=== PATIENT | male | born 1945 | race Caucasian/White ===

== ENCOUNTER → 2020-05-02 12:50 | Outpatient (CLI) | payer MEDICARE, SELFPAY ==
--- NOTE | 2020-05-02 | IMM_PTH ---
PATIENT: HEIDY MARS LOC: [facility] U#:[id number] AGE/SX: 79/M ROOM: RE05/02/[address]: Dr. Andrew Vergara MD : 1945 BED: DIS: SPEC #: [id number] RECD: 05/04/20 12:26 STATUS: SHADE REQ #: [id number] ADRIANO: 05/02/20 00:[address]: Andrew Vergara DEPT: IMMUNOHISTOCHEMISTRY RECD BY: Hermila Mcclendon ENTERED: 05/04/20 12:27 SP TYPE: IMMUNO OTHR DR: Dr. Asad Bueno DO Tissues: B - PROSTATE RIGHT C - PROSTATE RIGHT F - PROSTATE LEFT Procedures: 34BE12 (add) P40 (add) 34BE12 (initial) PHYSICIAN & INSTITUTION [place] [id number] SPECIMEN INFORMATION: Tissue Source: B - Right prostate, mid, C - Right prostate, base, F - Left prostate, base Clinical Info: Elevated PSA Specimen Number: [id number] B, C & F CPT code: 69499, 90824 x5 METHODOLOGY: Deparaffinized sections of prefer/formalin-fixed tissue or PAP/DQ stained slides are incubated with monoclonal/polyclonal antibodies/oligonucleotide probes. Localization is made via biotin free immunoperoxidase method. Appropriate controls are performed and reacted as expected. Results on target cell population are indicated in the following table: RESULTS: ANTIBODY / CLONE RESULT Block B 34BE12 (34BE12) positive P40 (BC28) positive Block C 34BE12 (34BE12) positive P40 (BC28) positive Block F 34BE12 (34BE12) negative P40 (BC28) negative These tests were developed and their performance characteristics determined by [facility]. They may not have been cleared or approved by the U.S. Food and Drug Administration. The FDA has determined that such clearance or approval is not necessary. The above immunohistochemical/dualISH markers are ordered and reviewed by the Pathologist. INTERPRETATION: B. Right prostate, mid, core biopsy: Benign prostatic tissue. C. Right prostate, base, core biopsy: Benign prostatic tissue. F. Left prostate, base, core biopsy: Adenocarcinoma. AM:logan 05/05/2020
--- NOTE | 2020-05-02 08:00 | PROSBIL_PTH ---
PATIENT: HEIDY MARS LOC: [facility] U#:[id number] AGE/SX: 79/M ROOM: RE05/02/[address]: Dr. Andrew Vergara MD : 1945 BED: DIS: SPEC #: [id number] RECD: 05/02/20 13:24 STATUS: SHADE JEVON #: [id number] ADRIANO: 05/02/20 08:[address]: Andrew Vergara DEPT: SURGICAL PATHOLOGY RECD BY: Ani Vaughn ENTERED: 05/03/20 07:43 SP TYPE: PROST BX SANTIAGO DR: Dr. Asad Bueno DO Tissues: A - PROSTATE RIGHT B - PROSTATE RIGHT C - PROSTATE RIGHT D - PROSTATE LEFT E - PROSTATE LEFT F - PROSTATE LEFT Procedures: PROSTATE BX HEADER OPERATION: Prostate biopsy PRE-OP DIAGNOSIS: Elevated PSA TISSUE SUBMITTED: A - Right apex, B - Right mid, C - Right base, D - Left apex, E - Left mid, F - Left base MICROSCOPIC DIAGNOSIS A. Right prostate, apex, core biopsy: Focal glandular atrophy. Mild chronic inflammation. B. Right prostate, mid, core biopsy: Glandular atrophy and chronic inflammation. See comment. C. Right prostate, base, core biopsy: Glandular atrophy and mild chronic inflammation. See comment. D. Left prostate, apex, core biopsy: Focal glandular atrophy. Mild chronic inflammation. E. Left prostate, mid, core biopsy: Chronic inflammation and focal glandular atrophy. F. Left prostate, base, core biopsy: Adenocarcinoma. [place] grade: 6 (3+3) Cores involved: 2 out of 2 cores Tissue involved: 35% Greatest tumor length: 3.5 mm See comment. AM:logan 05/04/2020 COMMENT B, C & F - Immunohistochemistry ([id number]) supports the above diagnosis. MICROSCOPIC DESCRIPTION Slides are reviewed. GROSS DESCRIPTION A - Received is one container designated prostate, right apex. The specimen consists of one elongated fragment of light whitney-white soft tissue measuring 1 cm in length and 0.1 cm in diameter. The specimen is totally submitted in one cassette. B - Received is one container designated prostate, right mid. The specimen consists of two elongated fragments of light whitney-white soft tissue each measuring 1 cm in length and 0.1 cm in diameter. The specimen is totally submitted in one cassette. C - Received is one container designated prostate, right base. The specimen consists of two elongated fragments of light whitney-white soft tissue each measuring 1 cm in length and 0.1 cm in diameter. The specimen is totally submitted in one cassette. D - Received is one container designated prostate, left apex. The specimen consists of one elongated fragment of light whitney-white soft tissue measuring 1 cm in length and 0.1 cm in diameter. The specimen is totally submitted in one cassette. E - Received is one container designated prostate, left mid. The specimen consists of two elongated fragments of light whitney-white soft tissue each measuring 1 cm in length and 0.1 cm in diameter. The specimen is totally submitted in one cassette. F - Received is one container designated prostate, left base. The specimen consists of two elongated fragments of light whitney-white soft tissue each measuring 1.5 cm in length and 0.1 cm in diameter. The specimen is totally submitted in one cassette. / AM:logan 05/03/20 TC:0 CPT: G0146
== END ==
PROVIDERS: PCP Family Medicine; Visit Provider Urology
DX: R97.20 Elevated prostate specific antigen [PSA] (principal)
CPT/HCPCS: 88305; 88341; 88342; G0416

== ENCOUNTER → 2020-11-02 14:34 | Outpatient (CLI) | payer MEDICARE, SELFPAY | LOC: LABSPEC 14:36 → LAB 11-04 11:02 | PROVIDERS: PCP Family Medicine; Visit Provider Urology | DX: R97.20 Elevated prostate specific antigen [PSA] (principal) | CPT/HCPCS: 36415; 84153 ==

== ENCOUNTER 2021-03-15 11:24 | Outpatient (CLI) | payer MEDICARE, SELFPAY | END 2021-03-15 23:59 | disposition short-term general hospital (02) | LOC: LAB 11:26 | PROVIDERS: PCP Family Medicine; Referring Provider Urology; Visit Provider Urology | DX: R97.20 Elevated prostate specific antigen [PSA] (principal) | CPT/HCPCS: 36415; 84153 ==

== ENCOUNTER → 2021-10-03 | Outpatient (CLI) | payer MEDICARE, SELFPAY ==
[2021-10-03 10:15] LABS: PSA,Total- Diagnostic 8.85 ng/mL (0.0-4.0)
== END | disposition home or self-care (01) ==
PROVIDERS: PCP Family Medicine; Referring Provider Family Medicine; Visit Provider Family Medicine
DX: R53.83 Other fatigue (principal); C61 Malignant neoplasm of prostate
CPT/HCPCS: 36415; 84153; 84403

== ENCOUNTER → 2022-04-10 | Outpatient (CLI) | payer MEDICARE, SELFPAY ==
[2022-04-10 15:33] LABS: PSA,Total- Diagnostic 6.88 ng/mL (0.0-4.0)
== END | disposition home or self-care (01) ==
PROVIDERS: PCP Family Medicine; Referring Provider Urology; Visit Provider Urology
DX: R97.20 Elevated prostate specific antigen [PSA] (principal)
CPT/HCPCS: 36415; 84153

== ENCOUNTER → 2022-10-08 | Outpatient (CLI) | payer MEDICARE, SELFPAY ==
[2022-10-08 09:56] LABS: PSA,Total - Annual Screen 6.16 ng/mL (0.00-4.00)
== END | disposition home or self-care (01) ==
LOC: LAB 08:51
PROVIDERS: PCP Family Medicine; Referring Provider Urology; Visit Provider Urology
DX: Z12.5 Encounter for screening for malignant neoplasm of prostate (principal)
CPT/HCPCS: 36415; 84153; G0103

== ENCOUNTER → 2023-04-10 | Outpatient (CLI) | payer MEDICARE, SELFPAY ==
[2023-04-10 15:02] LABS: PSA,Total- Diagnostic 4.71 ng/mL (0.0-4.0)
== END | disposition home or self-care (01) ==
LOC: LAB 13:10
PROVIDERS: PCP Family Medicine; Referring Provider Urology; Visit Provider Urology
DX: C61 Malignant neoplasm of prostate (principal)
CPT/HCPCS: 36415; 84153

== ENCOUNTER → 2023-10-15 | Outpatient (CLI) | payer MEDICARE, SELFPAY | END | disposition home or self-care (01) | LOC: LAB 12:54 | PROVIDERS: PCP Family Medicine; Referring Provider Nurse Practitioner; Visit Provider Nurse Practitioner | DX: C61 Malignant neoplasm of prostate (principal) | CPT/HCPCS: 36415; 84153 ==

== ENCOUNTER → 2024-04-20 | Outpatient (CLI) | payer MEDICARE, SELFPAY ==
[2024-04-20 09:37] LABS: PSA,Total- Diagnostic 6.55 ng/mL (0.00-4.00)
== END | disposition home or self-care (01) ==
PROVIDERS: PCP Family Medicine; Referring Provider Urology; Visit Provider Urology
DX: C61 Malignant neoplasm of prostate (principal)
CPT/HCPCS: 36415; 84153

== ENCOUNTER → 2024-10-05 | Outpatient (CLI) | payer MEDICARE, SELFPAY ==
[2024-10-05 12:06] LABS: PSA,Total- Diagnostic 3.93 ng/mL (0.00-4.00)
== END | disposition home or self-care (01) ==
LOC: LAB 10:33
PROVIDERS: PCP Family Medicine; Referring Provider Nurse Practitioner; Visit Provider Nurse Practitioner
DX: C61 Malignant neoplasm of prostate (principal)
CPT/HCPCS: 36415; 84153

== ENCOUNTER 2024-10-21 15:00 | Inpatient (IN) | payer MEDICARE, SELFPAY ==
--- NOTE | 2024-10-15 16:56 | PAT.ANE_ITS ---
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 When Was Last Pacemaker Check QUESTION #4 FULL TEXT: You/Your Family Experience fever (hyperthermia) with Anesthesia Last Oral Intake Last Oral intake: Last Oral Intake NPO since Meds taken in AM with sips of water? Meds patient instructed to take am of surgery PONV PONV - compliance auditor: PONV - compliance auditor Female No 10/14/24 11:35 HX of Motion Sickness No 10/14/24 11:35 HX of N/V After Surgery No 10/14/24 11:35 Non-Smoker Yes 10/14/24 11:35 Duration of Surgery greater Yes 10/14/24 11:35 than 60 minutes Number of Risk Factors 2 10/14/24 11:35 PONV Score Moderate Risk 10/14/24 11:35 Respiratory Assessment Respiratory Assessment - compliance auditor: Respiratory Tract Infection Hx - compliance auditor Hx Respiratory Tract Infection No 10/14/24 11:35 STOP Sleep Apnea STOP Sleep Apnea - compliance auditor: STOP Sleep Apnea - compliance auditor Hx Hypertension Yes: CONTROLLED WITH MED 10/14/24 11:35 Hx Sleep Apnea No 10/14/24 11:35 CPAP BIPAP Do you snore loudly (louder No 10/14/24 11:35 than talking or can be heard Do you often feel tired/ Yes 10/14/24 11:35 fatigued/ sleepy during daytime? Has anyone observed you stop No 10/14/24 11:35 breathing during sleep? STOP Results Positive 10/14/24 11:35 QUESTION #5 FULL TEXT : Do you snore loudly (louder than talking or can be heard through closed doors)? 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 confused, unrespo /Reproduction History /Reproductive History - compliance auditor: /Reproductive Hx- compliance auditor Hx Now No 10/14/24 11:35 Gestational Age (in weeks): EDC: Hx Hx Para Hx Section SAB No 10/14/24 11:35 PFSH Medical History (Updated 10/14/24 @ 11:47 by Mini Johnson) Wears glasses Wears dentures Alzheimer dementia Anxiety Arthritis Prostate disease Former smoker Sleep apnea Leg cramps History of stress test Cardiology follow-up encounter Frequent falls BPH (benign prostatic hyperplasia) Atherosclerosis of coronary artery of [place] heart without angina pectoris B12 deficiency Depression Hyperlipidemia Essential hypertension Rheumatoid arthritis Home Medications ?Medication ?Instructions ?Recorded ?Last Taken ?Type amlodipine 2.5 mg tablet 2.5 mg PO QDAY BP 10/29/23 U nknown History cholecalciferol (vitamin D3) 50 50 mcg PO QDAY SUPPLEM ENT 10/29/23 Unknown History mcg (2,000 unit) tablet cyanocobalamin (vitamin B-12) 1,000 mcg PO QHS SUPPLEM ENT 10/29/23 Unknown History 1,000 mcg tablet ezetimibe 10 mg tablet (Zetia) 10 mg PO QDAY CHOLESTER OL 10/29/23 Unknown History finasteride 5 mg tablet 5 mg PO QDAY PROSTATE Unknown History losartan 50 mg tablet 50 mg PO QDAY BP 10/29/23 Un known History vitamins A,C,P-flpq-vwcuwg 4,296 1 cap PO BID EYE FOZIA MIN 10/29/23 Unknown History mcg-226 mg-90 mg capsule (PreserVision AREDS) RELIEF FACTOR 1 tab PO BID ARTHRITIS 10/14 Unknown History coenzyme Q10 100 mg capsule (Co 200 mg PO DAILY SUPPLE MENT 10/14/24 Unknown History Q-10) diphenhydramine 25 1 tab PO QHS PRN sleep 10/14 Unknown History mg-acetaminophen 500 mg tablet memantine 10 mg tablet (Namenda) 10 mg PO BID ALZEHEIM ERS 10/14/24 Unknown History tamsulosin 0.4 mg capsule 0.4 mg PO QHS PROSTATE 10/14 Unknown History venlafaxine 150 mg 150 mg PO DAILY DEPRESSION 0 10/14/24 Unknown History capsule,extended release 24 hr Allergy/AdvReac Type Severity Reaction Status Date / Time isosorbide Allergy Unknown unknown Verified 10/14/24 11:26 Sulfa (Sulfonamide Allergy Unknown unknown Verified 10/14/24 11:26 Antibiotics) sulfacetamide Allergy Unknown unknown Verified 10/14/24 11:26 Family History (Updated 11/01/23 @ 14:29 by Adelaide Patel) Father Cancer Brother Suicide Surgical History (Updated 10/14/24 @ 11:47 by Mini Johnson) History of coronary artery stent placement History of colonoscopy History of left heart catheterization (09/12/20) Social History (Updated 11/01/23 @ 14:38 by Adelaide Patel) Smoking Status: Former smoker how long ago did patient quit smoking: stopped at age 54 alcohol intake: former year quit: 39y substance use type: does not use caffeine: Yes Type: carbonated beverages Number of servings: 2 Audit: Pertinent Findings Pertinent Findings EKG Perinent findings: 10/05/2024. Sinus rhythm. Multiple PVCs. Abnormal R wave progression. Borderline repolarization abnormality. Prolonged QT interval. Stress test pertinent findings: September 19, 2022. Negative for ischemia per EKG criteria. EF 51%. No ischemia. No infarct. Echo (EF%) pertinent findings: September 19, 2022.. EF 55 to 60%. No aortic stenosis noted. Heart catheterization pertinent findings: 09/13/2019. Widely patent stent in the LAD. A jailed D2 with stable ostial disease that is not significant. Consult pertinent findings: 09/07/2024. KEILY SUE. 1. CAD in [place] arteries?stable. No anginal symptoms. Patient is intolerant to statins. Continue aspirin, Zetia. Consider Repatha. Recent heart cath (09/13/2019) showed stable CAD. Widely patent stent in the LAD. A jailed D2 with stable ostial disease that is not significant. Patient is exercising regularly. Continue ezetimbe. 2. Hypertension?controlled continue losartan and amlodipine. Recommendation Anesthesia Recommendation Anesthesia recommendation: OPTIMIZED for anesthesia
[2024-10-21] VITALS (14 sets, daily range): BP systolic 117–172; BP diastolic 68–103; PULSE 65–78; RESP 16–17; TEMP 36.3–37; O2SAT 88–100; BMI 24.1
[2024-10-21] MEDS: Lactated Ringers 1,000 ML 15 ML IV (12:07)
--- NOTE | 2024-10-21 12:29 | PCM.PRE.AN2 ---
ASA Classification* ASA Classification ASA Classification: 3 (Prolonged QTc - NO ZOFRAN. Recommend doing TIVA to avoid PONV and due to alzheimers (reduce postop confusion). Patient also has HTN, CAD x stent, FIDEL. ) Assessment & Plan Anesthesia* Anesthesia Assessment Anesthesia Assessment: Discussed sedation and/or anesthesia options, risks, benefits, and alternatives with patient/parents/legal guardian/POA. Questions invited. The patient/parents/legal guardian/POA seems to understand and agrees to proceed with anesthesia plan. Reviewed the physical assessment, medical history, allergy history and patient home medications list prior to surgery/procedure/anesthetic and documented any changes. Performed airway and anesthesia risk assessments. Anesthesia Type Anesthesia Type: General History Source History Obtained from:: Patient and Chart Anesthesia Focused Assessment* Temperature: 98.6 F Pulse Rate: 78 Blood Pressure: 161/86 Respiratory Rate: 16 Pulse Ox: 98 Oxygen Delivery Method: Room Air Airway Assessment Mouth opens: >3 cm Mallampati Score: II Neck Range of motion (ROM): Full ROM Labs Anesthesia Preop lab: CBC WBC 5.4 K/mm3 (4.4-11.0) 03/23/14 12:15 03/23/14 RBC 5.10 M/mm3 (4.6-6.2) 03/23/14 12:15 03/23/14 Hgb 15.6 g/dl (13.0-16.5) 03/23/14 12:15 03/23/14 Hct 47.6 % (40-54) 03/23/14 12:15 03/23/14 Plt Count 190 K/mm3 (150-450) 03/23/14 12:15 03/23/14 CHEMISTRY Potassium 4.1 mmol/L (3.5-5.1) 03/23/14 12:15 03/23/14 Sodium 138 mmol/L (136-145) 03/23/14 12:15 03/23/14 BUN 10 mg/dL (7-18) 03/23/14 12:15 03/23/14 Creatinine 1.0 mg/dL (0.8-1.3) 03/23/14 12:15 03/23/14 Glucose 101 mg/dL (70-110) 03/23/14 12:15 02/03/15 TSH 1.92 uIU/mL (0.358-3.74) 03/23/14 12:15 03/23/14 COAG Pre-Assessment Diagnosis/Proposed Procedure Planned Operative Procedure(s): CYSTO,TURP Anesthesia History 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 When Was Last Pacemaker Check QUESTION #4 FULL TEXT: You/Your Family Experience fever (hyperthermia) with Anesthesia Last Oral Intake Last Oral intake: Last Oral Intake NPO since 10:00 10/21/24 12:02 Meds taken in AM with sips of Yes 10/21/24 12:02 water? 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 - bull wheel worker Female No 10/14/24 11:35 HX of Motion Sickness No 10/14/24 11:35 HX of N/V After Surgery No 10/14/24 11:35 Non-Smoker Yes 10/14/24 11:35 Duration of Surgery greater Yes 10/14/24 11:35 than 60 minutes Number of Risk Factors 2 10/14/24 11:35 PONV Score Moderate Risk 10/14/24 11:35 Height & Weight Height & Weight: Anesthesia: Height & Weight Height 5 ft 7 in 10/21/24 12:02 Weight: 70 kg 10/21/24 12:02 Body Mass Index (BMI) 24.1 10/21/24 12:02 Respiratory Assessment Respiratory Assessment - bull wheel worker: Respiratory Tract Infection Hx - bull wheel worker Hx Respiratory Tract Infection No 10/14/24 11:35 STOP Sleep Apnea STOP Sleep Apnea - bull wheel worker: STOP Sleep Apnea - bull wheel worker Hx Hypertension Yes: CONTROLLED WITH MED 10/14/24 11:35 Hx Sleep Apnea No 10/14/24 11:35 CPAP BIPAP Do you snore loudly (louder No 10/14/24 11:35 than talking or can be heard Do you often feel tired/ Yes 10/14/24 11:35 fatigued/ sleepy during daytime? Has anyone observed you stop No 10/14/24 11:35 breathing during sleep? STOP Results Positive 10/14/24 11:35 QUESTION #5 FULL TEXT : Do you snore loudly (louder than talking or can be heard through closed doors)? 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 confused, unrespo /Reproduction History /Reproductive History - bull wheel worker: /Reproductive Hx- bull wheel worker Hx Now No 10/14/24 11:35 Gestational Age (in weeks): EDC: Hx Hx Para Hx Section SAB No 10/14/24 11:35 Active Medications Active Medications: Current Medications Generic Name Dose Route Start Last Admin Trade Name Freq PRN Reason Stop Dose Admin Cefazolin Sodium 2 gm/ Sodium 110 mls @ 200 mls/hr 10/21/24 13:15 Chloride IV 10/21/24 13:47 INTRAOP ONE Lactated Ringer's 1,000 mls @ 15 mls/hr 10/21/24 11:30 10/21/24 12:07 IV 15 mls/hr .Q48H LEIGH ANN Administration [facility] Medical History (Updated 10/14/24 @ 11:47 by Mini Johnson) Wears glasses Wears dentures Alzheimer dementia Anxiety Arthritis Prostate disease Former smoker Sleep apnea Leg cramps History of stress test Cardiology follow-up encounter Frequent falls BPH (benign prostatic hyperplasia) Atherosclerosis of coronary artery of [place] heart without angina pectoris B12 deficiency Depression Hyperlipidemia Essential hypertension Rheumatoid arthritis Home Medications ?Medication ?Instructions ?Recorded ?Last Taken ?Type amlodipine 2.5 mg tablet 2.5 mg PO QDAY BP 10/29/23 10/21/24 History cholecalciferol (vitamin D3) 50 50 mcg PO QDAY SUPPLEMENT 10/29/23 10/20/24 History mcg (2,000 unit) tablet cyanocobalamin (vitamin B-12) 1,000 mcg PO QHS SUPPLEMENT 10/29/23 10/20/24 History 1,000 mcg tablet ezetimibe 10 mg tablet (Zetia) 10 mg PO QDAY CHOLESTEROL 10/29/23 10/21/24 History finasteride 5 mg tablet 5 mg PO QDAY PROSTATE 10/29/23 10/21/24 History losartan 50 mg tablet 50 mg PO QDAY BP 10/29/23 10/21/24 History vitamins A,C,N-ujzi-ugjqmx 4,296 1 cap PO BID EYE VITAMIN 10/29/23 10/20/24 History mcg-226 mg-90 mg capsule (PreserVision AREDS) RELIEF FACTOR 1 tab PO BID ARTHRITIS 10/14/24 10/20/24 History coenzyme Q10 100 mg capsule (Co 200 mg PO DAILY SUPPLEMENT 10/14/24 10/20/24 History Q-10) diphenhydramine 25 1 tab PO QHS PRN sleep 10/14/24 10/14/24 History mg-acetaminophen 500 mg tablet memantine 10 mg tablet (Namenda) 10 mg PO BID ALZEHEIMERS 10/14/24 10/21/24 History tamsulosin 0.4 mg capsule 0.4 mg PO QHS PROSTATE 10/14/24 10/20/24 History venlafaxine 150 mg 150 mg PO DAILY DEPRESSION 10/14/24 10/21/24 History capsule,extended release 24 hr Allergy/AdvReac Type Severity Reaction Status Date / Time isosorbide Allergy Unknown unknown Verified 10/21/24 11:57 Sulfa (Sulfonamide Allergy Unknown unknown Verified 10/21/24 11:57 Antibiotics) sulfacetamide Allergy Unknown unknown Verified 10/21/24 11:57 Family History (Updated 11/01/23 @ 14:29 by Adelaide Patel) Father Cancer Brother Suicide Surgical History (Updated 10/14/24 @ 11:47 by Mini Johnson) History of coronary artery stent placement History of colonoscopy History of left heart catheterization (09/12/20) Social History (Updated 11/01/23 @ 14:38 by Adelaide Patel) Smoking Status: Former smoker how long ago did patient quit smoking: stopped at age 54 alcohol intake: former year quit: 39y substance use type: does not use caffeine: Yes Type: carbonated beverages Number of servings: 2 Review of Systems (Anesthesia) ROS Narrative System reviewed and no additional complaints, except as documented. Physical Exam Const alert, oriented x3 and average body habitus Resp normal respiratory effort, normal air movement and clear to auscultation bilaterally Cardio regular rate, regular rhythm and no murmurs
--- NOTE | 2024-10-21 13:15 | PROS_PTH ---
PATIENT: HEIDY MARS LOC: [facility] U#:[id number] AGE/SX: 79/M ROOM: [facility] RE10/26/[address]: Dr. Andrew Vergara MD : 1945 BED: 1 DIS: 10/28/2024 SPEC #: [id number] RECD: 10/21/24 16:07 STATUS: SHADE ESCOTO #: [id number] ADRIANO: 10/21/24 13:[address]: Andrew Vergara DEPT: SURGICAL PATHOLOGY RECD BY: Curt Pfeiffer ENTERED: 10/22/24 11:19 SP TYPE: TURP OTHR DR: Dr. Asad Bueno, DO Tissues: A - Prostate, NOS Procedures: Surgery Specimen Level IV HEADER OPERATION: Cystoscopy, transurethral resection, prostate PRE-OP DIAGNOSIS: Benign prostatic hyperplasia with lower urinary tract symptoms, elevated prostatic specific antigen, malignant neoplasm of prostate TISSUE SUBMITTED: A- Prostate tissue MICROSCOPIC DIAGNOSIS A. Prostate, transurethral resection: - Benign prostate tissue. MICROSCOPIC DESCRIPTION Slides are reviewed. GROSS DESCRIPTION A. Received in formalin labeled with the patient's name and date of . Designated as prostate tissue is an 8.1 g, 5.9 x 4.8 x 1.3 cm aggregate of irregular, whit[place], rubbery and cauterized tissue fragments. Entirely submitted in 7 cassettes. [place] 10/22/2024 CPT:16414
[2024-10-21] MEDS: Cefazolin 1 GM/5 ML Vial 2 GM IV (13:58)
[2024-10-21] MEDS: PROPOFOL 47.93 MG IV (14:03)
[2024-10-21] MEDS: Lidocaine 1% (5 ml sdv) 5 ML Vial 8 ML IV (14:03)
[2024-10-21] MEDS: fentaNYL 100 MCG/2 ML Ampul IV (14:24)
--- NOTE | 2024-10-21 15:06 | DCINST_ITS ---
Discharge Instructions DC O2, CPAP, BIPAP needs Home O2 Discharge instructions: No Dressing / Incision Discharge Activity: May Not Drive May shower in (days): 1 Dressing / Incision Call your doctor if your incision/area has: Sudden Increased Bleeding Call your doctor if you observe: Fever of 101 or Higher Catheter: Bagley to leg bag and Bagley to large bag Drain: [place] Follow Up Care Please Follow Up With: Andrew Vergara MD When: Call [phone] for an appointment Test Results: Test results from this visit will be discussed in further detail at your follow- up appointment, if applicable. Discharge Plan Admission Primary Reason for Your Visit: turp Attending Provider: Andrew Vergara Primary Care Provider: Asad Bueno Instructions Print Language: [place] Discharge Orders/Prescriptions Prescriptions: New ciprofloxacin HCl [Cipro] 500 mg tablet 500 mg PO BID Qty: 10 0RF Continued cyanocobalamin (vitamin B-12) 1,000 mcg tablet 1,000 mcg PO QHS amlodipine 2.5 mg tablet 2.5 mg PO QDAY losartan 50 mg tablet 50 mg PO QDAY finasteride 5 mg tablet 5 mg PO QDAY ezetimibe [Zetia] 10 mg tablet 10 mg PO QDAY PreserVision AREDS 4,296 mcg-226 mg-90 mg capsule 1 cap PO BID cholecalciferol (vitamin D3) 50 mcg (2,000 unit) tablet 50 mcg PO QDAY venlafaxine 150 mg capsule,extended release 24hr 150 mg PO DAILY memantine [Namenda] 10 mg tablet 10 mg PO BID coenzyme Q10 [Co Q-10] 100 mg capsule 200 mg PO DAILY RELIEF FACTOR 1 tab PO BID diphenhydramine-acetaminophen 25-500 mg tablet 1 tab PO QHS PRN (Reason: sleep) tamsulosin 0.4 mg capsule 0.4 mg PO QHS Referrals / Follow Up: Asad Bueno DO [Primary Care Provider] - Andrew Vergara MD [Med Staff - Active Staff] - Disposition Disposition (needs filled in before D/C Order can be placed): Home, Self Care
--- NOTE | 2024-10-21 15:07 | OP.PCM_ITS ---
Operative Report (Standard) Operative Information Date of Procedure: 10/21/24 Pre-Operative Diagnosis: BPH with obstruction Post-Operative Diagnosis: The same Surgery/Procedure Performed: Transurethral section of the prostate and cystoscopy and right stent placement ditching machine operating engineer: No Type of Anesthesia: General RN Documented Start/Stop Times: Operation Date: 10/21/24 13:15 Case Time Into Pre-Op 10/21/24 11:20 Out of Pre-Op 10/21/24 13:55 Anesthesia Start 10/21/24 13:58 Into Room 10/21/24 13:58 Procedure Start 10/21/24 14:13 Procedure End 10/21/24 14:56 Anesthesia End 10/21/24 15:05 Out of Room 10/21/24 15:05 Procedure Start Time: 14:13 Procedure Stop Time: 14:56 Select all DRAINS/GRAFTS/IMPLANTS that apply: Drains Drain details: Stent placement of the right side, Bagley placement continuous bladder irrigation Estimated Blood Loss: 25 cc Specimen collected: Yes Description of specimen(s) removed: Prostate tissue Description of surgery: 79-year-old male with BPH and obstruction very large prostate he has a significant obstruction with the prostate he has been on maximal medical therapy with Flomax and Proscar still having difficulties emptying his bladder going to the bathroom frequently and up and in his bladder completely so organ to offered him a transurethral resection of prostate hoping open of the prostate will alleviate his symptoms course is no guarantees that this will happen. Today organ to take him back for TURP. Patient underwent general anesthetic he was placed in dorsolithotomy position th e penis and testicles were prepped and draped in usual fashion I first dilated the meatus starting from 16 [place] up to 32 [place] to allow for a 26 [place] continuous-flow Olympus bipolar resectoscope I went into the bladder he had a small median lobe identified the right and left ureteral orifice I then started resecting the median lobe and resecting back to the verumontanum I resected the entire right lobe of the prostate completely, I resected the entire left lobe the prostate completely had a nice wide open channel very carefully resected the apical tissue but still left enough tissue in the apex for the sphincter and then went back in the bladder as I was resecting I then noticed that the bladder neck was undermined I went up and inspected I was able to find the left ureteral orifice but the right UO orifice was not able to identify it took a long time to identify and finally identified to the right ureter was had been resected during the TURP during the undermining of the bladder neck so decided place a stent to make sure that the stent the ureter on the right side will heal properly went back in with the cystoscope took some time to find it but I was able to find the right ureteral orifice within the bladder neck that was undermined and put a wire up on that side and then put a stent on that side this will out of the ureter healed up and that that side I then cauterize the prostate got all the bleeding stopped we will put a catheter for continuous irrigation he will spend the night in the hospital with irrigation he ought to go home with a catheter since the bladder neck was undermined and what the remove the stent in about a month from now told the family the findings of surgery otherwise had a nice resection of the prostate and once it all heals up hopefully he will be able to urinate better Surgical Findings: Prostate resected completely bladder neck undermined and ureteral injury of the right side during resection so stent placed on the right side and Bagley placed Complications Complications: Yes Complication Details: Ureteral injury on the right side stent placed on the right side Admit VTE Documentation VTE Present on Admission: No VTE Mechan Device Prophylaxis: SCD's VTE Pharm Prophylaxis ordered?: No
--- NOTE | 2024-10-21 15:12 | PCM.POST.ANE ---
Anesthesia: Postop Eval I Current Vital Signs Temperature: 97.8 F Pulse Rate: 65 Blood Pressure: 117/68 Respiratory Rate: 16 Pulse Ox: 95 Assessment Airway patent: Yes Spontaneous unlabored respirations: Yes nausea: No Vomiting: No Anesthesia Complication: No Fluid Hydration Crystalloid volume administer (ml): 800 Total IV fluid infused: 800 Progress Note Anesthesia document: Postop Eval 1 completed: Yes
--- NOTE | 2024-10-21 15:55 | POSTOPAN2_ITS ---
Anesthesia Postop Eval I Sum Postop Eval Completion status Anesthesia document: Postop Eval 1 completed: Yes Anesthesia Postop Eval I Summary Anesthesia Postop Eval I Summary: Anesthesia Postop Eval I: Assessment Summary Airway patent Yes 10/21/24 15:12 REVIEW [email or web address] Spontaneous unlabored Yes 10/21/24 15:12 REVIEW [email or web address] respirations Mental status nausea No 10/21/24 15:12 REVIEW [email or web address] Vomiting No 10/21/24 15:12 REVIEW [email or web address] Anesthesia Postop Eval I: Fluid Summary Crystalloid volume administer 800 10/21/24 15:12 REVIEW [email or web address] (ml) Colloids volume administered ( ml) Blood Product volume administered (ml) Total IV fluid infused 800 10/21/24 15:12 REVIEW [email or web address] Anesthesia Postop Eval I: Summary Notes Anesthesia Complication No 10/21/24 15:12 REVIEW [email or web address] Anesthesia Complication Comment: Post-operative progress note Anesthesia: Postop Eval II Evaluation Mental status: Awake Pain Level: 0 nausea: No Vomiting: No Complications Anesthesia Complication: No
--- NOTE | 2024-10-21 15:55 | PCM.POSTANE2 ---
Anesthesia Postop Eval I Sum Postop Eval Completion status Anesthesia document: Postop Eval 1 completed: Yes Anesthesia Postop Eval I Summary Anesthesia Postop Eval I Summary: Anesthesia Postop Eval I: Assessment Summary Airway patent Yes 10/21/24 15:12 [email or web address] Spontaneous unlabored Yes 10/21/24 15:12 [email or web address] [email or web address] respirations Mental status nausea No 10/21/24 15:12 [email or web address] [email or web address] Vomiting No 10/21/24 15:12 [email or web address] Anesthesia Postop Eval I: Fluid Summary Crystalloid volume administer 800 10/21/24 15:12 [email or web address] (ml) Colloids volume administered ( ml) Blood Product volume administered (ml) Total IV fluid infused 800 10/21/24 15:12 [email or web address] Anesthesia Postop Eval I: Summary Notes Anesthesia Complication No 10/21/24 15:12 [email or web address] Anesthesia Complication Comment: Post-operative progress note Anesthesia: Postop Eval II Evaluation Mental status: Awake Pain Level: 0 nausea: No Vomiting: No Complications Anesthesia Complication: No
[2024-10-21] MEDS: 0.9% Normal Saline (1000mL) 1,000 ML 75 ML IV (16:12)
[2024-10-21] MEDS: Memantine Hydrochloride 10 MG Tablet PO (21:29)
[2024-10-22] VITALS (10 sets, daily range): BP systolic 93–148; BP diastolic 45–81; PULSE 68–87; RESP 16–20; TEMP 36.5–36.9; O2SAT 89–98
--- NOTE | 2024-10-22 03:14 | PCM.PN.GU ---
Subjective Subjective s/p turp confused and pulled out his chang tonight nurse put in a 20 fr but too bloody so came in and used a catheter guide and placed a 22fr [address] way able to irrigate continue CBI do no stop in am, urine v bloody. Objective Data Objective Data Vital Signs: Vital Signs Temp Pulse Resp BP Pulse Ox O2 Del Method O2 Flow Rate 97.8 F 68 18 148/75 H 98 Nasal Cannula 2 10/22/24 00:42 10/22/24 00:42 10/22/24 00:42 10/22/24 00:42 10/22/24 00:42 10/22/24 00:42 10/22/24 00:42 Oxygen Flow Rate (L/min) 2 Oxygen Delivery Method Nasal Cannula Weight: 70 kg Body Mass Index (BMI) 24.1 Intake & Output: Intake and Output for Last 24 Hours 10/20/24 10/21/24 10/22/24 23:59 23:59 23:59 Intake Total 1000 / 1000 Output Total Balance 990 / 990
[2024-10-22] MEDS: 0.9% Normal Saline (1000mL) 1,000 ML 75 ML IV ×2 (05:48→17:20)
[2024-10-22] MEDS: 0.9% Saline Lock 10 ML Syringe IV (05:49)
[2024-10-22 05:57] LABS: Hematocrit 37.0 % (40-54); Hemoglobin 12.3 g/dL (13.0-16.5); Immature Granulocytes Count 0.070 X10^3/uL (0.0-0.0); Mean Corp Hgb Conc 33.2 g/dL (32-36); Mean Corpuscular Volume 97.6 fL (80-94); Mean Platelet Vol. 10.0 fl (6.2-12.0); NRBC Flagged by Analyzer 0 % (0-5); Platelet Count 201 K/mm3 (150-450); RBC Distribution Width CV 12.8 % (11.6-14.6); RBC Distribution Width SD 45.9 fl (35.1-43.9); Red Blood Count 3.79 M/mm3 (4.6-6.2); White Blood Count 21.8 K/mm3 (4.4-11.0)
[2024-10-22 06:19] LABS: Anion Gap 13 (5-15); BUN 10 mg/dL (4-19); BUN/Creat Ratio 12.7 RATIO (10-20); Calcium,Total 8.3 mg/dL (7.6-11.0); Carbon Dioxide 22.3 mmol/L (21.0-32.0); Chloride 100 mmol/L (98-108); Estimated Creatinine Clearance 67.71 ml/min (50-250); Glucose 190 mg/dL (70-99); Potassium 3.9 mmol/L (3.3-5.1)
--- NOTE | 2024-10-22 07:27 | PN.URO_ITS ---
Subjective Subjective Status post TURP yesterday he unfortunately traumatically removed his catheter last night he was confused he is better this morning but urine still fairly bloody recommend continue CBI will not remove the Bagley catheter today hopefully by tomorrow we can send him home with a catheter we will see how it goes for now discontinue bladder irrigation do not stop Objective Data Objective Data Vital Signs: Vital Signs Temp Pulse Resp BP Pulse Ox O2 Del Method O2 Flow Rate 97.8 F 83 18 120/81 H 96 Nasal Cannula 2 10/22/24 06:31 10/22/24 06:31 10/22/24 06:31 10/22/24 06:31 10/22/24 06:31 10/22/24 06:31 10/22/24 06:31 Oxygen Flow Rate (L/min) 2 Oxygen Delivery Method Nasal Cannula Weight: 70 kg Body Mass Index (BMI) 24.1 Intake & Output: Intake and Output for Last 24 Hours 10/20/24 10/21/24 10/22/24 23:59 23:59 23:59 Intake Total 1000 / 1000 1000 / 1000 Output Total 560 / 560 1000 / 1000 Balance 440 / 440 0 / 0 Lab / Micro Data 10/22/24 05:40 10/22/24 05:40 Labs: Laboratory Results - last 24 hr 10/22/24 05:40: WBC 21.8 H, RBC 3.79 L, Hgb 12.3 L, Hct 37.0 L, MCV 97.6 H, MCH 32.5 H, MCHC 33.2, RDW Std Deviation 45.9 H, RDW Coeff of Damari 12.8, Plt Count 201, MPV 10.0, Immature Gran % (Auto) 0.300, Neut % (Auto) 87.2 H, Lymph % (Auto) 5.4 L, Whitley % (Auto) 6.8, Eos % (Auto) 0.0, Baso % (Auto) 0.3, Absolute Neuts (auto) 19.0 H, Absolute Lymphs (auto) 1.18, Nucleated RBC % 0, Sodium 135, Potassium 3.9, Chloride 100, Carbon Dioxide 22.3, Anion Gap 13, BUN 10, Creatinine 0.76, Estim Creat Clear Calc 67.71, Est GFR (MDRD) Non-Af 90, BUN/Creatinine Ratio 12.7, Glucose 190 H, Calcium 8.3, Blood Type A POSITIVE, Antibody Screen NEGATIVE
[2024-10-22] MEDS: Multivitamin (Healthy Eyes) Capsule 1 CAP PO ×2 (10:05→15:56)
[2024-10-22] MEDS: Memantine Hydrochloride 10 MG Tablet PO ×2 (10:05→21:07)
--- NOTE | 2024-10-22 11:40 | CASEMGMT ---
BLANK Met with patient to complete BLANK form. BLANK form and its content were verbally explained and patient's questions were answered to the best of my ability.? Patient voiced understanding and signed BLANK form.? Patient provided a copy of signed BLANK form and original placed in patient's chart.? Patient had no further questions. Olya Brooks, Discharge Planning Asst
[2024-10-23 02:29] VITALS: BP 137/76; PULSE 89; RESP 16; TEMP 36.6; O2SAT 97
[2024-10-23 09:47] VITALS: BP 139/68; PULSE 73; RESP 18; TEMP 37.1; O2SAT 93
[2024-10-23] MEDS: Multivitamin (Healthy Eyes) Capsule 1 CAP PO ×2 (09:53→16:37)
[2024-10-23] MEDS: Memantine Hydrochloride 10 MG Tablet PO ×2 (09:54→21:46)
--- NOTE | 2024-10-23 12:15 | CASEMGMT ---
Addendum entered by Sarah Guajardo 10/23/24 16:24: [facility] declined pt and [facility] cannot start until Saturday. TC to pt sig other. She is aware of SUPERCHARGE REPAIR SUPERVISOR and would like to wait for [facility]. She is aware that a walker can be taken from stock from [facility] at time of dc as there is not another provider who will deliver on the weekend. Green sheet on chart for HH and walker. Pt sig other denies further needs. Addendum entered by Sarah Guajardo 10/23/24 14:55: [facility] accepted pt but cannot see pt until Saturday possibly Saturday. RN paged Dr. Vergara to determine dc date. Requested dc housing assistant to send to other preferences to see if pt is accepted and if he could be seen sooner. Addendum entered by Sarah Guajardo 10/23/24 14:43: Received 3 choices from sig other 1. [facility] 2. [facility] 3. [facility]. TC to sig other. She still seems hesitant for pt to return home. She states she doesn't know what she would do if pt pulls catheter out. She is aware that [facility] nurse would insert this as this would not be required of her. She seems to want confirmation that pt will clear once home and she is aware this RN CM can not obviously guarantee what will happen once pt is home. She is aware that sometimes pt with Alzheimers can worsen after receiving anesthesia and when they are in the hospital because this is not a place they are used to. She agrees to take pt home with [facility]. TC to [facility], spoke with Mei referral made at this time. Original Note: Noted no POA for healthcare in chart. TC to pt dtr Fela. She states pt has a sig other that he has lived with for years. States it is just the two of them in the home. She states pt lives in a single story home with 3 steps to enter through the garage with a rail. She states pt has confusion at baseline. Pt does not drive. Dtr was not aware of the day to day activities and asked RN KEN to call sig pb Schuster. TC to Mariely. She states she is the DPOA for pt and she brought these documents in prior to surgery. She states pt is mostly indep at home but is becoming less and less. Pt showers on own and she assists with LB dressing, meals and groceries. She transports pt to medical appts. Pt does the laundry on own. Mariely states pt is indep and does not use AD. Discussed dc planning as far as pt returning home. She states that she would like the pt to return home but she has never cared for a catheter before and she wouldn't know what to do if he pulled it out. Discussed HHC with Mariely, having SN, PT and RECEIVING TANK OPERATOR. RECEIVING TANK OPERATOR for questions regarding a detention plan for pt when needed. She is aware that has not yet seen pt but the plan as of yesterday was to dc home today with a catheter. She is agreeable to a HH list being sent to her via text. Requested dc airport planner send this. She asks if SNF is covered for pt d/t Alzheimers. Spoke with ASHA then discussed options with her. RN KEN to follow.
--- NOTE | 2024-10-23 12:51 | CASEMGMT ---
Discharge Planning A list of HH providers including quality and resource use data and consistent with the patient's preferred geographic region, medical needs, and insurance network were provided to pts SO (Mariely) via text message from the [employer] Guide link. Olya Brooks, Discharge Planning Asst.
[2024-10-23 13:56] VITALS: BP 134/69; PULSE 81; RESP 18; TEMP 36.8; O2SAT 95
--- NOTE | 2024-10-23 15:14 | CASEMGMT ---
Addendum entered by Olya Brooks 10/23/24 16:22: [facility] has accepted but pt family has chosen [facility]. [facility] referral cancelled. Olya Brooks DC Planning Asst. Addendum entered by Olya Brooks 10/23/24 15:37: [facility] declined d/t no available staffing. Olya Brooks DC Planning Asst. Original Note: Discharge Planning HH referral sent to [facility] and [facility]. Olya Brooks DC Planning Asst.
--- NOTE | 2024-10-23 17:07 | PCM.PN.GU ---
Subjective Subjective s/p turp traumatic chang removal urine now finaly clear i will send him home tomorrow w chang Objective Data Objective Data Vital Signs: Vital Signs Temp Pulse Resp BP Pulse Ox O2 Del Method O2 Flow Rate 98.3 F 81 18 134/69 H 95 Nasal Cannula 2 10/23/24 13:56 10/23/24 13:56 10/23/24 13:56 10/23/24 13:56 10/23/24 13:56 10/23/24 13:56 10/23/24 13:56 Oxygen Flow Rate (L/min) 2 Oxygen Delivery Method Nasal Cannula Weight: 70 kg Body Mass Index (BMI) 24.1 Intake & Output: Intake and Output for Last 24 Hours 10/21/24 10/22/24 10/23/24 23:59 23:59 23:59 Intake Total 1000 / 1000 1865 / 1865 1120 / 1120 Output Total 560 / 560 1800 / 1800 Balance 440 / 440 65 / 65 1120 / 1120 Lab / Micro Data 10/22/24 05:40 10/22/24 05:40
[2024-10-23 20:14] VITALS: BP 135/67; PULSE 82; RESP 18; TEMP 36.9; O2SAT 93
[2024-10-24 03:10] VITALS: BP 144/78; PULSE 85; RESP 18; TEMP 36.8; O2SAT 97
--- NOTE | 2024-10-24 07:32 | DS.PCM_ITS ---
Providers Date of Admission: 10/21/24 Date of Discharge: 10/24/24 Primary Care Physician: Dr. Asad Bueno DO Reason For Visit: TURP Medications at Discharge Home Medications amlodipine 2.5 mg tablet 2.5 mg PO QDAY BP 10/29/23 cholecalciferol (vitamin D3) 50 mcg (2,000 unit) tablet 50 mcg PO QDAY SUPPLEMENT 10/29/23 cyanocobalamin (vitamin B-12) 1,000 mcg tablet 1,000 mcg PO QHS SUPPLEMENT 10/29/23 ezetimibe 10 mg tablet (Zetia) 10 mg PO QDAY CHOLESTEROL 10/29/23 finasteride 5 mg tablet 5 mg PO QDAY PROSTATE 10/29/23 losartan 50 mg tablet 50 mg PO QDAY BP 10/29/23 vitamins A,C,[id number]-[id number] 4,296 mcg-226 mg-90 mg capsule (PreserVision AREDS) 1 cap PO BID EYE VITAMIN 10/29/23 RELIEF FACTOR 1 tab PO BID ARTHRITIS 10/14/24 coenzyme Q10 100 mg capsule (Co Q-10) 200 mg PO DAILY SUPPLEMENT 10/14/24 diphenhydramine 25 mg-acetaminophen 500 mg tablet 1 tab PO QHS PRN sleep 10/14/24 memantine 10 mg tablet (Namenda) 10 mg PO BID ALZEHEIMERS 10/14/24 tamsulosin 0.4 mg capsule 0.4 mg PO QHS PROSTATE 10/14/24 venlafaxine 150 mg capsule,extended release 24 hr 150 mg PO DAILY DEPRESSION 10/14/24 ciprofloxacin HCl 500 mg tablet (Cipro) 500 mg PO BID #10 tabs 10/21/24 Hospital Course Operations TURP Summary of Care Provided Hospital Course: 79-year-old male who had a very large obstructive prostate underwent a transurethral resection of the prostate complicated by injury to the right ureteral orifice a stent was placed on the right side at the time of the surgery also his bladder neck was undermined so I believe the catheter and the plan was to send him home with a catheter the urine was crystal-clear overnight in the middle the night he became confused and ripped out his catheter completely so a new catheter was put in the urine was fairly bloody so at the continue with irrigation now finally off irrigation the urine is clear he can go home with a catheter to let the bladder and the prostate heal off and the trauma I will see him next week in the office to remove the catheter. Weight / BMI Weight Weight: 70 kg Body Mass Index (BMI) 24.1 ABG / Lab / Microbiology Data 10/22/24 05:40 10/22/24 05:40 D/C Instructions May shower in (days): 1 Call your doctor if your incision/area has: Sudden Increased Bleeding Call your doctor if you observe: Fever of 101 or Higher Catheter: Bagley to leg bag and Bagley to large bag Drain: Petroleum DC O2, CPAP, BIPAP Needs Home O2 Discharge instructions: No Please Follow Up With: Andrew Vergara MD When: Call [phone] for an appointment Meaningful Use Info Meaningful Use Meaningful Use Diagnoses (Choose all that apply): None applicable Discharge Plan Admission Admit Date/Time: 10/21/24 15:00 Primary Reason for Your Visit: taye Attending Provider: Andrew Vergara Primary Care Provider: Asad Bueno Discharge Orders/Prescriptions Prescriptions: New ciprofloxacin HCl [Cipro] 500 mg tablet 500 mg PO BID Qty: 10 0RF Continued cyanocobalamin (vitamin B-12) 1,000 mcg tablet 1,000 mcg PO QHS amlodipine 2.5 mg tablet 2.5 mg PO QDAY losartan 50 mg tablet 50 mg PO QDAY finasteride 5 mg tablet 5 mg PO QDAY ezetimibe [Zetia] 10 mg tablet 10 mg PO QDAY PreserVision AREDS 4,296 mcg-226 mg-90 mg capsule 1 cap PO BID cholecalciferol (vitamin D3) 50 mcg (2,000 unit) tablet 50 mcg PO QDAY venlafaxine 150 mg capsule,extended release 24hr 150 mg PO DAILY memantine [Namenda] 10 mg tablet 10 mg PO BID coenzyme Q10 [Co Q-10] 100 mg capsule 200 mg PO DAILY RELIEF FACTOR 1 tab PO BID diphenhydramine-acetaminophen 25-500 mg tablet 1 tab PO QHS PRN (Reason: sleep) tamsulosin 0.4 mg capsule 0.4 mg PO QHS Referrals / Follow Up: Asad Bueno DO [Primary Care Provider] - Andrew Vergara MD [Med Staff - Active Staff] - Disposition Discharge Orders: Discharge Patient (Routine); Ordered 10/24/24 Ordered By: Dr. Andrew Vergara
--- NOTE | 2024-10-24 07:38 | PCM.DC ---
Discharge Instructions DC O2, CPAP, BIPAP needs Home O2 Discharge instructions: No Dressing / Incision Discharge Activity: Return to Normal Activity and May Not Drive (while taking narcotic pain medications.) May shower in (days): 1 Dressing / Incision Call your doctor if your incision/area has: Sudden Increased Bleeding Call your doctor if you observe: Fever of 101 or Higher Catheter: Bagley to leg bag and Bagley to large bag Drain: [place] Follow Up Care Please Follow Up With: Andrew Vergara MD When: Call [phone] for an appointment Test Results: Test results from this visit will be discussed in further detail at your follow-up appointment, if applicable. Discharge Plan Admission Admit Date/Time: 10/21/24 15:00 Primary Reason for Your Visit: turp Attending Provider: Andrew Vergara Primary Care Provider: Asad Bueno Discharge Orders/Prescriptions Prescriptions: New ciprofloxacin HCl [Cipro] 500 mg tablet 500 mg PO BID Qty: 10 0RF Continued cyanocobalamin (vitamin B-12) 1,000 mcg tablet 1,000 mcg PO QHS amlodipine 2.5 mg tablet 2.5 mg PO QDAY losartan 50 mg tablet 50 mg PO QDAY finasteride 5 mg tablet 5 mg PO QDAY ezetimibe [Zetia] 10 mg tablet 10 mg PO QDAY PreserVision AREDS 4,296 mcg-226 mg-90 mg capsule 1 cap PO BID cholecalciferol (vitamin D3) 50 mcg (2,000 unit) tablet 50 mcg PO QDAY venlafaxine 150 mg capsule,extended release 24hr 150 mg PO DAILY memantine [Namenda] 10 mg tablet 10 mg PO BID coenzyme Q10 [Co Q-10] 100 mg capsule 200 mg PO DAILY RELIEF FACTOR 1 tab PO BID diphenhydramine-acetaminophen 25-500 mg tablet 1 tab PO QHS PRN (Reason: sleep) tamsulosin 0.4 mg capsule 0.4 mg PO QHS Referrals / Follow Up: Asad Bueno DO [Primary Care Provider] - Andrew Vergara MD [Med Staff - Active Staff] - Disposition Discharge Orders: Discharge Patient (Routine); Ordered 10/24/24 Ordered By: Dr. Andrew Vergara
[2024-10-24 07:41] VITALS: BP 145/81; PULSE 74; RESP 16; TEMP 36.8; O2SAT 93
[2024-10-24] MEDS: Multivitamin (Healthy Eyes) Capsule 1 CAP PO ×2 (07:49→17:07)
[2024-10-24] MEDS: Memantine Hydrochloride 10 MG Tablet PO ×2 (10:38→22:41)
--- NOTE | 2024-10-24 11:23 | CASEMGMT ---
Social Work SW created in [facility] a list of [facility] facilities in network w/insurance network, in pt's preferred geographic area and complete w/quality and resource use data. IRENE Jacob
--- NOTE | 2024-10-24 12:20 | CASEMGMT ---
Patient has an order for discharge placed by the Urologist. Per rounds, the patient has a history of Alzheimer?s and has removed his Bagley catheter during his stay here. Since, the patient has required a 24/7 sitter. See previous RN CM notes. The original discharge plan was for the patient to return home with the significant other's assistance with home healthcare starting on Saturday and a FWW. However, the patient?s significant other is now stating that she does not feel safe caring for the patient at home in his current condition. RN CM to the patient room at this time. Patient?s significant other and sitter at bedside. Patient?s significant other states that she works and that she will not be able to provide 24/7 care for the patient. Patient's significant other is requesting the patient to go to a prison facility for short-term care until the Bagley can be removed. This sign writer hand educated the patient's significant other that referrals cannot be sent until the patient has been without a sitter for 24 hours. This RN CM also educated the patient's significant other that the patient did well with physical therapy and that the insurance may decline. The patient's significant other states understanding and still wants to pursue the prison facility route regarding disposition. This sign writer hand provided the patient's significant other with the list of prison facilities that are local and in-network with the pt's insurance. At this time, the patient?s SO states that [facility] is the first facility of choice and that [facility] is the second facility of choice. This sign writer hand collaborated with the charge nurse, who states that they will plan to remove the sitter tomorrow morning so referrals can be initiated early Saturday morning. The patient's significant other is aware of this plan and states that she is agreeable. This sign writer hand also provided the patient's significant other with a list of private duty aid to help provide more support for the patient at home. The patient's significant other again states that she does not feel safe caring for the patient at home, even with the assistance of a civil engineer's aide and skilled home healthcare starting on Saturday. 1240: MS[employer] gas pump attendant paged Dr Vergara who states that he plans to keep the pt until Saturday and will consider taking the Bagley out then. CM to the pt's room at this time. Pt's SO informed of the new plan and states appreciation. Pt's SO states that if the Bagley is able to be removed and the pt progresses well in the hospital that she will feel safe with the pt coming home then. Pt's SO denies further questions or concerns. Pt's RN updated. DC Plan: TBD - Follow Urology's input Saturday. SNF vs Home with HHC and FWW.
[2024-10-24 14:31] VITALS: BP 132/56; PULSE 73; RESP 16; TEMP 37.2; O2SAT 92
[2024-10-24 20:21] VITALS: BP 144/75; PULSE 83; RESP 16; TEMP 37.1; O2SAT 96
[2024-10-24 22:40] VITALS: BP 148/83; PULSE 80; RESP 20; TEMP 36.9; O2SAT 93
[2024-10-25 02:45] VITALS: BP 140/67; PULSE 78; RESP 20; TEMP 36.6; O2SAT 94
--- NOTE | 2024-10-25 08:52 | PCM.PN.GU ---
Subjective Subjective Patient's family would not take the patient home yesterday with a catheter, the family refused to take him home so this morning I took the catheter out for voiding trial if the patient is able to urinate then he can go home with family without a catheter. Objective Data Objective Data Vital Signs: Vital Signs Temp Pulse Resp BP Pulse Ox O2 Del Method O2 Flow Rate 97.9 F 78 20 H 140/67 H 94 Room Air 2 10/25/24 02:45 10/25/24 02:45 10/25/24 02:45 10/25/24 02:45 10/25/24 02:45 10/25/24 02:45 10/23/24 13:56 Oxygen Flow Rate (L/min) 2 Oxygen Delivery Method Room Air Weight: 70 kg Body Mass Index (BMI) 24.1 Intake & Output: Intake and Output for Last 24 Hours 10/23/24 10/24/24 10/25/24 23:59 23:59 23:59 Intake Total 1120 / 1120 200 / 200 Output Total 1250 / 1750 800 / 800 Balance 1120 / 320 -1050 / -1550 -800 / -800 Lab / Micro Data 10/22/24 05:40 10/22/24 05:40
[2024-10-25] MEDS: Multivitamin (Healthy Eyes) Capsule 1 CAP PO ×2 (11:05→17:28)
[2024-10-25] MEDS: Memantine Hydrochloride 10 MG Tablet PO ×2 (11:05→21:53)
[2024-10-25 16:12] VITALS: BP 160/81; PULSE 79; RESP 16; TEMP 36.9; O2SAT 95
--- NOTE | 2024-10-25 17:25 | NURSING ---
18Fr Chang reinsert per doctor order with 10cc normal saline inserted patient did c/o pain once chang was in patient stated he felt better. No clots noted urine hematuria tea color 500 ml output
[2024-10-25 21:51] VITALS: BP 141/87; PULSE 96; RESP 16; TEMP 37.1; O2SAT 95
--- NOTE | 2024-10-25 22:13 | NURSING ---
Dr. Vergara notified that patient pulled his chang catheter out. Ordered chang to be put back in until he sees patient in am. Dr. Vergara wants patient to have a sitter aide pulled to sit with patient.
[2024-10-26] VITALS (16 sets, daily range): BP systolic 104–161; BP diastolic 60–86; PULSE 73–88; RESP 16–18; TEMP 36.1–36.9; O2SAT 90–99
[2024-10-26 08:21] LABS: Hematocrit 31.1 % (40-54); Hemoglobin 10.6 g/dL (13.0-16.5); Immature Granulocytes Count 0.050 X10^3/uL (0.0-0.0); Mean Corp Hgb Conc 34.1 g/dL (32-36); Mean Corpuscular Volume 94.5 fL (80-94); Mean Platelet Vol. 10.1 fl (6.2-12.0); NRBC Flagged by Analyzer 0 % (0-5); Platelet Count 232 K/mm3 (150-450); RBC Distribution Width CV 12.5 % (11.6-14.6); RBC Distribution Width SD 43.4 fl (35.1-43.9); Red Blood Count 3.29 M/mm3 (4.6-6.2); White Blood Count 11.7 K/mm3 (4.4-11.0)
[2024-10-26] MEDS: Memantine Hydrochloride 10 MG Tablet PO ×2 (08:42→22:14)
[2024-10-26] MEDS: Multivitamin (Healthy Eyes) Capsule 1 CAP PO (08:43)
[2024-10-26 09:16] LABS: Anion Gap 11 (5-15); BUN 11 mg/dL (4-19); BUN/Creat Ratio 17.8 RATIO (10-20); Calcium,Total 8.8 mg/dL (7.6-11.0); Carbon Dioxide 25.9 mmol/L (21.0-32.0); Chloride 98 mmol/L (98-108); Estimated Creatinine Clearance 67.71 ml/min (50-250); Glucose 135 mg/dL (70-99); Potassium 3.6 mmol/L (3.3-5.1)
--- NOTE | 2024-10-26 09:21 | CASEMGMT ---
Addendum entered by Sarah Guajardo 10/26/24 15:48: Rreceived tc from Vy at [facility], pt authorized from 10/26/24-10/28/24 for 100 skilled days. Ref #[id number]. RN CM into pt room, made pt and sig other aware. Sig other is aware that pt needs to be sitter free for 24 hours. Updated charge nurse. Paged Dr. Vergara, he is aware pt has been accepted and needs to be sitter free for 24 hours. Orders received for sitter to be dc'd and plan to dc tomorrow. Message sent to Pablo Delaney with precert info and intent to dc tomorrow. Addendum entered by Sarah Guajardo 10/26/24 14:31: Received confirmation from Pablo Delaney that pt will need to be sitter free for 24 hours prior to admission to facility. Addendum entered by Sarah Guajardo 10/26/24 14:29: Reviewed OR note, discussed pt situation with SW. Faxed [facility] clinical information and requested precert. Fax to [phone]. Addendum entered by Sarah Guajardo 10/26/24 10:14: TC to pt friend Mariely, she states she cannot be with pt 24 hours per day. She is aware that there needs to be a backup plan in case pt is denied as pt ambulated 220 feet today with no AD and CGA. Received message from Pablo Delaney asking if pt will be needing any chemo or radiation appts, Mariely states there will not be. Original Note: Pt with chang still placed. Referral sent to Pablo Delaney at this time via [facility].
--- NOTE | 2024-10-26 11:09 | PRE.ANES_ITS ---
ASA Classification* ASA Classification ASA Classification: 3 ((Prolong QTc - NO ZOFRAN. Recommend doing TIVA to avoid PONV and due to alzheimers (reduce postop confusion). Patient also has HTN, CAD x stent, FIDEL. )) Assessment & Plan Anesthesia* Anesthesia Assessment Anesthesia Assessment: Discussed sedation and/or anesthesia options, risks, benefits, and alternatives with patient/parents/legal guardian/POA. Questions invited. The patient/parents/legal guardian/POA seems to understand and agrees to proceed with anesthesia plan. Reviewed the physical assessment, medical history, allergy history and patient home medications list prior to surgery/procedure/anesthetic and documented any changes. Performed airway and anesthesia risk assessments. Anesthesia Type Anesthesia Type: General History Source History Obtained from:: Patient, Chart, Parent/ Guardian (Significant other present. Son has power of real estate attorney and signed consent for surgery.) and Significant Other Anesthesia Focused Assessment* Temperature: 98.2 F Pulse Rate: 87 Blood Pressure: 125/75 Respiratory Rate: 18 Pulse Ox: 95 Oxygen Delivery Method: Room Air Oxygen Flow Rate (L/min): 2 Airway Assessment Mouth opens: >3 cm Mallampati Score: II Teeth Condition: Dentures Neck Range of motion (ROM): Limited ROM Labs Anesthesia Preop lab: CBC WBC 11.7 K/mm3 (4.4-11.0) H 10/26/24 07:35 5 RBC 3.29 M/mm3 (4.6-6.2) L 10/26/24 07:35 10/26/24 Hgb 10.6 g/dL (13.0-16.5) L 10/26/24 07:35 5 Hct 31.1 % (40-54) L 10/26/24 07:35 10/26/24 Plt Count 232 K/mm3 (150-450) 10/26/24 07:35 10/26/24 CHEMISTRY Potassium 3.6 mmol/L (3.3-5.1) 10/26/24 07:35 10/26/24 Sodium 135 mmol/L (133-145) 10/26/24 07:35 10/26/24 BUN 11 mg/dL (4-19) 10/26/24 07:35 10/26/24 Creatinine 0.60 mg/dL (0.70-1.20) L 10/26/24 07:35 Glucose 135 mg/dL (70-99) H 10/26/24 07:35 10/26/24 TSH 1.92 uIU/mL (0.358-3.74) 03/23/14 12:15 COAG Pre-Assessment Diagnosis/Proposed Procedure Planned Operative Procedure(s): CYSTO,TURP Anesthesia History 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 When Was Last Pacemaker Check QUESTION #4 FULL TEXT: You/Your Family Experience fever (hyperthermia) with Anesthesia Last Oral Intake Last Oral intake: Last Oral Intake NPO since 10:00 10/21/24 12:02 Meds taken in AM with sips of Yes 10/21/24 12:02 water? Meds patient instructed to see chart 10/21/24 12:02 take am of surgery PONV PONV - integrated pest management technician: PONV - integrated pest management technician Female No 10/14/24 11:35 HX of Motion Sickness No 10/14/24 11:35 HX of N/V After Surgery No 10/14/24 11:35 Non-Smoker Yes 10/14/24 11:35 Duration of Surgery greater Yes 10/14/24 11:35 than 60 minutes Number of Risk Factors 2 10/14/24 11:35 PONV Score Moderate Risk 10/14/24 11:35 Height & Weight Height & Weight: Anesthesia: Height & Weight Height 5 ft 7 in 10/21/24 16:42 Weight: 70 kg 10/21/24 16:42 Body Mass Index (BMI) 24.1 10/21/24 16:42 Respiratory Assessment Respiratory Assessment - integrated pest management technician: Respiratory Tract Infection Hx - integrated pest management technician Hx Respiratory Tract Infection No 10/14/24 11:35 STOP Sleep Apnea STOP Sleep Apnea - integrated pest management technician: STOP Sleep Apnea - integrated pest management technician Hx Hypertension Yes: CONTROLLED WITH MED 10/14/24 11:35 Hx Sleep Apnea No 10/14/24 11:35 CPAP BIPAP Do you snore loudly (louder No 10/14/24 11:35 than talking or can be heard Do you often feel tired/ Yes 10/14/24 11:35 fatigued/ sleepy during daytime? Has anyone observed you stop No 10/14/24 11:35 breathing during sleep? STOP Results Positive 10/21/24 15:10 QUESTION #5 FULL TEXT : Do you snore loudly (louder than talking or can be heard through closed doors)? Tobacco Use History Tobacco Use History - integrated pest management technician: Tobacco Use History - integrated pest management technician Tobacco Use Smoking Status Former smoker 10/14/24 11:35 Hx Tobacco Use No 10/21/24 16:42 Years Smoking Packs Smoked per Day Smoking Cessation Date was No - quit smoking greater 10/14/24 11:35 within the last 15 years than 15 years ago Hx Smoking Cessation Date Hx Smoking Cessation Counseling Hematologic Medial History Hematologic Hx - integrated pest management technician: Hematologic Medical Hx - documentation clerk Hx of Blood Transfusion No 10/14/24 11:35 Hx of Transfusion in last 3 No 10/14/24 11:35 Months Date of Last Transfusion (if within last 3 months) Ever experience any problems No 10/14/24 11:35 with transfusion(s)? 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 confused, unrespo /Reproduction History /Reproductive History - integrated pest management technician: /Reproductive Hx- integrated pest management technician Hx Now No 10/14/24 11:35 Gestational Age (in weeks): EDC: Hx Hx Para Hx Section SAB No 10/14/24 11:35 Active Medications Active Medications: Current Medications Generic Name Dose Route Start Last Admin Trade Name Freq PRN Reason Stop Dose Admin Acetaminophen 650 mg 10/21/24 15:02 10/22/24 13:14 Acetaminophen 325 Mg Tablet PO 650 mg Q6H PRN PRN Administration Pain Score 1-10 Al Hydroxide/Mg Hydroxide 30 ml 10/21/24 15:02 Mag Hydrox/Al Hydrox/Simeth 30 Ml Udc PO Q4H PRN PRN HEARTBURN Amlodipine Besylate 2.5 mg 10/22/24 10:00 10/26/24 08:44 Amlodipine 2.5 Mg Tablet PO 2.5 mg DAILY LEIGH ANN Administration Protocol Ciprofloxacin HCl 500 mg 10/21/24 22:00 10/26/24 08:42 Ciprofloxacin 500 Mg Tablet PO 500 mg BID LEIGH ANN Administration Diphenhydramine HCl 25 mg 10/21/24 15:10 10/22/24 21:07 Diphenhydramine 25 Mg Capsule PO 25 mg QHS PRN Administration sleep Docusate Sodium 200 mg 10/21/24 22:00 10/26/24 08:44 Docusate Sodium 100 Mg Capsule PO 200 mg BID LEIGH ANN Administration Ezetimibe 10 mg 10/22/24 10:00 10/26/24 08:43 Ezetimibe 10 Mg Tablet PO 10 mg DAILY LEIGH ANN Administration Finasteride 5 mg 10/22/24 10:00 10/26/24 08:41 Finasteride 5 Mg Tablet PO 5 mg DAILY LEIGH ANN Administration Sodium Chloride 250 mls @ 15 mls/hr 10/21/24 16:45 IV .[id number] PRN Saline Flush Sodium Chloride 250 mls @ 15 mls/hr 10/21/24 16:45 IV .[id number] PRN Additional IVPB Infusion Losartan Potassium 50 mg 10/22/24 10:00 10/26/24 08:43 Losartan Potassium 50 Mg Tablet PO 50 mg DAILY LEIGH ANN Administration Protocol Memantine 10 mg 10/21/24 22:00 10/26/24 08:42 Memantine Hydrochloride 10 Mg Tablet PO 10 mg BID LEIGH ANN Administration Metoclopramide HCl 10 mg 10/21/24 15:02 Metoclopramide 10 Mg/2 Ml Vial IV Q8H PRN PRN Nausea/vomiting Multivitamins/Minerals 1 cap 10/21/24 17:00 10/26/24 08:43 Multivitamin (Healthy Eyes) Capsule PO 1 cap BIDCM LEIGH ANN Administration Ondansetron HCl 4 mg 10/21/24 15:02 Ondansetron 4 Mg/2 Ml Vial IV Q8H PRN NAUSEA/VOMITING Oxycodone HCl 5 - 10 mg 10/21/24 15:02 Oxycodone 5 Mg Tablet PO Q6H PRN PRN Pain Score 4-10 Sodium Chloride 10 - 40 ml 10/21/24 16:45 10/22/24 05:49 0.9% Saline Lock 10 Ml Syringe IV 40 ml UD PRN Administration SALINE FLUSH Tamsulosin HCl 0.4 mg 10/21/24 22:00 10/25/24 21:53 Tamsulosin Hcl 0.4 Mg Capsule PO 0.4 mg QHS LEIGH ANN Administration Venlafaxine HCl 150 mg 10/22/24 10:00 10/26/24 08:44 Venlafaxine Xr 150 Mg Capsule PO 150 mg DAILY LEIGH ANN Administration PFSH Medical History Wears glasses Wears dentures Alzheimer dementia Anxiety Arthritis Prostate disease Former smoker Sleep apnea Leg cramps History of stress test Cardiology follow-up encounter Frequent falls BPH (benign prostatic hyperplasia) Atherosclerosis of coronary artery of [place] heart without angina pectoris B12 deficiency Depression Hyperlipidemia Essential hypertension Rheumatoid arthritis Home Medications ?Medication ?Instructions ?Recorded ?Last Taken ?Type amlodipine 2.5 mg tablet 2.5 mg PO QDAY BP 10/29/23 0 10/21/24 History cholecalciferol (vitamin D3) 50 50 mcg PO QDAY SUPPLEM ENT 10/29/23 10/20/24 History mcg (2,000 unit) tablet cyanocobalamin (vitamin B-12) 1,000 mcg PO QHS SUPPLEM ENT 10/29/23 10/20/24 History 1,000 mcg tablet ezetimibe 10 mg tablet (Zetia) 10 mg PO QDAY CHOLESTER OL 10/29/23 10/21/24 History finasteride 5 mg tablet 5 mg PO QDAY PROSTATE 10/21/24 History losartan 50 mg tablet 50 mg PO QDAY BP 10/29/23 History vitamins A,C,V-ylee-kxotis 4,296 1 cap PO BID EYE FOZIA MIN 10/29/23 10/20/24 History mcg-226 mg-90 mg capsule (PreserVision AREDS) RELIEF FACTOR 1 tab PO BID ARTHRITIS 10/1410/20/24 History coenzyme Q10 100 mg capsule (Co 200 mg PO DAILY SUPPLE MENT 10/14/24 10/20/24 History Q-10) diphenhydramine 25 1 tab PO QHS PRN sleep 10/1410/14/24 History mg-acetaminophen 500 mg tablet memantine 10 mg tablet (Namenda) 10 mg PO BID ALZEHEIM ERS 10/14/24 10/21/24 History tamsulosin 0.4 mg capsule 0.4 mg PO QHS PROSTATE 10/1410/20/24 History venlafaxine 150 mg 150 mg PO DAILY DEPRESSION 0 10/14/24 10/21/24 History capsule,extended release 24 hr ciprofloxacin HCl 500 mg tablet 500 mg PO BID #10 tabs 10/21/24 Unknown Rx (Cipro) Allergy/AdvReac Type Severity Reaction Status Date / Time isosorbide Allergy Unknown unknown Verified 10/21/24 11:57 Sulfa (Sulfonamide Allergy Unknown unknown Verified 10/21/24 11:57 Antibiotics) sulfacetamide Allergy Unknown unknown Verified 10/21/24 11:57 Family History Father Cancer Brother Suicide Surgical History History of coronary artery stent placement History of colonoscopy History of left heart catheterization (09/12/20) Social History Smoking Status: Former smoker how long ago did patient quit smoking: stopped at age 54 alcohol intake: former year quit: 39y substance use type: does not use caffeine: Yes Type: carbonated beverages Number of servings: 2 Review of Systems (Anesthesia) ROS Narrative System reviewed and no additional complaints, except as documented.
[2024-10-26] MEDS: Lactated Ringers 1,000 ML 15 ML IV (11:17)
--- NOTE | 2024-10-26 12:00 | PROSB_PTH ---
PATIENT: HEIDY MARS LOC: [facility] U#:[id number] AGE/SX: 79/M ROOM: [facility] RE10/26/[address]: Dr. Andrew Vergara MD : 1945 BED: 1 DIS: 10/28/2024 SPEC #: [id number] RECD: 10/26/24 13:34 STATUS: SHADE NEALElizabeth #: [id number] ADRIANO: 10/26/24 12:[address]: Andrew Vergara DEPT: SURGICAL PATHOLOGY RECD BY: Curt Pfeiffer ENTERED: 10/26/24 15:42 SP TYPE: PROST BX OTHR DR: Dr. Asad Bueno, DO Tissues: A - Prostate, NOS Procedures: Surgery Specimen Level IV HEADER OPERATION: Cysto, evacuation, hematoma PRE-OP DIAGNOSIS: Traumatic chang injury, hematoma TISSUE SUBMITTED: A- Prostate tissue and blood clots MICROSCOPIC DIAGNOSIS A. Prostate, evacuation hematoma, transurethral resection: Prostate tissue with necrosis, hemorrhage and acute inflammation. MICROSCOPIC DESCRIPTION Slides are reviewed. GROSS DESCRIPTION A. Received in formalin labeled with the patient's name and date of . Designated as prostate tissue and blood clot is a 4 g, 5.1 x 4.3 x 0.9 cm aggregate of irregular, whitney, rubbery. cauterized tissue fragments admixed with 4.6 g of clotted blood. The tissue fragments are entirely submitted, devoid of blood clot, in 3 cassettes. OR 10/26/2024 CPT:29741
--- NOTE | 2024-10-26 12:05 | PCM.PN.GU ---
Subjective Subjective pulled out his chang again last night, short staff no sitter is want the charge nurse told me. will take him to [facility] today to remove clots may have to resect more prostate tissue? Objective Data Objective Data Vital Signs: Vital Signs Temp Pulse Resp BP Pulse Ox O2 Del Method O2 Flow Rate 98.2 F 87 18 125/75 H 95 Room Air 2 10/26/24 11:11 10/26/24 11:11 10/26/24 11:11 10/26/24 11:11 10/26/24 11:11 10/26/24 11:14 10/26/24 11:11 Oxygen Flow Rate (L/min) 2 Oxygen Delivery Method Room Air Weight: 70 kg Body Mass Index (BMI) 24.1 Intake & Output: Intake and Output for Last 24 Hours 10/24/24 10/25/24 10/26/24 23:59 23:59 23:59 Intake Total 200 / 200 120 / 120 Output Total 1250 / 1750 1300 / 1300 500 / 500 Balance -1050 / -1550 -1180 / -1180 -500 / -500 Lab / Micro Data 10/26/24 07:35 10/26/24 07:35 Labs: Laboratory Results - last 24 hr 10/26/24 07:35: WBC 11.7 H, RBC 3.29 L, Hgb 10.6 L, Hct 31.1 L, MCV 94.5 H, MCH 32.2 H, MCHC 34.1, RDW Std Deviation 43.4, RDW Coeff of Damari 12.5, Plt Count 232, MPV 10.1, Immature Gran % (Auto) 0.400, Neut % (Auto) 79.1 H, Lymph % (Auto) 9.2 L, [place] % (Auto) 10.0, Eos % (Auto) 1.0, Baso % (Auto) 0.3, Absolute Neuts (auto) 9.2 H, Absolute Lymphs (auto) 1.07, Nucleated RBC % 0, Sodium 135, Potassium 3.6, Chloride 98, Carbon Dioxide 25.9, Anion Gap 11, BUN 11, Creatinine 0.60 L, Estim Creat Clear Calc 67.71, Est GFR (MDRD) Non-Af 97, BUN/Creatinine Ratio 17.8, Glucose 135 H, Calcium 8.8
[2024-10-26] MEDS: Lactated Ringers 1,000 ML 1000 ML IV (12:11)
[2024-10-26] MEDS: PROPOFOL 16.86 MG IV (12:19)
[2024-10-26] MEDS: Lidocaine 1% (5 ml sdv) 5 ML Vial IV (12:24)
[2024-10-26] MEDS: fentaNYL 100 MCG/2 ML Ampul IV (12:37)
--- NOTE | 2024-10-26 12:47 | PCM.OPRPT ---
Operative Report (Standard) Operative Information Date of Procedure: 10/26/24 Pre-Operative Diagnosis: Bagley trauma and gross hematuria Post-Operative Diagnosis: The same Surgery/Procedure Performed: Cystoscopy evacuation of blood clots resection of some obstructive tissue at the apex of the prostate home paraprofessional: No Type of Anesthesia: General RN Documented Start/Stop Times: Operation Date: 10/26/24 12:00 Case Time Into Pre-Op 10/26/24 10:48 Anesthesia Start 10/26/24 12:11 Into Room 10/26/24 12:11 Procedure Start 10/26/24 12:24 Procedure Start Time: 12:24 Procedure Stop Time: 12:48 Select all DRAINS/GRAFTS/IMPLANTS that apply: Drains Drain details: 22 [place]uneian three-way Bagley Estimated Blood Loss: 20 cc Specimen collected: Yes Description of specimen(s) removed: Prostate tissue and blood clots Description of surgery: This is an 79-year-old male who had some sundowning got confused and then removed his catheter traumatically out first day after surgery try to manage this with a catheter he was doing okay there was concerned about him going home with a catheter so we took out the catheter for voiding trial but he failed the voiding trial catheter was replaced and the last night he ripped out the catheter again and so taken back to surgery to evaluate the situation and get rid of any blood clots make sure he has an open channel. Taken back to the operating room underwent general anesthetic is placed in dorsolithotomy position penis and testicle prepped and draped in usual fashion went along the urethra with a 24 Brune[place] none continuous-flow Olympus bipolar resectoscope he had a significant tear within the urethra this needs to heal up sphincter was intact he does have a obstructive apical tissue and inside the bladder with significant mount of clots evacuated all the clots of the bladder the bladder neck actually healed up from prior resections of this that healed up completely and he had still stent on the right side then looking at the verumontanum he had a significant mount of apical tissue and so I resected the apical tissue did a flow test had a wide open flow and at this point we will put a 22 Bruneian catheter back in the bladder I put a significant bout of urine in the balloon so hopefully avoid another traumatic removal put over 70 cc in the balloon and he will need to have the catheter for at least 2 weeks to let the Bagley and the bladder heal up if you take out the catheter soon from that you will not be able to urinate he will need the catheter for several weeks to let everything heal. I will going explain the situation of the family if I end up he will need to go to a correction Surgical Findings: Had significant tearing along the urethra from traumatic catheter removals and lots of blood clots in the bladder that were removed I resected resected some obstructive apical tissue Complications Complications: No
--- NOTE | 2024-10-26 14:39 | PCM.POST.ANE ---
Anesthesia: Postop Eval I Current Vital Signs Temperature: 97 F Pulse Rate: 73 Blood Pressure: 104/61 Respiratory Rate: 16 Pulse Ox: 94 Oxygen Delivery Method: Room Air Assessment Airway patent: Yes Spontaneous unlabored respirations: Yes Mental status: Awake and Calm nausea: No Vomiting: No Anesthesia Complication: No Fluid Hydration Crystalloid volume administer (ml): 400 Total IV fluid infused: 400 Progress Note Anesthesia document: Postop Eval 1 completed: Yes
--- NOTE | 2024-10-26 14:50 | POSTOPAN2_ITS ---
Anesthesia Postop Eval I Sum Postop Eval Completion status Anesthesia document: Postop Eval 1 completed: Yes Anesthesia Postop Eval I Summary Anesthesia Postop Eval I Summary: Anesthesia Postop Eval I: Assessment Summary Airway patent Yes 10/26/24 14:40 POWDERED SUGAR [email or web address] Spontaneous unlabored Yes 10/26/24 14:40 POWDERED SUGAR [email or web address] respirations Mental status Awake,Calm 10/26/24 14:40 POWDERED SUGAR [email or web address] nausea No 10/26/24 14:40 POWDERED SUGAR [email or web address] Vomiting No 10/26/24 14:40 POWDERED SUGAR [email or web address] Anesthesia Postop Eval I: Fluid Summary Crystalloid volume administer 400 10/26/24 14:40 POWDERED SUGAR [email or web address] (ml) Colloids volume administered ( ml) Blood Product volume administered (ml) Total IV fluid infused 400 10/26/24 14:40 POWDERED SUGAR [email or web address] Anesthesia Postop Eval I: Summary Notes Anesthesia Complication No 10/26/24 14:40 POWDERED SUGAR [email or web address] Anesthesia Complication Comment: Post-operative progress note Anesthesia: Postop Eval II Evaluation Mental status: Awake and Calm Pain Level: 1 nausea: No Vomiting: No Complications Anesthesia Complication: No
--- NOTE | 2024-10-26 14:50 | PCM.POSTANE2 ---
Anesthesia Postop Eval I Sum Postop Eval Completion status Anesthesia document: Postop Eval 1 completed: Yes Anesthesia Postop Eval I Summary Anesthesia Postop Eval I Summary: Anesthesia Postop Eval I: Assessment Summary Airway patent Yes 10/26/24 14:40 SANITATION [email or web address] Spontaneous unlabored Yes 10/26/24 14:40 SANITATION [email or web address] respirations Mental status Awake,Calm 10/26/24 14:40 SANITATION [email or web address] nausea No 10/26/24 14:40 SANITATION [email or web address] Vomiting No 10/26/24 14:40 SANITATION [email or web address] Anesthesia Postop Eval I: Fluid Summary Crystalloid volume administer 400 10/26/24 14:40 SANITATION [email or web address] (ml) Colloids volume administered ( ml) Blood Product volume administered (ml) Total IV fluid infused 400 10/26/24 14:40 SANITATION [email or web address] Anesthesia Postop Eval I: Summary Notes Anesthesia Complication No 10/26/24 14:40 SANITATION [email or web address] Anesthesia Complication Comment: Post-operative progress note Anesthesia: Postop Eval II Evaluation Mental status: Awake and Calm Pain Level: 1 nausea: No Vomiting: No Complications Anesthesia Complication: No
--- NOTE | 2024-10-26 14:58 | SUR.PHASEI ---
134 oral airway removed
[2024-10-27] VITALS (8 sets, daily range): BP systolic 98–129; BP diastolic 56–76; PULSE 72–90; RESP 14–18; TEMP 36.3–37.1; O2SAT 92–97
--- NOTE | 2024-10-27 07:16 | PCM.TXEXTCAR ---
Diet Diet Order/Speech Therapy: INPATIENT Hospital Diet / Speech Therapy Order(s) 10/26/24 12:51 Diet: Regular - General DC O2, CPAP, BIPAP needs Home O2 Discharge instructions: No Wound(s) penis: Dressing Change: Bagley do not remove, okay to flush if needed, do not manipulate Therapies Weight Bearing: Full weight bearing Occupational Therapy: Eval and Treat Speech Therapy: Eval and Treat Allergies/Procedures Done in Hospital Allergies isosorbide Allergy (Unknown, Verified 10/21/24 11:57) unknown Sulfa (Sulfonamide Antibiotics) Allergy (Unknown, Verified 10/21/24 11:57) unknown sulfacetamide Allergy (Unknown, Verified 10/21/24 11:57) unknown Type of Care/Length of Stay Estimated LOS: Convalescent Care Less Than 30 days Type of Care Needed: Skilled Rehab Potential: Good Prognosis: Good Additional Orders/Day of Discharge Day of Discharge: 10/27/24 Follow Up Care Please Follow Up With: Andrew Vergara MD When: 2 weeks Discharge Plan Admission Admit Date/Time: 10/26/24 11:57 Primary Reason for Your Visit: linap Attending Provider: Andrew Vergara Primary Care Provider: Asad Bueno Discharge Orders/Prescriptions Prescriptions: New ciprofloxacin HCl [Cipro] 500 mg tablet 500 mg PO BID Qty: 10 0RF Continued cyanocobalamin (vitamin B-12) 1,000 mcg tablet 1,000 mcg PO QHS amlodipine 2.5 mg tablet 2.5 mg PO QDAY losartan 50 mg tablet 50 mg PO QDAY finasteride 5 mg tablet 5 mg PO QDAY ezetimibe [Zetia] 10 mg tablet 10 mg PO QDAY PreserVision AREDS 4,296 mcg-226 mg-90 mg capsule 1 cap PO BID cholecalciferol (vitamin D3) 50 mcg (2,000 unit) tablet 50 mcg PO QDAY venlafaxine 150 mg capsule,extended release 24hr 150 mg PO DAILY memantine [Namenda] 10 mg tablet 10 mg PO BID coenzyme Q10 [Co Q-10] 100 mg capsule 200 mg PO DAILY RELIEF FACTOR 1 tab PO BID diphenhydramine-acetaminophen 25-500 mg tablet 1 tab PO QHS PRN (Reason: sleep) tamsulosin 0.4 mg capsule 0.4 mg PO QHS Referrals / Follow Up: Asad Bueno DO [Primary Care Provider] - Andrew Vergara MD [Med Staff - Active Staff] - Disposition Discharge Orders: Discharge Patient (Routine); Ordered 10/25/24 Ordered By: Dr. Andrew Vergara
--- NOTE | 2024-10-27 07:17 | PCM.DC.SUM ---
Providers Date of Admission: 10/26/24 Date of Discharge: 10/27/24 Primary Care Physician: Dr. Asad Bueno DO Reason For Visit: TURP Medications at Discharge Home Medications amlodipine 2.5 mg tablet 2.5 mg PO QDAY BP 10/29/23 cholecalciferol (vitamin D3) 50 mcg (2,000 unit) tablet 50 mcg PO QDAY SUPPLEMENT 10/29/23 cyanocobalamin (vitamin B-12) 1,000 mcg tablet 1,000 mcg PO QHS SUPPLEMENT 10/29/23 ezetimibe 10 mg tablet (Zetia) 10 mg PO QDAY CHOLESTEROL 10/29/23 finasteride 5 mg tablet 5 mg PO QDAY PROSTATE 10/29/23 losartan 50 mg tablet 50 mg PO QDAY BP 10/29/23 vitamins A,C,O-wusp-ttlmke 4,296 mcg-226 mg-90 mg capsule (PreserVision AREDS) 1 cap PO BID EYE VITAMIN 10/29/23 RELIEF FACTOR 1 tab PO BID ARTHRITIS 10/14/24 coenzyme Q10 100 mg capsule (Co Q-10) 200 mg PO DAILY SUPPLEMENT 10/14/24 diphenhydramine 25 mg-acetaminophen 500 mg tablet 1 tab PO QHS PRN sleep 10/14/24 memantine 10 mg tablet (Namenda) 10 mg PO BID ALZEHEIMERS 10/14/24 tamsulosin 0.4 mg capsule 0.4 mg PO QHS PROSTATE 10/14/24 venlafaxine 150 mg capsule,extended release 24 hr 150 mg PO DAILY DEPRESSION 10/14/24 ciprofloxacin HCl 500 mg tablet (Cipro) 500 mg PO BID #10 tabs 10/21/24 Hospital Course Summary of Care Provided Hospital Course: 5 79-year-old male status post TURP the first night after surgery pulled out his catheter and tore his urethra causing significant bleeding that the catheter was put in voiding trial was done after this he failed a voiding trial and he pulled out a second catheter to take him back to surgery got all the clots out resected a little more the prostate and the apex to ensure voiding inspected the urethra which had a large tear in the prostate with the tear from the catheter being ripped out the should heal up with a catheter but he did not need a catheter but he will go home to short-term SNF today with a Bagley catheter draining urine is fairly clear today. Into follow-up in my office 2 weeks after catheter removal. Weight / BMI Weight Weight: 70 kg Body Mass Index (BMI) 24.1 ABG / Lab / Microbiology Data 10/26/24 07:35 10/26/24 07:35 Laboratory: Laboratory Results - last 24 hr 10/26/24 07:35: WBC 11.7 H, RBC 3.29 L, Hgb 10.6 L, Hct 31.1 L, MCV 94.5 H, MCH 32.2 H, MCHC 34.1, RDW Std Deviation 43.4, RDW Coeff of Admari 12.5, Plt Count 232, MPV 10.1, Immature Gran % (Auto) 0.400, Neut % (Auto) 79.1 H, Lymph % (Auto) 9.2 L, [place] % (Auto) 10.0, Eos % (Auto) 1.0, Baso % (Auto) 0.3, Absolute Neuts (auto) 9.2 H, Absolute Lymphs (auto) 1.07, Nucleated RBC % 0, Sodium 135, Potassium 3.6, Chloride 98, Carbon Dioxide 25.9, Anion Gap 11, BUN 11, Creatinine 0.60 L, Estim Creat Clear Calc 67.71, Est GFR (MDRD) Non-Af 97, BUN/Creatinine Ratio 17.8, Glucose 135 H, Calcium 8.8 D/C Instructions May shower in (days): 1 Call your doctor if your incision/area has: Sudden Increased Bleeding Call your doctor if you observe: Fever of 101 or Higher Catheter: Bagley to leg bag and Bagley to large bag Drain: Lane DC O2, CPAP, BIPAP Needs Home O2 Discharge instructions: No Please Follow Up With: Andrew Vergara MD When: Call [phone] for an appointment Meaningful Use Info Meaningful Use Meaningful Use Diagnoses (Choose all that apply): None applicable Discharge Plan Admission Admit Date/Time: 10/26/24 11:57 Primary Reason for Your Visit: taye Attending Provider: Andrew Vergara Primary Care Provider: Asad Bueno Discharge Orders/Prescriptions Prescriptions: New ciprofloxacin HCl [Cipro] 500 mg tablet 500 mg PO BID Qty: 10 0RF Continued cyanocobalamin (vitamin B-12) 1,000 mcg tablet 1,000 mcg PO QHS amlodipine 2.5 mg tablet 2.5 mg PO QDAY losartan 50 mg tablet 50 mg PO QDAY finasteride 5 mg tablet 5 mg PO QDAY ezetimibe [Zetia] 10 mg tablet 10 mg PO QDAY PreserVision AREDS 4,296 mcg-226 mg-90 mg capsule 1 cap PO BID cholecalciferol (vitamin D3) 50 mcg (2,000 unit) tablet 50 mcg PO QDAY venlafaxine 150 mg capsule,extended release 24hr 150 mg PO DAILY memantine [Namenda] 10 mg tablet 10 mg PO BID coenzyme Q10 [Co Q-10] 100 mg capsule 200 mg PO DAILY RELIEF FACTOR 1 tab PO BID diphenhydramine-acetaminophen 25-500 mg tablet 1 tab PO QHS PRN (Reason: sleep) tamsulosin 0.4 mg capsule 0.4 mg PO QHS Referrals / Follow Up: Asad Bueno DO [Primary Care Provider] - Andrew Vergara MD [Med Staff - Active Staff] - Disposition Discharge Orders: Discharge Patient (Routine); Ordered 10/25/24 Ordered By: Dr. Andrew Vergara
[2024-10-27] MEDS: Memantine Hydrochloride 10 MG Tablet PO ×2 (08:33→22:24)
[2024-10-27] MEDS: Multivitamin (Healthy Eyes) Capsule 1 CAP PO ×2 (08:33→17:16)
--- NOTE | 2024-10-27 08:40 | ANES.CONFIRM ---
Anesthesia: Confirm Documents Multiple Procedures on Account (2) Confirmed Documents: Yes
--- NOTE | 2024-10-27 08:52 | NURSING ---
in to see patient with primary RN Lorraine and RN Flower at bedside. Primary RN verbalized noted abnormal neuro exam. pt noted to have vision changes. Dr. Vergara paged. Noted during neuro exam pt with fix gaze, responsive and following commands but nystagmus. Primary RN noted weakness on one side as well. stroke alert called [id number]. Dr. Grimm hospitalist to bedside. aware Dr. Vergara called back updated and stated to let hospitalist handle it and call him with an update.
--- NOTE | 2024-10-27 09:01 | CT_ITS ---
PROCEDURE: STROKE BRAIN/HEAD WITHOUT CONT 10/27/2024 REASON FOR EXAM: STROKE ALERT TECHNIQUE: Procedure Code: CTBR.ST Modality: CT Procedure: STROKE BRAIN/HEAD WITHOUT CONT Coronal and Sagittal reconstruction series were provided. One or more dose reduction techniques were used (e.g., Automated exposure control, adjustment of the mA and/or kV according to patient size, use of iterative reconstruction technique. RADIATION DOSE SUMMARY: CTDlvol: 45 mGy DLP: <1000 mGycm COMPARISON: None FINDINGS: The patient is slightly malpositioned in the CT gantry on the department of mathematics chair image. Brain: There is no evidence of hemorrhage, acute ischemia or mass. No extra- axial fluid collection, midline shift or mass effect. Low-density is seen in the periventricular white matter and deep white matter of the frontal and parietal lobes. Benign mineralization is seen in the basal ganglia. CSF Spaces: Moderate generalized cerebral atrophy Sinuses/Mastoids: Clear. Bones: Intact. Bilateral lens implants are present. Cavernous and supraclinoid internal carotid artery atherosclerotic plaque is present. CT/STROKE Brain/Head without Cont IMPRESSION: 1. No evidence of intracranial hemorrhage or acute ischemia. 2. Changes of chronic microvascular ischemia and volume loss. Findings and impression of this report were called directly to the charge nurse , Lorraine, at 0922 hours Eastern standard time. She relay the information to the covering physician at the time of the phone call. Reading Location: [id number]
--- NOTE | 2024-10-27 09:08 | NURSING ---
attempted to reach pt's significant other Mariely and son Matt. unable to reach. Did reach patient's daughter list- update given, she stated she will reach out to the other and someone would be on their way to the hospital
--- NOTE | 2024-10-27 09:10 | CT_ITS ---
PROCEDURE: STROKE CTA HEAD AND NECK W/CON 10/27/2024 REASON FOR EXAM: CVA TECHNIQUE: Procedure Code: CTCTA.ST.HN Modality: CT Procedure: STROKE CTA HEAD AND NECK W/CON Multiplanar Sagittal and Coronal images were obtained. 3D post processing was performed CONTRAST: Isovue 370 VOLUME: 98 mL One or more dose reduction techniques were used (e.g., Automated exposure control, adjustment of the mA and/or kV according to patient size, use of iterative reconstruction technique). RADIATION DOSE SUMMARY: CTDlvol: 35 mGy DLP: 756 mGycm COMPARISON: Head CT of the same day FINDINGS: Aortic Arch: Normal size and branching pattern. No significant atherosclerotic plaque. Brachiocephalic and Subclavians: Unremarkable RIGHT Carotid: Right CCA: Eccentric calcified and noncalcified plaque at the carotid bulb. Right ICA: Continuation of the aforementioned eccentric calcified and noncalcified plaque into the proximal internal carotid artery. Maximum stenosis (NASCET): Less than 25 % Right ECA: Unremarkable. LEFT Carotid: Left CCA: The distal common carotid takes a medial course anterior to the longus coli muscle. Minimal amount of calcified plaque but a mukkrpfj-is-ibwxh amount of soft plaque surrounding the carotid bulb and proximal internal carotid and external carotid artery. Left ICA: Soft plaque circumferentially of the proximal portion. Maximum stenosis (NASCET): Less than 50 % Left ECA: 50-69% stenosis near the origin related to soft plaque. Vertebrals: Codominant. Arise from the subclavians. Both vertebrals form the basilar. RIGHT Vertebral: Minimal plaque at the origin. Tortuous. Otherwise patent. LEFT Vertebral: Tortuous. Otherwise patent. Anatomy: [place] anatomy is normal. Aneurysm or avm: No intracranial aneurysms or large vascular malformations are identified. Anterior cerebral arteries: Unremarkable. Middle cerebral arteries: No large vessel occlusion. Otherwise unremarkable. Basilar artery: Unremarkable. Posterior cerebral arteries: Unremarkable. Other major branches of the posterior circulation: Unremarkable. Major venous structures: Unremarkable. Other findings: Neck: No lymphadenopathy. Right mid to upper pole thyroid nodule posteriorly is 16 x 8 x 13 mm. Lungs: Lung apices are clear. Bones: Bones are unremarkable. CT/STROKE CTA Head AND Neck W/Con IMPRESSION: 1. No large vessel occlusion. 2. No aneurysm or flow-limiting stenosis. 3. Significant amount of soft plaque at the carotid bulb, proximal internal ca rotid artery and external carotid artery on the left. Medial course of the distal common carotid; it is located anterior to th e longus colli muscle. Consider nonemergent vascular surgical consultation and possible carotid ultrasound to assess plaque .. Reading Location: [id number]
--- NOTE | 2024-10-27 09:31 | PHA.DC.MR.R ---
Pharmacy [place] Med Reconciliation Pharmacy Service has performed discharge medication reconciliation for this patient. The patient's discharge medication list was reviewed for discrepancies and discrepancies were resolved. Medications at Discharge Home Medications amlodipine 2.5 mg tablet 2.5 mg PO QDAY BP 10/29/23 cholecalciferol (vitamin D3) 50 mcg (2,000 unit) tablet 50 mcg PO QDAY SUPPLEMENT 10/29/23 cyanocobalamin (vitamin B-12) 1,000 mcg tablet 1,000 mcg PO QHS SUPPLEMENT 10/29/23 ezetimibe 10 mg tablet (Zetia) 10 mg PO QDAY CHOLESTEROL 10/29/23 finasteride 5 mg tablet 5 mg PO QDAY PROSTATE 10/29/23 losartan 50 mg tablet 50 mg PO QDAY BP 10/29/23 vitamins A,C,H-msyv-dbncsq 4,296 mcg-226 mg-90 mg capsule (PreserVision AREDS) 1 cap PO BID EYE VITAMIN 10/29/23 RELIEF FACTOR 1 tab PO BID ARTHRITIS 10/14/24 coenzyme Q10 100 mg capsule (Co Q-10) 200 mg PO DAILY SUPPLEMENT 10/14/24 diphenhydramine 25 mg-acetaminophen 500 mg tablet 1 tab PO QHS PRN sleep 10/14/24 memantine 10 mg tablet (Namenda) 10 mg PO BID ALZEHEIMERS 10/14/24 tamsulosin 0.4 mg capsule 0.4 mg PO QHS PROSTATE 10/14/24 venlafaxine 150 mg capsule,extended release 24 hr 150 mg PO DAILY DEPRESSION 10/14/24 ciprofloxacin HCl 500 mg tablet (Cipro) 500 mg PO BID #10 tabs 10/21/24
--- NOTE | 2024-10-27 09:36 | NURSING ---
NIH ON STROKE ALERT WAS COMPLETED BY DR SCHWARTZ
--- NOTE | 2024-10-27 09:59 | CASEMGMT ---
Handoff given to HEALTH EDUCATION COORDINATOR CM. Updated Pablo Lawn via careport of pt status and trf to PCU.
--- NOTE | 2024-10-27 11:05 | NURSING ---
message left with Dr. Vergara's office nurse as haven't returned paged that patient was moved to PCU [address] Grimm as hospitalist and CT of brain, neck resulted in computer.
--- NOTE | 2024-10-27 15:24 | CDU_ITS ---
Reason For Study Reason For Study: TIA / Abnormal Test Rt. Velocities/BP Lt. Velocities/BP Prox CCA 125.3/23.0 cm/sec. Prox CCA 119.8/26.7 cm/sec. Mid CCA 118.0/13.9 cm/sec. Mid CCA 125.3/23.0 cm/sec. Dist CCA 108.9/19.4 cm/sec. Dist CCA 94.2/15.7 cm/sec. Prox ICA 93.5/32.0 cm/sec. Prox ICA 229.9/69.3 cm/sec. Mid ICA 95.4/21.4 cm/sec. Mid ICA 206.3/43.0 cm/sec. Dist ICA 132.6/44.9 cm/sec. Dist ICA 134.4/34.0 cm/sec. Rt. ICA/CCA = 1.1. Lt. ICA/CCA = 1.8. Prox ECA 119.9/12.5 cm/sec. Prox ECA 123.5/13.9 cm/sec. Rt. Vert. 37.4/14.7 cm/sec. Lt. Vert. 107.0/32.1 cm/sec. Right Extracranial There is homogeneous, smooth atherosclerotic plaque noted in the right common carotid artery. There is heterogeneous, irregular atherosclerotic plaque noted in the right internal carotid artery. The right internal carotid artery is very tortuous. There is heterogeneous, smooth atherosclerotic plaque noted in the right external carotid artery. Antegrade flow is noted in the right vertebral artery. Left Extracranial There is homogeneous, smooth atherosclerotic plaque noted in the left common carotid artery. There is heterogeneous, irregular atherosclerotic plaque noted in the left internal carotid artery. There is heterogeneous, irregular atherosclerotic plaque noted in the left external carotid artery. Antegrade flow is noted in the left vertebral artery. Procedure Carotid Duplex 49625. This is a Carotid Duplex examination using B-mode, color flow and specral Doppler. The exam was diagnostic. Exam performed portable in patient room. Preliminary delivered to PCU air bag stripper. VL/Carotid Duplex Ultrasound Interpretation Summary Moderate (50-69%) stenosis right extracranial internal carotid. Moderate (50-69%) stenosis left extracranial internal carotid. Patent and antegrade vertebrals bilaterally. Ordering Physician: Oscar Grimm Referring Physician: Andrew Vergara Performed By: Moreno Clark RVT
--- NOTE | 2024-10-27 17:03 | PN.HOSP_ITS ---
Subjective Subjective Called a stroke alert today because his eyes remained fixed forward. However he was interactive and moves all extremities, and he did not have a gaze deviation Objective Data Objective Data Vital Signs: Vital Signs Temp Pulse Resp BP Pulse Ox O2 Del Method O2 Flow Rate 97.4 F L 85 16 101/57 L 93 Room Air 2 10/27/24 14:06 10/27/24 14:06 10/27/24 14:06 10/27/24 14:06 10/27/24 15:34 10/27/24 14:06 10/26/24 15:05 Oxygen Flow Rate (L/min) 2 Oxygen Delivery Method Room Air Weight: 154 lb 5.177 oz Body Mass Index (BMI) 24.1 Intake & Output: Intake and Output for Last 24 Hours 10/26/24 10/27/24 10/28/24 03:59 03:59 03:59 Intake Total 120 / 120 550.25 / 550.25 Output Total 800 / 800 6950 / 6950 1300 / 1300 Balance -680 / -680 -6950 / -6950 -749.75 / -749.75 Lab / Micro Data 10/26/24 07:35 10/26/24 07:35 Labs: Laboratory Results - last 24 hr 10/27/24 08:57: POC Glucose 115 H Radiography Diagnostic Testing: Radiology Impression Brain CT 10/27/24 09:01 IMPRESSION: 1. No evidence of intracranial hemorrhage or acute ischemia. 2. Changes of chronic microvascular ischemia and volume loss. Findings and impression of this report were called directly to the charge nurse, Lorraine, at 0922 hours Eastern standard time. She relay the information to the covering physician at the time of the phone call. Reading Location: [id number] Head/Neck CTA 10/27/24 09:10 IMPRESSION: 1. No large vessel occlusion. 2. No aneurysm or flow-limiting stenosis. 3. Significant amount of soft plaque at the carotid bulb, proximal internal carotid artery and external carotid artery on the left. Medial course of the distal common carotid; it is located anterior to the longus colli muscle. Consider nonemergent vascular surgical consultation and possible carotid ultrasound to assess plaque.. Reading Location: [facility] Physical Exam Narrative General: Alert, Oriented x1-2, Cooperative, No apparent distress HEENT: Atraumatic, PERRLA, EOMI, Normocephalic Oral: Moist Mucosa Neck: Supple, No JVD Lungs: Diminished, Normal air movement, No rhonchi, No wheeze, No rales Cardiovascular: Regular rate, Regular Rhythm, Normal S1, Normal S2, No murmurs Abdomen: Soft, Non Tender, Non-Distended, No Hepato-splenomegaly Extremities: No edema, Capillary Refill Less than 3 Seconds Skin: No rashes, No breakdown Musculoskeletal: No Tenderness to Palpation of Joints or Extremities Neurological: To follow commands but would not move his eyes or follow my finger, gaze remained fixed straightforward but visual acuity was intact, Motor Exam 5/5 strength throughout, Sensory exam intact to light touch and pain Psych/Mental Status: Normal Affect, Appropriate Assessment & Plan Assessment/Plan (1) Essential hypertension: PLAN: Plan 1. TIA versus anesthesia side effect ? Responded to a stroke alert because of the gaze palsy though he was keenly interactive and moves all of his extremities and was able to follow commands ? Concern for possible delirium versus side effect from anesthesia as he has had a TURP on 10/21/2024 and then a cystoscopy on 10/26/2024 because of Bagley trauma and gross hematuria ? CT of the head and neck does show some large vessel stenosis in his carotids, will obtain carotid ultrasound ? He does have a history of Alzheimer's which is exacerbating his current presentation. ? 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 Management per primary ? Continue with Flomax and finasteride 3. Essential HTN/HLD ? Continue with his home blood pressure medications ? Will monitor make adjustments as necessary ? Continue Zetia 4. Anxiety/depression/Alzheimer's dementia ? Recent diagnosis of his dementia in the last month and a half ? Continue with his home Effexor as well as memantine ? Will monitor make adjustments as necessary DVT: SCDs Charges/Coding Visit Charges Inpatient E&M: 13191 Subs Hosp L3 NIHSS NIHSS Nursing Documentation NIHSS Nursing Documentation: NIHSS: Ischemic Stroke/TIA Start: 10/27/24 10:08 Freq: [id number] Status: Active Protocol: Activity Type Activity Date Activity User E-sign Co-sign Detail Recorded Client Recorded Date Recorded By Document 10/27/24 14:06 HOMAR [id number] 10/27/24 14:09 HOMAR 10/27/24 14:06 NIH Stroke Scale [NIHSS] A score of 0 is normal or asymptomatic . Total possible score is 42. Inpatient: RN or Physician to activate a stroke alert for onset of new stroke symptoms or with NIHSS increase >/= 3 points. Following change in neurological status, NIHSS will be performed per physician order or more frequently PRN. -1a. Level of Consciousness 0 - Alert; keenly responsive -1b. LOC Questions 0 - Answers BOTH questions correctly -1c. LOC Commands 0 - Performs BOTH tasks correctly -2. Best Gaze 1 - Partial gaze palsy; -3. Visual 0 - No visual loss -4. Facial Palsy 0 - Normal symmetrical movements -5a. Left Arm 0 - No drift; arm holds 90 ( or 45) degrees for full 10 seconds -5b. Right Arm 0 - No drift; arm holds 90 ( or 45) degrees for full 10 seconds -6a. Left Leg 0 - No drift; leg holds 30- degree position for full 5 seconds -6b. Right Leg 0 - No drift; leg holds 30- degree position for full 5 seconds -7. Limb Ataxia 0 - Absent -8. Sensory 0 - Normal; no sensory loss -9. Best Language 1 - Mild-to- moderate aphasia; -10. Dysarthria 0 - Normal -11. Extinction and Inattention 0 - No abnormality -Total 2 Query Text:A score of 0 is normal or asymptomatic. Total possible score is 42 . ED: Notify Physician for NIHSS increase by > / = 3 points. Inpatient: RN or Physician to activate a stroke alert for NIHSS increase of > / = 3 points. Coma Scale [Assess] -Eye Opening Spontaneous -Motor Obeys Commands -Verbal Confused [Total] -Coma Scale Total 14
--- NOTE | 2024-10-28 01:32 | EKG12_ITS ---
Test Reason : RAPID BURST HR Blood Pressure : */* mmHG Vent. Rate : 88 BPM Atrial Rate : 88 BPM P-R Int : 132 ms QRS Dur : 94 ms QT Int : 318 ms P-R-T Axes : 23 20 164 degrees QTcB Int : 384 ms Sinus rhythm with frequent Premature ventricular complexes and Premature atrial complexes ST & T wave abnormality, consider anterior ischemia Abnormal ECG When compared with ECG of 20-Apr-2008 08:46, MANUAL COMPARISON REQUIRED DATA IS UNCONFIRMED Confirmed by Fransico Sanchez ([id number]), supervising editor news reel [email or web address] TAPIA ([id number]) on 10/28/2024 8:16:32 AM Referred By: Andrew Vergara Confirmed By: Fransico Sanchez
[2024-10-28 02:00] VITALS: BP 133/65; PULSE 88; RESP 18; TEMP 36.8; O2SAT 94
[2024-10-28 05:41] LABS: Hematocrit 27.8 % (40-54); Hemoglobin 9.3 g/dL (13.0-16.5); Immature Granulocytes Count 0.050 X10^3/uL (0.0-0.0); Mean Corp Hgb Conc 33.5 g/dL (32-36); Mean Corpuscular Volume 96.2 fL (80-94); Mean Platelet Vol. 9.3 fl (6.2-12.0); NRBC Flagged by Analyzer 0 % (0-5); Platelet Count 266 K/mm3 (150-450); RBC Distribution Width CV 12.8 % (11.6-14.6); RBC Distribution Width SD 45.7 fl (35.1-43.9); Red Blood Count 2.89 M/mm3 (4.6-6.2); White Blood Count 12.0 K/mm3 (4.4-11.0)
[2024-10-28 06:00] VITALS: BP 137/75; PULSE 84; RESP 18; TEMP 36.6; O2SAT 94
[2024-10-28 06:07] LABS: Anion Gap 9 (5-15); BUN 16 mg/dL (4-19); BUN/Creat Ratio 24.0 RATIO (10-20); Calcium,Total 8.7 mg/dL (7.6-11.0); Carbon Dioxide 26.5 mmol/L (21.0-32.0); Chloride 102 mmol/L (98-108); Estimated Creatinine Clearance 67.71 ml/min (50-250); Glucose 114 mg/dL (70-99); Potassium 3.9 mmol/L (3.3-5.1)
[2024-10-28 07:52] LABS: Magnesium 2.0 mg/dL (1.5-2.2)
[2024-10-28 07:55] VITALS: BP 130/74; PULSE 79; RESP 16; TEMP 36.9; O2SAT 90
--- NOTE | 2024-10-28 08:28 | PN.URO_ITS ---
Subjective Subjective Patient was supposed to go to the snf yesterday for rehab but in the morning there was a concern about a possible stroke so discharge was held and he underwent an evaluation and is currently still going underneath a stroke evaluation by the medical service. This morning I spoke to the patient he knows he is in [place] equal bilateral strength smile is symmetrical I do not see any physical signs of a stroke he is acting normal. I will leave it up to the medical team to decide whether he really had a stroke or not. At this point the main risk is that he says a catheter in place he could always pull the catheter out again and would be a major setback so organ to take out the catheter today and see if he can urinate if he is able to urinate then we will leave him without a catheter so I remove the catheter this morning for another voiding trial hopefully is able to urinate I was hoping to leave the catheter in longer but the risk is that he could pull the catheter out again so organ to take the catheter out and see if he can go. Objective Data Objective Data Vital Signs: Vital Signs Temp Pulse Resp BP Pulse Ox O2 Del Method O2 Flow Rate 98.5 F 79 16 130/74 H 90 Room Air 2 10/28/24 07:55 10/28/24 07:55 10/28/24 07:55 10/28/24 07:55 10/28/24 07:55 10/28/24 07:55 10/26/24 15:05 Oxygen Flow Rate (L/min) 2 Oxygen Delivery Method Room Air Weight: 70 kg Body Mass Index (BMI) 24.1 Intake & Output: Intake and Output for Last 24 Hours 10/26/24 10/27/24 10/28/24 23:59 23:59 23:59 Intake Total 800.25 / 800.25 Output Total 6950 / 6950 1900 / 1900 200 / 200 Balance -6950 / -6950 -1099.75 / -1099.75 -200 / -200 Lab / Micro Data 10/28/24 05:03 10/28/24 05:03 Labs: Laboratory Results - last 24 hr 10/27/24 08:57: POC Glucose 115 H 10/28/24 05:03: WBC 12.0 H, RBC 2.89 L, Hgb 9.3 L, Hct 27.8 L, MCV 96.2 H, MCH 32.2 H, MCHC 33.5, RDW Std Deviation 45.7 H, RDW Coeff of [place]ari 12.8, Plt Count 266, MPV 9.3, Immature Gran % (Auto) 0.400, Neut % (Auto) 73.1 H, Lymph % (Auto) 13.9 L, [place] % (Auto) 9.6, Eos % (Auto) 2.5, Baso % (Auto) 0.5, Absolute Neuts (auto) 8.8 H, Absolute Lymphs (auto) 1.67, Nucleated RBC % 0, Sodium 137, Potassium 3.9, Chloride 102, Carbon Dioxide 26.5, Anion Gap 9, BUN 16, C reatinine 0.66 L, Estim Creat Clear Calc 67.71, Est GFR (MDRD) Non-Af 94, B UN/Creatinine Ratio 24.0 H, Glucose 114 H, Calcium 8.7, Magnesium 2.0 Radiography Diagnostic Testing: Radiology Impression Brain CT 10/27/24 09:01 IMPRESSION: 1. No evidence of intracranial hemorrhage or acute ischemia. 2. Changes of chronic microvascular ischemia and volume loss. Findings and impression of this report were called directly to the charge nurse, Lorraine, at 0922 hours Eastern standard time. She relay the information to the covering physician at the time of the phone call. Reading Location: [facility] Head/Neck CTA 10/27/24 09:10 IMPRESSION: 1. No large vessel occlusion. 2. No aneurysm or flow-limiting stenosis. 3. Significant amount of soft plaque at the carotid bulb, proximal internal carotid artery and external carotid artery on the left. Medial course of the distal common carotid; it is located anterior to the longus colli muscle. Consider nonemergent vascular surgical consultation and possible carotid ultrasound to assess plaque.. Reading Location: [id number]
--- NOTE | 2024-10-28 09:25 | PN.HOSP_ITS ---
Subjective Subjective No significant change from yesterday. Small discussion with his significant other this gaze palsy that he has not necessitated a stroke alert has been going on since before his admission and otherwise he is at his baseline Objective Data Objective Data Vital Signs: Vital Signs Temp Pulse Resp BP Pulse Ox O2 Del Method O2 Flow Rate 98.5 F 79 16 130/74 H 90 Room Air 2 10/28/24 07:55 10/28/24 07:55 10/28/24 07:55 10/28/24 07:55 10/28/24 07:55 10/28/24 07:55 10/26/24 15:05 Oxygen Flow Rate (L/min) 2 Oxygen Delivery Method Room Air Weight: 154 lb 5.177 oz Body Mass Index (BMI) 24.1 Intake & Output: Intake and Output for Last 24 Hours 10/27/24 10/28/24 10/29/24 03:59 03:59 03:59 Intake Total 800.25 / 800.25 Output Total 6950 / 6950 1900 / 1900 200 / 200 Balance -6950 / -6950 -1099.75 / -1099.75 -200 / -200 Lab / Micro Data 10/28/24 05:03 10/28/24 05:03 Labs: Laboratory Results - last 24 hr 10/28/24 05:03: WBC 12.0 H, RBC 2.89 L, Hgb 9.3 L, Hct 27.8 L, MCV 96.2 H, MCH 32.2 H, MCHC 33.5, RDW Std Deviation 45.7 H, RDW Coeff of Damari 12.8, Plt Count 266, MPV 9.3, Immature Gran % (Auto) 0.400, Neut % (Auto) 73.1 H, Lymph % (Auto) 13.9 L, [place] % (Auto) 9.6, Eos % (Auto) 2.5, Baso % (Auto) 0.5, Absolute Neuts (auto) 8.8 H, Absolute Lymphs (auto) 1.67, Nucleated RBC % 0, Sodium 137, Potassium 3.9, Chloride 102, Carbon Dioxide 26.5, Anion Gap 9, BUN 16, C reatinine 0.66 L, Estim Creat Clear Calc 67.71, Est GFR (MDRD) Non-Af 94, B UN/Creatinine Ratio 24.0 H, Glucose 114 H, Calcium 8.7, Magnesium 2.0 Radiography Diagnostic Testing: Radiology Impression Brain CT 10/27/24 09:01 IMPRESSION: 1. No evidence of intracranial hemorrhage or acute ischemia. 2. Changes of chronic microvascular ischemia and volume loss. Findings and impression of this report were called directly to the charge nurse, Lorraine, at 0922 hours Eastern standard time. She relay the information to the covering physician at the time of the phone call. Reading Location: [id number] Head/Neck CTA 10/27/24 09:10 IMPRESSION: 1. No large vessel occlusion. 2. No aneurysm or flow-limiting stenosis. 3. Significant amount of soft plaque at the carotid bulb, proximal internal carotid artery and external carotid artery on the left. Medial course of the distal common carotid; it is located anterior to the longus colli muscle. Consider nonemergent vascular surgical consultation and possible carotid ultrasound to assess plaque.. Reading Location: [id number] Physical Exam Narrative General: Alert, Oriented x1-2, Cooperative, No apparent distress HEENT: Atraumatic, PERRLA, EOMI, Normocephalic Oral: Moist Mucosa Neck: Supple, No JVD Lungs: Diminished, Normal air movement, No rhonchi, No wheeze, No rales Cardiovascular: Regular rate, Regular Rhythm, Normal S1, Normal S2, No murmurs Abdomen: Soft, Non Tender, Non-Distended, No Hepato-splenomegaly Extremities: No edema, Capillary Refill Less than 3 Seconds Skin: No rashes, No breakdown Musculoskeletal: No Tenderness to Palpation of Joints or Extremities Neurological: To follow commands but would not move his eyes or follow my finger, gaze remained fixed straightforward but visual acuity was intact, Motor Exam 5/5 strength throughout, Sensory exam intact to light touch and pain Psych/Mental Status: Normal Affect, Appropriate Assessment & Plan Assessment/Plan (1) Essential hypertension: PLAN: Plan 1. Anesthesia side effect ? Responded to a stroke alert because of the gaze palsy though he was keenly interactive and moves all of his extremities and was able to follow commands ? Concern for possible delirium versus side effect from anesthesia as he has had a TURP on 10/21/2024 and then a cystoscopy on 10/26/2024 because of Bagley trauma and gross hematuria ? CT of the head and neck does show some large vessel stenosis in his carotids, carotid ultrasound demonstrates a greater than 70% stenosis of the left ICA, will obtain an MRI but he can likely follow-up with vascular as an outpatient ? Continue with Lipitor ? I do think that he should be stable for discharge later today ? He does have a history of Alzheimer's which is exacerbating his current presentation. 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 Management per primary ? Continue with Flomax and finasteride 3. Essential HTN/HLD ? Continue with his home blood pressure medications ? Will monitor make adjustments as necessary ? Continue Zetia 4. Anxiety/depression/Alzheimer's dementia ? Recent diagnosis of his dementia in the last month and a half ? Continue with his home Effexor as well as memantine ? Will monitor make adjustments as necessary DVT: SCDs Charges/Coding Visit Charges Inpatient E&M: 89708 Subs Hosp L2 NIHSS NIHSS Nursing Documentation NIHSS Nursing Documentation: NIHSS: Ischemic Stroke/TIA Start: 10/27/24 10:08 Freq: [id number] Status: Active Protocol: Activity Type Activity Date Activity User E-sign Co-sign Detail Recorded Client Recorded Date Recorded By Document 10/28/24 07:55 KG [id number] 10/28/24 08:30 KG 10/28/24 07:55 NIH Stroke Scale [NIHSS] A score of 0 is normal or asymptomatic . Total possible score is 42. Inpatient: RN or Physician to activate a stroke alert for onset of new stroke symptoms or with NIHSS increase >/= 3 points. Following change in neurological status, NIHSS will be performed per physician order or more frequently PRN. -1a. Level of Consciousness 0 - Alert; keenly responsive -1b. LOC Questions 0 - Answers BOTH questions correctly -1c. LOC Commands 0 - Performs BOTH tasks correctly -2. Best Gaze 1 - Partial gaze palsy; -3. Visual 2 - Complete hemianopia -4. Facial Palsy 0 - Normal symmetrical movements -5a. Left Arm 0 - No drift; arm holds 90 ( or 45) degrees for full 10 seconds -5b. Right Arm 0 - No drift; arm holds 90 ( or 45) degrees for full 10 seconds -6a. Left Leg 0 - No drift; leg holds 30- degree position for full 5 seconds -6b. Right Leg 0 - No drift; leg holds 30- degree position for full 5 seconds -7. Limb Ataxia 0 - Absent -8. Sensory 0 - Normal; no sensory loss -9. Best Language 1 - Mild-to- moderate aphasia; -10. Dysarthria 0 - Normal -11. Extinction and Inattention 0 - No abnormality -Total 4 Query Text:A score of 0 is normal or asymptomatic. Total possible score is 42 . ED: Notify Physician for NIHSS increase by > / = 3 points. Inpatient: RN or Physician to activate a stroke alert for NIHSS increase of > / = 3 points. Coma Scale [Assess] -Eye Opening Spontaneous -Motor Obeys Commands -Verbal Oriented [Total] -Coma Scale Total 15
[2024-10-28] MEDS: Multivitamin (Healthy Eyes) Capsule 1 CAP PO ×2 (09:28→17:14)
[2024-10-28] MEDS: Memantine Hydrochloride 10 MG Tablet PO (09:29)
--- NOTE | 2024-10-28 10:04 | CON.PCM.NE_ITS ---
Assessment and Plan: Neuro Assessment/Plan HEIDY MARS is a 79 M being evaluated by Teleneurology for fixed midline gaze. He is still struggling to move eyes in the horizontal plane to command. Intermittently will move laterally when looking at a noise but unable to do so to command. Exam otherwise normal. CTH/CTA without significant findings. Unclear etiology, will need to rule out stroke in the horizontal gaze centers(midbrain/evert). Diagnosis: horizontal gaze palsy Plan: - MRI Brain without I personally attended this patient and spent a total time of 35 minutes evaluating this patient including clinical assessment, review of chart, medical history imaging, and determining appropriate treatment and workup. HPI Consult Data Date of Consult: 10/28/24 HPI Narrative HPI Narrative: HEIDY MARS, is a 79 M who was admitted post-TURP. He under went cystoscopy yesterday for Bagley trauma/gross hematuria. After procedure a stroke alert was called due to fixed midline gaze. He was alert and responsive, moving all extremities but had difficulty moving eyes to either direction. CTH showed atrophy but no acute findings. CTA did not show LVO or flow limiting stenosis. Today he still has difficult moving eyes horizontally voluntarily/to command. Occasional lateral movement automatically to look a noise. He denies any other symptoms. [facility] Medical History Wears glasses Wears dentures Alzheimer dementia Anxiety Arthritis Prostate disease Former smoker Sleep apnea Leg cramps History of stress test Cardiology follow-up encounter Frequent falls BPH (benign prostatic hyperplasia) Atherosclerosis of coronary artery of [place] heart without angina pectoris B12 deficiency Depression Hyperlipidemia Essential hypertension Rheumatoid arthritis Home Medications ?Medication ?Instructions ?Recorded ?Last Taken ?Type amlodipine 2.5 mg tablet 2.5 mg PO QDAY BP 10/29/23 0 10/21/24 History cholecalciferol (vitamin D3) 50 50 mcg PO QDAY SUPPLEM ENT 10/29/23 10/20/24 History mcg (2,000 unit) tablet cyanocobalamin (vitamin B-12) 1,000 mcg PO QHS SUPPLEM ENT 10/29/23 10/20/24 History 1,000 mcg tablet ezetimibe 10 mg tablet (Zetia) 10 mg PO QDAY CHOLESTER OL 10/29/23 10/21/24 History finasteride 5 mg tablet 5 mg PO QDAY PROSTATE 10/21/24 History losartan 50 mg tablet 50 mg PO QDAY BP 10/29/23 History vitamins A,C,I-ivqy-eqjemp 4,296 1 cap PO BID EYE FOZIA MIN 10/29/23 10/20/24 History mcg-226 mg-90 mg capsule (PreserVision AREDS) RELIEF FACTOR 1 tab PO BID ARTHRITIS 10/1410/20/24 History coenzyme Q10 100 mg capsule (Co 200 mg PO DAILY SUPPLE MENT 10/14/24 10/20/24 History Q-10) diphenhydramine 25 1 tab PO QHS PRN sleep 10/1410/14/24 History mg-acetaminophen 500 mg tablet memantine 10 mg tablet (Namenda) 10 mg PO BID ALZEHEIM ERS 10/14/24 10/21/24 History tamsulosin 0.4 mg capsule 0.4 mg PO QHS PROSTATE 10/1410/20/24 History venlafaxine 150 mg 150 mg PO DAILY DEPRESSION 0 10/14/24 10/21/24 History capsule,extended release 24 hr ciprofloxacin HCl 500 mg tablet 500 mg PO BID #10 tabs 10/21/24 Unknown Rx (Cipro) Allergy/AdvReac Type Severity Reaction Status Date / Time isosorbide Allergy Unknown unknown Verified 10/21/24 11:57 Sulfa (Sulfonamide Allergy Unknown unknown Verified 10/21/24 11:57 Antibiotics) sulfacetamide Allergy Unknown unknown Verified 10/21/24 11:57 Family History Father Cancer Brother Suicide Surgical History History of coronary artery stent placement History of colonoscopy History of left heart catheterization (09/12/20) Social History Smoking Status: Former smoker how long ago did patient quit smoking: stopped at age 54 alcohol intake: former year quit: 39y substance use type: does not use caffeine: Yes Type: carbonated beverages Number of servings: 2 Vital Signs Vital Signs Vital Signs: 10/27/24 14:06 10/27/24 15:34 09/09/25 18:00 Temperature 97.4 F L 97.9 F Temperature Source Oral Oral Pulse Rate 85 90 Respiratory Rate 16 14 Respiratory Effort Respiratory Depth Respiratory Pattern Blood Pressure 101/57 L 98/68 Blood Pressure Mean 71 78 Blood Pressure Source Monitor Monitor Blood Pressure Position Sitting Sitting Blood Pressure Location Right Arm Right Arm Pulse Ox 93 93 94 Oxygen Delivery Method Room Air Room Air 10/27/24 22:00 10/27/24 23:00 10/28/24 02:00 Temperature 97.4 F L 98.2 F Temperature Source Temporal Temporal Pulse Rate 88 88 Respiratory Rate 18 18 Respiratory Effort Normal Respiratory Depth Normal Respiratory Pattern Normal Blood Pressure 129/68 H 133/65 H Blood Pressure Mean 88 87 Blood Pressure Source Monitor Monitor Blood Pressure Position Semi-Fowlers Semi-Fowlers Blood Pressure Location Left Arm Left Arm Pulse Ox 94 94 Oxygen Delivery Method Room Air Room Air Room Air 10/28/24 06:00 10/28/24 07:55 10/28/24 09:21 Temperature 97.9 F 98.5 F Temperature Source Temporal Oral Pulse Rate 84 79 Respiratory Rate 18 16 Respiratory Effort Normal Respiratory Depth Normal Respiratory Pattern Normal Blood Pressure 137/75 H 130/74 H Blood Pressure Mean 95 92 Blood Pressure Source Monitor Monitor Blood Pressure Position Semi-Fowlers Supine Blood Pressure Location Left Arm Pulse Ox 94 90 Oxygen Delivery Method Room Air Room Air Weight Weight: 70 kg Body Mass Index (BMI) 24.1 EEG Results Procedure Details EEG Procedure Details: HEIDY MARS is a 79 year old M with a past medical history of , who presents for evaluation of Electroencephalogram on DATE at TIME Physical Exam Eyes Pupil: PERRL Neuro Neuro Narrative: AOx3, CN intact except difficulty with horizontal gaze bilaterally, unable to move eyes from midline to command. Coordination / Balance: [id number] test normal and cleg-[id number] test normal Speech: speech normal Sensory Exam: double simultaneous stimulation for sensation normal Motor Exam: strength 5/5 throughout, muscle tone normal throughout, no pronator drift, no tremor and no asterixis Pupil Exam: Normal Pupillary Reactivity/Response: bilateral Lab / Micro Data 10/28/24 05:03 10/28/24 05:03 Labs: Laboratory Results - last 24 hr 10/28/24 05:03: WBC 12.0 H, RBC 2.89 L, Hgb 9.3 L, Hct 27.8 L, MCV 96.2 H, MCH 32.2 H, MCHC 33.5, RDW Std Deviation 45.7 H, RDW Coeff of Damari 12.8, Plt Count 266, MPV 9.3, Immature Gran % (Auto) 0.400, Neut % (Auto) 73.1 H, Lymph % (Auto) 13.9 L, [place] % (Auto) 9.6, Eos % (Auto) 2.5, Baso % (Auto) 0.5, Absolute Neuts (auto) 8.8 H, Absolute Lymphs (auto) 1.67, Nucleated RBC % 0, Sodium 137, Potassium 3.9, Chloride 102, Carbon Dioxide 26.5, Anion Gap 9, BUN 16, C reatinine 0.66 L, Estim Creat Clear Calc 67.71, Est GFR (MDRD) Non-Af 94, B UN/Creatinine Ratio 24.0 H, Glucose 114 H, Calcium 8.7, Magnesium 2.0 Active Medications Active Medications Active Medications: Current Medications Generic Name Dose Route Start Last Admin Trade Name Watsonq PRN Reason Stop Dose Admin Acetaminophen 650 mg 10/21/24 15:02 10/27/24 08:36 Acetaminophen 325 Mg Tablet PO 650 mg Q6H PRN PRN Administration Pain Score 1-10 Al Hydroxide/Mg Hydroxide 30 ml 10/21/24 15:02 Mag Hydrox/Al Hydrox/Simeth 30 Ml Udc PO Q4H PRN PRN HEARTBURN Amlodipine Besylate 2.5 mg 10/22/24 10:00 10/28/24 09:29 Amlodipine 2.5 Mg Tablet PO 2.5 mg DAILY LEIGH ANN Administration Protocol Ciprofloxacin HCl 500 mg 10/21/24 22:00 10/28/24 09:29 Ciprofloxacin 500 Mg Tablet PO 500 mg BID LEIGH ANN Administration Diphenhydramine HCl 25 mg 10/21/24 15:10 10/22/24 21:07 Diphenhydramine 25 Mg Capsule PO 25 mg QHS PRN Administration sleep Docusate Sodium 200 mg 10/21/24 22:00 10/28/24 09:28 Docusate Sodium 100 Mg Capsule PO 200 mg BID LEIGH ANN Administration Ezetimibe 10 mg 10/22/24 10:00 10/28/24 09:30 Ezetimibe 10 Mg Tablet PO 10 mg DAILY LEIGH ANN Administration Finasteride 5 mg 10/22/24 10:00 10/28/24 09:30 Finasteride 5 Mg Tablet PO 5 mg DAILY LEIGH ANN Administration Sodium Chloride 250 mls @ 15 mls/hr 10/21/24 16:45 IV .[id number] PRN Saline Flush Sodium Chloride 250 mls @ 15 mls/hr 10/21/24 16:45 IV .[id number] PRN Additional IVPB Infusion Lactated Ringer's 1,000 mls @ 15 mls/hr 10/26/24 11:15 10/27/24 07:18 IV Infused .Q48H LEIGH ANN Infusion Losartan Potassium 50 mg 10/22/24 10:00 10/28/24 09:29 Losartan Potassium 50 Mg Tablet PO 50 mg DAILY LEIGH ANN Administration Protocol Memantine 10 mg 10/21/24 22:00 10/28/24 09:29 Memantine Hydrochloride 10 Mg Tablet PO 10 mg BID LEIGH ANN Administration Metoclopramide HCl 10 mg 10/21/24 15:02 Metoclopramide 10 Mg/2 Ml Vial IV Q8H PRN PRN Nausea/vomiting Multivitamins/Minerals 1 cap 10/21/24 17:00 10/28/24 09:28 Multivitamin (Healthy Eyes) Capsule PO 1 cap BIDCM LEIGH ANN Administration Ondansetron HCl 4 mg 10/21/24 15:02 Ondansetron 4 Mg/2 Ml Vial IV Q8H PRN NAUSEA/VOMITING Oxycodone HCl 5 - 10 mg 10/21/24 15:02 10/27/24 00:29 Oxycodone 5 Mg Tablet PO 5 mg Q6H PRN PRN Administration Pain Score 4-10 Sodium Chloride 10 - 40 ml 10/21/24 16:45 10/22/24 05:49 0.9% Saline Lock 10 Ml Syringe IV 40 ml UD PRN Administration SALINE FLUSH Tamsulosin HCl 0.4 mg 10/21/24 22:00 10/27/24 22:23 Tamsulosin Hcl 0.4 Mg Capsule PO 0.4 mg QHS LEIGH ANN Administration Venlafaxine HCl 150 mg 10/22/24 10:00 10/28/24 09:29 Venlafaxine Xr 150 Mg Capsule PO 150 mg DAILY LEIGH ANN Administration NIHSS NIHSS Nursing Documentation NIHSS Nursing Documentation: NIHSS: Ischemic Stroke/TIA Start: 10/27/24 10:08 Freq: [id number] Status: Active Protocol: Activity Type Activity Date Activity User E-sign Co-sign Detail Recorded Client Recorded Date Recorded By Document 10/28/24 07:55 KG [id number] 10/28/24 08:30 KG 10/28/24 07:55 NIH Stroke Scale [NIHSS] A score of 0 is normal or asymptomatic . Total possible score is 42. Inpatient: RN or Physician to activate a stroke alert for onset of new stroke symptoms or with NIHSS increase >/= 3 points. Following change in neurological status, NIHSS will be performed per physician order or more frequently PRN. -1a. Level of Consciousness 0 - Alert; keenly responsive -1b. LOC Questions 0 - Answers BOTH questions correctly -1c. LOC Commands 0 - Performs BOTH tasks correctly -2. Best Gaze 1 - Partial gaze palsy; -3. Visual 2 - Complete hemianopia -4. Facial Palsy 0 - Normal symmetrical movements -5a. Left Arm 0 - No drift; arm holds 90 ( or 45) degrees for full 10 seconds -5b. Right Arm 0 - No drift; arm holds 90 ( or 45) degrees for full 10 seconds -6a. Left Leg 0 - No drift; leg holds 30- degree position for full 5 seconds -6b. Right Leg 0 - No drift; leg holds 30- degree position for full 5 seconds -7. Limb Ataxia 0 - Absent -8. Sensory 0 - Normal; no sensory loss -9. Best Language 1 - Mild-to- moderate aphasia; -10. Dysarthria 0 - Normal -11. Extinction and Inattention 0 - No abnormality -Total 4 Query Text:A score of 0 is normal or asymptomatic. Total possible score is 42 . ED: Notify Physician for NIHSS increase by > / = 3 points. Inpatient: RN or Physician to activate a stroke alert for NIHSS increase of > / = 3 points. Coma Scale [Assess] -Eye Opening Spontaneous -Motor Obeys Commands -Verbal Oriented [Total] -Coma Scale Total 15
--- NOTE | 2024-10-28 10:45 | MRI_ITS ---
PROCEDURE: BRAIN WITHOUT CONTRAST 10/28/2024 REASON FOR EXAM: CVA R/O TECHNIQUE: Procedure Code: MRIBR Modality: MR Procedure: BRAIN WITHOUT CONTRAST Multiplanar and multisequence images were obtained. COMPARISON: 10/27/2024 CT. FINDINGS: Moderate global parenchymal atrophy. No evidence of acute hemorrhage or infarction. No extra-axial blood or fluid collections. The paranasal sinuses and mastoid air cells are clear. The calvarial vault and skull base are intact. MRI/Brain without Contrast IMPRESSION: No acute intracranial abnormality. Reading Location: [id number]
[2024-10-28 11:55] VITALS: BP 123/74; PULSE 87; RESP 18; TEMP 37.7; O2SAT 94
--- NOTE | 2024-10-28 12:12 | CASEMGMT ---
Discharge Planning Updates sent to Pablo Del[facility]. Olya Brooks DC Planning Asst.
--- NOTE | 2024-10-28 15:39 | CASEMGMT ---
Patient to discharge to [facility] for skilled level of care. 7000 completed, copy in chart. Green sheet on chart with transport form if patient discharges today.
--- NOTE | 2024-10-28 16:35 | CASEMGMT ---
Social Work Per physician pt negative for stroke, therefore PHQ9 not completed. Farooq Harp, TECHNICAL SUPPORT ASSOCIATE
[2024-10-28 17:11] VITALS: BP 136/67; PULSE 74; RESP 18; TEMP 36.9; O2SAT 96
[2024-10-28 18:59] VITALS: BP 130/66; PULSE 89; RESP 16; O2SAT 93
--- NOTE | 2024-10-28 19:00 | NURSING ---
Tried to call report to Pablo Delaney two times with no answer. The first time at 1818 and the second time at 1900.
== END 2024-10-28 20:30 | disposition skilled nursing facility (03) | DRG 660 ==
LOC: SDC 15:11 → MS3 15:11 → PCU 10-27 10:18
PROVIDERS: Family Medicine; Internal Medicine; Admitting Provider Urology; PCP Family Medicine; Referring Provider Urology; Visit Provider Urology
PROC: 0VT08ZZ Resection of Prostate, Via Natural or Artificial Opening Endoscopic (ICD-10-PCS; CPT 52601; principal; 2024-10-21 13:05)
PROC: 0TCC8ZZ Extirpation of Matter from Bladder Neck, Via Natural or Artificial Opening Endoscopic (ICD-10-PCS; CPT 52214; principal; 2024-10-26 11:50)
PROC: 0TCC8ZZ Extirpation of Matter from Bladder Neck, Via Natural or Artificial Opening Endoscopic (ICD-10-PCS; 2024-10-26 11:50)
DX: T83.83XA Hemorrhage due to genitourinary prosthetic devices, implants and grafts, initial encounter (principal); F05 Delirium due to known physiological condition; N99.71 Accidental puncture and laceration of a genitourinary system organ or structure during a genitourinary system procedure; S37.33XA Laceration of urethra, initial encounter; N13.8 Other obstructive and reflux uropathy; G30.9 Alzheimer's disease, unspecified; I10 Essential (primary) hypertension; I65.22 Occlusion and stenosis of left carotid artery; M48.02 Spinal stenosis, cervical region; F02.80 Dementia in other diseases classified elsewhere, unspecified severity, without behavioral disturbance, psychotic disturbance, mood disturbance, and anxiety; E78.5 Hyperlipidemia, unspecified; I25.10 Atherosclerotic heart disease of native coronary artery without angina pectoris; N40.1 Benign prostatic hyperplasia with lower urinary tract symptoms; Z95.5 Presence of coronary angioplasty implant and graft; Z87.891 Personal history of nicotine dependence; R31.0 Gross hematuria; Y92.234 Operating room of hospital as the place of occurrence of the external cause; Y82.8 Other medical devices associated with adverse incidents
CPT/HCPCS: 36415; 51702; 70450; 70496; 70498; 70551; 80048; 82962; 83735; 85025; 86850; 86900; 86901; 88305; 93005; 93880; 94668; 97162; 97164; 97166; 97168; 97530; 97535; Q9967; A4216; C1769; C2617

== ENCOUNTER 2024-10-31 23:30 | Emergency (ER) | payer MEDICARE, SELFPAY ==
[2024-10-31 23:31] VITALS: BP 124/65; PULSE 87; RESP 16; TEMP 37.5; O2SAT 95; BMI 25.9
--- NOTE | 2024-10-31 23:50 | CT_ITS ---
PROCEDURE: BRAIN/HEAD WITHOUT CONTRAST; SPINE CERVICAL WITHOUT CONTRAS 10/31/2024 REASON FOR EXAM: FALL TECHNIQUE: Procedure Code: CTBR; CTSPC Modality: CT Procedure: BRAIN/HEAD WITHOUT CONTRAST; SPINE CERVICAL WITHOUT CONTRAS Coronal and Sagittal reconstruction series were provided. One or more dose reduction techniques were used (e.g., Automated exposure control, adjustment of the mA and/or kV according to patient size, use of iterative reconstruction technique. COMPARISON: CT head 10/28/2024 FINDINGS: There is no extra-axial or intra-axial intracranial hemorrhage. No mass effect or midline shift is seen. Generalized intracranial volume loss and findings compatible with chronic microvascular white matter ischemia. There is normal alves-white matter differentiation. The posterior fossa is grossly unremarkable. The skull is unremarkable. Visualized paranasal sinuses are clear. The mastoid air cells show normal translucency. Mild reversal of the cervical lordosis suggestive of paraspinal muscle stiffness or spasm. Grade 1 retrolisthesis of C3 on C2 by 2.3 mm and of C4 on C3 by 2.8 mm. No traumatic subluxation. No acute cervical spine fracture is identified. The vertebral body heights are intact. No suspicious osseous lesions are identified. The craniocervical junction appears intact. There is no prevertebral soft tissue swelling. Moderate degenerate changes throughout the cervical spine. No severe neural foraminal or spinal canal stenosis. The visualized lung apices are unremarkable. CT/Spine Cervical without Contras IMPRESSION: 1. No intracranial hemorrhage. No mass effect or midline shift. 2. Chronic involutional and ischemic gliotic white matter changes. 3. No evidence of acute cervical spine fracture or traumatic subluxation. 4. Mild reversal of the cervical spine suggestive of paraspinal muscle stiffnes s or spasm. 5. Grade 1 retrolisthesis of C3 on C2 and C4 on C3. 6. Moderate degenerative changes throughout the cervical spine. Reading Location: [facility]
--- NOTE | 2024-10-31 23:52 | CT_ITS ---
PROCEDURE: ABDOMEN/PELVIS W IV CONT ONLY 11/01/2024 REASON FOR EXAM: EDMONDS TRAUMA, BRUISING TO LOWER ABD TECHNIQUE: Procedure Code: [id number] Modality: CT Procedure: ABDOMEN/PELVIS W IV CONT ONLY Coronal and Sagittal reconstruction series were provided. CONTRAST: OMNIPAQUE 350 VOLUME: 100 mL One or more dose reduction techniques were used (e.g., Automated exposure control, adjustment of the mA and/or kV according to patient size, use of iterative reconstruction technique. RADIATION DOSE SUMMARY: CTDlvol: 10.81 mGy DLP: 1015 mGycm COMPARISON: None. FINDINGS: Abnormal position of the Edmonds catheter with its tip within the left lateral aspect of the penis. It needs to be adjusted/evaluated to assess for extraluminal position. Hyperdense material is noted in the right lateral aspect of the penile shaft which is possibly secondary to the presence of acute hemorrhagic products, vigorous enhancement and/or active bleeding. No precontrast images are provided to better evaluate this abnormality. Edmonds catheter balloon is minimally inflated in the penile urethra. Mild left pleural effusion. Passive atelectatic airspace disease of the left lower lobe. Small sliding hiatal hernia. Mild cardiomegaly. Right double-J nephroureteral stent is in good position. Scattered right renal simple cysts are noted with the largest measuring 1.5 cm. Mild calcified atheromatous plaques of the aorta and iliac arteries. Diffuse thickening of the bladder. Chronic bladder outlet obstruction versus cystitis. Gas densities in the lumen of the bladder, probably recent instrumentation. Moderate prostatomegaly. Gas densities in the prostate which is possibly secondary to recent instrumentation. Moderate amount of fecal residue in the large bowels. Fat containing left inguinal hernia without incarceration. Scattered left renal simple cysts are noted with the largest measuring 1.5 cm. Grade 1 anterolisthesis of L3 on L4. Mild diffuse spondylosis. Normal liver. Normal gallbladder and extrahepatic biliary system. Normal spleen. Normal pancreas. Normal bilateral adrenal glands. Normal size of the right kidney. There is no right renal mass. There are no right renal calculi. There is no right hydronephrosis. Normal visualized right ureter. Normal size of the left kidney. There is no left renal mass. There are no left renal calculi. There is no left hydronephrosis. Normal visualized left ureter. Normal small intestine. The appendix is visualized and appears normal. There is no demonstrated peritoneal fluid. Normal inferior vena cava. Normal retroperitoneum. There is no pelvic mass lesion or lymphadenopathy. There is no pelvic fluid. CT/Abdomen/Pelvis W IV Cont ONLY IMPRESSION: Abnormal position of the Edmonds catheter with its tip within the left lateral as pect of the penis. It needs to be adjusted/evaluated to assess for extraluminal position. Hyperdense material is noted in the right lateral aspect of the penile shaft wh ich is possibly secondary to the presence of acute hemorrhagic products, vigorous enhancement and/or active bleeding. No precontr ast images are provided to better evaluate this abnormality. Edmonds catheter balloon is minimally inflated in the penile urethra. Mild left pleural effusion. Passive atelectatic airspace disease of the left lower lobe. Small sliding hiatal hernia. Mild cardiomegaly. Right double-J nephroureteral stent is in good position. Scattered right renal simple cysts are noted with the largest measuring 1.5 cm. Mild calcified atheromatous plaques of the aorta and iliac arteries. Diffuse thickening of the bladder. Chronic bladder outlet obstruction versus cy stitis. Gas densities in the lumen of the bladder, probably recent instrumentation. Moderate prostatomegaly. Gas densities in the prostate which is possibly secondary to recent instrumenta tion. Moderate amount of fecal residue in the large bowels. Fat containing left inguinal hernia without incarceration. Scattered left renal simple cysts are noted with the largest measuring 1.5 cm. Grade 1 anterolisthesis of L3 on L4. Mild diffuse spondylosis. Reading [facility]
--- NOTE | 2024-10-31 23:53 | EDS_ITS ---
HPI History of Present Illness Chief Complaint: Chang C/O Narrative Narrative: Patient is an 79-year-old male presenting to the emergency department for Chang trauma. Patient had a TURP with Dr. Harden on 10/21 for BPH with urinary retention and then was discharged back to his memory care facility and ripped out his chang catheter. He then was taken back to the OR on 10/26 for urethral trauma after his Chang was pulled out at that time. He was discharged from the hospital on 10/28 back to his memory care facility. He is not on any oral anticoagulation. Does have a past medical history of dementia, baseline alert and oriented to self. Patient has no complaints on my evaluation today. Facility states that he fell today and pulled out his urinary catheter and is now having gross hematuria. Patient has no complaints at time of evaluation. [facility] Medical History Wears glasses Wears dentures Alzheimer dementia Anxiety Arthritis Prostate disease Former smoker Sleep apnea Leg cramps History of stress test Cardiology follow-up encounter Frequent falls BPH (benign prostatic hyperplasia) Atherosclerosis of coronary artery of [place] heart without angina pectoris B12 deficiency Depression Hyperlipidemia Essential hypertension Rheumatoid arthritis Home Medications ?Medication ?Instructions ?Recorded ?Last Taken ?Type amlodipine 2.5 mg tablet 2.5 mg PO QDAY BP 10/29/23 0 10/21/24 History cholecalciferol (vitamin D3) 50 50 mcg PO QDAY SUPPLEM ENT 10/29/23 10/20/24 History mcg (2,000 unit) tablet cyanocobalamin (vitamin B-12) 1,000 mcg PO QHS SUPPLEM ENT 10/29/23 10/20/24 History 1,000 mcg tablet ezetimibe 10 mg tablet (Zetia) 10 mg PO QDAY CHOLESTER OL 10/29/23 10/21/24 History finasteride 5 mg tablet 5 mg PO QDAY PROSTATE 10/21/24 History losartan 50 mg tablet 50 mg PO QDAY BP 10/29/23 History vitamins A,C,T-cbgo-fxiuxm 4,296 1 cap PO BID EYE FOZIA MIN 10/29/23 10/20/24 History mcg-226 mg-90 mg capsule (PreserVision AREDS) RELIEF FACTOR 1 tab PO BID ARTHRITIS 10/1410/20/24 History coenzyme Q10 100 mg capsule (Co 200 mg PO DAILY SUPPLE MENT 10/14/24 10/20/24 History Q-10) diphenhydramine 25 1 tab PO QHS PRN sleep 10/1410/14/24 History mg-acetaminophen 500 mg tablet memantine 10 mg tablet (Namenda) 10 mg PO BID ALZEHEIM ERS 10/14/24 10/21/24 History tamsulosin 0.4 mg capsule 0.4 mg PO QHS PROSTATE 10/1410/20/24 History venlafaxine 150 mg 150 mg PO DAILY DEPRESSION 0 10/14/24 10/21/24 History capsule,extended release 24 hr ciprofloxacin HCl 500 mg tablet 500 mg PO BID #10 tabs 10/21/24 Unknown Rx (Cipro) atorvastatin 40 mg tablet (Lipitor) 40 mg PO QHS #30 t abs 10/28/24 Unknown Rx cephalexin 500 mg capsule 500 mg PO Q6 7 days #28 CAPS ULES 11/01/24 Unknown Rx Allergy/AdvReac Type Severity Reaction Status Date / Time isosorbide Allergy Unknown unknown Verified 10/31/24 23:31 Sulfa (Sulfonamide Allergy Unknown unknown Verified 10/31/24 23:31 Antibiotics) sulfacetamide Allergy Unknown unknown Verified 10/31/24 23:31 Family History Father Cancer Brother Suicide Surgical History History of coronary artery stent placement History of colonoscopy History of left heart catheterization (09/12/20) Social History Smoking Status: Former smoker how long ago did patient quit smoking: stopped at age 54 alcohol intake: former year quit: 39y substance use type: does not use caffeine: Yes Type: carbonated beverages Number of servings: 2 ROS ROS ED Review of Systems ROS Unobtainable: due to mental condition and other Details: dementia EXAM Physical Exam Narrative Exam Narrative: Vital signs: Reviewed General: Alert and oriented to self. No acute distress HEENT: Head is normocephalic and atraumatic. No signs of trauma to the head. There is no lacerations, abrasions, cephalhematoma. Sinuses nontender, pupils equal round and reactive. Nares are patent. Oropharynx and throat exams normal. Neck: Supple without lymphadenopathy nontender. No midline cervical spinal tenderness palpation. No step-offs or deformities. Cardiovascular: Regular rate and rhythm, no murmurs. No rubs or gallops. Normal S1 and S2 Respiratory: Clear to auscultation bilaterally. No wheezes, rales, rhonchi Abdominal: Soft and nontender. Ecchymosis across the suprapubic region. Normal bowel sounds. No guarding or rebound. : Chang catheter in place. No bleeding around the urethra. Chang draining dark hematuria. Extremities: Hips are stable and nontender to palpation. No midline thoracic or lumbar spinal tenderness to palpation. No step-offs or deformities. Extremities are atraumatic and nontender to palpation with normal active range of motion. No tenderness. Normal range of motion. Normal sensation. Skin: No rash or redness. The rest of the physical exam is unremarkable Const Vital Signs: 10/31/24 23:31 11/01/24 00:36 11/01/24 01:30 Temperature 99.5 F H 98.7 F Temperature Source Oral Oral Pulse Rate 87 83 84 Respiratory Rate 16 16 16 Blood Pressure 124/65 H 128/78 H 121/69 H Blood Pressure Mean 84 94 86 Pulse Ox 95 96 96 Oxygen Delivery Method Room Air Room Air 11/01/24 02:00 11/01/24 02:42 Temperature 98.1 F 16 F L Temperature Source Oral Pulse Rate 88 85 Respiratory Rate 16 22 H Blood Pressure 131/68 H 122/96 H Blood Pressure Mean 89 104 Pulse Ox 96 97 Oxygen Delivery Method Room Air MDM MDM MDM Narrative Medical decision making narrative: Patient is a 79-year-old male presenting to emergency department for fall and Chang trauma. Patient was seen and examined. Vitals are stable. Patient resting bed comfortably no acute distress. Given the patient's history of dementia and his fall I did obtain CT imaging of his brain, cervical spine and chest x-ray. He is not able to tell me about his fall. States that he is in no pain however he is not a good historian. CT abd/pelvis ordered given the bruising on the lower abdomen and chang trauma with gross hematuria. CBC with very mild leukocytosis of 11.4 and hemoglobin of 9.0. Does appear to have chronic anemia, was just 9.3 on 10/28. CMP with no significant abnormalities. Urinalysis with 1+ bacteria, small amount of white blood cells and leukocyte esterase. Nitrite negative. I do not see any recent urine cultures that were obtained. I will send this 1 for a urine culture. Given he has multiple urologic procedures I will start UTI treatment on this until culture comes back. CT of the brain with no acute intracranial abnormality. CT cervical spine with no acute cervical spine fracture or traumatic subluxation. There are some chronic changes that can be seen in the radiology reports. Chest x-ray reviewed by myself. No pneumothorax, no opacities or rib fractures noted. Radiology read with no acute findings. CT abdomen pelvis with abnormal position of the Chang catheter with its tip within the left lateral aspect of the penis. Hyperdense material is noted in the right lateral aspect of the penile shaft which is possibly secondary to presence of acute hemorrhagic products, vigorous enhancement and/or active bleeding. Chang catheter balloon is minimally elevated in the penile urethra. There is diffuse thickening of the bladder. Multiple chronic findings which can be seen in the radiology report. Given these findings and the patient's recent urologic procedures, I did call the patient's urologist, Dr. Vergara for recommendations. Given the patient's history of urethral trauma and likely difficult catheter placemement, he did come in to replace the current catheter with a 3 way catheter. He reported it was draining normal urine after replacement. He recommended keeping the Chang in for 2 weeks and he will follow-up with the patient. He states that the bleeding is all from Chang catheter trauma and is isolated to the penis and he states that the patient to be discharged back to his facility safely and he will follow-up with the patient. Patient's blood pressure is stable and his hemoglobin is right around his baseline. No indication for PRBC. Patient discharged back to his facility with prescription for Keflex for his UTI. Stable for outpatient management. Instructed to follow- up with his urologist as soon as possible and return to the ED with any new or worsening symptoms. Clinical impression Fall UTI Gross hematuria History & Record Review Discussion w/independent historian: Patient Lab Data Attestation: I reviewed the patient's lab results. Labs: Laboratory Results - last 24 hr 10/31/24 11/01/24 11/01/24 23:56 01:20 01:55 WBC 11.4 H RBC 2.84 L Hgb 9.0 L Hct 27.3 L MCV 96.1 H MCH 31.7 MCHC 33.0 RDW Std Deviation 43.8 RDW Coeff of Damari 12.6 Plt Count 400 MPV 8.6 Immature Gran % (Auto) 0.700 Neut % (Auto) 76.3 H Lymph % (Auto) 11.9 L [place] % (Auto) 9.2 Eos % (Auto) 1.5 Baso % (Auto) 0.4 Absolute Neuts (auto) 8.7 H Absolute Lymphs (auto) 1.36 Nucleated RBC % 0 PT 14.4 INR 1.1 APTT 32.6 Sodium 136 Potassium 4.3 Chloride 101 Carbon Dioxide 26.1 Anion Gap 9 BUN 14 Creatinine 0.69 L Estim Creat Clear Calc 67.71 Est GFR (MDRD) Non-Af 93 BUN/Creatinine Ratio 20.1 H Glucose 121 H Calcium 8.9 Total Bilirubin 0.19 AST 18 ALT 12 Alkaline Phosphatase 67 Total Protein 5.6 L Albumin 3.2 L Globulin 2.4 Albumin/Globulin Ratio 1.4 Urine Color Red Urine Clarity Cloudy Urine pH 7.0 Ur Specific [place] 1.010 Urine Protein 100 H Urine Glucose (UA) Normal Urine Ketones Negative Urine Occult Blood 250 H Urine Nitrite Negative Urine Bilirubin Negative Urine Urobilinogen Normal Ur Leukocyte Esterase 500 H Urine RBC 25-50 SEEN Urine WBC 10-25 SEEN Ur Squamous Epith Cells 0 SEEN Urine Bacteria 1+ Urine Mucus 0 SEEN Blood Type A POSITIVE Antibody Screen NEGATIVE Radiography Diagnostic Testing: Clinical Impression(s) from Imaging Studies Brain CT 10/31/24 23:50 IMPRESSION: 1. No intracranial hemorrhage. No mass effect or midline shift. 2. Chronic involutional and ischemic gliotic white matter changes. 3. No evidence of acute cervical spine fracture or traumatic subluxation. 4. Mild reversal of the cervical spine suggestive of paraspinal muscle stiffness or spasm. 5. Grade 1 retrolisthesis of C3 on C2 and C4 on C3. 6. Moderate degenerative changes throughout the cervical spine. Reading Location: [facility] Cervical Spine CT 10/31/24 23:50 IMPRESSION: 1. No intracranial hemorrhage. No mass effect or midline shift. 2. Chronic involutional and ischemic gliotic white matter changes. 3. No evidence of acute cervical spine fracture or traumatic subluxation. 4. Mild reversal of the cervical spine suggestive of paraspinal muscle stiffness or spasm. 5. Grade 1 retrolisthesis of C3 on C2 and C4 on C3. 6. Moderate degenerative changes throughout the cervical spine. Reading Location: [facility] Abdomen/Pelvis CT 10/31/24 23:52 IMPRESSION: Abnormal position of the Chang catheter with its tip within the left lateral aspect of the penis. It needs to be adjusted/evaluated to assess for extraluminal position. Hyperdense material is noted in the right lateral aspect of the penile shaft which is possibly secondary to the presence of acute hemorrhagic products, vigorous enhancement and/or active bleeding. No precontrast images are provided to better evaluate this abnormality. Chang catheter balloon is minimally inflated in the penile urethra. Mild left pleural effusion. Passive atelectatic airspace disease of the left lower lobe. Small sliding hiatal hernia. Mild cardiomegaly. Right double-J nephroureteral stent is in good position. Scattered right renal simple cysts are noted with the largest measuring 1.5 cm. Mild calcified atheromatous plaques of the aorta and iliac arteries. Diffuse thickening of the bladder. Chronic bladder outlet obstruction versus cystitis. Gas densities in the lumen of the bladder, probably recent instrumentation. Moderate prostatomegaly. Gas densities in the prostate which is possibly secondary to recent instrumentation. Moderate amount of fecal residue in the large bowels. Fat containing left inguinal hernia without incarceration. Scattered left renal simple cysts are noted with the largest measuring 1.5 cm. Grade 1 anterolisthesis of L3 on L4. Mild diffuse spondylosis. Reading Location: [place] [id number] Chest X-Ray 10/31/24 23:59 IMPRESSION: NO ACUTE FINDINGS. Reading Location: [facility] Discharge Plan Triage Chief Complaint: Chang C/O ED Provider: Марина Jose Dx/Rx/DC Orders Clinical Impression: Hematuria, Fall, Acute UTI Instructions: Hematuria: Possible Causes, UTIs, ED Fall with Uncertain Cause Prescriptions: New cephalexin 500 mg capsule 500 mg PO Q6 7 Days Qty: 28 0RF No Action cyanocobalamin (vitamin B-12) 1,000 mcg tablet 1,000 mcg PO QHS amlodipine 2.5 mg tablet 2.5 mg PO QDAY losartan 50 mg tablet 50 mg PO QDAY finasteride 5 mg tablet 5 mg PO QDAY ezetimibe [Zetia] 10 mg tablet 10 mg PO QDAY PreserVision AREDS 4,296 mcg-226 mg-90 mg capsule 1 cap PO BID cholecalciferol (vitamin D3) 50 mcg (2,000 unit) tablet 50 mcg PO QDAY venlafaxine 150 mg capsule,extended release 24hr 150 mg PO DAILY memantine [Namenda] 10 mg tablet 10 mg PO BID coenzyme Q10 [Co Q-10] 100 mg capsule 200 mg PO DAILY RELIEF FACTOR 1 tab PO BID diphenhydramine-acetaminophen 25-500 mg tablet 1 tab PO QHS PRN (Reason: sleep) tamsulosin 0.4 mg capsule 0.4 mg PO QHS ciprofloxacin HCl [Cipro] 500 mg tablet 500 mg PO BID Qty: 10 0RF atorvastatin [Lipitor] 40 mg tablet 40 mg PO QHS Qty: 30 0RF Primary Care Provider: Mary Breaux Referrals: Asad Bueno DO [Non-Staff] - Andrew Vergara MD [Med Staff - Active Staff] - 2 Days Activity Restrictions/Additional Instructions: Follow-up with your urologist as soon as possible. Leave the catheter in until following up. Take the antibiotic as prescribed. Your evaluation in the Emergency Department did not reveal any acute reason for admission. However, I want to emphasize that you may be early in the course of a disease process or illness even if it is not present. For this reason you should follow-up within 24 hours for reevaluation with either your primary care physician or if necessary back here in the Emergency Department. You should return to the Emergency Department immediately if your symptoms worsen or new symptoms develop. Print Language: [place] Disposition Disposition: Home, Self Care Discharge Date/Time: 11/01/24 03:13
--- NOTE | 2024-10-31 23:59 | RAD_ITS ---
PROCEDURE: CHEST PA AND LATERAL 10/31/2024 REASON FOR EXAM: FALL TECHNIQUE: Procedure Code: RADCXR Modality: DX Procedure: CHEST PA AND LATERAL COMPARISON: CT abdomen and pelvis 11/01/2024 FINDINGS: Hardware: None. Heart: The heart size is normal. Mediastinum: The mediastinal contour is unremarkable. Lungs: The lungs are clear. No pneumothorax or pleural effusion. Bones: Degenerative changes are identified within the thoracic spine. Other: Marked elevation of the left hemidiaphragm. RAD/Chest PA and Lateral IMPRESSION: NO ACUTE FINDINGS. Reading Location[facility]
[2024-11-01 00:12] LABS: Hematocrit 27.3 % (40-54); Hemoglobin 9.0 g/dL (13.0-16.5); Immature Granulocytes Count 0.080 X10^3/uL (0.0-0.0); Mean Corp Hgb Conc 33.0 g/dL (32-36); Mean Corpuscular Volume 96.1 fL (80-94); Mean Platelet Vol. 8.6 fl (6.2-12.0); NRBC Flagged by Analyzer 0 % (0-5); Platelet Count 400 K/mm3 (150-450); RBC Distribution Width CV 12.6 % (11.6-14.6); RBC Distribution Width SD 43.8 fl (35.1-43.9); Red Blood Count 2.84 M/mm3 (4.6-6.2); White Blood Count 11.4 K/mm3 (4.4-11.0)
[2024-11-01 00:28] LABS: AST(SGOT) 18 U/L (<=37); Alanine Aminotransfer ALT/SGPT 12 U/L (<=46); Albumin, Serum 3.2 g/dL (3.4-4.8); Alkaline Phosphatase 67 U/L (40-129); Anion Gap 9 (5-15); BUN 14 mg/dL (4-19); BUN/Creat Ratio 20.1 RATIO (10-20); Calcium,Total 8.9 mg/dL (7.6-11.0); Carbon Dioxide 26.1 mmol/L (21.0-32.0); Chloride 101 mmol/L (98-108); Estimated Creatinine Clearance 67.71 ml/min (50-250); Globulin 2.4 g/dL (2.2-4.2); Glucose 121 mg/dL (70-99); Potassium 4.3 mmol/L (3.3-5.1)
[2024-11-01 00:36] VITALS: BP 128/78; PULSE 83; RESP 16; TEMP 37.1; O2SAT 96
--- OUTSIDE RECORDS SUMMARY | 2024-11-01 00:52 | XMS RPT_ITS | CCD ---
Author Organization [facility] Care Team Providers Care Alternative Medicine Practitioner Name Role Phone MYLES DO, DR ARMIDA Ortega Primary Care Physician Tanvir Huynh Primary Care Provider Unavailabl e MYLES DO, DR ARMIDA Ortega Primary Care Physician [phone] MYLES DO, DR ARMIDA Ortega Primary Care Unavailabl e JU CAMILO, May Admitting Unavail able ANNIKA VAZQUEZ MD Consulting Unavailable JU CAMILO, May Referring Unavail able ANNIKA VAZQUEZ MD Attending Unavailable MYLES DO, DR ARMIDA Ortega Primary Care Unavailabl e ANDREEA POWERS MD Attending Unavail able KEILY CAMILO, PAULINA Attending Unavailab le MYLES DO, DR ARMIDA Ortega Primary Care Unavailabl e MYLES DO, DR ARMIDA Ortega Attending Unavailabl e MYLES DO, DR ARMIDA Ortega Primary Care Unavailabl e PAULINA MCGOVERN Attending Unavailab le MYLES DO, DR ARMIDA Ortega Primary Care Unavailabl e MYLES DO, DR ARMIDA Ortega Attending Unavailabl e MYLES DO, DR ARMIDA Ortega Primary Care Unavailabl e MYLES DO, DR ARMIDA Ortega Attending Unavailabl e MYLES DO, DR ARMIDA Ortega Primary Care Unavailabl e Tanvir Huynh Primary Care Provider Unavailabl Brittni Lizama MD Primary Care Provider BRITTNI LUU Attending Unavailab BRITTNI Hobbs Primary Care Unavailab BRITTNI Hobbs Referring Unavailab BRITTNI Hobbs Primary Care Unavailab BRITTNI Hobbs Primary Care Unavailab BRITTNI Hobbs Attending Unavailab le Myles , Dr. Kamara Primary Care Provider Jai VALLES, Dr. Andrew Ivan Attending Provider [phone] Jai VALLES, Dr. Andrew Ivan Referring Provider [phone] Myles WARD, Dr. Kamara Primary Care Provider [place], Cheri Attending Provider [place], Cheri Referring Provider [phone] MYLES DO, DR ARMIDA Ortega Primary Care Unavailabl e MYLES DO, DR ARMIDA Ortega Attending Unavailabl e GIO VALLES, ANDREEA Goldberg Attending Unavail able MYLES DO, DR ARMIDA Ortega Primary Care Unavailabl e MYLES DO, DR ARMIDA Ortega Primary Care Unavailabl e FROMMELT DO, ALF Attending Unavailable MYLES DO, DR ARMIDA Ortega Primary Care Unavailabl e KAMINI VALLES, CHINMAY Attending Unavailable Jai VALLES, Dr. Andrew Ivan Admit Provider [phone] Jai VALLES, Dr. Andrew Ivan Attending Provider [phone] Jai VALLES, Dr. Andrew Ivan Referring Provider Alfa VALLES, Dr. Oscar Dumont Other Provider Milena VALLES, Jp Other Provider Unavailable Milla VALLES, Dr. Fagan Other Provider [phone] Lyndsey Mares MD Other Provider Unavailable Jonathan WARD, Dr. Celis Other Provider Yan VALLES, Dr. Gastelum Other Provider Tony VALLES, Dr. Mccoy Other Provider [phone] Humza VALLES, Dr. Jiménez Other Provider Julieta VALLES, Dr. Joseph Other Provider Supa VALLES, Dr. Ramey Other Provider Siddhartha VALLES, Dr. Gore Other Provider Gus WARD, Dr. Sumner Other Provider Birgit Hernandes MD Other Provider Maxi VALLES, Dr. Gonzales Other Provider [phone] Lan VALLES, Dr. Paz Other Provider [phone] Gennaro VALLES, Dr. Alejandra Other Provider Dr. Rj Campos MD Other Provider Rc VALLES, Dr. Cabezas Other Provider Alicia VALLES, Dr. Simmons Other Provider [phone] David VALLES, Dr. Schmitt Other Provider [phone] Carlos VALLES, Dr. Campos Other Provider Unavailable Billy VALLES, Leticia Other Provider Unavailable Jai VALLES, Dr. Andrew Ivan Other Provider [phone] Alfa VALLES, Dr. Oscar Dumont Attending Provider Casey VALLES, Dr. Haas Attending Provider [phone] [place], Cheri Referring Unavailable [place], Cheri Attending Unavailable Myles, Armida Primary Care Unavailable Waldo Peña Attending Unavailable Myles, Armida Primary Care Unavailable Jai, Ishaan Admitting Unavailable Jai, Andrew Ivan Referring Unavailable sOcar Grimm Attending Unavailable Oscar Grimm Consulting Unavailable Myles, Armida Primary Care Unavailable Jp Abbott Consulting Unavailable Adeli, Amir Consulting Unavailable Hinduja, Lyndsey Consulting Unavailable Jonathan, Lalita Consulting Unavailable Zha, Oriana Consulting Unavailable Tony, Darius Consulting Unavailable Humza, Jessy Consulting Unavailable Bittar, Jake Consulting Unavailable Tanvir Cowart Consulting Unavailable Bao Carl Consulting Unavailable Gus, Taisha Consulting Unavailable BeBirgit bunch Consulting Unavailable Christian German Consulting Unavailable Brandi Montenegro Consulting Unavailable Justyn Burdick Consulting Unavailable Rj Campos Consulting UnavailRaulito Romero Consulting Unavailable Iris Vargas Consulting Unavailable Oskar Hernandez Consulting Unavailable Beth Gonzalez Consulting Unavailable Leticia Cervantes Consulting Unavailable JaiAndrew Consulting Unavailable JaiAndrew Admitting Unavailable Jai, Andrew Ivan Referring Unavailable JaiAndrew antony Attending Unavailable Oscar Grimm Consulting Unavailable Myles, Armida Primary Care Unavailable Jp Abbott Consulting Unavailable Adeli, Amir Consulting Unavailable Hinducha Lyndsey Consulting Unavailable Jonathan Lalita Consulting Unavailable Oriana Heredia Consulting Unavailable Darius Jimenez Consulting Unavailable Jessy Ching Consulting Unavailable Jake Rendon Consulting Unavailable Tanvir Cowart Consulting Unavailable Bao Carl Consulting Unavailable Taisha Weber Consulting Unavailable Birgit Hernandes Consulting Unavailable Christian German Consulting Unavailable Brandi Montenegro Consulting Unavailable Justyn Burdick Consulting Unavailable Rj Campos Consulting UnavailRaulito Romero Consulting Unavailable Iris Vargas Consulting Unavailable Oskar Hernandez Consulting Unavailable Beth Gonzalez Consulting Unavailable Leticia Cervantes Consulting Unavailable Andrew Figueroa Referring Unavailable Andrew Figueroa Attending Unavailable Armida Bueno Primary Care Unavailable Allergies Allergy Classification Reported Allergen(s) Allergy Type Date of Onset Reaction(s) Facility (8 sources) Hmg-Coa Reductase Inhibitors (Statins); Translations: [statins] Drug allergy [facility] (17 sources) Isosorbide; Translations: [isosorbide] Drug Allergy 4 [facility] (17 sources) Sulfacetamide; Translations: [sodium sulfacetamide ophthalmic] Drug Allergy 4 unknown [facility] (14 sources) Sulfonamides (Antibiotic); Translations: [sulfa drugs] Drug allergy [facility] (6 sources) Sulfonamides (Antibiotic); Translations: [SULFA (SULFONAMIDE ANTIBIOTICS)] Propensity to adverse reactions 6 Intolerance [facility] Work Phone: (3 sources) Sulfonamides (Antibiotic) Allergy to substance 4 unknown [place] (1 source) Isosorbide Drug Allergy 5 [facility] (1 source) Sulfacetamide Drug Allergy 5 [facility] (1 source) Sulfonamides (Antibiotic) Drug allergy (disorder) [facility] Medications Current Medications Medication Drug Class(es) Dates Sig (Normalized) Sig (Original) acetaminophen 650 mg oral tablet (4 sources) Start: 03-02-2021 Tylenol 8 HR Arthritis Pain 650 mg oral tablet, extended release Dose : 650 mg = 1 tab(s), Oral, q8h, 0 Refill(s) Start Date: 03/02/21 Status: Ordered take 1 tablet by wilder th every eight hours as needed acetaminophen (TYLENOL ARTHRITIS PAIN) 6 50 mg CR tablet Take 650 mg by mouth every 8 hours as needed for pain. 0 Active acetaminophen 194 mg / aspirin 227 mg / caffeine 33 mg oral tablet (9 sources) Platelet Aggregation Inhibitor, Nonsteroidal Anti-inflammatory Drug, Central Nervous System Stimulant, Methylxanthine Start: 06-26-2021 take 1 tablet by mouth every six hours as needed for headache Vanquish Headache Relief 194 mg-227 mg-33 mg oral tablet Dose = 1 tab(s), Oral, q6h, PRN as needed for headache, # 100 tab(s), 0 Refill(s) Start Date: 06/26/21 Status: Ordered Start: 11-08-2005 End: 09-30-2023 VANQUISH 227 MG-194 MG-33 MG TAB as needed 0 11/08/2005 09/30/2023 Discontinued (Course of therapy completed) Comment on above: as needed acetaminophen 500 mg / diphenhydrAMINE hydrochloride 25 mg oral tablet (7 sources) Histamine-1 Receptor Antagonist Start: 10-14-2024 Diphenhydramine-Adalid taminophen 25-500 mg tablet Active 1 {tbl} PO AT BEDTIME as needed for sleep October 14, 2024 12:00am Start: 09-03-2023 take 1 tablet by wilder th once daily at bedtime Tylenol PM Extra Strength oral tablet tab(s), Oral, qHS, 0 Refill(s) Start Date: 09/03/23 Status: Ordered Medication Dispense Status: Completed Total Allowed Fills: 1 Fills Dispensed: 0 Start: 10-01-2022 take 1 tablet by wilder th once daily at bedtime Tylenol PM Extra Strength oral tablet Dose = 1 tab(s), Oral, qHS, 0 Refill(s) Start Date: 8/14/23 Status: Ordered End: 09-30-2023 take 500 mg by mouth once daily at bedtime acetaminophen/diphenhydramine (TYLENOL PM ORAL) Take 500 mg by mouth daily at bedtime. 0 09/30/2023 Discontinued [id number] 200 actuat albuterol 0.09 mg/actuat metered dose inhaler (4 sources) beta2-Adrenergic Agonist Start: 09-18-2023 take 1 puff(s) by inhalation every four hours as needed for wheezing ProAir HFA MDI (90 mcg/inh) inhalation aerosol 1 puff(s), Inhalation, q4h, PRN as needed for wheezing, # 8.5 gram(s), 2 Refill(s), Pharmacy: [facility]/pharmacy #[id number], 170.2, cm, 09/18/23 13:30:00 EDT, Height, kg, 09/18/23 13:30:00 EDT, Dosing Weight Start Date: 09/18/23 Status: Ordered Medication Dispense Status: Completed Quantity: 8.5 Unit: g Total Allowed Fills: 3 Fills Dispensed: 0 amLODIPine 2.5 mg oral tablet (18 sources) Dihydropyridine Calcium Channel Pamella Start: 10-29-2023 take 1 tablet by mouth once daily Amlodipine 2.5 mg tablet Active 2.5 mg PO daily October 29, 2023 12:00am BP Start: 07-12-2020 amLODIPine 2.5 mg oral tablet Dose : 2.5 mg = 1 tab(s), Oral, qDay, # 90 tab(s), 3 Refill(s), Pharmacy: [facility], 169, cm, 10/08/22 12:58:00 EDT, Height, kg, 10/08/22 12:58:00 EDT, Dosing Weight Start Date: 11/27/22 Status: Ordered ascorbic acid 113 mg / beta carotene 7160 mg / cuprous oxide 0.4 mg / dl-alpha tocopheryl acetate 100 unt / zinc oxide 17.4 mg oral tablet (10 sources) Vitamin C Start: 06-26-2021 take 1 tablet by mouth once daily Ocuvite PreserVision oral tablet Dose = 1 tab(s), Oral, Daily, 0 Refill(s) Start Date: 06/26/21 Status: Ordered Medication Dispense Status: Completed Total Allowed Fills: 1 Fills Dispensed: 0 aspirin 81 mg delayed release oral tablet (7 sources) Platelet Aggregation Inhibitor, Nonsteroidal Anti-inflammatory Drug Start: 05-16-2018 Ecotrin Adult Low Strength 81 mg oral delayed release tablet Dose : 81 mg = 1 tab(s), Oral, qDayM, # 30 tab(s), 11 Refill(s), Pharmacy: [facility] Start Date: 05/16/18 Status: Ordered Start: 05-16-2018 Ecotrin Adult Low Strength 81 mg oral delayed release tablet Dose : 81 mg = 1 tab(s), Oral, qDayM, # 30 tab(s), 11 Refill(s), Pharmacy: [facility] Start Date: 05/16/18 Status: Ordered atorvastatin 40 mg oral tablet (6 sources) HMG-CoA Reductase Inhibitor Start: 10-28-2024 take 1 tablet by mouth at bedtime Atorvastatin (Lipitor) 40 mg tablet Active 40 mg PO AT BEDTIME 30 October 28, 2024 12:00am Start: 11-08-2005 End: 09-30-2023 LIPITOR 20 MG TAB Take one(1 ) tablet daily. 0 11/08/2005 09/30/2023 Discontinued (Course of therapy completed) Comment on above: Take one(1) tablet d sadia. cholecalciferol 0.05 mg oral tablet (4 sources) Vitamin D Start: 10-29-19 take 1 tablet by mouth once daily Cholecalciferol (Vitamin D3) 50 mcg (2,000 unit) tablet Active 50 ug PO daily October 29, 2023 12:00am SUPPLEMENT take 1 tablet by mouth once luz maria y cholecalciferol (VITAMIN D-3) 50 mcg (2,000 unit) tablet Take 2,000 Units by mouth once daily. 0 Active ciprofloxacin 500 mg oral tablet (1 source) Quinolone Antimicrobial Start: 10-21-2024 take 1 tablet by mouth twice daily Ciprofloxacin Hcl (Cipro) 500 mg tablet Active 500 mg PO TWICE A DAY 10 October 21, 2024 12:00am diphenhydrAMINE hydrochloride 25 mg oral tablet (8 sources) Histamine-1 Receptor Antagonist Start: 10-01-2022 Unisom 25mg oral tablet Dose : 25 mg = 1 tab(s), Oral, qHS, 0 Refill(s) Start Date: 10/01/22 Status: Ordered Repeat number: 1 Start: 11-23-2020 diphenhydrAMIN E 25 mg oral tablet Dose : 25 mg = 1 tab(s), Oral, qHS, 0 Refill(s) Start Date: 11/23/20 Status: Ordered ezetimibe 10 mg oral tablet (18 sources) Dietary Cholesterol Absorption Inhibitor Start: 10-29-2023 take 1 tablet by mouth once daily Ezetimibe (Zetia) 10 mg tablet Active 10 mg PO daily October 29, 2023 12:00am CHOLESTEROL Start: 07-12-2020 Zetia 10 mg or al tablet Dose : 10 mg = 1 tab(s), Oral, qDay, # 90 tab(s), 3 Refill(s), Pharmacy: [facility], 169, cm, 10/08/22 12:58:00 EDT, Height, kg, 10/08/22 12:58:00 EDT, Dosing Weight Start Date: 02/04/23 Status: Ordered finasteride 5 mg oral tablet (18 sources) 5-alpha Reductase Inhibitor Start: 08-24-2020 take 1 tablet by mouth once daily Finasteride 5 mg tablet Active 5 mg PO daily October 29, 2023 12:00am PROSTATE hydroxychloroquine sulfate 200 mg oral tablet (3 sources) Antimalarial, Antirheumatic Agent Start: 06-26-2021 hydroxychloroquine 200 mg oral tablet Dose : 200 mg = 1 tab(s), Oral, BID, 0 Refill(s) Start Date: 06/26/21 Status: Ordered ICaps AREDS (4 sources) Start: 07-24-2019 ICaps AREDS 1, Oral, qDay, 0 Refill(s) Start Date: 07/24/19 Status: Ordered lisinopril 20 mg oral tablet (9 sources) Angiotensin Converting Enzyme Inhibitor Start: 08-28-2022 lisinopril 20 mg oral tablet Dose : 20 mg = 1 tab(s), Oral, Daily, # 90 tab(s), 3 Refill(s), Pharmacy: [facility], 171, cm, 04/02/22 13:13:00 EST, Height, kg, 04/02/22 13:13:00 EST, Dosing Weight Start Date: 08/28/22 Status: Ordered Start: 11-01-2021 take 1 tablet by wilder th once daily lisinopril 20 mg oral tablet See Instructions, TAKE 1 TABLET EVERY DAY, # 90 tab(s), 3 Refill(s), Pharmacy: [facility] (Now [facility]), 171, cm, 11/01/21 9:51:00 EDT, Height, kg, 11/01/21 9:51:00 EDT, Dosing Weight Start Date: 11/01/21 Status: Ordered Start: 10-14-2020 take 1 tablet by wilder once daily lisinopril 20 mg oral tablet See Instructions, TAKE 1 TABLET EVERY DAY, # 90 tab(s), 3 Refill(s), Pharmacy: [facility], 170.2, cm, 10/04/20 13:46:00 EDT, Height, kg, 10/04/20 13:46:00 EDT, Dosing Weight Start Date: 10/14/20 Status: Ordered losartan potassium 50 mg oral tablet (9 sources) Angiotensin 2 Receptor Pamella Start: 10-29-2023 take 1 tablet by mouth once daily Losartan 50 mg tablet Active 50 mg PO daily October 29, 2023 12:00am BP Start: 08-12-2023 losartan 50 mg oral tablet Dose : 50 mg = 1 tab(s), Oral, qDay, # 90 tab(s), 3 Refill(s), Pharmacy: [facility], 170, cm, 04/08/23 14:43:00 EST, Height, kg, 04/08/23 14:43:00 EST, Dosing Weight Start Date: 08/12/23 Status: Ordered melatonin 10 mg oral capsule (4 sources) Start: 06-26-2021 melatonin 10 m g oral capsule Dose : 10 mg = 1 cap(s), Oral, qHS, PRN for insomnia, # 90 cap(s), 0 Refill(s) Start Date: 06/26/21 Status: Ordered memantine hydrochloride 10 mg oral tablet (3 sources) I-hwtami-W-aspart ate Receptor Antagonist Start: 10-14-2024 take 1 tablet by mouth twice daily Memantine (Namenda) 10 mg tablet Active 10 mg PO TWICE A DAY October 14, 2024 12:00am [facility] Start: 09-07-2024 take 1 tablet by wilder twice daily memantine 5 mg oral tablet TAKE 1 TABLET BY MOUTH TWICE A DAY Start Date: 09/07/24 Status: Ordered Medication Dispense Status: Completed Total Allowed Fills: 1 Fills Dispensed: 0 [facility] Medication (8 sources) Start: 10-02-2021 [facility] See [facility], Relief Factor daily, 0 Refill(s), 75 Start Date: 10/02/21 Status: Ordered Medication Dispense Status: Completed Total Allowed Fills: 1 Fills Dispensed: 0 Start: 10-02-2021 [facility] See Instructions, Relief Factor daily, 0 Refill(s), 75 Start Date: 10/02/21 Status: Ordered Repeat number: 1 Start: 10-02-2021 [facility] Medicatio n See Instructions, Relief Factor daily, 0 Refill(s), 75 Start Date: 10/02/21 Status: Ordered nabumetone 500 mg oral tablet (1 source) Nonsteroidal Anti-inflammatory Drug Start: 12-14-2020 nabumetone 500 mg oral tablet Dose : 500 mg = 1 tab(s), Oral, BID, 0 Refill(s) Start Date: 12/14/20 Status: Ordered nitroglycerin 0.4 mg sublingual tablet (1 source) Nitrate Vasodilator Start: 09-30-2023 nitroglycerin sublingual (NITROSTAT) 0.4 mg SL tablet Indications: Coronary artery disease involving nenana coronary artery of nenana heart without angina pectoris Dissolve 1 tablet under the tongue every 5 minutes as needed for chest pain. 25 tablet 0 09/30/2023 Active predniSONE 10 mg oral tablet (3 sources) Start: 03-02-2021 predniSONE 10 mg oral tablet See Instructions, 4 tabs for 3 days, 3 tabs for 3 days, 2 tabs for 3 days, 1 tab for 3 days. with food, # 30 tab(s), 0 Refill(s), Pharmacy: [facility]/pharmacy #[id number], Swelling of joint of both wrists, 170, cm, 03/02/21 15:52:00 EST, Height, kg, 03/02/21 15:... Start Date: 03/02/21 Status: Ordered Prevagen 50 mcg (2000 intl units) oral capsule (5 sources) Start: 06-26-2021 Prevagen 50 mcg (2000 intl units) oral capsule Dose : 50 mcg = 1 cap(s), Oral, qDay, # 60 cap(s), 0 Refill(s) Start Date: 06/26/21 Status: Ordered RELIEF FACTOR (1 source) Start: 10-14-2024 RELIEF FACTOR Active 1 {tbl} PO TWICE A DAY October 14, 2024 12:00am ARTHRITIS tamsulosin hydrochloride 0.4 mg oral capsule (1 source) alpha-Adrenergic Pamella Start: 10-14-2024 take 1 capsule by mouth at bedtime Tamsulosin 0.4 mg capsule Active 0.4 mg PO AT BEDTIME October 14, 2024 12:00am PROSTATE tiZANidine 4 mg oral tablet (1 source) Central alpha-2 Adrenergic Agonist Start: 12-14-2020 tiZANidine 4 mg oral tablet Dose : 4 mg = 1 tab(s), Oral, BID, PRN as needed, 0 Refill(s) Start Date: 12/14/20 Status: Ordered Tylenol 8 HR Arthritis Pain (4 sources) Start: 09-03-2023 take 1 mg by mouth every eight hours Tylenol 8 HR Arthritis Pain mg =, Oral, q8h, 0 Refill(s) Start Date: 09/03/23 Status: Ordered Medication Dispense Status: Completed Total Allowed Fills: 1 Fills Dispensed: 0 Start: 09-03-2023 take 1 mg by mouth e very eight hours Tylenol 8 HR Arthritis Pain mg =, Oral, q8h, 0 Refill(s) Start Date: 09/03/23 Status: Ordered Repeat number: 1 ubidecarenone 100 mg oral capsule (1 source) Start: 10-14-2024 Coenzyme Q10 (Co Q-10) 100 mg capsule Active 200 mg PO DAILY October 14, 2024 12:00am SUPPLEMENT 24 hr venlafaxine 150 mg extended release oral capsule (20 sources) Serotonin and Norepinephrine Reuptake Inhibitor Start: 10-14-2024 take 1 capsule by mouth once daily Venlafaxine 150 mg capsule,extended release 24hr Active 150 mg PO DAILY October 14, 2024 12:00am DEPRESSION Start: 06-22-2024 venlafaxine 15 0 mg oral capsule, extended release Dose : 150 mg = 1 cap(s), Oral, qDay, Take with food, # 90 cap(s), 3 Refill(s), Pharmacy: [facility], Depression, 170.2, cm, 04/16/24 13:52:00 EST, Height, kg, 04/16/24 13:52:00 EST, Dosing Weight Start Date: 06/22/24 Status: Ordered Medication Dispense Status: Completed Quantity: 90.0 Unit: cap(s) Total Allowed Fills: 4 Fills Dispensed: 0 Indications: Major depressive disorder, recurrent, moderate; Start: 08-16-2023 venlafaxine 15 0 mg oral capsule, extended release Dose : 150 mg = 1 cap(s), Oral, qDay, Take with food, # 90 cap(s), 1 Refill(s), Pharmacy: [facility]/pharmacy #[id number], Depression, 170, cm, 08/16/23 15:09:00 EDT, Height, kg, 08/16/23 15:09:00 EDT, Dosing Weight Start Date: 08/16/23 Status: Ordered Start: 10-12-2022 venlafaxine 75 mg oral capsule, extended release Dose : 75 mg = 1 cap(s), Oral, qDay, # 90 cap(s), 3 Refill(s), Pharmacy: [facility], 169, cm, 10/08/22 12:58:00 EDT, Height, kg, 10/08/22 12:58:00 EDT, Dosing Weight Start Date: 10/12/22 Status: Ordered Start: 07-26-2022 venlafaxine 75 mg oral capsule, extended release Dose : 75 mg = 1 cap(s), Oral, qDay, in lieu of PCP., # 90 cap(s), 0 Refill(s), Pharmacy: [facility], 171, cm, 04/02/22 13:13:00 EST, Height, kg, 04/02/22 13:13:00 EST, Dosing Weight Start Date: 07/26/22 Status: Ordered Start: 07-07-2021 venlafaxine 75 mg oral capsule, extended release Dose : 75 mg = 1 cap(s), Oral, qDay, # 90 cap(s), 3 Refill(s), Pharmacy: [facility], 170.2, cm, 06/26/21 7:37:00 EDT, Height, kg, 06/26/21 7:37:00 EDT, Dosing Weight Start Date: 07/07/21 Status: Ordered Start: 08-17-2020 venlafaxine 75 mg oral capsule, extended release Dose : 75 mg = 1 cap(s), Oral, qDay, Prescription was sent for tablet and it should have been capsule as Pt can't take tablet, # 30 cap(s), 0 Refill(s), Pharmacy: [facility]/pharmacy #[id number], 170.2, cm, 06/21/20 8:45:00 EDT, Height, kg, 06/21/20 8:45:00 EDT, D... Start Date: 08/17/20 Status: Ordered Start: 08-17-2020 venlafaxine 75 mg oral capsule, extended release Dose : 75 mg = 1 cap(s), Oral, qDay, Prescription was sent for tablet and it should have been capsule as Pt can't take tablet, # 30 cap(s), 0 Refill(s), [id number] 170.2, cm, 06/21/20 8:45:00 EDT, Height, kg, 06/21/20 8:45:00 EDT, D... Start Date: 08/17/20 Status: Ordered Start: 11-08-2005 End: 09-30-2023 EFFEXOR XR 37.5 MG 24 HR CAP Take one(1) tablet daily. 0 11/08/2005 09/30/2023 Discontinued (Course of therapy completed) Comment on above: Take one(1) tablet d aily. vit A/vit C/vit E/zinc/copper (PRESERVISION AREDS ORAL) (1 source) take 1 capsule by mouth once daily vit A/vit C/vit E/zinc/copper (PRESERVISION AREDS ORAL) Take 1 capsule by mouth once daily. 0 Active Vitamin B Complex oral capsule (3 sources) Start: 03-01-2022 Vitamin B Complex oral capsule Oral, qDay, 0 Refill(s) Start Date: 03/01/22 Status: Ordered vitamin b12 1 mg oral tablet (9 sources) Vitamin B12 Start: 06-08-2024 cyanocobalamin 1000 mcg oral tablet Dose : 1,000 mcg = 1 tab(s), Oral, Daily, # 90 tab(s), 3 Refill(s), Pharmacy: [facility], B12 deficiency, 170.2, cm, 04/16/24 13:52:00 EST, Height, kg, 04/16/24 13:52:00 EST, Dosing Weight Start Date: 06/08/24 Status: Ordered Medication Dispense Status: Completed Quantity: 90.0 Unit: tab(s) Total Allowed Fills: 4 Fills Dispensed: 0 Indications: Deficiency of other specified B group vitamins; Start: 10-29-2023 take 1 tablet by wilder th at bedtime Cyanocobalamin (Vitamin B-12) 1,000 mcg tablet Active 1000 ug PO AT BEDTIME October 29, 2023 12:00am SUPPLEMENT Start: 04-08-2023 cyanocobalamin 1000 mcg oral tablet Dose : 1,000 mcg = 1 tab(s), Oral, Daily, # 30 tab(s), 11 Refill(s), Pharmacy: [facility]/pharmacy #[id number], B12 deficiency, 170, cm, 04/08/23 14:43:00 EST, Height, kg, 04/08/23 14:43:00 EST, Dosing Weight Start Date: 04/08/23 Status: Ordered take 1 tablet by wilder th once daily cyanocobalamin (VITAMIN B-12) 1,000 mcg tab Take 1,000 mcg by mouth once daily. 0 Active Vitamin D3 1250 mcg (50,000 intl units) oral capsule (10 sources) Start: 06-26-2021 Vitamin D3 125 0 mcg (50,000 intl units) oral capsule Dose : 1,250 mcg = 1 cap(s), Oral, qWeek, # 12 cap(s), 0 Refill(s) Start Date: 06/26/21 Status: Ordered Medication Dispense Status: Completed Quantity: 12.0 Unit: cap(s) Total Allowed Fills: 1 Fills Dispensed: 0 Start: 06-26-2021 Vitamin D3 125 0 mcg (50,000 intl units) oral capsule Dose : 1,250 mcg = 1 cap(s), Oral, qWeek, # 12 cap(s), 0 Refill(s) Start Date: 06/26/21 Status: Ordered Quantity: 12.0 Unit: cap(s) Repeat number: 1 Start: 06-26-2021 Vitamin D3 125 0 mcg (50,000 intl units) oral capsule Dose : 1,250 mcg = 1 cap(s), Oral, qWeek, # 12 cap(s), 0 Refill(s) Start Date: 06/26/21 Status: Ordered Vitamins A,C,Q-Vwgm-Ffykmd (Preservision Areds) 4,296 mcg-226 mg-90 mg capsule (3 sources) Start: 10-29-2023 Vitamins A,C,E -Zinc-Copper (Preservision Areds) 4,296 mcg-226 mg-90 mg capsule Active 1 NMA PO TWICE A DAY October 29, 2023 12:00am EYE VITAMIN Start: 10-29-2023 Vitamins A,C,E -Zinc-Copper (Preservision Areds) 4,296 mcg-226 mg-90 mg capsule Active 1 NMA PO daily October 29, 2023 12:00am Completed/Discontinued Medications Medication Drug Class(es) Dates Sig (Normalized) Sig (Original) atenolol 50 mg oral tablet (5 sources) beta-Adrenergic Pamella Start: 11-08-2005 End: 09-30-2023 ATENOLOL 50 MG TAB Take one(1) tablet daily. 0 11/08/2005 09/30/2023 Discontinued (Course of therapy completed) Comment on above: Take one(1) tablet d aily. rosuvastatin calcium 10 mg oral tablet (6 sources) HMG-CoA Reductase Inhibitor Start: 10-29-2023 End: 10-14-2024 take 1 tablet by mouth every other day Rosuvastatin 10 mg tablet Discontinued 10 mg PO every other day October 29, 2023 12:00am October 14, 2024 11:33am Start: 04-08-2023 take 1 tablet by wilder th every other day rosuvastatin 10 mg oral tablet See Instructions, 1 tab(s) Oral every other Day, # 45 tab(s), 3 Refill(s), Pharmacy: [facility] Mail [facility], Hypercholesteremia, 170, cm, 04/08/23 14:43:00 EST, Height, kg, 04/08/23 14:43:00 EST, Dosing Weight Start Date: 04/08/23 Status: Ordered Start: 10-01-2022 take 1 tablet by wilder th every other day rosuvastatin 10 mg oral tablet See Instructions, 1 tab(s) Oral every other Day, # 45 tab(s), 3 Refill(s), Pharmacy: [facility] Mail Delivery, Hypercholesteremia, 169, cm, 10/01/22 13:22:00 EDT, Height, kg, 10/01/22 13:22:00 EDT, Dosing Weight Start Date: 10/01/22 Status: Ordered rosuvastatin (CR ESTOR) 10 mg tablet Take 10 mg by mouth every 48 hours. 0 Active sildenafil 50 mg oral tablet (5 sources) Phosphodiesterase 5 Inhibitor Start: 11-08-2005 End: 09-30-2023 VIAGRA 50 MG TAB Take one(1) tablet daily.as needed 0 11/08/2005 09/30/2023 Discontinued (Course of therapy completed) Comment on above: Take one(1) tablet d aily.as needed Problems Active Problems Problem Classification Problem Date Documented Da te Episodic/Chronic Adjustment disorders (3 sources) Adjustment disorder with depressed mood; Translations: [Adjustment disorder with depressed mood] Onset: 4 09-30-2023 Chronic Cancer of prostate (7 sources) Malignant tumor of prostate; Translations: [Malignant neoplasm of prostate] Onset: 5 10-01-2022 Chronic Coronary atherosclerosis and other heart disease (20 sources) Coronary arteriosclerosis in [place] artery; Translations: [Coronary atherosclerosis] Onset: 4 10-02-2018 Chronic Comment on above: 05/15/2018 Percutaneo us intervention on the 70% stenosis in the mid LAD. Stent placement 3 mm (D) x 16 mm (L), Synergy MR stent. Balloon angioplasty. Percutaneous intervention on the 70% stenosis at the ostium of the 1st diagonal. Balloon angioplasty. BKD performed. Disorders of lipid metabolism (20 sources) Hypercholesterolemia; Translations: [Pure hypercholesterolemia] Onset: 4 10-18-2014 Chronic Comment on above: ON MED E Codes: Fall (2 sources) Fall; Translations: [Unspecified fall, initial encounter] Onset: 5 Episodic Essential hypertension (20 sources) Hypertensive disorder; Translations: [Essential hypertension] Onset: 3 10-02-2018 Chronic Comment on above: CONTROLLED WITH MED Genitourinary symptoms and ill-defined conditions (2 sources) Difficulty passing urine; Translations: [Other difficulties with micturition] Onset: 5 Episodic Hyperplasia of prostate (7 sources) Benign prostatic hypertrophy with outflow obstruction; Translations: [Benign prostatic hyperplasia with lower urinary tract symptoms] Onset: 8 08-28-2007 Chronic Hypertension with complications and secondary hypertension (3 sources) Benign hypertensive renal disease; Translations: [Hypertensive chronic kidney disease with stage 1 through stage 4 chronic kidney disease, or unspecified chronic kidney disease] Onset: 4 09-30-2023 Chronic Malaise and fatigue (14 sources) Fatigue 08-24-2020 Episodic Mood disorders (14 sources) Recurrent major depressive episodes, moderate 11-19-2018 Chronic Nausea and vomiting (1 source) Nausea; Translations: [Nausea] Onset: 3 Episodic Nonspecific chest pain (8 sources) Chest pain 05-24-2020 Episodic Nutritional deficiencies (5 sources) Cobalamin deficiency 08-16-2023 Episodic Other gastrointestinal disorders (1 source) Diarrhea; Translations: [Diarrhea, unspecified] Onset: 3 Episodic Other injuries and conditions due to external causes (2 sources) History of fall; Translations: [History of falling] Onset: 4 09-30-2023 Episodic Other lower respiratory disease (20 sources) Dyspnea; Translations: [Dyspnea, unspecified] Onset: 4 06-21-2020 Episodic Other male genital disorders (14 sources) Impotence of organic origin 10-02-2018 Chronic Other nervous system disorders (1 source) Chronic pain; Translations: [Other chronic pain] Chronic Other nervous system disorders (1 source) Walking disability; Translations: [Difficulty in walking, not elsewhere classified] Chronic Other nervous system disorders (1 source) Difficulty in walking, not elsewhere classified; Translations: [Difficulty in walking, not elsewhere classified] Onset: 5 Chronic Other nutritional; endocrine; and metabolic disorders (1 source) Hypomagnesemia; Translations: [Hypomagnesemia] Onset: 3 Chronic Other screening for suspected conditions (not mental disorders or infectious disease) (19 sources) Raised prostate specific antigen; Translations: [Elevated prostate specific antigen [PSA]] Onset: 8 04-08-2019 Episodic Peripheral and visceral atherosclerosis (8 sources) Intermittent claudication 10-26-2020 Chronic Residual codes; unclassified (14 sources) Obstructive sleep apnea syndrome 11-23-2020 Chronic Residual codes; unclassified (4 sources) Memory impairment 04-16-2024 Episodic Rheumatoid arthritis and related disease (8 sources) Rheumatoid arthritis 10-02-2021 Chronic Spondylosis; intervertebral disc disorders; other back problems (1 source) Lumbar spondylosis; Translations: [Spondylosis without myelopathy or radiculopathy, lumbar region] Chronic Spondylosis; intervertebral disc disorders; other back problems (15 sources) Spinal stenosis of lumbar region; Translations: [Spinal stenosis, lumbar region without neurogenic claudication] Episodic Past or Other Problems Problem Classification Problem Date Documented Da te Episodic/Chronic Other injuries and conditions due to external causes (1 source) History of falling; Translations: [Personal history of fall] Onset: 09-30-2023 Episodic Other lower respiratory disease (1 source) Shortness of breath; Translations: [SOB (shortness of breath)] Onset: 09-30-2023 Episodic Results Test Name Value Interpretation Reference Range Facility 12 Lead EKGon 10-28-2024 12 Lead EKG [facility] [address] [place] [address] 12 Lead EKG 10/28/24 0137 MR#: [id number] Acct: [id number] Name: RAI MARS Rep #: [id number] : 1945 79 From: Fransico Sanchez MD Attending Dr: Dr. Andrew Figueroa MD Status: ADM IN Ordering Dr: Oscar Grimm MD Date: 10/28/24 Location: [facility] Sex: M C Admitted: 10/26/24 Test Reason : RAPID BURST HR Blood Pressure : */* mmHG Vent. Rate : 88 BPM Atrial Rate : 88 BPM P-R Int : 132 ms QRS Dur : 94 ms QT Int : 318 ms P-R-T Axes : 23 20 164 degrees QTcB Int : 384 ms Sinus rhythm with frequent Premature ventricular complexes and Premature atrial complexes ST T wave abnormality, consider anterior ischemia Abnormal ECG When compared with ECG of 20-Apr-2008 08:46, MANUAL COMPARISON REQUIRED DATA IS UNCONFIRMED Confirmed by Fransico Sanchez ([id number]), editorial director RUBÉN TAPIA ([id number]) on 10/28/2024 8:16:32 AM Referred By: Andrew Figueroa Confirmed By: Fransico Sanchez 10/28/2416 Date Fransico Sanchez MD CC: Dr. Armida Bueno DO; Dr. Andrew Figueroa MD; Dr. Oscar Grimm MD Signed Normal [place] Absolute lymphocyte countOrd ered By: Oscar Grimm on 10-28-2024 Lymphocytes Auto (Unsp spec) [#/Vol] 1.67 10*3/uL 0.83-4.51 [place] Absolute neutrophil countOrd ered By: Oscar Grimm on 10-28-2024 Neutrophils (Bld) [#/Vol] 8.8 10*3/uL High 2.0-7.7 [place] Anion gap in Serum or Plasma Ordered By: Oscar Grimm on 10-28-2024 Anion gap [Moles/Vol] 9 mmol/L 5-15 [facility] Automated lymphocyte count a s percentage of total leukocytesOrdered By: Oscar Grimm on 10-28-2024 Lymphocytes/100 WBC Auto (Unsp spec) 13.9 % Low 19-41 [place] BUN/creatinine ratioOrdered By: Oscar Grimm on 10-28-2024 Urea nitrogen/Creatinine [Mass ratio] 24.0 mg/mg High 10-20 [place] Basic Metabolic Profile (BMP )on 10-28-2024 BUN/CRE 24.0 RATIO High 12-07 [place] Comment on above: Performed By: #### L 100.0100, L500.2500 #### [facility] [address] [place], [address] Calcium [Mass/Vol] 8.7 mg/dL Normal 7.6-11.0 [facility] Comment on above: Performed By: #### L 100.0100, L500.2500 #### [facility] [address] [place], [address] Chloride [Moles/Vol] 102 mmol/L Normal 98-108 [facility] Comment on above: Performed By: #### L 100.0100, L500.2500 #### [facility] [address] [place], [address] CO2 [Moles/Vol] 26.5 mmol/L Normal 21.0-32.0 [place] Comment on above: Performed By: #### L 100.0100, L500.2500 #### [facility] [address] [place], [address] Creatinine [Mass/Vol] 0.66 mg/dL Low 0.70-1.20 [facility] Comment on above: Performed By: #### L 100.0100, L500.2500 #### [facility] [address] [place], [address] ECRCL 67.71 ml/min Normal 50-250 [place] Comment on above: Performed By: #### L 100.0100, L500.2500 #### [facility] [address] [place], [address] GAP 9 Normal 5-15 [place] Comment on above: Performed By: #### L 100.0100, L500.2500 #### [facility] [address] [place], [address] GFR/1.73 sq M.predicted among non-blacks MDRD (S/P/Bld) [Vol rate/Area] 94 mL/min/{1.73_m2} Normal >60 [place] Comment on above: Result Comment: mL/m in/1.73m2 CKD-EPI Creatinine Equation (2020) Performed By: #### L 100.0100, L500.2500 #### [facility] [address] [place], [address] Glucose [Mass/Vol] 114 mg/dL High 70-99 [facility] Comment on above: Performed By: #### L 100.0100, L500.2500 #### [facility] [address] [place], [address] Potassium [Moles/Vol] 3.9 mmol/L Normal 3.3-5.1 [facility] Comment on above: Performed By: #### L 100.0100, L500.2500 #### [facility] [address] [place], [address] Sodium [Moles/Vol] 137 mmol/L Normal 133-145 [facility] Comment on above: Performed By: #### L 100.0100, L500.2500 #### [facility] [address] [place], [address] Urea nitrogen [Mass/Vol] 16 mg/dL Normal 4-19 [place] Comment on above: Performed By: #### L 100.0100, L500.2500 #### [facility] [address] [place], [address] Basophil percentageOrdered B y: Oscar Grimm on 10-28-2024 Basophils/100 WBC (Bld) 0.5 % 0-1 [facility] Brain without Contraston Brain without Contrast [facility] Imaging Services [address] [place] [address] Brain without Contrast MR#: [id number] Acct: [id number] Name: JERAD,PAUL Shannon Rep #: [id number] : 1945 M 79 From: Christian Mora MD PCP: Dr. Armida Bueno DO Status: ADM IN Study: Brain without Contrast Date of Exam: 10/28/24 Exam# [id number] Ordering Dr: Oscar Grimm MD PROCEDURE: BRAIN WITHOUT CONTRAST 10/28/2024 REASON FOR EXAM: CVA R/O TECHNIQUE: Procedure Code: MRIBR Modality: MR Procedure: BRAIN WITHOUT CONTRAST Multiplanar and multisequence images were obtained. COMPARISON: 10/27/2024 CT. FINDINGS: Moderate global parenchymal atrophy. No evidence of acute hemorrhage or infarction. No extra-axial blood or fluid collections. The paranasal sinuses and mastoid air cells are clear. The calvarial vault and skull base are intact. MRI/Brain without Contrast IMPRESSION: No acute intracranial abnormality. Reading Location: [address] CC: Dr. Armida Bueno, DO; Dr. Oscar Grimm MD Bar Waiter/Waitress: Signed Normal [place] CBC W/Diff, Automatedon 10-19 Absolute Lymph 1.67 X10 3/uL Normal 0.83-4.51 [place] Comment on above: Performed By: #### L 100.0100, L500.2500 #### [facility] [address] [place], [address] Absolute Neut 8.8 X10 3/uL High 2.0-7.7 [place] Comment on above: Performed By: #### L 100.0100, L500.2500 #### [facility] [address] [place], [address] Basophils/100 WBC (Bld) 0.5 % Normal 0-1 [facility] Comment on above: Performed By: #### L 100.0100, L500.2500 #### [facility] [address] [place], [address] Eosinophils/100 WBC (Bld) 2.5 % Normal 0-5 [place] Comment on above: Performed By: #### L 100.0100, L500.2500 #### [facility] [address] [place], [address] Erythrocyte distribution width (RBC) [Ratio] 12.8 % Normal 11.6-14.6 [place] Comment on above: Performed By: #### L 100.0100, L500.2500 #### [facility] [address] [place], [address] Hematocrit (Bld) [Volume fraction] 27.8 % Low 40-54 [place] Comment on above: Performed By: #### L 100.0100, L500.2500 #### [facility] [address] [place], [address] Hemoglobin (Bld) [Mass/Vol] 9.3 g/dL Low 13.0-16.5 [place] Comment on above: Performed By: #### L 100.0100, L500.2500 #### [facility] [address] [place], [address] IG% 0.400 Normal 0.0-0.9 [place] Comment on above: Result Comment: IG% - Immature Granulocytes (promyelocytes, myelocytes and metamyelocytes) > 1% indicates that a LEFT SHIFT is Present. Performed By: #### L 100.0100, L500.2500 #### [facility] [address] [facility] [place], [address] Lymphocytes/100 WBC (Bld) 13.9 % Low 19-41 [place] Comment on above: Performed By: #### L 100.0100, L500.2500 #### [facility] [address] [place], [address] MCH (RBC) [Entitic mass] 32.2 pg High 27.0-32.0 [place] Comment on above: Performed By: #### L 100.0100, L500.2500 #### [facility] [address] [place], [address] MCHC (RBC) [Mass/Vol] 33.5 g/dL Normal 32-36 [facility] Comment on above: Performed By: #### L 100.0100, L500.2500 #### [facility] [address] [place], [address] MCV (RBC) [Entitic vol] 96.2 fL High 80-94 [facility] Comment on above: Performed By: #### L 100.0100, L500.2500 #### [facility] [address] [place], [address] Monocytes/100 WBC (Bld) 9.6 % Normal 0-10 [facility] Comment on above: Performed By: #### L 100.0100, L500.2500 #### [facility] [address] [place], [address] Neutrophils/100 WBC (Bld) 73.1 % High 47-70 [place] Comment on above: Performed By: #### L 100.0100, L500.2500 #### [facility] [address] [place], [address] Nucleated RBC (Bld) [#/Vol] 0 10*3/uL Normal 0-5 [place] Comment on above: Performed By: #### L 100.0100, L500.2500 #### [facility] [address] [place], [address] Platelet mean volume (Bld) [Entitic vol] 9.3 fL Normal 6.2-12.0 [place] Comment on above: Performed By: #### L 100.0100, L500.2500 #### [facility] [address] [place], [address] Platelets (Bld) [#/Vol] 266 10*3/uL Normal 150-450 [place] Comment on above: Performed By: #### L 100.0100, L500.2500 #### [facility] [address] [place], [address] RBC (Bld) [#/Vol] 2.89 10*6/uL Low 4.6-6.2 [facility] Comment on above: Performed By: #### L 100.0100, L500.2500 #### [facility] [address] [place], [address] RDW SD 45.7 fl High 35.1-43.9 [place] Comment on above: Performed By: #### L 100.0100, L500.2500 #### [facility] [address] [place], [address] WBC (Bld) [#/Vol] 12.0 10*3/uL High 4.4-11.0 [facility] Comment on above: Performed By: #### L 100.0100, L500.2500 #### [facility] [address] [place], [address] Carbon dioxide, total [Moles /volume] in Central venous bloodOrdered By: Oscar Grimm on 10-28-2024 CO2 [Moles/Vol] 26.5 mmol/L 21.0-32.0 [place] Chloride assayOrdered By: Esther Grimm on 10-28-2024 Chloride [Moles/Vol] 102 mmol/L 98-108 [facility] Duplex ultrasound of carotid artery reportOrdered By: Waldo Peña on 10-28-2024 Study report [facility] [address] [place] [address] Carotid Duplex Ultrasound 10/28/24 0812 MR#: [id number] Acct: [id number] Name: RAI MARS Rep #:[id number] : 1945 79 From: Waldo Mason Attending Dr: Dr. Andrew Figueroa MD Status: ADM IN Ordering Dr: Oscar Grimm MD Da te: 10/27/24 Location: [facility] Sex: M C Admitted: 10/26/24 Reason For Study Reason For Study: TIA / Abnormal Test Rt. Velocities/BP Lt. Velocities/BP Prox CCA 125.3/23.0 cm/sec. Prox CCA 119.8/26.7 cm/sec. Mid CCA 118.0/13.9 cm/sec. Mid CCA 125.3/23.0 cm/sec. Dist CCA 108.9/19.4 cm/sec. Dist CCA 94.2/15.7 cm/sec. Prox ICA 93.5/32.0 cm/sec. Prox ICA 229.9/69.3 cm/sec. Mid ICA 95.4/21.4 cm/sec. Mid ICA 206.3/43.0 cm/sec. Dist ICA 132.6/44.9 cm/sec. Dist ICA 134.4/34.0 cm/sec. Rt. ICA/CCA = 1.1. Lt. ICA/CCA = 1.8. Prox ECA 119.9/12.5 cm/sec. Prox ECA 123.5/13.9 cm/sec. Rt. Vert. 37.4/14.7 cm/sec. Lt. Vert. 107.0/32.1 cm/sec. Right Extracranial There is homogeneous, smooth atherosclerotic plaque noted in the right common carotid artery. There is heterogeneous, irregular atherosclerotic plaque noted in the right internal carotid artery. Theright internal carotid artery is very tortuous. There is heterogeneous, smooth atherosclerotic plaque noted in the right external carotid artery. Antegrade flow is noted in the right vertebral artery. Left Extracranial There is homogeneous, smooth atherosclerotic plaque noted in the left common carotid artery. There is heterogeneous, irregular atherosclerotic plaque noted in the left internal carotid artery. There is heterogeneous, irregular atherosclerotic plaque noted in the left external carotid artery. Antegrade flowis noted in the left vertebral artery. Procedure Carotid Duplex 69062. This is a Carotid Duplex examination using B-mode, color flow and specral Doppler. The exam was diagnostic. Exam performed portable in patient room. Preliminary delivered to U social services assistant. VL/Carotid Duplex Ultrasound Interpretation Summary Moderate (50-69%) stenosis right extracranial internal carotid. Moderate (50-69%) stenosis left extracranial internal carotid. Patent and antegrade vertebrals bilaterally. Ordering Physician: Oscar Grimm Referring Physician: Andrew Figueroa Performed By: Moreno Clark, T 10/28/241708 Date _ Waldo Peña MD CC: Dr. Amrida Bueno DO; Dr. Andrew Figueroa MD; Dr. Oscar Grimm MD ~ Date Dictated: 10/28/24811 Date Transcribed: 10/28/241708 Bar Waiter/Waitress: Signed [place] Work Phone: Electrocardiogram reportOrde red By: Fransico Sanchez on 10-28-2024 EKG study [facility] [address] [place] [address] 12 Lead EKG 10/28/24 0137 MR#: [id number] Acct: [id number] Name: RAI MARS Rep #:[id number] : 1945 79 From: Fransico miranda MD Attending Dr: Dr. Andrew Figueroa MD Status: ADM IN Ordering Dr: Oscar Grimm MD Da te: 10/28/24 Location: [facility] Sex: M C Admitted: 10/26/24 Test Reason : RAPID BURST HR Blood Pressure : */* mmHG Vent. Rate : 88 BPM Atrial Rate : 88 BPM P-R Int : 132 ms QRS Dur : 94 ms QT Int : 318 ms P-R-T Axes : 23 20 164 degrees QTcB Int : 384 ms Sinus rhythm with frequent Premature ventricular complexes and Premature atrial complexes ST & T wave abnormality, consider anterior ischemia Abnormal ECG When compared with ECG of 20-Apr-2008 08:46, MANUAL COMPARISON REQUIRED DATA IS UNCONFIRMED Confirmed by Fransico Sanchez ([id number]), editorial director RUBÉN TAPIA ([id number]) on 58:16:32 AM Referred By: Andrew Figueroa Confirmed By: Fransico Sanchez 10/28/24 0816 Date _ Fransico Sanchez MD CC: Dr. Armida Bueno DO; Dr. Andrew Figueroa MD; Dr. Oscar Grimm MD ~ Signed [place] Other Phone: Eosinophil percentageOrdered By: Oscar Grimm on 10-28-2024 Eosinophils/100 WBC (Bld) 2.5 % 0-5 [place] Erythrocyte distribution wid th ratioOrdered By: Oscar Grimm on 10-28-2024 Erythrocyte distribution width (RBC) [Ratio] 12.8 % 11.6-14.6 [place] Erythrocyte distribution wid th standard deviationOrdered By: Oscar Grimm on 10-28-2024 Erythrocyte distribution width (RBC) [Ratio] 45.7 fl High 35.1-43.9 [place] Glomerular filtration rate ( GFR) estimation/1.73 sq m using serum, plasma, or whole bOrdered By: Oscar Grimm on 10-28-2024 GFR/1.73 sq M.predicted among non-blacks MDRD (S/P/Bld) [Vol rate/Area] 94 mL/min/{1.73_m2} >60 [place] Comment on above: mL/min/1.73m2 CKD-EP I Creatinine Equation (2020) Hematocrit Auto (Bld) [Volum e fraction]Ordered By: Oscar Grimm on 10-28-2024 Hematocrit (Bld) [Volume fraction] 27.8 % Low 40-54 [place] Hemoglobin measurementOrdere d By: Oscar Grimm on 10-28-2024 Hemoglobin (Bld) [Mass/Vol] 9.3 g/dL Low 13.0-16.5 [place] Immature granulocytes/100 WB C Auto (Bld)Ordered By: Oscar Grimm on 10-28-2024 Immature granulocytes/100 WBC (Bld) 0.400 % 0.0-0.9 [place] Comment on above: IG% - Immature Granu locytes (promyelocytes, myelocytes and metamyelocytes) > 1% indicates that a LEFT SHIFT is Present. MCV (mean corpuscular volume ) determinationOrdered By: Oscar Grimm on 10-28-2024 MCV (RBC) [Entitic vol] 96.2 fL High 80-94 [facility] MR/CON.PCM.NEon 10-28-2024 MR/CON.PCM.NE [facility] Medical Records Department [address] [place] [address] Consultation - Neurology 10/28/24 1004 MR#: [id number] Acct: [id number] Name: RAI MRAS Rep #: [id number] : 1945 79 From: Birgit Hernandes MD PCP: Dr. Armida Bueno, DO Status:ADM IN Location: [place] [address] Assessment and Plan: Neuro Assessment/Plan RAI MARS is a 79 M being evaluated by Teleneurology for fixed midline gaze. He is still struggling to move eyes in the horizontal plane to command. Intermittently will move laterally when looking at a noise but unable to do so to command. Exam otherwise normal. CTH/CTA without significant findings. Unclear etiology, will need to rule out stroke in the horizontal gaze centers(midbrain/evert). Diagnosis: horizontal gaze palsy Plan: - MRI Brain without I personally attended this patient and spent a total time of 35 minutes evaluating this patient including clinical assessment, review of chart, medical history imaging, and determining appropriate treatment and workup. HPI Consult Data Date of Consult: 10/28/24 HPI Narrative HPI Narrative: RAI MARS, is a 79 M who was admitted post-TURP. He under went cystoscopy yesterday for Bagley trauma/gross hematuria. After procedure a stroke alert was called due to fixed midline gaze. He was alert and responsive, moving all extremities but had difficulty moving eyes to either direction. CTH showed atrophy but no acute findings. CTA did not show LVO or flow limiting stenosis. Today he still has difficult moving eyes horizontally voluntarily/to command. Occasional lateral movement automatically to look a noise. He denies any other symptoms. [facility] Medical History Wears glasses Wears dentures Alzheimer dementia Anxiety Arthritis Prostate disease Former smoker Sleep apnea Leg cramps History of stress test Cardiology follow-up encounter Frequent falls BPH (benign prostatic hyperplasia) Atherosclerosis of coronary artery of [place] heart without angina pectoris B12 deficiency Depression Hyperlipidemia Essential hypertension Rheumatoid arthritis Home Medications ???Medication ???Instructions ???Recorded ???Last Taken ???Type amlodipine 2.5 mg tablet 2.5 mg PO QDAY BP 10/29/23 5 History cholecalciferol (vitamin D3) 50 50 mcg PO QDAY SUPPLEMENT 10/29/23 10/20/24 History mcg (2,000 unit) tablet cyanocobalamin (vitamin B-12) 1,000 mcg PO QHS SUPPLEMENT 10/20/24 History 1,000 mcg tablet ezetimibe 10 mg tablet (Zetia) 10 mg PO QDAY CHOLESTEROL 10/29/23 10/21/24 History finasteride 5 mg tablet 5 mg PO QDAY PROSTATE 10/29/2305/12 History losartan 50 mg tablet 50 mg PO QDAY BP 10/29/23 10/21/24 History vitamins A,C,Z-ddws-ukmwmb 4,296 1 cap PO BID EYE VITAMIN 10/29/23 10/20/24 History mcg-226 mg-90 mg capsule (PreserVision AREDS) RELIEF FACTOR 1 tab PO BID ARTHRITIS 10/14/24 History coenzyme Q10 100 mg capsule (Co 200 mg PO DAILY SUPPLEMENT 5 10/20/24 History Q-10) diphenhydramine 25 1 tab PO QHS PRN sleep 10/14/24 History mg-acetaminophen 500 mg tablet memantine 10 mg tablet (Namenda) 10 mg PO BID ALZEHEIMERS 10/14/24 10/21/24 History tamsulosin 0.4 mg capsule 0.4 mg PO QHS PROSTATE 10/14/24 History venlafaxine 150 mg 150 mg PO DAILY DEPRESSION 5 10/21/24 History capsule,extended release 24 hr ciprofloxacin HCl 500 mg tablet 500 mg PO BID #10 tabs 10/21/24 Un known Rx (Cipro) Allergy/AdvReac Type Severity Reaction Status Date / Time isosorbide Allergy Unknown unknown Verified 10/21/24 11:57 Sulfa (Sulfonamide Allergy Unknown unknown Verified 10/21/24 11:57 Antibiotics) sulfacetamide Allergy Unknown unknown Verified 10/21/24 11:57 Family History Father Cancer Brother Suicide Surgical History History of coronary artery stent placement History of colonoscopy History of left heart catheterization (09/12/20) Social History Smoking Status: Former smoker how long ago did patient quit smoking: stopped at age 54 alcohol intake: former year quit: 39y substance use type: does not use caffeine: Yes Type: carbonated beverages Number of servings: 2 Vital Signs Vital Signs Vital Signs: 10/27/24 14:06 10/27/24 15:34 10/27/24 18:00 Temperature 97.4 F L 97.9 F Temperature Source Oral Oral Pulse Rate 85 90 Respiratory Rate 16 14 Respiratory Effort Respiratory Depth Respiratory Pattern Blood Pressure 101/57 L 98/68 Blood Pressure Mean 71 78 Blood Pressure Source (more content not included)... Normal [place] Magnesiumon 10-28-2024 Magnesium [Mass/Vol] 2.0 mg/dL Normal 1.5-2.2 [facility] Comment on above: Performed By: #### L 501.5200 #### [facility] [address] [place] [address]. [place], [place], [id number] Magnesium measurement (mass/ volume)Ordered By: Alex Smith on 10-28-2024 Magnesium (Unsp spec) [Mass/Vol] 2.0 mg/dL 1.5-2.2 [facility] Magnetic resonance imaging r eportOrdered By: Christian Mora on 10-28-2024 Study report [facility] Imaging Services [address] [place] [address] Brain without Contrast MR#: [id number] Acct: [id number] Name: RAI MARS Rep #: [id number] : 1945 M 79 From: Ty Mora MD PCP: Dr. Armida Bueno DO Status: ADM I N Study:Brain without Contrast Date of Exam: 10/28/24 Exam# [id number] Ordering Dr: Oscar Grimm MD PROCEDURE: BRAIN WITHOUT CONTRAST 10/28/2024 REASON FOR EXAM: CVA R/O TECHNIQUE: Procedure Code: MRIBR Modality: MR Procedure: BRAIN WITHOUT CONTRAST Multiplanar and multisequence images were obtained. COMPARISON: 10/27/2024 CT. FINDINGS: Moderate global parenchymal atrophy. No evidence of acute hemorrhage or infarction. No extra-axial blood or fluid collections. The paranasal sinuses and mastoid air cells are clear. The calvarial vault and skull base are intact. MRI/Brain without Contrast IMPRESSION: No acute intracranial abnormality. Reading Location: [address] CC: Dr. Armida Bueno DO; Dr. Oscar Grimm MD ~ Bar Waiter/Waitress: Signed [place] Mean corpuscular hemoglobin (MCH) determinationOrdered By: Oscar Grimm on 10-28-2024 MCH (RBC) [Entitic mass] 32.2 pg High 27.0-32.0 [facility] Mean corpuscular hemoglobin concentration (MCHC) determinationOrdered By: Oscar Grimm on 10-28-2024 MCHC (RBC) [Mass/Vol] 33.5 g/dL 32-36 [facility] Mean platelet volume determi nationOrdered By: Oscar Grimm on 10-28-2024 Platelet mean volume (Bld) [Entitic vol] 9.3 fL 6.2-12.0 [facility] Monocyte percentageOrdered B y: Oscar Grimm on 10-28-2024 Monocytes/100 WBC (Bld) 9.6 % 0-10 [facility] Neutrophil percentageOrdered By: Oscar Grimm on 10-28-2024 Neutrophils/100 WBC (Bld) 73.1 % High 47-70 [facility] Nucleated red blood cell per centageOrdered By: Oscar Grimm on 10-28-2024 Nucleated RBC/100 WBC (Bld) [Ratio] 0 % 0-5 [facility] Platelet countOrdered By: Esther Grimm on 10-28-2024 Platelets (Bld) [#/Vol] 266 10*3/uL 150-450 [facility] Potassium measurement (mass/ volume)Ordered By: Oscar Grimm on 10-28-2024 Potassium (Unsp spec) [Mass/Vol] 3.9 mmol/L 3.3-5.1 [place] RBC Auto (Bld) [#/Vol]Ordere d By: Oscar Grimm on 10-28-2024 RBC (Bld) [#/Vol] 2.89 10*6/uL Low 4.6-6.2 [facility] Serum creatinine measurement (mass/volume)Ordered By: Oscar Grimm on 10-28-2024 Creatinine [Mass/Vol] 0.66 mg/dL Low 0.70-1.20 [facility] Serum glucose measurement (m ass/volume)Ordered By: Oscar Grimm on 10-28-2024 Glucose [Mass/Vol] 114 mg/dL High 70-99 [facility] Serum or plasma calcium whitney urement (mass/volume)Ordered By: Oscar Grimm on 10-28-2024 Calcium [Mass/Vol] 8.7 mg/dL 7.6-11.0 [facility] Serum or plasma urea nitroge n measurement (mass/volume)Ordered By: Oscar Grimm on 10-28-2024 Urea nitrogen [Mass/Vol] 16 mg/dL 4-19 [place] Sodium levelOrdered By: Cameron Grimm on 10-28-2024 Sodium [Moles/Vol] 137 mmol/L 133-145 [facility] White blood cell (WBC) count Ordered By: Oscar Grimm on 10-28-2024 WBC (Bld) [#/Vol] 12.0 10*3/uL High 4.4-11.0 [facility] Bedside Glucoseon 10-27-2024 FINGERSTICK GLU 115 mg/dL High 74-106 [facility] Comment on above: Result Comment: [place] OF PATIENT CARE PER NURSING PROTOCOL Performed By: #### L 501.080 #### [facility] [address] [place], [address] Carotid Duplex Ultrasoundon 10-27-2024 Carotid Duplex Ultrasound [facility] [address] [place] [address] Carotid Duplex Ultrasound 10/28/24 0812 MR#: [id number] Acct: [id number] Name: RAI MARS Rep #: [id number] : 1945 79 From: Waldo Peña MD Attending Dr: Dr. Andrew Figueroa MD Status: ADM IN Ordering Dr: Osacr Grimm MD Date: 10/27/24 Location: [facility] Sex: M C Admitted: 10/26/24 Reason For Study Reason For Study: TIA / Abnormal Test Rt. Velocities/BP Lt. Velocities/BP Prox CCA 125.3/23.0 cm/sec. Prox CCA 119.8/26.7 cm/sec. Mid CCA 118.0/13.9 cm/sec. Mid CCA 125.3/23.0 cm/sec. Dist CCA 108.9/19.4 cm/sec. Dist CCA 94.2/15.7 cm/sec. Prox ICA 93.5/32.0 cm/sec. Prox ICA 229.9/69.3 cm/sec. Mid ICA 95.4/21.4 cm/sec. Mid ICA 206.3/43.0 cm/sec. Dist ICA 132.6/44.9 cm/sec. Dist ICA 134.4/34.0 cm/sec. Rt. ICA/CCA = 1.1. Lt. ICA/CCA = 1.8. Prox ECA 119.9/12.5 cm/sec. Prox ECA 123.5/13.9 cm/sec. Rt. Vert. 37.4/14.7 cm/sec. Lt. Vert. 107.0/32.1 cm/sec. Right Extracranial There is homogeneous, smooth atherosclerotic plaque noted in the right common carotid artery. There is heterogeneous, irregular atherosclerotic plaque noted in the right internal carotid artery. The right internal carotid artery is very tortuous. There is heterogeneous, smooth atherosclerotic plaque noted in the right external carotid artery. Antegrade flow is noted in the right vertebral artery. Left Extracranial There is homogeneous, smooth atherosclerotic plaque noted in the left common carotid artery. There is heterogeneous, irregular atherosclerotic plaque noted in the left internal carotid artery. There is heterogeneous, irregular atherosclerotic plaque noted in the left external carotid artery. Antegrade flow is noted in the left vertebral artery. Procedure Carotid Duplex 01508. This is a Carotid Duplex examination using B-mode, color flow and specral Doppler. The exam was diagnostic. Exam performed portable in patient room. Preliminary delivered to PCU social services assistant. VL/Carotid Duplex Ultrasound Interpretation Summary Moderate (50-69%) stenosis right extracranial internal carotid. Moderate (50-69%) stenosis left extracranial internal carotid. Patent and antegrade vertebrals bilaterally. Ordering Physician: Oscar Grimm Referring Physician: Andrew Figueroa Performed By: Moerno Clark, RUST 10/28/241708 Date Waldo Peña MD CC: Dr. Armida Bueno DO; Dr. Andrew Figueroa MD; Dr. Oscar Grimm MD Date Dictated: 10/28/24811 Date Transcribed: 10/28/241708 Bar Waiter/Waitress: Signed Normal [place] [facility] deOrdered By: Andrew Figueroa on 10-27-2024 Glucose [Mass/Vol] 115 mg/dL High 74-106 [facility] Comment on above: MANAGEMENT OF PATIEN T CARE PER NURSING PROTOCOL STROKE Brain/Head without Co nton 10-27-2024 STROKE Brain/Head without Cont [facility] Imaging [facility] [address] [place], [place] [id number] STROKE Brain/Head without Cont MR#: [id number] Acct: [id number] Name: RAI MARS Rep #: [id number] : 1945 M 79 From: Jayme Dardne MD PCP: Dr. Armida Bueno DO Status: ADM IN Study: STROKE Brain/Head without Cont Date of Exam: 0 10/27/24 Exam# [id number] Ordering Dr: Andrew Figueroa MD PROCEDURE: STROKE BRAIN/HEAD WITHOUT CONT 10/27/2024 REASON FOR EXAM: STROKE ALERT TECHNIQUE: Procedure Code: CTBR.ST Modality: CT Procedure: STROKE BRAIN/HEAD WITHOUT CONT Coronal and Sagittal reconstruction series were provided. One or more dose reduction techniques were used (e.g., Automated exposure control, adjustment of the mA and/or kV according to patient size, use of iterative reconstruction technique. RADIATION DOSE SUMMARY: CTDlvol: 45 mGy DLP: <1000 mGycm COMPARISON: None FINDINGS: The patient is slightly malpositioned in the CT gantry on the mold yarn supervisor image. Brain: There is no evidence of hemorrhage, acute ischemia or mass. No extra-axial fluid collection, midline shift or mass effect. Low-density is seen in the periventricular white matter and deep white matter of the frontal and parietal lobes. Benign mineralization is seen in the basal ganglia. CSF Spaces: Moderate generalized cerebral atrophy Sinuses/Mastoids: Clear. Bones: Intact. Bilateral lens implants are present. Cavernous and supraclinoid internal carotid artery atherosclerotic plaque is present. CT/STROKE Brain/Head without Cont IMPRESSION: 1. No evidence of intracranial hemorrhage or acute ischemia. 2. Changes of chronic microvascular ischemia and volume loss. Findings and impression of this report were called directly to the charge nurse, Lorraine, at 0922 hours Eastern standard time. She relay the information to the covering physician at the time of the phone call. Reading Location: [id number] CC: Dr. Armida Bueno DO; Dr. Andrew Figueroa MD Bar Waiter/Waitress: Signed Normal [place] STROKE CTA Head AND Neck W/C onon 10-27-2024 STROKE CTA Head AND Neck W/Con [facility] Imaging Services [address] [place] [address] STROKE CTA Head AND Neck W/Con MR#: [id number] Acct: [id number] Name: RAI MARS Rep #: [id number] : 1945 M 79 From: Jayme Darden MD PCP: Dr. Armida Bueno DO Status: ADM IN Study: STROKE CTA Head AND Neck W/Con Date of Exam: 0 10/27/24 Exam# [id number] Ordering Dr: Oscar Grimm MD PROCEDURE: STROKE CTA HEAD AND NECK W/CON 10/27/2024 REASON FOR EXAM: CVA TECHNIQUE: Procedure Code: CTCTA.ST.HN Modality: CT Procedure: STROKE CTA HEAD AND NECK W/CON Multiplanar Sagittal and Coronal images were obtained. 3D post processing was performed CONTRAST: Isovue 370 VOLUME: 98 mL One or more dose reduction techniques were used (e.g., Automated exposure control, adjustment of the mA and/or kV according to patient size, use of iterative reconstruction technique). RADIATION DOSE SUMMARY: CTDlvol: 35 mGy DLP: 756 mGycm COMPARISON: Head CT of the same day FINDINGS: Aortic Arch: Normal size and branching pattern. No significant atherosclerotic plaque. Brachiocephalic and Subclavians: Unremarkable RIGHT Carotid: Right CCA: Eccentric calcified and noncalcified plaque at the carotid bulb. Right ICA: Continuation of the aforementioned eccentric calcified and noncalcified plaque into the proximal internal carotid artery. Maximum stenosis (NASCET): Less than 25 % Right ECA: Unremarkable. LEFT Carotid: Left CCA: The distal common carotid takes a medial course anterior to the longus coli muscle. Minimal amount of calcified plaque but a soqtrepj-vs-sjsvh amount of soft plaque surrounding the carotid bulb and proximal internal carotid and external carotid artery. Left ICA: Soft plaque circumferentially of the proximal portion. Maximum stenosis (NASCET): Less than 50 % Left ECA: 50-69% stenosis near the origin related to soft plaque. Vertebrals: Codominant. Arise from the subclavians. Both vertebrals form the basilar. RIGHT Vertebral: Minimal plaque at the origin. Tortuous. Otherwise patent. LEFT Vertebral: Tortuous. Otherwise patent. Anatomy: [place] anatomy is normal. Aneurysm or avm: No intracranial aneurysms or large vascular malformations are identified. Anterior cerebral arteries: Unremarkable. Middle cerebral arteries: No large vessel occlusion. Otherwise unremarkable. Basilar artery: Unremarkable. Posterior cerebral arteries: Unremarkable. Other major branches of the posterior circulation: Unremarkable. Major venous structures: Unremarkable. Other findings: Neck: No lymphadenopathy. Right mid to upper pole thyroid nodule posteriorly is 16 x 8 x 13 mm. Lungs: Lung apices are clear. Bones: Bones are unremarkable. CT/STROKE CTA Head AND Neck W/Con IMPRESSION: 1. No large vessel occlusion. 2. No aneurysm or flow-limiting stenosis. 3. Significant amount of soft plaque at the carotid bulb, proximal internal carotid artery and external carotid artery on the left. Medial course of the distal common carotid; it is located anterior to the longus colli muscle. Consider nonemergent vascular surgical consultation and possible carotid ultrasound to assess plaque.. Reading Location: [id number] CC: Dr. Armida Bueno DO; Dr. Oscar Grimm MD Bar Waiter/Waitress: Signed Normal [place] Basic Metabolic Profile (BMP )on 10-26-2024 BUN/CRE 17.8 RATIO Normal 10-20 [facility] Comment on above: Performed By: #### L 500.2500 #### [facility] [address] [place], [address] Calcium [Mass/Vol] 8.8 mg/dL Normal 7.6-11.0 [facility] Comment on above: Performed By: #### L 500.2500 #### [facility] [address] [place], [address] Chloride [Moles/Vol] 98 mmol/L Normal 98-108 [facility] Comment on above: Performed By: #### L 500.2500 #### [facility] [address] [place], [address] CO2 [Moles/Vol] 25.9 mmol/L Normal 21.0-32.0 [facility] Comment on above: Performed By: #### L 500.2500 #### [facility] [address] [place], [address] Creatinine [Mass/Vol] 0.60 mg/dL Low 0.70-1.20 [facility] Comment on above: Performed By: #### L 500.2500 #### [facility] [address] [place], [address] ECRCL 67.71 ml/min Normal 50-250 [facility] Comment on above: Performed By: #### L 500.2500 #### [facility] [address] [place], [address] GAP 11 Normal 5-15 [facility] Comment on above: Performed By: #### L 500.2500 #### [facility] [address] [place], [address] GFR/1.73 sq M.predicted among non-blacks MDRD (S/P/Bld) [Vol rate/Area] 97 mL/min/{1.73_m2} Normal >60 [facility] Comment on above: Result Comment: mL/m in/1.73m2 CKD-EPI Creatinine Equation (2020) Performed By: #### L 500.2500 #### [facility] [address] [place], [address] Glucose [Mass/Vol] 135 mg/dL High 70-99 [facility] Comment on above: Performed By: #### L 500.2500 #### [facility] [address] [place], [address] Potassium [Moles/Vol] 3.6 mmol/L Normal 3.3-5.1 [facility] Comment on above: Performed By: #### L 500.2500 #### [facility] [address] [place], [address] Sodium [Moles/Vol] 135 mmol/L Normal 133-145 [facility] Comment on above: Performed By: #### L 500.2500 #### [facility] [address] [place] [address] Urea nitrogen [Mass/Vol] 11 mg/dL Normal 4-19 [facility] Comment on above: Performed By: #### L 500.2500 #### [facility] [address] [place], [address] CBC W/Diff, Automatedon 09-0 8-2024 Absolute Lymph 1.07 X10 3/uL Normal 0.83-4.51 [facility] Comment on above: Performed By: #### L 100.0100 #### [facility] [address] [place], [address] Absolute Neut 9.2 X10 3/uL High 2.0-7.7 [facility] Comment on above: Performed By: #### L 100.0100 #### [facility] [address] [place], [address] Basophils/100 WBC (Bld) 0.3 % Normal 0-1 [facility] Comment on above: Performed By: #### L 100.0100 #### [facility] [address] [place], [address] Eosinophils/100 WBC (Bld) 1.0 % Normal 0-5 [facility] Comment on above: Performed By: #### L 100.0100 #### [facility] [address] [place], [address] Erythrocyte distribution width (RBC) [Ratio] 12.5 % Normal 11.6-14.6 [facility] Comment on above: Performed By: #### L 100.0100 #### [facility] [address] [place], [address] Hematocrit (Bld) [Volume fraction] 31.1 % Low 40-54 [facility] Comment on above: Performed By: #### L 100.0100 #### [facility] [address] [place], [address] Hemoglobin (Bld) [Mass/Vol] 10.6 g/dL Low 13.0-16.5 [facility] Comment on above: Performed By: #### L 100.0100 #### [facility] [address] [place], [address] IG% 0.400 Normal 0.0-0.9 [facility] Comment on above: Result Comment: IG% - Immature Granulocytes (promyelocytes, myelocytes and metamyelocytes) > 1% indicates that a LEFT SHIFT is Present. Performed By: #### L 100.0100 #### [facility] [address] [facility] [place], [address] Lymphocytes/100 WBC (Bld) 9.2 % Low 19-41 [facility] Comment on above: Performed By: #### L 100.0100 #### [facility] [address] [facility] [place], [address] MCH (RBC) [Entitic mass] 32.2 pg High 27.0-32.0 [facility] Comment on above: Performed By: #### L 100.0100 #### [facility] [address] [facility] [place], [address] MCHC (RBC) [Mass/Vol] 34.1 g/dL Normal 32-36 [facility] Comment on above: Performed By: #### L 100.0100 #### [facility] [address] [place], [address] MCV (RBC) [Entitic vol] 94.5 fL High 80-94 [facility] Comment on above: Performed By: #### L 100.0100 #### [facility] [address] [place], [address] Monocytes/100 WBC (Bld) 10.0 % Normal 0-10 [facility] Comment on above: Performed By: #### L 100.0100 #### [facility] [address] [place], [address] Neutrophils/100 WBC (Bld) 79.1 % High 47-70 [facility] Comment on above: Performed By: #### L 100.0100 #### [facility] [address] [place], [address] Nucleated RBC (Bld) [#/Vol] 0 10*3/uL Normal 0-5 [facility] Comment on above: Performed By: #### L 100.0100 #### [facility] [address] [place], [address] Platelet mean volume (Bld) [Entitic vol] 10.1 fL Normal 6.2-12.0 [facility] Comment on above: Performed By: #### L 100.0100 #### [facility] [address] [place], [address] Platelets (Bld) [#/Vol] 232 10*3/uL Normal 150-450 [facility] Comment on above: Performed By: #### L 100.0100 #### [facility] [address] [place], [address] RBC (Bld) [#/Vol] 3.29 10*6/uL Low 4.6-6.2 [facility] Comment on above: Performed By: #### L 100.0100 #### [facility] [address] [place], [address] RDW SD 43.4 fl Normal 35.1-43.9 [facility] Comment on above: Performed By: #### L 100.0100 #### [facility] [address] [place], [address] WBC (Bld) [#/Vol] 11.7 10*3/uL High 4.4-11.0 [facility] Comment on above: Performed By: #### L 100.0100 #### [facility] [address] [facility] [place], [address] MR/POSTOP.ANEon 10-26-2024 MR/POSTOP.ANE [facility] Medical Records Department [address] [place] [address] Anesthesia Postop Eval I 10/26/24 1439 MR#: [id number] Acct: [id number] Name: JERAD,RAI Shannon Rep #: [id number] : 1945 79 From: David Evangelista CRNA PCP: Dr. Armida Bueno, DO Status:ADM IN Y Race: C Location: [place] [address] Anesthesia: Postop Eval I Current Vital Signs Temperature: 97 F Pulse Rate: 73 Blood Pressure: 104/61 Respiratory Rate: 16 Pulse Ox: 94 Oxygen Delivery Method: Room Air Assessment Airway patent: Yes Spontaneous unlabored respirations: Yes Mental status: Awake and Calm nausea: No Vomiting: No Anesthesia Complication: No Fluid Hydration Crystalloid volume administer (ml): 400 Total IV fluid infused: 400 Progress Note Anesthesia document: Postop Eval 1 completed: Yes 10/26/24 1440 Date David Evangelista CRNA Cosigner Signature: Date CC: Signed Normal [place] MR/[id number] 10-26-2024 MR/POSTOPAN2 [facility] Medical Records Department [address] [place] [address] Anesthesia Postop Eval II 10/26/24 1450 MR#: [id number] Acct: [id number] Name: RAI MARS Rep #: [id number] : 1945 79 From: Randall [facility] MD PCP: Dr. Armida Bueno, DO Status:ADM IN Y Race: C Location: [place]3 FK110-6 Anesthesia Postop Eval I Sum Postop Eval Completion status Anesthesia document: Postop Eval 1 completed: Yes Anesthesia Postop Eval I Summary Anesthesia Postop Eval I Summary: Anesthesia Postop Eval I: Assessment Summary Airway patent Yes 10/26/24 14:40 ASSISTANT BRANCH OPERATIONS MANAGER.[email or web address] Spontaneous unlabored Yes 10/26/24 14:40 ASSISTANT BRANCH OPERATIONS MANAGER.[email or web address] respirations Mental status Awake,Calm 10/26/24 14:40 ASSISTANT BRANCH OPERATIONS MANAGER.[email or web address] nausea No 10/26/24 14:40 ASSISTANT BRANCH OPERATIONS MANAGER.JBLOU Vomiting No 10/26/24 14:40 ASSISTANT BRANCH OPERATIONS MANAGER.JBLOU Anesthesia Postop Eval I: Fluid Summary Crystalloid volume administer 400 10/26/24 14:40 ASSISTANT BRANCH OPERATIONS MANAGER.JBLOU (ml) Colloids volume administered ( ml) Blood Product volume administered (ml) Total IV fluid infused 400 10/26/24 14:40 ASSISTANT BRANCH OPERATIONS MANAGER.JBLOU Anesthesia Postop Eval I: Summary Notes Anesthesia Complication No 10/26/24 14:40 ASSISTANT BRANCH OPERATIONS MANAGER.JBLOU Anesthesia Complication Comment: Post-operative progress note Anesthesia: Postop Eval II Evaluation Mental status: Awake and Calm Pain Level: 1 nausea: No Vomiting: No Complications Anesthesia Complication: No 10/26/24 1450 Date Randall Berger MD Cosigner Signature: Date CC: Signed Normal [place] Operative Reporton 5 Operative Report [facility] Medical Records Department [address] [place], [place] [address] [address] Operative Report 10/26/24 1247 MR#: [id number] Acct: [id number] Name: RAI MARS Rep #: [id number] : 1945 79 From: Andrew Figueroa MD PCP: Dr. Armida Bueno, DO Status:ADM IN Location: [facility] [id number] Operative Report (Standard) Operative Information Date of Procedure: 10/26/24 Pre-Operative Diagnosis: [place] trauma and gross hematuria Post-Operative Diagnosis: The same Surgery/Procedure Performed: Cystoscopy evacuation of blood clots resection of some obstructive tissue at the apex of the prostate library clerk talking books: No Type of Anesthesia: General RN Documented Start/Stop Times: Operation Date: 10/26/24 12:00 Case Time Into Pre-Op 10/26/24 10:48 Anesthesia Start 10/26/24 12:11 Into Room 10/26/24 12:11 Procedure Start 10/26/24 12:24 Procedure Start Time: 12:24 Procedure Stop Time: 12:48 Select all DRAINS/GRAFTS/IMPLANTS that apply: Drains Drain details: 22 [place] three-way [place] Estimated Blood Loss: 20 cc Specimen collected: Yes Description of specimen(s) removed: Prostate tissue and blood clots Description of surgery: This is an 79-year-old male who had some sundowning got confused and then removed his catheter traumatically out first day after surgery try to manage this with a catheter he was doing okay there was concerned about him going home with a catheter so we took out the catheter for voiding trial but he failed the voiding trial catheter was replaced and the last night he ripped out the catheter again and so taken back to surgery to evaluate the situation and get rid of any blood clots make sure he has an open channel. Taken back to the operating room underwent general anesthetic is placed in dorsolithotomy position penis and testicle prepped and draped in usual fashion went along the urethra with a 24 Omani none continuous-flow Olympus bipolar resectoscope he had a significant tear within the urethra this needs to heal up sphincter was intact he does have a obstructive apical tissue and inside the bladder with significant mount of clots evacuated all the clots of the bladder the bladder neck actually healed up from prior resections of this that healed up completely and he had still stent on the right side then looking at the verumontanum he had a significant mount of apical tissue and so I resected the apical tissue did a flow test had a wide open flow and at this point we will put a 22 Omani catheter back in the bladder I put a significant bout of urine in the balloon so hopefully avoid another traumatic removal put over 70 cc in the balloon and he will need to have the catheter for at least 2 weeks to let the Bagley and the bladder heal up if you take out the catheter soon from that you will not be able to urinate he will need the catheter for several weeks to let everything heal. I will going explain the situation of the family if I end up he will need to go to a care home Surgical Findings: Had significant tearing along the urethra from traumatic catheter removals and lots of blood clots in the bladder that were removed I resected resected some obstructive apical tissue Complications Complications: No 10/26/24 1250 Cosigner Signature (if applicable): CC: Dr. Armida Bueno DO; Dr. Andrew Figueroa MD Signed [facility] [place] Discharge Instructionon Discharge Instruction [facility] Medical Records Department [address] [place] [address] Instructions for Home/Discharge Instructions 10/24/24 0738 MR#: [id number] Acct: [id number] Name: RAI MARS Rep #: [id number] : 1945 79 From: Andrew Figueroa MD PCP: Dr. Armida Bueno DO Status:ADM CHAYO Discharge Instructions DC O2, CPAP, BIPAP needs Home O2 Discharge instructions: No Dressing / Incision Discharge Activity: Return to Normal Activity and May Not Drive (while taking narcotic pain medications.) May shower in (days): 1 Dressing / Incision Call your doctor if your incision/area has: Sudden Increased Bleeding Call your doctor if you observe: Fever of 101 or Higher Catheter: Bagley to leg bag and Bagley to large bag Drain: [place] Follow Up Care Please Follow Up With: Andrew Figueroa MD When: Call [phone] for an appointment Test Results: Test results from this visit will be discussed in further detail at your follow-up appointment, if applicable. Discharge Plan Admission Admit Date/Time: 10/21/24 15:00 Primary Reason for Your Visit: turp Attending Provider: Andrew Figueroa Primary Care Provider: Armida Bueno Discharge Orders/Prescriptions Prescriptions: New ciprofloxacin HCl [Cipro] 500 mg tablet 500 mg PO BID Qty: 10 0RF Continued cyanocobalamin (vitamin B-12) 1,000 mcg tablet 1,000 mcg PO QHS amlodipine 2.5 mg tablet 2.5 mg PO QDAY losartan 50 mg tablet 50 mg PO QDAY finasteride 5 mg tablet 5 mg PO QDAY ezetimibe [Zetia] 10 mg tablet 10 mg PO QDAY PreserVision AREDS 4,296 mcg-226 mg-90 mg capsule 1 cap PO BID cholecalciferol (vitamin D3) 50 mcg (2,000 unit) tablet 50 mcg PO QDAY venlafaxine 150 mg capsule,extended release 24hr 150 mg PO DAILY memantine [Namenda] 10 mg tablet 10 mg PO BID coenzyme Q10 [Co Q-10] 100 mg capsule 200 mg PO DAILY RELIEF FACTOR 1 tab PO BID diphenhydramine-acetami nophen 25-500 mg tablet 1 tab PO QHS PRN (Reason: sleep) tamsulosin 0.4 mg capsule 0.4 mg PO QHS Referrals / Follow Up: Armida Bueno DO [Primary Care Provider] - Andrew Figueroa MD [Med Staff - Active Staff] - Disposition Discharge Orders: Discharge Patient (Routine); Ordered 10/24/24 Ordered By: Dr. Adnrew Figueroa 10/24/24 0738 Andrew Figueroa MD CC: Dr. Armida Bueno DO Signed [facility] [place] Basic Metabolic Profile (BMP )on 10-22-2024 BUN/CRE 12.7 RATIO Normal 10-20 [place] Comment on above: Performed By: #### L 100.0100, L500.2500 ####[place] [address] [place], [address] Calcium [Mass/Vol] 8.3 mg/dL Normal 7.6-11.0 [facility] Comment on above: Performed By: #### L 100.0100, L500.2500 ####[place] [address] [place], [address] Chloride [Moles/Vol] 100 mmol/L Normal 98-108 [facility] Comment on above: Performed By: #### L 100.0100, L500.2500 ####[place] [address] [place], [address] CO2 [Moles/Vol] 22.3 mmol/L Normal 21.0-32.0 [facility] Comment on above: Performed By: #### L 100.0100, L500.2500 ####[place] [address] [place], [address] Creatinine [Mass/Vol] 0.76 mg/dL Normal 0.70-1.20 [facility] Comment on above: Performed By: #### L 100.0100, L500.2500 ####[place] [address] [place], [address] ECRCL 67.71 ml/min Normal 50-250 [facility] Comment on above: Performed By: #### L 100.0100, L500.2500 ####[place] [address] [place], [address] GAP 13 Normal 5-15 [facility] Comment on above: Performed By: #### L 100.0100, L500.2500 ####[place] [address] [place], [address] GFR/1.73 sq M.predicted among non-blacks MDRD (S/P/Bld) [Vol rate/Area] 90 mL/min/{1.73_m2} Normal >60 [facility] Comment on above: Result Comment: mL/m in/1.73m2 CKD-EPI Creatinine Equation (2020) Performed By: #### L 100.0100, L500.2500 ####[place] [address] [place], [address] Glucose [Mass/Vol] 190 mg/dL High 70-99 [facility] Comment on above: Performed By: #### L 100.0100, L500.2500 ####[place] [address] [place], [address] Potassium [Moles/Vol] 3.9 mmol/L Normal 3.3-5.1 [facility] Comment on above: Performed By: #### L 100.0100, L500.2500 ####[place] [address] [place], [address] Sodium [Moles/Vol] 135 mmol/L Normal 133-145 [facility] Comment on above: Performed By: #### L 100.0100, L500.2500 ####[place] [address] [place], [address] Urea nitrogen [Mass/Vol] 10 mg/dL Normal 4-19 [facility] Comment on above: Performed By: #### L 100.0100, L500.2500 ####[place] [address] [place], [address] CBC W/Diff, Automatedon 09-0 4-2024 Absolute Lymph 1.18 X10 3/uL Normal 0.83-4.51 [facility] Comment on above: Performed By: #### L 100.0100, L500.2500 #### [facility] [address] [place], [address] Absolute Neut 19.0 X10 3/uL High 2.0-7.7 [facility] Comment on above: Performed By: #### L 100.0100, L500.2500 #### [facility] [address] [place], [address] Basophils/100 WBC (Bld) 0.3 % Normal 0-1 [facility] Comment on above: Performed By: #### L 100.0100, L500.2500 #### [facility] [address] [place], [address] Eosinophils/100 WBC (Bld) 0.0 % Normal 0-5 [facility] Comment on above: Performed By: #### L 100.0100, L500.2500 #### [facility] [address] [place], [address] Erythrocyte distribution width (RBC) [Ratio] 12.8 % Normal 11.6-14.6 [place] Comment on above: Performed By: #### L 100.0100, L500.2500 #### [facility] [address] [place], [address] Hematocrit (Bld) [Volume fraction] 37.0 % Low 40-54 [facility] Comment on above: Performed By: #### L 100.0100, L500.2500 #### [facility] [address] [place], [address] Hemoglobin (Bld) [Mass/Vol] 12.3 g/dL Low 13.0-16.5 [facility] Comment on above: Performed By: #### L 100.0100, L500.2500 #### [facility] [address] [place], [address] IG% 0.300 Normal 0.0-0.9 [facility] Comment on above: Result Comment: IG% - Immature Granulocytes (promyelocytes, myelocytes and metamyelocytes) > 1% indicates that a LEFT SHIFT is Present. Performed By: #### L 100.0100, L500.2500 #### [facility] [address] [place], [address] Lymphocytes/100 WBC (Bld) 5.4 % Low 19-41 [facility] Comment on above: Performed By: #### L 100.0100, L500.2500 #### [facility] [address] [place], [address] MCH (RBC) [Entitic mass] 32.5 pg High 27.0-32.0 [facility] Comment on above: Performed By: #### L 100.0100, L500.2500 #### [facility] [address] [place], [address] MCHC (RBC) [Mass/Vol] 33.2 g/dL Normal 32-36 [facility] Comment on above: Performed By: #### L 100.0100, L500.2500 #### [facility] [address] [place], [address] MCV (RBC) [Entitic vol] 97.6 fL High 80-94 [facility] Comment on above: Performed By: #### L 100.0100, L500.2500 #### [facility] [address] [place], [address] Monocytes/100 WBC (Bld) 6.8 % Normal 0-10 [facility] Comment on above: Performed By: #### L 100.0100, L500.2500 #### [facility] [address] [place], [address] Neutrophils/100 WBC (Bld) 87.2 % High 47-70 [facility] Comment on above: Performed By: #### L 100.0100, L500.2500 #### [facility] [address] [place], [address] Nucleated RBC (Bld) [#/Vol] 0 10*3/uL Normal 0-5 [facility] Comment on above: Performed By: #### L 100.0100, L500.2500 #### [facility] [address] [place], [address] Platelet mean volume (Bld) [Entitic vol] 10.0 fL Normal 6.2-12.0 [facility] Comment on above: Performed By: #### L 100.0100, L500.2500 #### [facility] [address] [place], [address] Platelets (Bld) [#/Vol] 201 10*3/uL Normal 150-450 [facility] Comment on above: Performed By: #### L 100.0100, L500.2500 #### [facility] [address] [place], [address] RBC (Bld) [#/Vol] 3.79 10*6/uL Low 4.6-6.2 [facility] Comment on above: Performed By: #### L 100.0100, L500.2500 #### [facility] [address] [place], [address] RDW SD 45.9 fl High 35.1-43.9 [place] Comment on above: Performed By: #### L 100.0100, L500.2500 #### [facility] [address] [place], [address] WBC (Bld) [#/Vol] 21.8 10*3/uL High 4.4-11.0 [facility] Comment on above: Performed By: #### L 100.0100, L500.2500 #### [facility] [address] [place], [address] Type AND Screenon 10-22-2024 ABO and Rh group Nom (Bld) Blood group A Rh(D) positive [facility] [place] Comment on above: Order Comment: S Performed By: #### B TS ####[place] [address] [place], [address] Discharge Instructionon Discharge Instruction [facility] Medical Records Department [address] [place] [address] Instructions for Home/Discharge Instructions 10/21/24 1506 MR#: [id number] Acct: [id number] Name: RAI MARS Rep #: [id number] : 1945 79 From: Andrew Figueroa MD PCP: Dr. Armida Bueno, DO Status:REG SDC Discharge Instructions DC O2, CPAP, BIPAP needs Home O2 Discharge instructions: No Dressing / Incision Discharge Activity: May Not Drive May shower in (days): 1 Dressing / Incision Call your doctor if your incision/area has: Sudden Increased Bleeding Call your doctor if you observe: Fever of 101 or Higher Catheter: Bagley to leg bag and Bagley to large bag Drain: [place] Follow Up Care Please Follow Up With: Andrew Figueroa MD When: Call [phone] for an appointment Test Results: Test results from this visit will be discussed in further detail at your follow-up appointment, if applicable. Discharge Plan Admission Primary Reason for Your Visit: turaddy Attending Provider: Andrew Figueroa Primary Care Provider: Armida Bueno Instructions Print Language: Guatemalan Discharge Orders/Prescriptions Prescriptions: New ciprofloxacin HCl [Cipro] 500 mg tablet 500 mg PO BID Qty: 10 0RF Continued cyanocobalamin (vitamin B-12) 1,000 mcg tablet 1,000 mcg PO QHS amlodipine 2.5 mg tablet 2.5 mg PO QDAY losartan 50 mg tablet 50 mg PO QDAY finasteride 5 mg tablet 5 mg PO QDAY ezetimibe [Zetia] 10 mg tablet 10 mg PO QDAY PreserVision AREDS 4,296 mcg-226 mg-90 mg capsule 1 cap PO BID cholecalciferol (vitamin D3) 50 mcg (2,000 unit) tablet 50 mcg PO QDAY venlafaxine 150 mg capsule,extended release 24hr 150 mg PO DAILY memantine [Namenda] 10 mg tablet 10 mg PO BID coenzyme Q10 [Co Q-10] 100 mg capsule 200 mg PO DAILY RELIEF FACTOR 1 tab PO BID diphenhydramine-acetami nophen 25-500 mg tablet 1 tab PO QHS PRN (Reason: sleep) tamsulosin 0.4 mg capsule 0.4 mg PO QHS Referrals / Follow Up: Armida Bueno DO [Primary Care Provider] - Andrew Figueroa MD [Med Staff - Active Staff] - Disposition Disposition (needs filled in before D/C Order can be placed): Home, Self Care 10/21/24 8682 Andrew Figueroa MD CC: Dr. Armida Bueno DO Signed [facility] MR/POSTOP.[place] 10-21-2024 MR/POSTOP.[facility] Medical Records Department [address] [place] [address] Anesthesia Postop Eval I 10/21/24 1512 MR#: [id number] Acct: [id number] Name: JERADRAI Shannon Rep #: [id number] : 1945 79 From: Mason Royal CRNA PCP: Dr. Armida Bueno, DO Status:ADM CHAYO Y Race: C Location: [place] [address]1 Anesthesia: Postop Eval I Current Vital Signs Temperature: 97.8 F Pulse Rate: 65 Blood Pressure: 117/68 Respiratory Rate: 16 Pulse Ox: 95 Assessment Airway patent: Yes Spontaneous unlabored respirations: Yes nausea: No Vomiting: No Anesthesia Complication: No Fluid Hydration Crystalloid volume administer (ml): 800 Total IV fluid infused: 800 Progress Note Anesthesia document: Postop Eval 1 completed: Yes 10/21/24 151 Date Mason Royal ASSISTANT BRANCH OPERATIONS MANAGER Cosigner Signature: Date CC: Signed [facility] [place] MR/[id number] 10-21-2024 [facility] Medical Records Department [address] [place] [address] Anesthesia Postop Eval II 10/21/24 1555 MR#: [id number] Acct: [id number] Name: JERADRAI Shannon Rep #: [id number] : 1945 79 From: Soham Huffman MD PCP: Dr. Armida Bueno, DO Status:ADM CHAYO Y Race: C Location: [place] [address]1 Anesthesia Postop Eval I Sum Postop Eval Completion status Anesthesia document: Postop Eval 1 completed: Yes Anesthesia Postop Eval I Summary Anesthesia Postop Eval I Summary: Anesthesia Postop Eval I: Assessment Summary Airway patent Yes 10/21/24 15:12 ASSISTANT BRANCH OPERATIONS MANAGER.TNES Spontaneous unlabored Yes 10/21/24 15:12 ASSISTANT BRANCH OPERATIONS MANAGER.TNES respirations Mental status nausea No 10/21/24 15:12 ASSISTANT BRANCH OPERATIONS MANAGER.TNES Vomiting No 10/21/24 15:12 ASSISTANT BRANCH OPERATIONS MANAGER.TNES Anesthesia Postop Eval I: Fluid Summary Crystalloid volume administer 800 10/21/24 15:12 ASSISTANT BRANCH OPERATIONS MANAGER.TNES (ml) Colloids volume administered ( ml) Blood Product volume administered (ml) Total IV fluid infused 800 10/21/24 15:12 ASSISTANT BRANCH OPERATIONS MANAGER.TNES Anesthesia Postop Eval I: Summary Notes Anesthesia Complication No 10/21/24 15:12 ASSISTANT BRANCH OPERATIONS MANAGER.TNES Anesthesia Complication Comment: Post-operative progress note Anesthesia: Postop Eval II Evaluation Mental status: Awake Pain Level: 0 nausea: No Vomiting: No Complications Anesthesia Complication: No 10/21/24 1556 Date Soham Huffman MD Cosigner Signature: Date CC: Signed [facility] [place] Operative Reporton Operative Report [facility] Medical Records Department [address] [place] [address] Operative Report 10/21/24 1507 MR#: [id number] Acct: [id number] Name: RAI MARS Rep #: [id number] : 1945 79 From: Andrew Figueroa MD PCP: Dr. Armida Bueno, DO Status:ADM CHAYO Location: [place] [address] Operative Report (Standard) Operative Information Date of Procedure: 10/21/24 Pre-Operative Diagnosis: BPH with obstruction Post-Operative Diagnosis: The same Surgery/Procedure Performed: Transurethral section of the prostate and cystoscopy and right stent placement library clerk talking books: No Type of Anesthesia: General RN Documented Start/Stop Times: Operation Date: 10/21/24 13:15 Case Time Into Pre-Op 10/21/24 11:20 Out of Pre-Op 10/21/24 13:55 Anesthesia Start 10/21/24 13:58 Into Room 10/21/24 13:58 Procedure Start 10/21/24 14:13 Procedure End 10/21/24 14:56 Anesthesia End 10/21/24 15:05 Out of Room 10/21/24 15:05 Procedure Start Time: 14:13 Procedure Stop Time: 14:56 Select all DRAINS/GRAFTS/IMPLANTS that apply: Drains Drain details: Stent placement of the right side, Bagley placement continuous bladder irrigation Estimated Blood Loss: 25 cc Specimen collected: Yes Description of specimen(s) removed: Prostate tissue Description of surgery: 79-year-old male with BPH and obstruction very large prostate he has a significant obstruction with the prostate he has been on maximal medical therapy with Flomax and Proscar still having difficulties emptying his bladder going to the bathroom frequently and up and in his bladder completely so organ to offered him a transurethral resection of prostate hoping open of the prostate will alleviate his symptoms course is no guarantees that this will happen. Today organ to take him back for TURP. Patient underwent general anesthetic he was placed in dorsolithotomy position the penis and testicles were prepped and draped in usual fashion I first dilated the meatus starting from 16 Omani up to 32 Omani to allow for a 26 O[place]i continuous-flow Olympus bipolar resectoscope I went into the bladder he had a small median lobe identified the right and left ureteral orifice I then started resecting the median lobe and resecting back to the verumontanum I resected the entire right lobe of the prostate completely, I resected the entire left lobe the prostate completely had a nice wide open channel very carefully resected the apical tissue but still left enough tissue in the apex for the sphincter and then went back in the bladder as I was resecting I then noticed that the bladder neck was undermined I went up and inspected I was able to find the left ureteral orifice but the right UO orifice was not able to identify it took a long time to identify and finally identified to the right ureter was had been resected during the TURP during the undermining of the bladder neck so decided place a stent to make sure that the stent the ureter on the right side will heal properly went back in with the cystoscope took some time to find it but I was able to find the right ureteral orifice within the bladder neck that was undermined and put a wire up on that side and then put a stent on that side this will out of the ureter healed up and that that side I then cauterize the prostate got all the bleeding stopped we will put a catheter for continuous irrigation he will spend the night in the hospital with irrigation he ought to go home with a catheter since the bladder neck was undermined and what the remove the stent in about a month from now told the family the findings of surgery otherwise had a nice resection of the prostate and once it all heals up hopefully he will be able to urinate better Surgical Findings: Prostate resected completely bladder neck undermined and ureteral injury of the right side during resection so stent placed on the right side and Bagley placed Complications Complications: Yes Complication Details: Ureteral injury on the right side stent placed on the right side Admit VTE Documentation VTE Present on Admission: No VTE Mechan Device Prophylaxis: SCD's VTE Pharm Prophylaxis ordered?: No 10/21/24 9681 Cosigner Signature (if applicable): CC: Dr. Armida Bueno DO; Dr. Andrew Figueroa MD Signed [facility] [place] Surgery Specimen Level Michelle 10-21-2024 Surgery Specimen Level IV Patient Age/Sex Location Account Attending Physician RAI MARS 79/M [facility] [id number] Dr. Andrew Figueroa MD Specimen: [id number] Received: 10/21/24 Status: SHADE Anna Num: [id number] Spec Type: TURP Subm Dr: Dr. Andrwe Figueroa MD HEADER OPERATION: Cystoscopy, transurethral resection, prostate PRE-OP DIAGNOSIS: Benign prostatic hyperplasia with lower urinary tract symptoms, elevated prostatic specific antigen, malignant neoplasm of prostate TISSUE SUBMITTED: A- Prostate tissue MICROSCOPIC DIAGNOSIS A. Prostate, transurethral resection: - Benign prostate tissue. MICROSCOPIC DESCRIPTION Slides are reviewed. GROSS DESCRIPTION A. Received in formalin labeled with the patient's name and date of . Designated as prostate tissue is an 8.1 g, 5.9 x 4.8 x 1.3 cm aggregate of irregular, whitney, rubbery and cauterized tissue fragments. Entirely submitted in 7 cassettes. MS 10/22/2024 CPT:24922 Patient Age/Sex Location Account Attending Physician RAI MARS 79/M [facility] [id number] Dr. Andrew Figueroa MD Signed (signature on file) Dr. Lesli Pitts MD 10/29/24905 [facility] [place] Comment on above: Performed By: #### P SUIV ####[place] [address] [place], [address] /PATRemi 10-15-2024 /PAT.[facility] Medical Records Department [address] [place] [address] PAT - Anesthesia 10/15/24 1656 MR#: [id number] Acct: [id number] Name: RAI MARS Rep #: [id number] : 1945 79 From: Case Roe MD PCP: Dr. 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 When Was Last Pacemaker Check QUESTION #4 FULL TEXT: You/Your Family Experience fever (hyperthermia) with Anesthesia Last Oral Intake Last Oral intake: Last Oral Intake NPO since Meds taken in AM with sips of water? Meds patient instructed to take am of surgery PONV PONV - heavy mobile equipment repairer: PONV - heavy mobile equipment repairer Female No 10/14/24 11:35 HX of Motion Sickness No 10/14/24 11:35 HX of N/V After Surgery No 10/14/24 11:35 Non-Smoker Yes 10/14/24 11:35 Duration of Surgery greater Yes 10/14/24 11:35 than 60 minutes Number of Risk Factors 2 10/14/24 11:35 PONV Score Moderate Risk 10/14/24 11:35 Respiratory Assessment Respiratory Assessment - heavy mobile equipment repairer: Respiratory Tract Infection Hx - heavy mobile equipment repairer Hx Respiratory Tract Infection No 10/14/24 11:35 STOP Sleep Apnea STOP Sleep Apnea - heavy mobile equipment repairer: STOP Sleep Apnea - heavy mobile equipment repairer Hx Hypertension Yes: CONTROLLED WITH MED 10/14/24 11:35 Hx Sleep Apnea No 10/14/24 11:35 CPAP BIPAP Do you snore loudly (louder No 10/14/24 11:35 than talking or can be heard Do you often feel tired/ Yes 10/14/24 11:35 fatigued/ sleepy during daytime? Has anyone observed you stop No 10/14/24 11:35 breathing during sleep? STOP Results Positive 10/14/24 11:35 QUESTION #5 FULL TEXT : Do you snore loudly (louder than talking or can be heard through closed doors)? 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 Specify any problems Hx of Preganancy in last 3 N/A 10/14/24 11:35 Months Nurse Filling Out Transfusion DSCHRIBER 10/14/24 11:35 Questions: Date: 10/14/24 10/14/24 11:35 Time: 11:37 10/14/24 11:35 Patient unable to answer at this time (ie. 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 Hx Now No 10/14/24 11:35 Gestational Age (in weeks): EDC: Hx Hx Para Hx Section SAB No 10/14/24 11:35 [facility] Medical History (Updated 10/14/24 @ 11:47 by Mini Johnson) Wears glasses Wears dentures Alzheimer dementia Anxiety Arthritis Prostate disease Former smoker Sleep apnea Leg cramps History of stress test Cardiology follow-up encounter Frequent falls BPH (benign prostatic hyperplasia) Atherosclerosis of coronary artery of [place] heart without angina pectoris B12 deficiency Depression Hyperlipidemia Essential hypertension Rheumatoid arthritis Home Medications ???Medication ???Instructions ???Recorded ???Last Taken ???Type amlodipine 2.5 mg tablet 2.5 mg PO QDAY BP 10/29/23 Unknown History cholecalciferol (vitamin D3) 50 50 mcg PO QDAY SUPPLEMENT 10/29/23 Unknown History mcg (2,000 unit) tablet cyanocobalamin (vitamin B-12) 1,000 mcg PO QHS SUPPLEMENT Unknown History 1,000 mcg tablet ezetimibe 10 mg tablet (Zetia) 10 mg PO QDAY CHOLESTEROL 10/29/23 Unknown History finasteride 5 mg tablet 5 mg PO QDAY PROSTATE 10/29/23 Unk nown History losartan (more content not included)... Normal [place] .Auto Diffon 10-05-2024 Basophil, Absolute 0.0 10 3/mcL Normal 0.0-0.3 [facility] Comment on above: Performed By: #### A SKYE VIVAS MDW, CBC, TROPHS, GFR, BMP #### [address] [address] Basophils/100 WBC (Bld) 0.6 % Normal 0.0-2.5 [facility] Comment on above: Performed By: #### A SKYE VIVAS MDW, CBC, TROPHS, GFR, BMP #### [address] [address] Eosinophil, Absolute 0.1 10 3/mcL Normal 0.0-0.7 [facility] Comment on above: Performed By: #### A SKYE VIVAS MDW, CBC, TROPHS, GFR, BMP #### [address] [address] Eosinophils/100 WBC (Bld) 1.7 % Normal 0.0-6.0 [facility] Comment on above: Performed By: #### A SKYE VIVAS MDW, CBC, TROPHS, GFR, BMP #### [address] [address] Lymphocyte, Absolute 1.3 10 3/mcL Normal 0.9-4.3 [facility] Comment on above: Performed By: #### A SKYE VIVAS MDW, CBC, TROPHS, GFR, BMP #### [address] [address] Lymphocytes/100 WBC (Bld) 20.3 % Normal 20.0-40.0 [facility] Comment on above: Performed By: #### A SKYE VIVAS MDW, CBC, TROPHS, GFR, BMP #### [address] [address] Monocyte, Absolute 0.5 10 3/mcL Normal 0.1-1.4 [facility] Comment on above: Performed By: #### A SKYE VIVAS MDW, CBC, TROPHS, GFR, BMP #### [address] [address] Monocytes/100 WBC (Bld) 8.2 % Normal 2.0-13.0 A [facility] Comment on above: Performed By: #### A SKYE VIVAS MDW, CBC, TROPHS, GFR, BMP #### [address] [address] Neutrophils/100 WBC (Bld) 69.2 % Normal 50.0-75.0 [facility] Comment on above: Performed By: #### A SKYE VIVAS MDW, CBC, TROPHS, GFR, BMP #### [address] [address] .GFRon 10-05-2024 Estimated Glomerular Filtration Rate 91 ml/min/1.73sqm Normal [facility] Comment on above: Result Comment: Stages of Chronic Kidney Disease (CKD) Stage Description eGFR(ml/min/1.73 sq.m.) CKD 1 Normal kidney function or >=90 normal kindney function with possible kidney damage (ex. Proteinuria) CKD 2 Kidney damage with mild loss 60-89 of kidney function CKD 3a Mild to moderate loss of kidney 45-59 function CKD 3b Moderate to severe loss of 30-44 of kindey function CKD 4 Severe loss of kidney function 15-29 CKD 5 Kidney failure <15 Note: (go live 2024) the eGFR calculation was updated to the 2020 CKD-EPI creatinine equation without a race factor to calculate the eGFR results. Performed By: #### A SKYE VIVAS MDW, CBC, TROPHS, GFR, BMP #### [address] [address] .MDWon 10-05-2024 Monocyte Distribution Width 17.14 Normal 0.00-20.00 [facility] Comment on above: Result Comment: For ED adult patients suspected of sepsis, MDW<=20.0 does not rule out sepsis or risk of sepsis Performed By: #### A SKYE VIVAS MDW, CBC, TROPHS, GFR, BMP #### [address] [address] .NEUABSon 10-05-2024 Neutrophil, Absolute 4.5 10 3/mcL Normal 2.3-8.1 [facility] Comment on above: Performed By: #### A SKYE VIVAS MDW, CBC, TROPHS, GFR, BMP #### [address] [address] BMPon 10-05-2024 BUN/Creatinine Ratio 24 ratio Normal 7-27 [facility] Comment on above: Performed By: #### A SKYE VIVAS MDW, CBC, TROPHS, GFR, BMP #### [address] [address] Calcium [Mass/Vol] 9.4 mg/dL Normal 8.4-10.2 [facility] Comment on above: Performed By: #### A SKYE VIVAS MDW, CBC, TROPHS, GFR, BMP #### [address] [address] Chloride [Moles/Vol] 102 mmol/L Normal 98-107 [facility] Comment on above: Performed By: #### A SKYE VIVAS MDW, CBC, TROPHS, GFR, BMP #### [address] [address] CO2 [Moles/Vol] 33 mmol/L High 23-31 [facility] Comment on above: Performed By: #### A SKYE VIVAS MDW, CBC, TROPHS, GFR, BMP #### [address] [address] Creatinine [Mass/Vol] 0.75 mg/dL Normal 0.67-1.17 [facility] Comment on above: Performed By: #### A SKYE VIVAS MDW, CBC, TROPHS, GFR, BMP #### [address] [address] Electrolyte Balance 2.0 mEq/L Low 4.0-15.0 [facility] Comment on above: Performed By: #### A SKYE VIVAS MDW, CBC, TROPHS, GFR, BMP #### [address] [address] Glucose [Mass/Vol] 114 mg/dL High 83-110 [facility] Comment on above: Performed By: #### A SKYE VIVAS MDW, CBC, TROPHS, GFR, BMP #### [place] [id number] Potassium [Moles/Vol] 3.8 mmol/L Normal 3.5-5.1 [facility] Comment on above: Performed By: #### A SKYE VIVAS MDW, CBC, TROPHS, GFR, BMP #### [place] [address] Sodium [Moles/Vol] 137 mmol/L Normal 136-145 [facility] Comment on above: Performed By: #### A SKYE VIVAS MDW, CBC, TROPHS, GFR, BMP #### [place] [address] Urea nitrogen [Mass/Vol] 18 mg/dL Normal 7-18 [facility] Comment on above: Performed By: #### A SKYE VIVAS MDW, CBC, TROPHS, GFR, BMP #### [place] [id number] CBCon 10-05-2024 Erythrocyte distribution width (RBC) [Ratio] 13.2 % Normal 11.5-15.5 [facility] Comment on above: Performed By: #### A SKYE VIVAS MDW, CBC, TROPHS, GFR, BMP #### [place] [id number] Hematocrit (Bld) [Volume fraction] 42.8 % Normal 40.0-52.0 [facility] Comment on above: Performed By: #### A SKYE VIVAS MDW, CBC, TROPHS, GFR, BMP #### [place] [address] Hgb 14.2 G/dL Normal 13.0-17.5 [facility] Comment on above: Performed By: #### A SKYE VIVAS MDW, CBC, TROPHS, GFR, BMP #### [place] [phone] MCH (RBC) [Entitic mass] 31.9 pg Normal 27.0-33.0 [facility] Comment on above: Performed By: #### A SKYE VIVAS MDW, CBC, TROPHS, GFR, BMP #### [address] [address] MCHC 33.3 G/dL Normal 32.0-36.0 [facility] Comment on above: Performed By: #### A SKYE VIVAS MDW, CBC, TROPHS, GFR, BMP #### [place] [phone] MCV (RBC) [Entitic vol] 95.8 fL Normal 81.0-100.0 [facility] Comment on above: Performed By: #### A SKYE VIVAS MDW, CBC, TROPHS, GFR, BMP #### [place] [address] Platelet 190 10 3/mcL Normal 150-450 [facility] Comment on above: Performed By: #### A SKYE VIVAS MDW, CBC, TROPHS, GFR, BMP #### [place] [address] Platelet mean volume (Bld) [Entitic vol] 7.9 fL Normal 6.4-10.5 [facility] Comment on above: Performed By: #### A SKYE VIVAS MDW, CBC, TROPHS, GFR, BMP #### [place] [address] RBC 4.47 10 6/mcL Low 4.50-6.00 [facility] Comment on above: Performed By: #### A SKYE VIVAS MDW, CBC, TROPHS, GFR, BMP #### [place] [phone] WBC 6.6 10 3/mcL Normal 4.5-10.8 [facility] Comment on above: Performed By: #### A SKYE VIVAS MDW, CBC, TROPHS, GFR, BMP #### [address] [place], [place] [address] CT HEAD OR BRAIN W/O CONTRAS Ton 10-05-2024 CT HEAD OR BRAIN W/O CONTRAST ORIGINAL EXAMINATION: CT OF THE HEAD WITHOUT CONTRAST 10/05/2024 10:58 pm TECHNIQUE: CT of the head was performed without the administration of intravenous contrast. Automated exposure control, iterative reconstruction, and/or weight based adjustment of the mA/kV was utilized to reduce the radiation dose to as low as reasonably achievable. COMPARISON: Unenhanced CT scan of the head on 02/07/2023. HISTORY: ORDERING SYSTEM PROVIDED HISTORY: Reason for Exam: Head trauma, moderate-severe FINDINGS: BRAIN/VENTRICLES: There is no acute intracranial hemorrhage, mass effect or midline shift. No abnormal extra-axial fluid collection. The alves-white differentiation is maintained without evidence of an acute infarct. There is no evidence of hydrocephalus. Jrin-kr-pfpojbiu cortical atrophy changes over the convexities of both cerebral hemispheres, redemonstrated. Pre-existing calcifications in bilateral globus pallidus, redemonstrated. Redemonstration of moderate chronic microvascular ischemic/aging changes in the white matter of both cerebral hemispheres. ORBITS: The visualized portion of the orbits demonstrate no acute abnormality. SINUSES: The visualized paranasal sinuses and mastoid air cells demonstrate no acute abnormality. SOFT TISSUES/SKULL: No acute abnormality of the visualized skull or soft tissues. IMPRESSION: 1. No acute intracranial abnormality. No evidence of intracranial hemorrhage. 2. Jnpn-jw-[id number] cortical atrophy changes over the convexities of both cerebral hemispheres, redemonstrated. Interpreted by: Casa Cervantes Preliminary Report By: Casa Cervantes Electronically signed By Casa Cervantes Dictated Date: 10/05/2024 11:04:45 PM Prelim Date: 10/05/2024 11:07:12 PM Sign Date: 10/05/2024 11:07:12 PM Ordering Provider: ALF Rolon [facility] LABORATORYOrdered By: SYSTEM SYSTEM on 10-05-2024 Basophils (Bld) [#/Vol] 0.0 103/mcL Normal 0.0 - 0.3 10^3/mcL AO Workflow SS Basophils/100 WBC (Bld) 0.6 % Normal 0.0 - 2.5 % AO Workflow SS Calcium [Mass/Vol] 9.4 mg/dL Normal 8.4 - 10. 2 mg/dL AO ADM SS Chloride [Moles/Vol] 102 mmol/L Normal 98 - 10 7 mmol/L AO ADM SS CO2 [Moles/Vol] 33 mmol/L High 23 - 31 mmol/L AO ADM SS Creatinine [Mass/Vol] 0.75 mg/dL Normal 0.67 - 1.17 mg/dL AO ADM SS Electrolyte Balance 2.0 mEq/L Low 4.0 - 15 .0 mEq/L AO ADM SS Eosinophil, Absolute 0.1 103/mcL Normal 0.0 - 0 .7 10^3/mcL AO Workflow SS Eosinophils/100 WBC (Bld) 1.7 % Normal 0.0 - 6.0 % AO Workflow SS Erythrocyte distribution width (RBC) [Ratio] 13.2 % Normal 11.5 - 15.5 % AO Workflow SS Estimated Glomerular Filtration Rate 91 ml/min/1.73sqm Invalid Interpretation Code AO Chemistry S Comment on above: Interpretive Data: Stages of Chronic Kidney Disease (CKD) Stage Description eGFR(ml/min/1.73 sq.m.) CKD 1 Normal kidney function or >=90 normal kindney function with possible kidney damage (ex. Proteinuria) CKD 2 Kidney damage with mild loss 60-89 of kidney function CKD 3a Mild to moderate loss of kidney 45-59 function CKD 3b Moderate to severe loss of 30-44 of kindey function CKD 4 Severe loss of kidney function 15-29 CKD 5 Kidney failure <15 Note: (go live 2024) the eGFR calculation was updated to the 2020 CKD-EPI creatinine equation without a race factor to calculate the eGFR results. Glucose [Mass/Vol] 114 mg/dL High 83 - 110 mg/dL AO ADM SS Hematocrit (Bld) [Volume fraction] 42.8 % Normal 40.0 - 52.0 % AO Workflow SS Hemoglobin (Bld) [Mass/Vol] 14.2 G/dL Normal 13.0 - 17.5 G/dL AO Workflow SS Lymphocytes (Bld) [#/Vol] 1.3 103/mcL Normal 0.9 - 4.3 10^3/mcL AO Workflow SS Lymphocytes/100 WBC (Bld) 20.3 % Normal 20.0 - 40.0 % AO Workflow SS MCH (RBC) [Entitic mass] 31.9 pg Normal 27.0 - 33.0 pg AO Workflow SS MCHC 33.3 G/dL Normal 32.0 - 36.0 G/dL AO Workflow SS MCV (RBC) [Entitic vol] 95.8 fL Normal 81.0 - 100.0 fL AO Workflow SS Monocyte distribution width Auto (Bld) [Entitic vol] 17.14 1 Normal 0.00 - 20.00 AO Workflow SS Comment on above: Result Comment: For ED adult patients suspected of sepsis, MDW<=20.0 does not rule out sepsis or risk of sepsis Monocytes (Bld) [#/Vol] 0.5 103/mcL Normal 0.1 - 1.4 10^3/mcL AO Workflow SS Monocytes/100 WBC (Bld) 8.2 % Normal 2.0 - 13.0 % AO Workflow SS Neutrophils (Bld) [#/Vol] 4.5 103/mcL Normal 2.3 - 8.1 10^3/mcL AO Workflow SS Neutrophils/100 WBC (Bld) 69.2 % Normal 50.0 - 75.0 % AO Workflow SS Platelet mean volume (Bld) [Entitic vol] 7.9 fL Normal 6.4 - 10.5 fL AO Workflow SS Platelets (Bld) [#/Vol] 190 103/mcL Normal 150 - 450 10^3/mcL AO Workflow SS Potassium [Moles/Vol] 3.8 mmol/L Normal 3.5 - 5.1 mmol/L AO ADM SS RBC (Bld) [#/Vol] 4.47 106/mcL Low 4.50 - 6.0 0 10^6/mcL AO Workflow SS Sodium [Moles/Vol] 137 mmol/L Normal 136 - 145 mmol/L AO ADM SS Troponin I.cardiac DL <= 0.01 ng/mL [Mass/Vol] 10 ng/L Normal 0 - 76 ng/L AO ADM SS Comment on above: Interpretive Data: H igh Sensitive Troponin I Reference Ranges: Female: 0-51 ng/L Male: 0-76 ng/L Testing performed on [place] using a homogeneous sandwich chemiluminescent immunoassay based on valuescope technology. Urea nitrogen [Mass/Vol] 18 mg/dL Normal 7 - 18 mg/dL AO ADM SS Urea nitrogen/Creatinine [Mass ratio] 24 ratio Normal 7 - 27 ratio AO ADM SS WBC (Bld) [#/Vol] 6.6 103/mcL Normal 4.5 - 10.8 10^3/mcL AO Workflow SS LABORATORYOrdered By: Justin sierra on 10-05-2024 Appearance (U) Clear (10/05/24 4:43 PM) Normal Clear AO Auto Urine SS Bilirubin Ql (U) Negative (10/05/24 4:43 PM) Normal Negative AO Auto Urine SS Color (U) Yellow (10/05/24 4:43 PM) Normal AO Auto Urine SS Glucose Test strip (U) [Mass/Vol] Negative Normal Negative AO Auto Urine SS Hemoglobin Auto test strip (U) [Mass/Vol] Trace (10/05/24 4:43 PM) Normal Negative AO Auto Urine SS Ketones Ql (U) Negative Normal Negative AO Auto Urine SS UA Leuk Est Negative (10/05/24 4:43 PM) Normal Negative AO Auto Urine SS UA Nitrite Negative (10/05/24 4:43 PM) Normal Negative AO Auto Urine SS UA pH 7.0 (10/05/24 4:43 PM) Normal 5.0 - 8.0 AO Auto Urine SS UA Protein Negative Normal Negative AO Auto Urine SS UA Spec Grav 1.015 (10/05/24 4:43 PM) Normal 1.015-1.025 AO Auto Urine SS UA Specimen Type Straight Cath (10/05/24 4:43 PM) Normal AO Auto Urine SS UA Urobilinogen 1.0 E.U./dL Normal 0.2-1.0 AO Auto Urine SS PSA,Total- Diagnosticon 09-18 PSA, DIAGNOSTIC 3.93 ng/mL Normal 0.00-4.00 [place] Comment on above: Result Comment: This test was performed using the [employer] tPSA method. Measured values of a patient??sample can vary depending on the testing procedure used. PSA values determined on patient samples by different testing procedures cannot be used interchangeably. If there is a change in PSA assays while monitoring therapy, sequential testing should be performed to confirm baseline values. Performed By: #### L [phone] ####[place] [id number] [place], [address] [facility] 10-05-2024 High Sensitivity Troponin I 10 ng/L Normal 0-76 [facility] Comment on above: Result Comment: High Sensitive Troponin I Reference Ranges: Female: 0-51 ng/L Male: 0-76 ng/L Testing performed on [place] using a homogeneous sandwich chemiluminescent immunoassay based on valuescope technology. Performed By: #### A SKYE VIVAS MDW, CBC, TROPHS, GFR, BMP #### [address] [address] UAon 10-05-2024 Color (U) Yellow Normal [facility] Comment on above: Performed By: #### U A #### [place] [address] Glucose (U) [Mass/Vol] Negative Normal Negative [facility] Comment on above: Performed By: #### U A #### [place] [address] Ketones Ql (U) Negative Normal Negative [facility] Comment on above: Performed By: #### U A #### [place] [address] UA Appear Clear Normal Clear [facility] Comment on above: Performed By: #### U A #### [address] [address] UA Blood Trace Normal Negative [facility] Comment on above: Performed By: #### U A #### [address] [address] UA Leuk Est Negative Normal Negative [facility] Comment on above: Performed By: #### U A #### [place] [id number] UA Nitrite Negative Normal Negative [facility] Comment on above: Performed By: #### U A #### [place] [address] UA pH 7.0 Normal 5.0 - 8.0 [facility] Comment on above: Performed By: #### U A #### [place] [address] UA Protein Negative Normal Negative [facility] Comment on above: Performed By: #### U A #### [address] [address] UA Spec Grav 1.015 Normal 1.015-1.025 [facility] Comment on above: Performed By: #### U A #### [address] [address] UA Specimen Type Straight Cath Normal [facility] Comment on above: Performed By: #### U A #### [address] [address] UA Urobilinogen 1.0 E.U./dL Normal 0.2-1.0 [facility] Comment on above: Performed By: #### U A #### [place] [id number] Urobilinogen (U) [Mass/Vol] Negative Normal Negative [facility] Comment on above: Performed By: #### U A #### [address] [address] XR CHEST 1 VIEWon 10-05-2024 XR CHEST 1 VIEW ORIGINAL EXAMINATION: ONE XRAY VIEW OF THE CHEST 10/05/2024 11:12 pm COMPARISON: None. HISTORY: ORDERING SYSTEM PROVIDED HISTORY: Reason for Exam: fall FINDINGS: Redemonstration of asymmetric elevation of the left hemidiaphragm. Left basilar atelectasis, otherwise the lungs are without acute focal process. There is no effusion or pneumothorax. The cardiomediastinal silhouette is without acute process. The osseous structures are without acute process. IMPRESSION: No acute process. Interpreted by: Meggan Ricardo Preliminary Report By: Meggan Ricardo Electronically signed By Meggan Ricardo Dictated Date: 10/05/2024 11:29:28 PM Prelim Date: 10/05/2024 11:30:19 PM Sign Date: 10/05/2024 11:30:19 PM Ordering Provider: ALF Rolon [facility] .Auto Diffon 06-30-2024 Basophil, Absolute 0.1 10 3/mcL Normal 0.0-0.3 [facility] Comment on above: Performed By: #### U A #### [address] [address] Basophils/100 WBC (Bld) 1.1 % Normal 0.0-2.5 [facility] Comment on above: Performed By: #### U A #### [address] [address] Eosinophil, Absolute 0.1 10 3/mcL Normal 0.0-0.7 [facility] Comment on above: Performed By: #### U A #### [address] [address] Eosinophils/100 WBC (Bld) 1.6 % Normal 0.0-6.0 [facility] Comment on above: Performed By: #### U A #### [address] [address] Lymphocyte, Absolute 1.6 10 3/mcL Normal 0.9-4.3 [facility] Comment on above: Performed By: #### U A #### [address] [address] Lymphocytes/100 WBC (Bld) 23.2 % Normal 20.0-40.0 [facility] Comment on above: Performed By: #### U A #### [address] [address] Monocyte, Absolute 0.5 10 3/mcL Normal 0.1-1.4 [facility] Comment on above: Performed By: #### U A #### [address] [address] Monocytes/100 WBC (Bld) 7.7 % Normal 2.0-13.0 [facility] Comment on above: Performed By: #### U A #### [address] [address] Neutrophils/100 WBC (Bld) 66.4 % Normal 50.0-75.0 [facility] Comment on above: Performed By: #### U A #### [address] [address] .GFRon 06-30-2024 Estimated Glomerular Filtration Rate 90 ml/min/1.73sqm Normal [facility] Comment on above: Result Comment: Stages of Chronic Kidney Disease (CKD) Stage Description eGFR(ml/min/1.73 sq.m.) CKD 1 Normal kidney function or >=90 normal kindney function with possible kidney damage (ex. Proteinuria) CKD 2 Kidney damage with mild loss 60-89 of kidney function CKD 3a Mild to moderate loss of kidney 45-59 function CKD 3b Moderate to severe loss of 30-44 of kindey function CKD 4 Severe loss of kidney function 15-29 CKD 5 Kidney failure <15 Note: (go live 2024) the eGFR calculation was updated to the 2020 CKD-EPI creatinine equation without a race factor to calculate the eGFR results. Performed By: #### U A #### [address] [address] .NEUABSon 06-30-2024 Neutrophil, Absolute 4.7 10 3/mcL Normal 2.3-8.1 [facility] Comment on above: Performed By: #### U A #### [address] [address] A1Con 06-30-2024 Glucose [Mass/Vol] 128 mg/dL Normal [facility] Comment on above: Result Comment: Kristi mated Average Glucose calculated by equation ((28.7xA1C)-46.7) Estimated average glucose (eAG) is a calculated value from Hemoglobin A1C and is loss prevention representative of the average blood glucose level in the last 2-3 month period. Normal range: less than 114 mg/dL Performed By: #### U A #### [address] [address] HbA1c (Bld) [Mass fraction] 6.1 % Normal 4.3-6.4 [facility] Comment on above: Performed By: #### U A #### [address] [address] B12on 06-30-2024 Cobalamin (Vitamin B12) [Mass/Vol] 1584 pg/mL High 211-911 [facility] Comment on above: Performed By: #### U A #### [address] [address] CBCon 06-30-2024 Erythrocyte distribution width (RBC) [Ratio] 14.5 % Normal 11.5-15.5 [facility] Comment on above: Performed By: #### C BC, GFR, TSH, A1C, CMP, ANEU, LIPID, ADIFF #### [address] [address] #### B12 #### [place] [address] Hematocrit (Bld) [Volume fraction] 45.3 % Normal 40.0-52.0 [facility] Comment on above: Performed By: #### C BC, GFR, TSH, A1C, CMP, ANEU, LIPID, ADIFF #### [place] [address] #### B12 #### [place] [address] Hgb 15.1 G/dL Normal 13.0-17.5 [facility] Comment on above: Performed By: #### C BC, GFR, TSH, A1C, CMP, ANEU, LIPID, ADIFF #### [place] [address] #### B12 #### [place] [address] MCH (RBC) [Entitic mass] 31.6 pg Normal 27.0-33.0 [facility] Comment on above: Performed By: #### C BC, GFR, TSH, A1C, CMP, ANEU, LIPID, ADIFF #### [place] [address] #### B12 #### [place] [address] MCHC 33.3 G/dL Normal 32.0-36.0 [facility] Comment on above: Performed By: #### C BC, GFR, TSH, A1C, CMP, ANEU, LIPID, ADIFF #### [place] [address] #### B12 #### [place] [address] MCV (RBC) [Entitic vol] 94.9 fL Normal 81.0-100.0 A [facility] Comment on above: Performed By: #### C BC, GFR, TSH, A1C, CMP, ANEU, LIPID, ADIFF #### [place] [address] #### B12 #### [place] [address] Platelet 230 10 3/mcL Normal 150-450 [facility] Comment on above: Performed By: #### C BC, GFR, TSH, A1C, CMP, ANEU, LIPID, ADIFF #### [place] [address] #### B12 #### [place] [address] Platelet mean volume (Bld) [Entitic vol] 8.4 fL Normal 6.4-10.5 [facility] Comment on above: Performed By: #### C BC, GFR, TSH, A1C, CMP, ANEU, LIPID, ADIFF #### [place] [address] #### B12 #### [place] [address] RBC 4.77 10 6/mcL Normal 4.50-6.00 [facility] Comment on above: Performed By: #### C BC, GFR, TSH, A1C, CMP, ANEU, LIPID, ADIFF #### [place] [address] #### B12 #### [place] [address] WBC 7.0 10 3/mcL Normal 4.5-10.8 [facility] Comment on above: Performed By: #### C BC, GFR, TSH, A1C, CMP, ANEU, LIPID, ADIFF #### [place] [address] #### B12 #### [place] [address] CMPon 06-30-2024 Albumin Level 4.1 G/dL Normal 3.4-4.8 [facility] Comment on above: Performed By: #### U A #### [address] [address] Albumin/Globulin [Mass ratio] 1.3 {ratio} Normal 1.1-2.5 [facility] Comment on above: Performed By: #### U A #### [address] [address] ALP [Catalytic activity/Vol] 67 U/L Normal 40-135 [facility] Comment on above: Performed By: #### U A #### [address] [address] ALT [Catalytic activity/Vol] 12 U/L Low 16-63 [facility] Comment on above: Performed By: #### U A #### [address] [address] AST [Catalytic activity/Vol] 14 U/L Normal 10-40 [facility] Comment on above: Performed By: #### U A #### [address] [address] Bili Total 0.4 mg/dL Normal 0.2-1.0 [facility] Comment on above: Result Comment: Use of this assay is not recommended for patients undergoing treatment with eltrombopag due to the potential for falsely elevated results. Performed By: #### U A #### [address] [address] BUN/Creatinine Ratio 24 ratio Normal 7-27 [facility] Comment on above: Performed By: #### U A #### [address] [address] Calcium [Mass/Vol] 9.2 mg/dL Normal 8.4-10.2 [facility] Comment on above: Performed By: #### U A #### [address] [address] Chloride [Moles/Vol] 100 mmol/L Normal 98-107 [facility] Comment on above: Performed By: #### U A #### [address] [address] CO2 [Moles/Vol] 32 mmol/L High 23-31 [facility] Comment on above: Performed By: #### U A #### [address] [address] Creatinine [Mass/Vol] 0.76 mg/dL Normal 0.67-1.17 [facility] Comment on above: Performed By: #### U A #### [address] [address] Electrolyte Balance 5.0 mEq/L Normal 4.0-15.0 [facility] Comment on above: Performed By: #### U A #### [address] [address] Globulin 3.2 G/dL Normal 2.7-4.4 [facility] Comment on above: Performed By: #### U A #### [address] [address] Glucose [Mass/Vol] 106 mg/dL Normal 83-110 [facility] Comment on above: Performed By: #### U A #### [address] [address] Potassium [Moles/Vol] 4.5 mmol/L Normal 3.5-5.1 [facility] Comment on above: Performed By: #### U A #### [address] [address] Sodium [Moles/Vol] 137 mmol/L Normal 136-145 [facility] Comment on above: Performed By: #### U A #### [address] [address] Total Protein 7.3 G/dL Normal 6.4-8.2 [facility] Comment on above: Performed By: #### U A #### [address] [address] Urea nitrogen [Mass/Vol] 18 mg/dL Normal 7-18 [facility] Comment on above: Performed By: #### U A #### [facility] [address] [place], [place] [address] LABORATORYOrdered By: SYSTEM SYSTEM on 06-30-2024 Albumin BCP dye [Mass/Vol] 4.1 G/dL Normal 3.4 - 4.8 G/dL AO ADM SS Albumin/Globulin [Mass ratio] 1.3 {ratio} Normal 1.1 - 2.5 ratio AO ADM SS ALP [Catalytic activity/Vol] 67 U/L Normal 40 - 135 U/L AO ADM SS ALT With P-5'-P [Catalytic activity/Vol] 12 U/L Low 16 - 63 U/L AO ADM SS AST With P-5'-P [Catalytic activity/Vol] 14 U/L Normal 10 - 40 U/L AO ADM SS Basophils (Bld) [#/Vol] 0.1 103/mcL Normal 0.0 - 0.3 10^3/mcL AO Workflow SS Basophils/100 WBC (Bld) 1.1 % Normal 0.0 - 2.5 % AO Workflow SS Bilirubin [Mass/Vol] 0.4 mg/dL Normal 0.2 - 1 .0 mg/dL AO ADM SS Comment on above: Interpretive Data: U se of this assay is not recommended for patients undergoing treatment with eltrombopag due to the potential for falsely elevated results. Calcium [Mass/Vol] 9.2 mg/dL Normal 8.4 - 10. 2 mg/dL AO ADM SS Chloride [Moles/Vol] 100 mmol/L Normal 98 - 10 7 mmol/L AO ADM SS CO2 [Moles/Vol] 32 mmol/L High 23 - 31 mmol/L AO ADM SS Cobalamin (Vitamin B12) [Mass/Vol] 1584 pg/mL High 211 - 911 pg/mL AH ADM SS Creatinine [Mass/Vol] 0.76 mg/dL Normal 0.67 - 1.17 mg/dL AO ADM SS Electrolyte Balance 5.0 mEq/L Normal 4.0 - 15 .0 mEq/L AO ADM SS Eosinophil, Absolute 0.1 103/mcL Normal 0.0 - 0 .7 10^3/mcL AO Workflow SS Eosinophils/100 WBC (Bld) 1.6 % Normal 0.0 - 6.0 % AO Workflow SS Erythrocyte distribution width (RBC) [Ratio] 14.5 % Normal 11.5 - 15.5 % AO Workflow SS Estimated Glomerular Filtration Rate 90 ml/min/1.73sqm Invalid Interpretation Code AO Chemistry S Comment on above: Interpretive Data: Stages of Chronic Kidney Disease (CKD) Stage Description eGFR(ml/min/1.73 sq.m.) CKD 1 Normal kidney function or >=90 normal kindney function with possible kidney damage (ex. Proteinuria) CKD 2 Kidney damage with mild loss 60-89 of kidney function CKD 3a Mild to moderate loss of kidney 45-59 function CKD 3b Moderate to severe loss of 30-44 of kindey function CKD 4 Severe loss of kidney function 15-29 CKD 5 Kidney failure <15 Note: (go live 2024) the eGFR calculation was updated to the 2020 CKD-EPI creatinine equation without a race factor to calculate the eGFR results. Globulin 3.2 G/dL Normal 2.7 - 4.4 G/dL AO ADM SS Glucose [Mass/Vol] 128 mg/dL Invalid Interpretation Code AO Chemistry S Comment on above: Interpretive Data: E stimated average glucose (eAG) is a calculated value from Hemoglobin A1C and is loss prevention representative of the average blood glucose level in the last 2-3 month period. Normal range: less than 114 mg/dL Glucose [Mass/Vol] 106 mg/dL Normal 83 - 110 mg/dL AO ADM SS HbA1c (Bld) [Mass fraction] 6.1 % Normal 4.3 - 6.4 % AO ADM SS Hematocrit (Bld) [Volume fraction] 45.3 % Normal 40.0 - 52.0 % AO Workflow SS Hemoglobin (Bld) [Mass/Vol] 15.1 G/dL Normal 13.0 - 17.5 G/dL AO Workflow SS Lymphocytes (Bld) [#/Vol] 1.6 103/mcL Normal 0.9 - 4.3 10^3/mcL AO Workflow SS Lymphocytes/100 WBC (Bld) 23.2 % Normal 20.0 - 40.0 % AO Workflow SS MCH (RBC) [Entitic mass] 31.6 pg Normal 27.0 - 33.0 pg AO Workflow SS MCHC 33.3 G/dL Normal 32.0 - 36.0 G/dL AO Workflow SS MCV (RBC) [Entitic vol] 94.9 fL Normal 81.0 - 100.0 fL AO Workflow SS Monocytes (Bld) [#/Vol] 0.5 103/mcL Normal 0.1 - 1.4 10^3/mcL AO Workflow SS Monocytes/100 WBC (Bld) 7.7 % Normal 2.0 - 13.0 % AO Workflow SS Neutrophils (Bld) [#/Vol] 4.7 103/mcL Normal 2.3 - 8.1 10^3/mcL AO Workflow SS Neutrophils/100 WBC (Bld) 66.4 % Normal 50.0 - 75.0 % AO Workflow SS Platelet mean volume (Bld) [Entitic vol] 8.4 fL Normal 6.4 - 10.5 fL AO Workflow SS Platelets (Bld) [#/Vol] 230 103/mcL Normal 150 - 450 10^3/mcL AO Workflow SS Potassium [Moles/Vol] 4.5 mmol/L Normal 3.5 - 5.1 mmol/L AO ADM SS Protein [Mass/Vol] 7.3 G/dL Normal 6.4 - 8.2 G/dL AO ADM SS RBC (Bld) [#/Vol] 4.77 106/mcL Normal 4.50 - 6.0 0 10^6/mcL AO Workflow SS Sodium [Moles/Vol] 137 mmol/L Normal 136 - 145 mmol/L AO ADM SS TSH Qn 2.17 m[IU]/L Normal 0.36 - 3.74 mcIU/mL AO ADM SS Urea nitrogen [Mass/Vol] 18 mg/dL Normal 7 - 18 mg/dL AO ADM SS Urea nitrogen/Creatinine [Mass ratio] 24 ratio Normal 7 - 27 ratio AO ADM SS WBC (Bld) [#/Vol] 7.0 103/mcL Normal 4.5 - 10.8 10^3/mcL AO Workflow SS LABORATORYOrdered By: Sima Tariq on 06-30-2024 Cholesterol [Mass/Vol] 247 mg/dL High 0 - 2 00 mg/dL AO ADM SS Comment on above: Interpretive Data: C holesterol Reference Interval: Less than 200 Desirable 200-239 Borderline high risk 240 and above High risk Cholesterol in HDL [Mass/Vol] 47 mg/dL Normal 40 - 60 mg/dL AO ADM SS Cholesterol in LDL [Mass/Vol] 170 mg/dL High 0 - 130 mg/dL AO ADM SS Triglyceride [Mass/Vol] 152 mg/dL High 0 - 150 mg/dL AO ADM SS Comment on above: Interpretive Data: T riglyceride Reference Interval: Less than 150 Normal 150-199 Borderline high risk 200-499 High risk 500 or higher Very high risk LIPIDon 06-30-2024 Cholesterol [Mass/Vol] 247 mg/dL High 0-200 [facility] Comment on above: Result Comment: Chol esterol Reference Interval: Less than 200 Desirable 200-239 Borderline high risk 240 and above High risk Performed By: #### U A #### [place] [address] Cholesterol in HDL [Mass/Vol] 47 mg/dL Normal 40-60 [facility] Comment on above: Performed By: #### U A #### [place] [id number] Cholesterol in LDL [Mass/Vol] 170 mg/dL High 0-130 [facility] Comment on above: Performed By: #### U A #### [place] [id number] Triglyceride [Mass/Vol] 152 mg/dL High 0-150 [facility] Comment on above: Result Comment: Trig lyceride Reference Interval: Less than 150 Normal 150-199 Borderline high risk 200-499 High risk 500 or higher Very high risk Performed By: #### U A #### [address] [address] TSHon 06-30-2024 TSH Qn 2.17 m[IU]/L Normal 0.36-3.74 [facility] Comment on above: Performed By: #### U A #### [address] [address] Diagnostic total prostate sp ecific antigen (PSA) measurementOrdered By: Andrew Figueroa on 04-20-2024 Prostate Specific Antigen Total 6.55 ng/mL High 0.00-4.00 [place] Comment on above: This test was perfor med using the [employer] tPSA method. Measured values of a patient sample can vary depending on the testing procedure used. PSA values determined on patient samples by different testing procedures cannot be used interchangeably. If there is a change in PSA assays while monitoring therapy, sequential testing should be performed to confirm baseline values. PSA,Total- Diagnosticon 03-0 PSA, DIAGNOSTIC 6.55 ng/mL High 0.00-4.00 [facility] Comment on above: Result Comment: This test was performed using the [employer] tPSA method. Measured values of a patient??sample can vary depending on the testing procedure used. PSA values determined on patient samples by different testing procedures cannot be used interchangeably. If there is a change in PSA assays while monitoring therapy, sequential testing should be performed to confirm baseline values. Performed By: #### L [phone] #### [facility] [address] [place], [address] CNCOon 01-03-2024 CNCO Letter Text Normal [facility] CNCOon 09-30-2023 CNCO Letter Text Normal [facility] CNOVon 09-30-2023 CNOV Office Visit (FAMPWS ) JERADRAI ([id number]) 1945 M Date Time Provider Department 09/30/23 10:20 AM [facility] During your visit today, we recorded the following information about you: Pulse Respiration Blood pressure Weight 74/minute 16/minute 130/80 75.6 kg Height 1.663 m Brittni Luu MD 09/30/2023 12:46 PM Signed Chief Complaint Patient presents with: Establish Care HPI Rai Jerad is a 78 year old male who presents here today for Above Complaints. Previous PCP: Dr. Bueno in [place] with last OV about 2 months ago. States that he did have blood work drawn at last OV, but he does not know what his results showed. Patient is poor historian. Patient requesting referral to cardiology today for history of CAD s/p stent x1. He has been seeing Ivania Callahan at [facility] with last OV about 2 weeks ago without changes to his regimen. He is not on a beta pamella at this time, but is on ARB and statin. Admits to SOB at rest and orthopnea for the last couple of months without chest pain, palpitations, LE edema. Has had stress testing and echo in the past, but cannot recall when. States that he was told to schedule appointment with [facility] cardiology at his last OV with Ivania Callahan for the SOB. No other testing ordered including labs or EKG. He does not have nitro at home and is not on ASA or Plavix. BP well controlled on current regimen. Does not monitor at home. Patient admits to history of falls with last being 1 week ago. States that he tripped and fell without head injury or LOC. Denies joint pain or swelling today. Not using cane or walker and is not interested in rx today. Thinks he is up to date on vaccinations and cancer screening. Past medical history, appointments, medications, allergies reviewed. Previous Medical History PAST MEDICAL HISTORY No date: Adjustment disorder with depressed mood No date: CAD (coronary artery disease) Comment: [employer]Prachi Valera No date: Diverticulosis of colon (without mention of hemorrhage) No date: Hypertensive kidney disease, benign No date: Internal hemorrhoids without mention of complication No date: Other abnormal blood chemistry No date: Personal history of fall No date: Pure hypercholesterolemia Previous Surgical History PAST SURGICAL HISTORY No date: SIGMOIDOSCOPY FLX DX W/COLLJ SPEC BR/WA IF PFRMD Comment: Sigmoidoscopy Family History No family history on file. Patient Allergies ALLERGIES Allergen Reactions Sulfa (Sulfonamide * Intolerance Current Medications Current Outpatient Medications on File Prior to Visit Medication Sig cyanocobalamin (VITAMIN B-12) 1,000 mcg tab Take 1,000 mcg by mouth once daily. amLODIPine (NORVASC) 2.5 mg tablet Take 2.5 mg by mouth once daily. losartan (COZAAR) 50 mg tablet Take 50 mg by mouth once daily. finasteride (PROSCAR) 5 mg tablet Take 5 mg by mouth once daily. ezetimibe (ZETIA) 10 mg tablet Take 10 mg by mouth once daily. vit A/vit C/vit E/zinc/copper (PRESERVISION AREDS ORAL) Take 1 capsule by mouth once daily. acetaminophen/diphenhyd ramine (TYLENOL PM ORAL) Take 500 mg by mouth daily at bedtime. cholecalciferol (VITAMIN D-3) 50 mcg (2,000 unit) tablet Take 2,000 Units by mouth once daily. acetaminophen (TYLENOL ARTHRITIS PAIN) 650 mg CR tablet Take 650 mg by mouth every 8 hours as needed for pain. rosuvastatin (CRESTOR) 10 mg tablet Take 10 mg by mouth every 48 hours. ATENOLOL 50 MG TAB Take one(1) tablet daily. (Patient not taking: Reported on 09/30/2023) EFFEXOR XR 37.5 MG 24 HR CAP Take one(1) tablet daily. (Patient not taking: Reported on 09/30/2023) LIPITOR 20 MG TAB Take one(1) tablet daily. (Patient not taking: Reported on 09/30/2023) VIAGRA 50 MG TAB Take one(1) tablet daily.as needed (Patient not taking: Reported on 09/30/2023) VANQUISH 227 MG-194 MG-33 MG TAB as needed (Patient not taking: Reported on 09/30/2023) No current facility-administered medications on file prior to visit. Social History Social History Tobacco Use Smoking status: Never Smokeless tobacco: Never Substance Use Topics Alcohol use: No Review of Symptoms REVIEW OF SYSTEMS GENERAL: No weight loss, malaise or fevers RESPIRATORY: Negative for cough, hemoptysis, wheezing, COPD, dyspnea or shortness of breath CARDIOVASCULAR: Negative for chest pain, leg swelling, hypertension, CHF or palpitations GI: No nausea, vomiting, or diarrhea SKIN: Negative for lesions, rash, and itching EXAM: BP 130/80 Pulse 74 Resp 16 Ht 166.3 cm (5' 5.47) Wt 75.6 kg (166 lb 10.7 oz) SpO2 95% BMI 27.34 kg/m? General Appearance: Well appearing, alert, in no acute distress, well-hydrated, well nourished.. Skin: Skin color, texture, turgor normal, no suspicious rashes or lesions. Neck: Supple, no adenopathy; thyroid symmetric, (more content not included)... Normal [facility] ECG COMPLETEon 09-30-2023 Atrial Rate 72 BPM [facility] Calculated R [place] 15 degrees [facility] Calculated T [place] 115 degrees [facility] P-R Interval 102 ms [facility] QRS Duration 88 ms [facility] QT Interval 358 ms [facility] QTC Calculation (Bazett) 392 ms [facility] Ventricular Rate 72 BPM [facility] SINUS RHYTHM WITH SH ORT PA NONSPECIFIC T WAVE ABNORMALITY ABNORMAL ECG Confirmed by NILESH JOLLEY DO ([id number]) on 09/30/2023 6:29:07 PM [facility] NAME : JE MARS PID : [id number] : 1945 Gender : Male Race : ORD : [id number] Procedure Date : Sep 30 2023 11:32:29 Edit Date : Sep 30 2023 18:29:09 Diagnosis: SINUS RHYTHM WITH SHORT PA NONSPECIFIC T WAVE ABNORMALITY ABNORMAL ECG Confirmed by NILESH JOLLEY DO ([id number]) on 09/30/2023 6:29:07 PM Test Reason : R06.02 SOB (shortness of breath) Location : 185 : WO Overread By : NILESH JOLLEY DO Edited By : NILESH JOLLEY DO Referred By : AGUILA LUU Acquired by : Sandra POWELL, [facility] ECG COMPLETE Ventricular Rate : 7 2 BPM Atrial Rate : 72 BPM P-R Interval : 102 ms QRS Duration : 88 ms Q-T Interval : 358 ms QTC Calculation(Bazett) : 392 ms Calculated R [place] : 15 degrees Calculated T [place] : 115 degrees SINUS RHYTHM WITH SHORT PA NONSPECIFIC T WAVE ABNORMALITY ABNORMAL ECG Confirmed by NILESH JOLLEY DO ([id number]) on 09/30/2023 6:29:07 PM NAME : RAI MARS PID : [id number] : 1945 Gender : Male Race : ORD : [id number] Procedure Date : Sep 30 2023 11:32:29 Edit Date : Sep 30 2023 18:29:09 Diagnosis: SINUS RHYTHM WITH SHORT PA NONSPECIFIC T WAVE ABNORMALITY ABNORMAL ECG Confirmed by NILESH JOLLEY DO ([id number]) on 09/30/2023 6:29:07 PM Test Reason : R06.02 SOB (shortness of breath) Location : 185 : [facility] Overread By : NILESH JOLLEY DO Edited By : NILESH JOLLEY DO Referred By : AGUILA LUU Acquired by : Ольга WONG [facility] Philippe 09-18-2023 CNPN Telephone (CARDMN) RAI MARS ([id number]) 1945 M Date Time Provider Department 09/18/23 BARAK VALIENTE ([facility]) CARDMN During your visit today, we recorded the following information about you: Allergies As of Date: 09/18/2023 Noted Allergy Reaction SULFA (SULFONAMIDE ANTIBIOTICS) 11/08/2005 5 - Intolerance Date Reviewed: 08/28/2007 Reviewed by: Jaren Pozo Lpn - Reviewed Reason for Visit: Appointment [186] Cmt: CALLED PT TO SCHEDULE CARDIOLOGY APPT NO ANSWER, LEFT VM Prescriptions as of 09/18/2023 - ATENOLOL 50 MG TAB Take one(1) tablet daily. - EFFEXOR XR 37.5 MG 24 HR CAP Take one(1) tablet daily. - LIPITOR 20 MG TAB Take one(1) tablet daily. - VIAGRA 50 MG TAB Take one(1) tablet daily.as needed - VANQUISH 227 MG-194 MG-33 MG TAB as needed Problem List As Of Date 09/18/2023 Noted Resolved ELEVATED PROSTATE SPECIFIC ANTIGEN [R97.20] 08/28/2007 BPH W URINARY OBS/LUTS [N40.1, N13.8] 08/28/2007 Encounter Status:Closed [facility]REFPHY[facility] RAI MARS ([id number]) 1945 M Date Time Provider Department 09/12/23 NO ONE (HISTORICAL) REFPHY During your visit today, we recorded the following information about you: Haley Jo 09/12/2023 10:47 AM Signed Patient: Rai Mars Date of : 1945 Patient phone number: [phone] Referring Provider for the encounter: Lois Phillips APRN, CNP Requesting Provider: ANY Reason for requesting visit (RFV/signs and symptoms/diagnosis): CAD; atherosclerotic heart disease of [place] coronary artery w/o angina pectoris Person calling: caregiver: Haley Return call to: self Medical Records/Insurance Card scanned into [employer]: No Comments: addl documents stored in external docs--please let me know if you would like me to fax them. Allergies As of Date: 09/12/2023 Noted Allergy Reaction SULFA (SULFONAMIDE ANTIBIOTICS) 11/08/2005 5 - Intolerance Date Reviewed: 08/28/2007 Reviewed by: Jaren Pozo Lpn - Reviewed Reason for Visit: External Referrals/resources [909] Prescriptions as of 09/12/2023 - ATENOLOL 50 MG TAB Take one(1) tablet daily. - EFFEXOR XR 37.5 MG 24 HR CAP Take one(1) tablet daily. - LIPITOR 20 MG TAB Take one(1) tablet daily. - VIAGRA 50 MG TAB Take one(1) tablet daily.as needed - VANQUISH 227 MG-194 MG-33 MG TAB as needed Problem List As Of Date 09/12/2023 Noted Resolved ELEVATED PROSTATE SPECIFIC ANTIGEN [R97.20] 08/28/2007 BPH W URINARY OBS/LUTS [N40.1, N13.8] 08/28/2007 Encounter Status:Closed by HALEY JO on 09/12/23 Normal [facility] .Auto Diffon 08-30-2023 Basophil, Absolute 0.1 10 3/mcL Normal 0.0-0.2 [facility] ([place]) Comment on above: Performed By: #### M DW, ANEU, TROPHS, CBC, GFR, PBNP, BMP, ADIFF #### [address] [place] [id number] [place], [place] [address] Basophils/100 WBC (Bld) 0.8 % Normal 0.0-2.5 A [facility] ([place]) Comment on above: Performed By: #### M DW, ANEU, TROPHS, CBC, GFR, PBNP, BMP, ADIFF #### [address] [address] Eosinophil, Absolute 0.2 10 3/mcL Normal 0.0-0.4 Replaced by [facility] ([place]) Comment on above: Performed By: #### M DW, ANEU, TROPHS, CBC, GFR, PBNP, BMP, ADIFF #### [address] [address] Eosinophils/100 WBC (Bld) 2.8 % Normal 0.0-7.0 [facility] ([place]) Comment on above: Performed By: #### M DW, ANEU, TROPHS, CBC, GFR, PBNP, BMP, ADIFF #### [address] [address] Lymphocyte, Absolute 2.1 10 3/mcL Normal 0.8-3.9 Replaced by [facility] ([place]) Comment on above: Performed By: #### M DW, ANEU, TROPHS, CBC, GFR, PBNP, BMP, ADIFF #### [address] [address] Lymphocytes/100 WBC (Bld) 29.6 % Normal 10.0-50.0 [facility] ([place]) Comment on above: Performed By: #### M DW, ANEU, TROPHS, CBC, GFR, PBNP, BMP, ADIFF #### [address] [address] Monocyte, Absolute 0.6 10 3/mcL Normal 0.2-1.0 [facility] ([place]) Comment on above: Performed By: #### M DW, ANEU, TROPHS, CBC, GFR, PBNP, BMP, ADIFF #### [address] [address] Monocytes/100 WBC (Bld) 8.8 % Normal 1.7-13.0 [facility] ([place]) Comment on above: Performed By: #### M DW, ANEU, TROPHS, CBC, GFR, PBNP, BMP, ADIFF #### [address] [address] Neutrophils/100 WBC (Bld) 58.0 % Normal 37.0-80.0 [facility] ([place]) Comment on above: Performed By: #### M DW, ANEU, TROPHS, CBC, GFR, PBNP, BMP, ADIFF #### Pr[facility] [address] [address] .GFRon 08-30-2023 GFR 96 ml/min/1.73sqm Normal [facility] ([place]) Comment on above: Result Comment: GFR Population mean for , Non- Americans Ages 20-29 = 116 mL/min/1.73 sq.m. Ages 30-39 = 107 mL/min/1.73 sq.m. Ages 40-49 = 99 mL/min/1.73 sq.m. Ages 50-59 = 93 mL/min/1.73 sq.m. Ages 60-69 = 85 mL/min/1.73 sq.m. Ages 70+ = 75 mL/min/1.73 sq.m. Chronic Kidney Disease: Less than 60 mL/min/1.73 square meters End Stage Renal Disease: Less than 15 mL/min/1.73 square meters Performed By: #### M DW, ANEU, TROPHS, CBC, GFR, PBNP, BMP, ADIFF #### [address] [address] GFR Non- 79 ml/min/1.73sqm Normal [facility] ([place]) Comment on above: Result Comment: GFR Population mean for , Non- Americans Ages 20-29 = 116 mL/min/1.73 sq.m. Ages 30-39 = 107 mL/min/1.73 sq.m. Ages 40-49 = 99 mL/min/1.73 sq.m. Ages 50-59 = 93 mL/min/1.73 sq.m. Ages 60-69 = 85 mL/min/1.73 sq.m. Ages 70+ = 75 mL/min/1.73 sq.m. Chronic Kidney Disease: Less than 60 mL/min/1.73 square meters End Stage Renal Disease: Less than 15 mL/min/1.73 square meters Performed By: #### M DW, ANEU, TROPHS, CBC, GFR, PBNP, BMP, ADIFF #### [address] [address] .MDWon 08-30-2023 Monocyte Distribution Width 16.11 Normal 0.00-20.00 [facility] ([place]) Comment on above: Result Comment: For ED adult patients suspected of sepsis, MDW<=20.0 does not rule out sepsis or risk of sepsis Performed By: #### M DW, ANEU, TROPHS, CBC, GFR, PBNP, BMP, ADIFF #### [address] [address] .NEUABSon 08-30-2023 Neutrophil, Absolute 4.1 10 3/mcL Normal 2.9-6.2 Replaced by [facility] ([place]) Comment on above: Performed By: #### M DW, ANEU, TROPHS, CBC, GFR, PBNP, BMP, ADIFF #### [address] [address] BMPon 08-30-2023 BUN/Creatinine Ratio 13 ratio Normal 7-27 [facility] ([place]) Comment on above: Performed By: #### M DW, ANEU, TROPHS, CBC, GFR, PBNP, BMP, ADIFF #### [address] [address] Calcium [Mass/Vol] 9.5 mg/dL Normal 8.4-10.2 [facility] ([place]) Comment on above: Performed By: #### M DW, ANEU, TROPHS, CBC, GFR, PBNP, BMP, ADIFF #### [address] [address] Chloride [Moles/Vol] 99 mmol/L Normal 98-107 [facility] ([place]) Comment on above: Performed By: #### M DW, ANEU, TROPHS, CBC, GFR, PBNP, BMP, ADIFF #### [address] [address] CO2 [Moles/Vol] 35 mmol/L High 23-31 [facility] ([place]) Comment on above: Performed By: #### M DW, ANEU, TROPHS, CBC, GFR, PBNP, BMP, ADIFF #### [address] [address] Creatinine [Mass/Vol] 0.92 mg/dL Normal 0.70-1.30 [facility] [place] ([place]) Comment on above: Performed By: #### M DW, ANEU, TROPHS, CBC, GFR, PBNP, BMP, ADIFF #### [address] [address] Electrolyte Balance 6.0 mEq/L Normal 4.0-15.0 [facility] ([place]) Comment on above: Performed By: #### M DW, ANEU, TROPHS, CBC, GFR, PBNP, BMP, ADIFF #### [address] [address] Glucose [Mass/Vol] 128 mg/dL High 83-110 [facility] ([place]) Comment on above: Performed By: #### M DW, ANEU, TROPHS, CBC, GFR, PBNP, BMP, ADIFF #### [address] [address] Potassium [Moles/Vol] 4.2 mmol/L Normal 3.5-5.1 [facility] ([place]) Comment on above: Performed By: #### M DW, ANEU, TROPHS, CBC, GFR, PBNP, BMP, ADIFF #### [address] [address] Sodium [Moles/Vol] 140 mmol/L Normal 136-145 [facility] ([place]) Comment on above: Performed By: #### M DW, ANEU, TROPHS, CBC, GFR, PBNP, BMP, ADIFF #### [address] [address] Urea nitrogen [Mass/Vol] 12 mg/dL Normal 7-18 [facility] ([place]) Comment on above: Performed By: #### M DW, ANEU, TROPHS, CBC, GFR, PBNP, BMP, ADIFF #### [address] [address] CBCon 08-30-2023 Erythrocyte distribution width (RBC) [Ratio] 13.7 % Normal 11.5-14.5 [facility] ([place]) Comment on above: Performed By: #### M DW, ANEU, TROPHS, CBC, GFR, PBNP, BMP, ADIFF #### [address] [address] Hematocrit (Bld) [Volume fraction] 45.9 % Normal 42.0-52.0 [facility] ([place]) Comment on above: Performed By: #### M DW, ANEU, TROPHS, CBC, GFR, PBNP, BMP, ADIFF #### [address] [address] Hgb 15.3 G/dL Normal 14.0-18.0 [facility] ([place]) Comment on above: Performed By: #### M DW, ANEU, TROPHS, CBC, GFR, PBNP, BMP, ADIFF #### [address] [address] MCH (RBC) [Entitic mass] 31.6 pg High 27.0-31.2 [facility] ([place]) Comment on above: Performed By: #### M DW, ANEU, TROPHS, CBC, GFR, PBNP, BMP, ADIFF #### [address] [address] MCHC 33.5 G/dL Normal 31.8-35.4 [facility] ([place]) Comment on above: Performed By: #### M DW, ANEU, TROPHS, CBC, GFR, PBNP, BMP, ADIFF #### [address] [address] MCV (RBC) [Entitic vol] 94.5 fL High 80.0-94.0 [facility] ([place]) Comment on above: Performed By: #### M DW, ANEU, TROPHS, CBC, GFR, PBNP, BMP, ADIFF #### [address] [address] Platelet 226 10 3/mcL Normal 130-400 [facility] ([place]) Comment on above: Performed By: #### M DW, ANEU, TROPHS, CBC, GFR, PBNP, BMP, ADIFF #### [address] [address] Platelet mean volume (Bld) [Entitic vol] 8.0 fL Normal 7.4-10.4 [facility] ([place]) Comment on above: Performed By: #### M DW, ANEU, TROPHS, CBC, GFR, PBNP, BMP, ADIFF #### [place] [address] RBC 4.85 10 6/mcL Normal 4.04-6.13 [facility] ([place]) Comment on above: Performed By: #### M DW, ANEU, TROPHS, CBC, GFR, PBNP, BMP, ADIFF #### [place] [address] WBC 7.0 10 3/mcL Normal 4.6-10.8 [facility] ([place]) Comment on above: Performed By: #### M DW, ANEU, TROPHS, CBC, GFR, PBNP, BMP, ADIFF #### [place] [address] CVFLURVon 08-30-2023 FLU A PCR Negative Normal Negative [facility] ([place]) Comment on above: Performed By: #### M DW, ANEU, TROPHS, CBC, GFR, PBNP, BMP, ADIFF #### [place] [address] FLU B PCR Negative Normal Negative [facility] ([place]) Comment on above: Performed By: #### M DW, ANEU, TROPHS, CBC, GFR, PBNP, BMP, ADIFF #### [place] [address] RSV PCR Negative Normal Negative [facility] ([place]) Comment on above: Performed By: #### M DW, ANEU, TROPHS, CBC, GFR, PBNP, BMP, ADIFF #### [place] [address] SARS-CoV-2 (COVID-19) RNA KARI+probe Ql (Unsp spec) Negative Normal Negative [facility] ([place]) Comment on above: Result Comment: Resu lts from the Xpert Xpress CoV-2/Flu/RSV plus test should be correlated with the clinical history, epidemiological data, and other data available to the clinical evaluating the patient. Performance of the Xpert Xpress CoV-2/Flu/RSV plus test has only been established in nasopharyngeal swab specimen. Erroneous test results might occur from improper specimen collection, failure to follow the recommended sample collection, handling and storage procedures, technical error, or sample mix-up. False negative results may occur if a virus is present at a level below the analytical limit of detection. Viral nucleic acid may persist in vivo, independent of virus viability. Detection of analyte target(s) does not imply that the corresponding virus(es) are infectious or are the causative agents for clinical symptoms. Recent patient exposure to FluMist or other live attenuated influenza vaccines may cause inaccurate positive results. Performed By: #### M DW, ANEU, TROPHS, CBC, GFR, PBNP, BMP, ADIFF #### [place] [address] LABORATORYOrdered By: SYSTEM SYSTEM on 08-30-2023 Lactate [Moles/Vol] 1.1 mmol/L Normal 0.4 - 2. 0 mmol/L AO ADM SS Basophil, Absolute 0.1 103/mcL Normal 0.0 - 0.2 10^3/mcL AO Workflow SS Basophils/100 WBC (Bld) 0.8 % Normal 0.0 - 2.5 % AO Workflow SS Calcium [Mass/Vol] 9.5 mg/dL Normal 8.4 - 10. 2 mg/dL AO ADM SS Chloride [Moles/Vol] 99 mmol/L Normal 98 - 10 7 mmol/L AO ADM SS CO2 [Moles/Vol] 35 mmol/L High 23 - 31 mmol/L AO ADM SS Creatinine [Mass/Vol] 0.92 mg/dL Normal 0.70 - 1.30 mg/dL AO ADM SS Electrolyte Balance 6.0 mEq/L Normal 4.0 - 15 .0 mEq/L AO ADM SS Eosinophil, Absolute 0.2 103/mcL Normal 0.0 - 0 .4 10^3/mcL AO Workflow SS Eosinophils/100 WBC (Bld) 2.8 % Normal 0.0 - 7.0 % AO Workflow SS Erythrocyte distribution width (RBC) [Ratio] 13.7 % Normal 11.5 - 14.5 % AO Workflow SS GFR/1.73 sq M.predicted among blacks MDRD (S/P/Bld) [Vol rate/Area] 96 ml/min/1.73sqm Invalid Interpretation Code AO Chemistry S Comment on above: Interpretive Data: GFR Population mean for , Non- Americans Ages 20-29 = 116 mL/min/1.73 sq.m. Ages 30-39 = 107 mL/min/1.73 sq.m. Ages 40-49 = 99 mL/min/1.73 sq.m. Ages 50-59 = 93 mL/min/1.73 sq.m. Ages 60-69 = 85 mL/min/1.73 sq.m. Ages 70+ = 75 mL/min/1.73 sq.m. Chronic Kidney Disease: Less than 60 mL/min/1.73 square meters End Stage Renal Disease: Less than 15 mL/min/1.73 square meters GFR/1.73 sq M.predicted among non-blacks MDRD (S/P/Bld) [Vol rate/Area] 79 ml/min/1.73sqm Invalid Interpretation Code AO Chemistry S Comment on above: Interpretive Data: GFR Population mean for , Non- Americans Ages 20-29 = 116 mL/min/1.73 sq.m. Ages 30-39 = 107 mL/min/1.73 sq.m. Ages 40-49 = 99 mL/min/1.73 sq.m. Ages 50-59 = 93 mL/min/1.73 sq.m. Ages 60-69 = 85 mL/min/1.73 sq.m. Ages 70+ = 75 mL/min/1.73 sq.m. Chronic Kidney Disease: Less than 60 mL/min/1.73 square meters End Stage Renal Disease: Less than 15 mL/min/1.73 square meters Glucose [Mass/Vol] 128 mg/dL High 83 - 110 mg/dL AO ADM SS Hematocrit (Bld) [Volume fraction] 45.9 % Normal 42.0 - 52.0 % AO Workflow SS Hemoglobin (Bld) [Mass/Vol] 15.3 G/dL Normal 14.0 - 18.0 G/dL AO Workflow SS Lymphocyte, Absolute 2.1 103/mcL Normal 0.8 - 3 .9 10^3/mcL AO Workflow SS Lymphocytes/100 WBC (Bld) 29.6 % Normal 10.0 - 50.0 % AO Workflow SS MCH (RBC) [Entitic mass] 31.6 pg High 27.0 - 31.2 pg AO Workflow SS MCHC 33.5 G/dL Normal 31.8 - 35.4 G/dL AO Workflow SS MCV (RBC) [Entitic vol] 94.5 fL High 80.0 - 94.0 fL AO Workflow SS Monocyte distribution width Auto (Bld) [Entitic vol] 16.11 1 Normal 0.00 - 20.00 AO Workflow SS Comment on above: Result Comment: For ED adult patients suspected of sepsis, MDW<=20.0 does not rule out sepsis or risk of sepsis Monocyte, Absolute 0.6 103/mcL Normal 0.2 - 1.0 10^3/mcL AO Workflow SS Monocytes/100 WBC (Bld) 8.8 % Normal 1.7 - 13.0 % AO Workflow SS Natriuretic peptide.B prohormone N-Terminal [Mass/Vol] 45 pg/mL Normal 0 - 450 pg/mL AO ADM SS Comment on above: Interpretive Data: N T-proBNP results of less than 300 pg/mL effectively rules out acute congestive heart failure with 99% negative predictive value. Neutrophil, Absolute 4.1 103/mcL Normal 2.9 - 6 .2 10^3/mcL AO Workflow SS Neutrophils/100 WBC (Bld) 58.0 % Normal 37.0 - 80.0 % AO Workflow SS Platelet mean volume (Bld) [Entitic vol] 8.0 fL Normal 7.4 - 10.4 fL AO Workflow SS Platelets (Bld) [#/Vol] 226 103/mcL Normal 130 - 400 10^3/mcL AO Workflow SS Potassium [Moles/Vol] 4.2 mmol/L Normal 3.5 - 5.1 mmol/L AO ADM SS RBC (Bld) [#/Vol] 4.85 106/mcL Normal 4.04 - 6.1 3 10^6/mcL AO Workflow SS Sodium [Moles/Vol] 140 mmol/L Normal 136 - 145 mmol/L AO ADM SS Troponin I.cardiac DL <= 0.01 ng/mL [Mass/Vol] 8 ng/L Normal 0 - 76 ng/L AO ADM SS Comment on above: Interpretive Data: H igh Sensitive Troponin I Reference Ranges: Female: 0-51 ng/L Male: 0-76 ng/L Testing performed on [place] using a homogeneous sandwich chemiluminescent immunoassay based on valuescope technology. Urea nitrogen [Mass/Vol] 12 mg/dL Normal 7 - 18 mg/dL AO ADM SS Urea nitrogen/Creatinine [Mass ratio] 13 ratio Normal 7 - 27 ratio AO ADM SS WBC (Bld) [#/Vol] 7.0 103/mcL Normal 4.6 - 10.8 10^3/mcL AO Workflow SS LABORATORYOrdered By: Jossy Brown on 08-30-2023 FLUAV RNA KARI+probe Ql (Resp) Negative (08/30/23 6:44 AM) Normal Negative AO Auto Urine SS FLUBV RNA KARI+probe Ql (Resp) Negative (08/30/23 6:44 AM) Normal Negative AO Auto Urine SS RSV RNA KARI+probe Ql (Resp) Negative (08/30/23 6:44 AM) Normal Negative AO Auto Urine SS SARS-CoV-2 (COVID-19) RNA KARI+probe Ql (Resp) Negative 4 (08/30/23 6:44 AM) Normal Negative AO Auto Urine SS Comment on above: Interpretive Data: R esults from the Xpert Xpress CoV-2/Flu/RSV plus test should be correlated with the clinical history, epidemiological data, and other data available to the clinical evaluating the patient. Performance of the Xpert Xpress CoV-2/Flu/RSV plus test has only been established in nasopharyngeal swab specimen. Erroneous test results might occur from improper specimen collection, failure to follow the recommended sample collection, handling and storage procedures, technical error, or sample mix-up. False negative results may occur if a virus is present at a level below the analytical limit of detection. Viral nucleic acid may persist in vivo, independent of virus viability. Detection of analyte target(s) does not imply that the corresponding virus(es) are infectious or are the causative agents for clinical symptoms. Recent patient exposure to FluMist or other live attenuated influenza vaccines may cause inaccurate positive results. LACon 08-30-2023 Lactic Acid Lvl 1.1 mmol/L Normal 0.4-2.0 [facility] ([place]) Comment on above: Performed By: #### M DW, ANEU, TROPHS, CBC, GFR, PBNP, BMP, ADIFF #### [place] [id number] [place], [place] [address] No Panel Informationon 08-29 Microscopic examination of blood, culture Culture has been received in lab and is no growth to date. Routine cultures are held for 5 days. [facility] [place] Work Phone: PBNPon 08-30-2023 Natriuretic peptide B (Bld) [Mass/Vol] 45 pg/mL Normal 0-450 [facility] ([place]) Comment on above: Result Comment: NT-p roBNP results of less than 300 pg/mL effectively rules out acute congestive heart failure with 99% negative predictive value. Performed By: #### M DW, ANEU, TROPHS, CBC, GFR, PBNP, BMP, ADIFF #### [id number] [place], [place] [address] TROPHSon 08-30-2023 High Sensitivity Troponin I 8 ng/L Normal 0-76 [facility] ([place]) Comment on above: Result Comment: High Sensitive Troponin I Reference Ranges: Female: 0-51 ng/L Male: 0-76 ng/L Testing performed on [place] using a homogeneous sandwich chemiluminescent immunoassay based on valuescope technology. Performed By: #### M DW, ANEU, TROPHS, CBC, GFR, PBNP, BMP, ADIFF #### [id number] [place], [place] [address] XR CHEST 1 VIEWon 08-30-2023 XR CHEST 1 VIEW ORIGINAL EXAMINATION: ONE XRAY VIEW OF THE CHEST 08/30/2023 7:29 am COMPARISON: Chest x-ray 02/07/2023 HISTORY: ORDERING SYSTEM PROVIDED HISTORY: Reason for Exam: SOB/cough/fever FINDINGS: Cardiomediastinal contours stable. Stable chronic elevation of the left hemidiaphragm. No definite focal consolidation or pulmonary edema. No pneumothorax or large pleural effusion. No acute osseous abnormality. IMPRESSION: Chronic elevation of the left hemidiaphragm limiting evaluation of the left basilar region. No definite acute radiographic abnormality. I have personally reviewed the images of this examination and agree with the resident's findings and interpretation. Interpreted by: Gilmar Trejo MD Preliminary Report By: Tristan Edwards Electronically signed By Gilamr Trejo MD Dictated Date: 08/30/2023 7:41:01 AM Prelim Date: 08/30/2023 7:42:41 AM Sign Date: 08/30/2023 7:54:15 AM Ordering Provider: LINA Rolon [facility] ([place]) A1Con 08-06-2023 HbA1c (Bld) [Mass fraction] 6.2 % Normal 4.3-6.4 [facility]) Comment on above: Performed By: #### M DW, ANEU, TROPHS, CBC, GFR, PBNP, BMP, ADIFF #### [address] [address] B12on 08-06-2023 Cobalamin (Vitamin B12) [Mass/Vol] 713 pg/mL Normal 211-911 [facility]) Comment on above: Performed By: #### M DW, ANEU, TROPHS, CBC, GFR, PBNP, BMP, ADIFF #### [address] [address] .Auto Diffon 03-27-2023 Basophil, Absolute 0.0 10 3/mcL Normal 0.0-0.2 [facility]) Comment on above: Performed By: #### M DW, ANEU, TROPHS, CBC, GFR, PBNP, BMP, ADIFF #### [address] [address] Basophils/100 WBC (Bld) 0.6 % Normal 0.0-2.5 A [facility]) Comment on above: Performed By: #### M DW, ANEU, TROPHS, CBC, GFR, PBNP, BMP, ADIFF #### [address] [address] Eosinophil, Absolute 0.1 10 3/mcL Normal 0.0-0.4 Replaced by [facility] ([place]) Comment on above: Performed By: #### M DW, ANEU, TROPHS, CBC, GFR, PBNP, BMP, ADIFF #### [address] [address] Eosinophils/100 WBC (Bld) 1.3 % Normal 0.0-7.0 [facility] ([place]) Comment on above: Performed By: #### M DW, ANEU, TROPHS, CBC, GFR, PBNP, BMP, ADIFF #### [address] [address] Lymphocyte, Absolute 1.7 10 3/mcL Normal 0.8-3.9 Replaced by [facility] ([place]) Comment on above: Performed By: #### M DW, ANEU, TROPHS, CBC, GFR, PBNP, BMP, ADIFF #### [address] [address] Lymphocytes/100 WBC (Bld) 21.0 % Normal 10.0-50.0 [facility] ([place]) Comment on above: Performed By: #### M DW, ANEU, TROPHS, CBC, GFR, PBNP, BMP, ADIFF #### [address] [address] Monocyte, Absolute 0.9 10 3/mcL Normal 0.2-1.0 [facility] ([place]) Comment on above: Performed By: #### M DW, ANEU, TROPHS, CBC, GFR, PBNP, BMP, ADIFF #### [address] [address] Monocytes/100 WBC (Bld) 11.1 % Normal 1.7-13.0 [facility] ([place]) Comment on above: Performed By: #### M DW, ANEU, TROPHS, CBC, GFR, PBNP, BMP, ADIFF #### [address] [address] Neutrophils/100 WBC (Bld) 66.0 % Normal 37.0-80.0 [facility] ([place]) Comment on above: Performed By: #### M DW, ANEU, TROPHS, CBC, GFR, PBNP, BMP, ADIFF #### [address] [address] .GFRon 03-27-2023 GFR 93 ml/min/1.73sqm Normal [facility] ([place]) Comment on above: Result Comment: GFR Population mean for , Non- Americans Ages 20-29 = 116 mL/min/1.73 sq.m. Ages 30-39 = 107 mL/min/1.73 sq.m. Ages 40-49 = 99 mL/min/1.73 sq.m. Ages 50-59 = 93 mL/min/1.73 sq.m. Ages 60-69 = 85 mL/min/1.73 sq.m. Ages 70+ = 75 mL/min/1.73 sq.m. Chronic Kidney Disease: Less than 60 mL/min/1.73 square meters End Stage Renal Disease: Less than 15 mL/min/1.73 square meters Performed By: #### M DW, ANEU, TROPHS, CBC, GFR, PBNP, BMP, ADIFF #### [address] [address] GFR Non- 76 ml/min/1.73sqm Normal [facility] ([place]) Comment on above: Result Comment: GFR Population mean for , Non- Americans Ages 20-29 = 116 mL/min/1.73 sq.m. Ages 30-39 = 107 mL/min/1.73 sq.m. Ages 40-49 = 99 mL/min/1.73 sq.m. Ages 50-59 = 93 mL/min/1.73 sq.m. Ages 60-69 = 85 mL/min/1.73 sq.m. Ages 70+ = 75 mL/min/1.73 sq.m. Chronic Kidney Disease: Less than 60 mL/min/1.73 square meters End Stage Renal Disease: Less than 15 mL/min/1.73 square meters Performed By: #### M DW, ANEU, TROPHS, CBC, GFR, PBNP, BMP, ADIFF #### [address] [address] .NEUABSon 03-27-2023 Neutrophil, Absolute 5.2 10 3/mcL Normal 2.9-6.2 Replaced by [facility] ([place]) Comment on above: Performed By: #### M DW, ANEU, TROPHS, CBC, GFR, PBNP, BMP, ADIFF #### [address] [address] B12on 03-27-2023 Cobalamin (Vitamin B12) [Mass/Vol] 217 pg/mL Normal 211-911 [facility] ([place]) Comment on above: Performed By: #### M DW, ANEU, TROPHS, CBC, GFR, PBNP, BMP, ADIFF #### [place] [id number] CBCon 03-27-2023 Erythrocyte distribution width (RBC) [Ratio] 13.4 % Normal 11.5-14.5 [facility] ([place]) Comment on above: Performed By: #### M DW, ANEU, TROPHS, CBC, GFR, PBNP, BMP, ADIFF #### [place] [address] Hematocrit (Bld) [Volume fraction] 45.1 % Normal 42.0-52.0 [facility] ([place]) Comment on above: Performed By: #### M DW, ANEU, TROPHS, CBC, GFR, PBNP, BMP, ADIFF #### [place] [address] Hgb 15.1 G/dL Normal 14.0-18.0 [facility] ([place]) Comment on above: Performed By: #### M DW, ANEU, TROPHS, CBC, GFR, PBNP, BMP, ADIFF #### [address] [address] MCH (RBC) [Entitic mass] 31.1 pg Normal 27.0-31.2 [facility] ([place]) Comment on above: Performed By: #### M DW, ANEU, TROPHS, CBC, GFR, PBNP, BMP, ADIFF #### [place] [address] MCHC 33.4 G/dL Normal 31.8-35.4 [facility] ([place]) Comment on above: Performed By: #### M DW, ANEU, TROPHS, CBC, GFR, PBNP, BMP, ADIFF #### [place] [address] MCV (RBC) [Entitic vol] 92.9 fL Normal 80.0-94.0 [facility] ([place]) Comment on above: Performed By: #### M DW, ANEU, TROPHS, CBC, GFR, PBNP, BMP, ADIFF #### [address] [address] Platelet 236 10 3/mcL Normal 130-400 [facility] ([place]) Comment on above: Performed By: #### M DW, ANEU, TROPHS, CBC, GFR, PBNP, BMP, ADIFF #### [address] [address] Platelet mean volume (Bld) [Entitic vol] 8.5 fL Normal 7.4-10.4 [facility] ([place]) Comment on above: Performed By: #### M DW, ANEU, TROPHS, CBC, GFR, PBNP, BMP, ADIFF #### [address] [address] RBC 4.85 10 6/mcL Normal 4.04-6.13 [facility] ([place]) Comment on above: Performed By: #### M DW, ANEU, TROPHS, CBC, GFR, PBNP, BMP, ADIFF #### [address] [address] WBC 7.9 10 3/mcL Normal 4.6-10.8 [facility] ([place]) Comment on above: Performed By: #### M DW, ANEU, TROPHS, CBC, GFR, PBNP, BMP, ADIFF #### [address] [address] CMPon 03-27-2023 ALT [Catalytic activity/Vol] 12 U/L Low 16-63 [facility] ([place]) Comment on above: Performed By: #### M DW, ANEU, TROPHS, CBC, GFR, PBNP, BMP, ADIFF #### [address] [address] Albumin Level 4.0 G/dL Normal 3.4-4.8 [facility] ([place]) Comment on above: Performed By: #### M DW, ANEU, TROPHS, CBC, GFR, PBNP, BMP, ADIFF #### [address] [address] Albumin/Globulin [Mass ratio] 1.2 {ratio} Normal 1.1-2.5 [facility] ([place]) Comment on above: Performed By: #### M DW, ANEU, TROPHS, CBC, GFR, PBNP, BMP, ADIFF #### [address] [address] ALP [Catalytic activity/Vol] 78 U/L Normal 40-135 [facility] ([place]) Comment on above: Performed By: #### M DW, ANEU, TROPHS, CBC, GFR, PBNP, BMP, ADIFF #### [address] [address] AST [Catalytic activity/Vol] 14 U/L Normal 10-40 [facility] ([place]) Comment on above: Performed By: #### M DW, ANEU, TROPHS, CBC, GFR, PBNP, BMP, ADIFF #### [address] [address] Bili Total 0.6 mg/dL Normal 0.2-1.0 [facility] ([place]) Comment on above: Result Comment: Use of this assay is not recommended for patients undergoing treatment with eltrombopag due to the potential for falsely elevated results. Performed By: #### M DW, ANEU, TROPHS, CBC, GFR, PBNP, BMP, ADIFF #### [address] [address] BUN/Creatinine Ratio 13 ratio Normal 7-27 [facility] ([place]) Comment on above: Performed By: #### M DW, ANEU, TROPHS, CBC, GFR, PBNP, BMP, ADIFF #### [address] [address] Calcium [Mass/Vol] 10.0 mg/dL Normal 8.4-10.2 [facility] ([place]) Comment on above: Performed By: #### M DW, ANEU, TROPHS, CBC, GFR, PBNP, BMP, ADIFF #### [address] [address] Chloride [Moles/Vol] 100 mmol/L Normal 98-107 [facility] ([place]) Comment on above: Performed By: #### M DW, ANEU, TROPHS, CBC, GFR, PBNP, BMP, ADIFF #### [address] [address] CO2 [Moles/Vol] 34 mmol/L High 23-31 [facility] ([place]) Comment on above: Performed By: #### M DW, ANEU, TROPHS, CBC, GFR, PBNP, BMP, ADIFF #### [address] [address] Creatinine [Mass/Vol] 0.95 mg/dL Normal 0.70-1.30 [facility] ([place]) Comment on above: Performed By: #### M DW, ANEU, TROPHS, CBC, GFR, PBNP, BMP, ADIFF #### [address] [address] Electrolyte Balance 6.0 mEq/L Normal 4.0-15.0 [facility] ([place]) Comment on above: Performed By: #### M DW, ANEU, TROPHS, CBC, GFR, PBNP, BMP, ADIFF #### [address] [address] Globulin 3.4 G/dL Normal [facility] ([place]) Comment on above: Performed By: #### M DW, ANEU, TROPHS, CBC, GFR, PBNP, BMP, ADIFF #### [address] [address] Glucose [Mass/Vol] 116 mg/dL High 83-110 [facility] ([place]) Comment on above: Performed By: #### M DW, ANEU, TROPHS, CBC, GFR, PBNP, BMP, ADIFF #### [address] [address] Potassium [Moles/Vol] 4.7 mmol/L Normal 3.5-5.1 [facility] ([place]) Comment on above: Performed By: #### M DW, ANEU, TROPHS, CBC, GFR, PBNP, BMP, ADIFF #### [address] [address] Sodium [Moles/Vol] 140 mmol/L Normal 136-145 [facility] ([place] Comment on above: Performed By: #### M DW, ANEU, TROPHS, CBC, GFR, PBNP, BMP, ADIFF #### [address] [address] Total Protein 7.4 G/dL Normal 6.4-8.2 [facility] ([place]) Comment on above: Performed By: #### M DW, ANEU, TROPHS, CBC, GFR, PBNP, BMP, ADIFF #### [address] [address] Urea nitrogen [Mass/Vol] 12 mg/dL Normal 7-18 [facility] ([place]) Comment on above: Performed By: #### M DW, ANEU, TROPHS, CBC, GFR, PBNP, BMP, ADIFF #### [address] [address] LIPIDon 03-27-2023 Cholesterol [Mass/Vol] 130 mg/dL Normal 0-200 Replaced by [facility] ([place]) Comment on above: Result Comment: Chol esterol Reference Interval: Less than 200 Desirable 200-239 Borderline high risk 240 and above High risk Performed By: #### M DW, ANEU, TROPHS, CBC, GFR, PBNP, BMP, ADIFF #### [address] [address] Cholesterol in HDL [Mass/Vol] 47 mg/dL Normal 40-60 [facility] ([place]) Comment on above: Performed By: #### M DW, ANEU, TROPHS, CBC, GFR, PBNP, BMP, ADIFF #### [address] [address] Cholesterol in LDL [Mass/Vol] 60 mg/dL Normal 0-130 [facility] ([place]) Comment on above: Performed By: #### M DW, ANEU, TROPHS, CBC, GFR, PBNP, BMP, ADIFF #### [address] [address] Triglyceride [Mass/Vol] 115 mg/dL Normal 0-150 [facility] ([place]) Comment on above: Result Comment: Trig lyceride Reference Interval: Less than 150 Normal 150-199 Borderline high risk 200-499 High risk 500 or higher Very high risk Performed By: #### M DW, ANEU, TROPHS, CBC, GFR, PBNP, BMP, ADIFF #### [address] [address] TSHon 03-27-2023 TSH Qn 2.89 m[IU]/L Normal 0.36-3.74 [facility] ([place]) Comment on above: Performed By: #### M DW, ANEU, TROPHS, CBC, GFR, PBNP, BMP, ADIFF #### [address] [address] .GFRon 02-08-2023 GFR 73 ml/min/1.73sqm Normal [facility] ([place]) Comment on above: Result Comment: GFR Population mean for , Non- Americans Ages 20-29 = 116 mL/min/1.73 sq.m. Ages 30-39 = 107 mL/min/1.73 sq.m. Ages 40-49 = 99 mL/min/1.73 sq.m. Ages 50-59 = 93 mL/min/1.73 sq.m. Ages 60-69 = 85 mL/min/1.73 sq.m. Ages 70+ = 75 mL/min/1.73 sq.m. Chronic Kidney Disease: Less than 60 mL/min/1.73 square meters End Stage Renal Disease: Less than 15 mL/min/1.73 square meters Performed By: #### M DW, ANEU, TROPHS, CBC, GFR, PBNP, BMP, ADIFF #### [address] [address] GFR Non- 60 ml/min/1.73sqm Normal [facility] ([place]) Comment on above: Result Comment: GFR Population mean for , Non- Americans Ages 20-29 = 116 mL/min/1.73 sq.m. Ages 30-39 = 107 mL/min/1.73 sq.m. Ages 40-49 = 99 mL/min/1.73 sq.m. Ages 50-59 = 93 mL/min/1.73 sq.m. Ages 60-69 = 85 mL/min/1.73 sq.m. Ages 70+ = 75 mL/min/1.73 sq.m. Chronic Kidney Disease: Less than 60 mL/min/1.73 square meters End Stage Renal Disease: Less than 15 mL/min/1.73 square meters Performed By: #### M DW, ANEU, TROPHS, CBC, GFR, PBNP, BMP, ADIFF #### [address] [address] BMPon 02-08-2023 BUN/Creatinine Ratio 14 ratio Normal 7-27 [facility] ([place]) Comment on above: Performed By: #### M DW, ANEU, TROPHS, CBC, GFR, PBNP, BMP, ADIFF #### [address] [address] Calcium [Mass/Vol] 9.1 mg/dL Normal 8.4-10.2 [facility] ([place]) Comment on above: Performed By: #### M DW, ANEU, TROPHS, CBC, GFR, PBNP, BMP, ADIFF #### [address] [address] Chloride [Moles/Vol] 103 mmol/L Normal 98-107 [facility] ([place]) Comment on above: Performed By: #### M DW, ANEU, TROPHS, CBC, GFR, PBNP, BMP, ADIFF #### [address] [address] CO2 [Moles/Vol] 29 mmol/L Normal 23-31 [facility] ([place]) Comment on above: Performed By: #### M DW, ANEU, TROPHS, CBC, GFR, PBNP, BMP, ADIFF #### [address] [address] Creatinine [Mass/Vol] 1.17 mg/dL Normal 0.70-1.30 [facility] ([place]) Comment on above: Performed By: #### M DW, ANEU, TROPHS, CBC, GFR, PBNP, BMP, ADIFF #### [address] [address] Electrolyte Balance 8.0 mEq/L Normal 4.0-15.0 [facility] ([place]) Comment on above: Performed By: #### M DW, ANEU, TROPHS, CBC, GFR, PBNP, BMP, ADIFF #### [address] [address] Glucose [Mass/Vol] 159 mg/dL High 83-110 [facility] ([place]) Comment on above: Performed By: #### M DW, ANEU, TROPHS, CBC, GFR, PBNP, BMP, ADIFF #### [address] [address] Potassium [Moles/Vol] 4.6 mmol/L Normal 3.5-5.1 [facility]) Comment on above: Performed By: #### M DW, ANEU, TROPHS, CBC, GFR, PBNP, BMP, ADIFF #### [address] [address] Sodium [Moles/Vol] 140 mmol/L Normal 136-145 [facility] ([place]) Comment on above: Performed By: #### M DW, ANEU, TROPHS, CBC, GFR, PBNP, BMP, ADIFF #### [address] [address] Urea nitrogen [Mass/Vol] 16 mg/dL Normal 7-18 [facility] ([place]) Comment on above: Performed By: #### M DW, ANEU, TROPHS, CBC, GFR, PBNP, BMP, ADIFF #### [address] [address] [id number] 02-08-2023 SARS-CoV-2 (COVID-19) RNA KARI+probe Ql (Unsp spec) Negative Normal Negative [facility] ([place]) Comment on above: Performed By: #### C OVD19, FLURSV #### [address] [address] [place], [place] [address] SARS-CoV-2 (COVID-19) RNA KARI+probe Ql (Unsp spec) Normal [facility] ([place]) Comment on above: Result Comment: Nega tive results do not preclude SARS-CoV-2 infection and should not be used as the sole basis for patient management decisions. Negative results must be combined with clinical observations, patient history, and epidemiological information. There is a risk of false negative values resulting from improperly collected, transported, or handled specimens. There is a risk of false negative values due to the presence of sequence variants in the pathogen targets of the assay, procedural errors, amplification inhibitors in specimens, or inadequate numbers of organisms for amplification. [employer] SARS-CoV-2 Assay is a Real-Time reverse-transcriptase polymerase chain reaction (RT-PCR) based qualitative in vitro diagnostic test intended for the qualitative detection of nucleic acid from the SARS-CoV-2 in nasopharyngeal swab specimens collected from individuals suspected of COVID-19 by their healthcare provider. Testing is limited to laboratories certified under the Clinical Laboratory Improvement Amendments of 1988 (CLIA), 42 U.S.C. ?263a, to perform moderate and high complexity tests. COVID-19 Int Performed By: #### C OVD19, FLURSV #### [address] [address] FLURSVon 02-08-2023 Flu A PCR (AO) Negative Normal Negative [facility] ([place]) Comment on above: Result Comment: Posi tive Results: Positive Flu A/B or RSV for by PCR. Positive test results do not rule out bacterial infection or co-infection with other pathogens. Test results should be interpreted in conjunction with other laboratory and clinical data. Negative Results: Negative for by PCR. Negative test results do not preclude influenza virus or RSV infection and should not be used as the sole basis for diagnosis, treatment, or other management decisions. There is a risk of false negative RSV results when at low concentration and in the presence of co-infection with high concentration of influenza A. Invalid Results: An Invalid result (INV) was obtained. The test was repeated with similar results. REPEAT COLLECTION AND TESTING IS RECOMMENDED. The Andrei Flu A/B & RSV Assay is a real-time polymerase chain reaction (PCR) based qualitative in vitro diagnostic test for the direct detection and differentiation of influenza A virus, influenza B virus, and respiratory syncytial virus (RSV) nucleic acid in nasopharyngeal swab (REMOTE CONTROL MIRROR INSTALLER) specimens from patients with signs and symptoms of respiratory infection in conjunction with clinical and laboratory findings. The test is intended for use as an aid in the differential diagnosis of influenza A virus, influenza B virus, and RSV in humans and is not intended to detect influenza C. Performed By: #### C OVD19, FLURSV #### [address] [address] Flu B PCR (AO) Negative Normal Negative [facility] ([place]) Comment on above: Result Comment: Posi tive Results: Positive Flu A/B or RSV for by PCR. Positive test results do not rule out bacterial infection or co-infection with other pathogens. Test results should be interpreted in conjunction with other laboratory and clinical data. Negative Results: Negative for by PCR. Negative test results do not preclude influenza virus or RSV infection and should not be used as the sole basis for diagnosis, treatment, or other management decisions. There is a risk of false negative RSV results when at low concentration and in the presence of co-infection with high concentration of influenza A. Invalid Results: An Invalid result (INV) was obtained. The test was repeated with similar results. REPEAT COLLECTION AND TESTING IS RECOMMENDED. The Andrei Flu A/B & RSV Assay is a real-time polymerase chain reaction (PCR) based qualitative in vitro diagnostic test for the direct detection and differentiation of influenza A virus, influenza B virus, and respiratory syncytial virus (RSV) nucleic acid in nasopharyngeal swab (REMOTE CONTROL MIRROR INSTALLER) specimens from patients with signs and symptoms of respiratory infection in conjunction with clinical and laboratory findings. The test is intended for use as an aid in the differential diagnosis of influenza A virus, influenza B virus, and RSV in humans and is not intended to detect influenza C. Performed By: #### C OVD19, FLURSV #### [address] [address] RSV PCR (AO) Negative Normal Negative [facility] ([place]) Comment on above: Result Comment: Posi tive Results: Positive Flu A/B or RSV for by PCR. Positive test results do not rule out bacterial infection or co-infection with other pathogens. Test results should be interpreted in conjunction with other laboratory and clinical data. Negative Results: Negative for by PCR. Negative test results do not preclude influenza virus or RSV infection and should not be used as the sole basis for diagnosis, treatment, or other management decisions. There is a risk of false negative RSV results when at low concentration and in the presence of co-infection with high concentration of influenza A. Invalid Results: An Invalid result (INV) was obtained. The test was repeated with similar results. REPEAT COLLECTION AND TESTING IS RECOMMENDED. The [employer] Flu A/B & RSV Assay is a real-time polymerase chain reaction (PCR) based qualitative in vitro diagnostic test for the direct detection and differentiation of influenza A virus, influenza B virus, and respiratory syncytial virus (RSV) nucleic acid in nasopharyngeal swab (REMOTE CONTROL MIRROR INSTALLER) specimens from patients with signs and symptoms of respiratory infection in conjunction with clinical and laboratory findings. The test is intended for use as an aid in the differential diagnosis of influenza A virus, influenza B virus, and RSV in humans and is not intended to detect influenza C. Performed By: #### C OVD19, FLURSV #### [address] [address] LABORATORYOrdered By: SYSTEM SYSTEM on 02-08-2023 Troponin I.cardiac DL <= 0.01 ng/mL [Mass/Vol] 13.2 ng/L Normal 0.0 - 76.2 ng/L AO ADM SS Calcium [Mass/Vol] 9.1 mg/dL Normal 8.4 - 10. 2 mg/dL AO ADM SS Chloride [Moles/Vol] 103 mmol/L Normal 98 - 10 7 mmol/L AO ADM SS CO2 [Moles/Vol] 29 mmol/L Normal 23 - 31 mmol/L AO ADM SS Creatinine [Mass/Vol] 1.17 mg/dL Normal 0.70 - 1.30 mg/dL AO ADM SS Electrolyte Balance 8.0 mEq/L Normal 4.0 - 15 .0 mEq/L AO ADM SS GFR/1.73 sq M.predicted among blacks MDRD (S/P/Bld) [Vol rate/Area] 73 ml/min/1.73sqm Invalid Interpretation Code AO Chemistry S Comment on above: Interpretive Data: GFR Population mean for , Non- Americans Ages 20-29 = 116 mL/min/1.73 sq.m. Ages 30-39 = 107 mL/min/1.73 sq.m. Ages 40-49 = 99 mL/min/1.73 sq.m. Ages 50-59 = 93 mL/min/1.73 sq.m. Ages 60-69 = 85 mL/min/1.73 sq.m. Ages 70+ = 75 mL/min/1.73 sq.m. Chronic Kidney Disease: Less than 60 mL/min/1.73 square meters End Stage Renal Disease: Less than 15 mL/min/1.73 square meters GFR/1.73 sq M.predicted among non-blacks MDRD (S/P/Bld) [Vol rate/Area] 60 ml/min/1.73sqm Invalid Interpretation Code AO Chemistry S Comment on above: Interpretive Data: GFR Population mean for , Non- Americans Ages 20-29 = 116 mL/min/1.73 sq.m. Ages 30-39 = 107 mL/min/1.73 sq.m. Ages 40-49 = 99 mL/min/1.73 sq.m. Ages 50-59 = 93 mL/min/1.73 sq.m. Ages 60-69 = 85 mL/min/1.73 sq.m. Ages 70+ = 75 mL/min/1.73 sq.m. Chronic Kidney Disease: Less than 60 mL/min/1.73 square meters End Stage Renal Disease: Less than 15 mL/min/1.73 square meters Glucose [Mass/Vol] 159 mg/dL High 83 - 110 mg/dL AO ADM SS Magnesium [Mass/Vol] 1.7 mg/dL Low 1.8 - 2 .4 mg/dL AO ADM SS Potassium [Moles/Vol] 4.6 mmol/L Normal 3.5 - 5.1 mmol/L AO ADM SS Sodium [Moles/Vol] 140 mmol/L Normal 136 - 145 mmol/L AO ADM SS Troponin I.cardiac DL <= 0.01 ng/mL [Mass/Vol] 9.8 ng/L Normal 0.0 - 76.2 ng/L AO ADM SS Urea nitrogen [Mass/Vol] 16 mg/dL Normal 7 - 18 mg/dL AO ADM SS Urea nitrogen/Creatinine [Mass ratio] 14 ratio Normal 7 - 27 ratio AO ADM SS LABORATORYOrdered By: Mariya Greenfield on 02-08-2023 Appearance (U) Clear (02/08/23 5:57 AM) Normal Clear AO Auto Urine SS Bilirubin Ql (U) Negative (02/08/23 5:57 AM) Normal Negative AO Auto Urine SS Color (U) Yellow (02/08/23 5:57 AM) Normal AO Auto Urine SS Glucose Test strip (U) [Mass/Vol] Negative Normal Negative AO Auto Urine SS Hemoglobin Auto test strip (U) [Mass/Vol] Negative (02/08/23 5:57 AM) Normal Negative AO Auto Urine SS Ketones Ql (U) Negative Normal Negative AO Auto Urine SS UA Leuk Est Negative (02/08/23 5:57 AM) Normal Negative AO Auto Urine SS UA Nitrite Negative (02/08/23 5:57 AM) Normal Negative AO Auto Urine SS UA pH 5.5 (02/08/23 5:57 AM) Normal 5.0 - 8.0 AO Auto Urine SS UA Protein Trace mg/dL Normal Negative AO Auto Urine SS UA Spec Grav 1.025 (02/08/23 5:57 AM) Normal 1.015-1.025 AO Auto Urine SS UA Specimen Type Clean Catch (02/08/23 5:57 AM) Normal AO Auto Urine SS UA Urobilinogen 0.2 E.U./dL Normal 0.2-1.0 AO Auto Urine SS FLUAV RNA KARI+probe Ql (Upper resp) Negative 7 (02/08/23 12:38 AM) Normal Negative AO Auto Urine SS Comment on above: Interpretive Data: P ositive Results: Positive Flu A/B or RSV for by PCR. Positive test results do not rule out bacterial infection or co-infection with other pathogens. Test results should be interpreted in conjunction with other laboratory and clinical data. Negative Results: Negative for by PCR. Negative test results do not preclude influenza virus or RSV infection and should not be used as the sole basis for diagnosis, treatment, or other management decisions. There is a risk of false negative RSV results when at low concentration and in the presence of co-infection with high concentration of influenza A. Invalid Results: An Invalid result (INV) was obtained. The test was repeated with similar results. REPEAT COLLECTION AND TESTING IS RECOMMENDED. The Andrei Flu A/B & RSV Assay is a real-time polymerase chain reaction (PCR) based qualitative in vitro diagnostic test for the direct detection and differentiation of influenza A virus, influenza B virus, and respiratory syncytial virus (RSV) nucleic acid in nasopharyngeal swab (REMOTE CONTROL MIRROR INSTALLER) specimens from patients with signs and symptoms of respiratory infection in conjunction with clinical and laboratory findings. The test is intended for use as an aid in the differential diagnosis of influenza A virus, influenza B virus, and RSV in humans and is not intended to detect influenza C. FLUBV RNA KARI+probe Ql (Upper resp) Negative 8 (02/08/23 12:38 AM) Normal Negative AO Auto Urine SS Comment on above: Interpretive Data: P ositive Results: Positive Flu A/B or RSV for by PCR. Positive test results do not rule out bacterial infection or co-infection with other pathogens. Test results should be interpreted in conjunction with other laboratory and clinical data. Negative Results: Negative for by PCR. Negative test results do not preclude influenza virus or RSV infection and should not be used as the sole basis for diagnosis, treatment, or other management decisions. There is a risk of false negative RSV results when at low concentration and in the presence of co-infection with high concentration of influenza A. Invalid Results: An Invalid result (INV) was obtained. The test was repeated with similar results. REPEAT COLLECTION AND TESTING IS RECOMMENDED. The [employer] Flu A/B & RSV Assay is a real-time polymerase chain reaction (PCR) based qualitative in vitro diagnostic test for the direct detection and differentiation of influenza A virus, influenza B virus, and respiratory syncytial virus (RSV) nucleic acid in nasopharyngeal swab (REMOTE CONTROL MIRROR INSTALLER) specimens from patients with signs and symptoms of respiratory infection in conjunction with clinical and laboratory findings. The test is intended for use as an aid in the differential diagnosis of influenza A virus, influenza B virus, and RSV in humans and is not intended to detect influenza C. RSV RNA KARI+probe Ql (Upper resp) Negative 9 (02/08/23 12:38 AM) Normal Negative AO Auto Urine SS Comment on above: Interpretive Data: P ositive Results: Positive Flu A/B or RSV for by PCR. Positive test results do not rule out bacterial infection or co-infection with other pathogens. Test results should be interpreted in conjunction with other laboratory and clinical data. Negative Results: Negative for by PCR. Negative test results do not preclude influenza virus or RSV infection and should not be used as the sole basis for diagnosis, treatment, or other management decisions. There is a risk of false negative RSV results when at low concentration and in the presence of co-infection with high concentration of influenza A. Invalid Results: An Invalid result (INV) was obtained. The test was repeated with similar results. REPEAT COLLECTION AND TESTING IS RECOMMENDED. The [employer] Flu A/B & RSV Assay is a real-time polymerase chain reaction (PCR) based qualitative in vitro diagnostic test for the direct detection and differentiation of influenza A virus, influenza B virus, and respiratory syncytial virus (RSV) nucleic acid in nasopharyngeal swab (REMOTE CONTROL MIRROR INSTALLER) specimens from patients with signs and symptoms of respiratory infection in conjunction with clinical and laboratory findings. The test is intended for use as an aid in the differential diagnosis of influenza A virus, influenza B virus, and RSV in humans and is not intended to detect influenza C. SARS-CoV-2 (COVID-19) RNA KARI+probe Ql (Resp) Negative results do not preclude SARS-CoV-2 infection and should not be used as the sole basis for patient management decisions. Negative results must be combined with clinical observations, patient history, and epidemiological information.There is a risk of false negative values resulting from improperly collected, transported, or handled specimens.There is a risk of false negative values due to the presence of sequence variants in the pathogen targets of the assay, procedural errors, amplification inhibitors in specimens, or inadequate numbers of organisms for amplification.ANDREI SARS-CoV-2 Assay is a Real-Time reverse-transcriptase polymerase chain reaction (RT-PCR) based qualitative in vitro diagnostic test intended for the qualitative detection of nucleic acid from the SARS-CoV-2 in nasopharyngeal swab specimens collected from individuals suspected of COVID-19 by their healthcare provider. Testing is limited to laboratories certified under the Clinical Laboratory Improvement Amendments of 1988 (CLIA), 42 U.S.C. 263a, to perform moderate and high complexity tests. Invalid Interpretation Code AO Auto Urine SS MGon 02-08-2023 Magnesium [Mass/Vol] 1.7 mg/dL Low 1.8-2.4 [facility] ([place]) Comment on above: Performed By: #### M CHRISTI PRATT TROPHS, CBC, GFR, PBNP, BMP, ADIFF #### [id number] [place], [place] [address] [facility] 02-08-2023 Troponin I High Sensitivity 13.2 ng/L Normal 0.0-76.2 [facility] ([place]) Comment on above: Performed By: #### M DW, ANEU, TROPHS, CBC, GFR, PBNP, BMP, ADIFF #### [address] [address] Troponin I High Sensitivity 9.8 ng/L Normal 0.0-76.2 [facility] ([place]) Comment on above: Performed By: #### M DW, ANEU, TROPHS, CBC, GFR, PBNP, BMP, ADIFF #### [address] [address] UAon 02-08-2023 Color (U) Yellow Normal [facility] ([place]) Comment on above: Performed By: #### M DW, ANEU, TROPHS, CBC, GFR, PBNP, BMP, ADIFF #### [address] [address] Glucose (U) [Mass/Vol] Negative Normal Negative Replaced by [facility] ([place]) Comment on above: Performed By: #### M DW, ANEU, TROPHS, CBC, GFR, PBNP, BMP, ADIFF #### [address] [address] Ketones Ql (U) Negative Normal Negative [facility] ([place]) Comment on above: Performed By: #### M DW, ANEU, TROPHS, CBC, GFR, PBNP, BMP, ADIFF #### [address] [address] UA Appear Clear Normal Clear [facility] ([place]) Comment on above: Performed By: #### M DW, ANEU, TROPHS, CBC, GFR, PBNP, BMP, ADIFF #### [address] [address] UA Blood Negative Normal Negative [facility] ([place]) Comment on above: Performed By: #### M DW, ANEU, TROPHS, CBC, GFR, PBNP, BMP, ADIFF #### [address] [address] UA Leuk Est Negative Normal Negative [facility] ([place]) Comment on above: Performed By: #### M DW, ANEU, TROPHS, CBC, GFR, PBNP, BMP, ADIFF #### [address] [address] UA Nitrite Negative Normal Negative [facility] ([place]) Comment on above: Performed By: #### M DW, ANEU, TROPHS, CBC, GFR, PBNP, BMP, ADIFF #### [address] [address] UA pH 5.5 Normal 5.0 - 8.0 [facility] ([place]) Comment on above: Performed By: #### M DW, ANEU, TROPHS, CBC, GFR, PBNP, BMP, ADIFF #### [address] [address] UA Protein Trace Normal Negative [facility] ([place]) Comment on above: Performed By: #### M DW, ANEU, TROPHS, CBC, GFR, PBNP, BMP, ADIFF #### [address] [address] UA Spec Grav 1.025 Normal 1.015-1.025 [facility] ([place]) Comment on above: Performed By: #### M DW, ANEU, TROPHS, CBC, GFR, PBNP, BMP, ADIFF #### [address] [address] UA Specimen Type Clean Catch Normal [facility] ([place]) Comment on above: Performed By: #### M DW, ANEU, TROPHS, CBC, GFR, PBNP, BMP, ADIFF #### [address] [address] UA Urobilinogen 0.2 E.U./dL Normal 0.2-1.0 [facility] ([place]) Comment on above: Performed By: #### M DW, ANEU, TROPHS, CBC, GFR, PBNP, BMP, ADIFF #### [address] [address] Urobilinogen (U) [Mass/Vol] Negative Normal Negative [facility] ([place]) Comment on above: Performed By: #### M DW, ANEU, TROPHS, CBC, GFR, PBNP, BMP, ADIFF #### [address] [address] XR ABDOMEN APon 02-08-2023 XR ABDOMEN AP ORIGINAL EXAMINATION: ONE SUPINE XRAY VIEW(S) OF THE [id number]/08/2023 10:30 am COMPARISON: None available at time of dictation. HISTORY: ORDERING SYSTEM PROVIDED HISTORY: Reason for Exam: Vomiting, diarrhea FINDINGS: Mildly distended air-filled loops of bowel. The renal shadows and expected course of bilateral ureters are partially obscured by overlying bowel. No definite abnormal calculus is identified. No acute osseous abnormalities. Degenerative changes of the spine. IMPRESSION: Mildly distended air-filled loops of bowel with no other acute radiographic findings. The findings are nonspecific but considered nonobstructive. I have personally reviewed the images of this examination and agree with the resident's findings and interpretation. Interpreted by: Fransico Isaacs MD Preliminary Report By: Cornell Horton Electronically signed By Fransico Isaacs MD Dictated Date: 02/08/2023 10:34:55 AM Prelim Date: 02/08/2023 10:44:58 AM Sign Date: 02/08/2023 10:44:58 AM Ordering Provider: KATHY Rolon [facility] ([place]) .Auto Diffon 02-07-2023 Basophil, Absolute 0.1 10 3/mcL Normal 0.0-0.2 [facility] ([place]) Comment on above: Performed By: #### M DW, ANEU, TROPHS, CBC, GFR, PBNP, BMP, ADIFF #### [address] [address] Basophils/100 WBC (Bld) 0.7 % Normal 0.0-2.5 A [facility] ([place]) Comment on above: Performed By: #### M DW, ANEU, TROPHS, CBC, GFR, PBNP, BMP, ADIFF #### [address] [address] Eosinophil, Absolute 0.2 10 3/mcL Normal 0.0-0.4 Replaced by [facility] ([place]) Comment on above: Performed By: #### M DW, ANEU, TROPHS, CBC, GFR, PBNP, BMP, ADIFF #### [address] [address] Eosinophils/100 WBC (Bld) 1.3 % Normal 0.0-7.0 [facility] ([place]) Comment on above: Performed By: #### M DW, ANEU, TROPHS, CBC, GFR, PBNP, BMP, ADIFF #### [address] [address] Lymphocyte, Absolute 3.4 10 3/mcL Normal 0.8-3.9 Replaced by [facility] ([place] Comment on above: Performed By: #### M DW, ANEU, TROPHS, CBC, GFR, PBNP, BMP, ADIFF #### [address] [address] Lymphocytes/100 WBC (Bld) 28.5 % Normal 10.0-50.0 [facility] ([place]) Comment on above: Performed By: #### M DW, ANEU, TROPHS, CBC, GFR, PBNP, BMP, ADIFF #### [address] [address] Monocyte, Absolute 0.7 10 3/mcL Normal 0.2-1.0 [facility] ([place]) Comment on above: Performed By: #### M DW, ANEU, TROPHS, CBC, GFR, PBNP, BMP, ADIFF #### [address] [address] Monocytes/100 WBC (Bld) 6.0 % Normal 1.7-13.0 [facility] ([place]) Comment on above: Performed By: #### M DW, ANEU, TROPHS, CBC, GFR, PBNP, BMP, ADIFF #### [address] [address] Neutrophils/100 WBC (Bld) 63.5 % Normal 37.0-80.0 [facility] ([place]) Comment on above: Performed By: #### M DW, ANEU, TROPHS, CBC, GFR, PBNP, BMP, ADIFF #### [address] [address] .GFRon 02-07-2023 GFR 54 ml/min/1.73sqm Normal [facility] ([place]) Comment on above: Result Comment: GFR Population mean for , Non- Americans Ages 20-29 = 116 mL/min/1.73 sq.m. Ages 30-39 = 107 mL/min/1.73 sq.m. Ages 40-49 = 99 mL/min/1.73 sq.m. Ages 50-59 = 93 mL/min/1.73 sq.m. Ages 60-69 = 85 mL/min/1.73 sq.m. Ages 70+ = 75 mL/min/1.73 sq.m. Chronic Kidney Disease: Less than 60 mL/min/1.73 square meters End Stage Renal Disease: Less than 15 mL/min/1.73 square meters Performed By: #### M DW, ANEU, TROPHS, CBC, GFR, PBNP, BMP, ADIFF #### [address] [address] GFR Non- 45 ml/min/1.73sqm Normal [facility] ([place]) Comment on above: Result Comment: GFR Population mean for , Non- Americans Ages 20-29 = 116 mL/min/1.73 sq.m. Ages 30-39 = 107 mL/min/1.73 sq.m. Ages 40-49 = 99 mL/min/1.73 sq.m. Ages 50-59 = 93 mL/min/1.73 sq.m. Ages 60-69 = 85 mL/min/1.73 sq.m. Ages 70+ = 75 mL/min/1.73 sq.m. Chronic Kidney Disease: Less than 60 mL/min/1.73 square meters End Stage Renal Disease: Less than 15 mL/min/1.73 square meters Performed By: #### M DW, ANEU, TROPHS, CBC, GFR, PBNP, BMP, ADIFF #### [address] [address] .MDWon 02-07-2023 Monocyte Distribution Width 16.41 Normal 0.00-20.00 [facility] ([place]) Comment on above: Result Comment: For ED adult patients suspected of sepsis, MDW<=20.0 does not rule out sepsis or risk of sepsis Performed By: #### M DW, ANEU, TROPHS, CBC, GFR, PBNP, BMP, ADIFF #### [place] [address] .NEUABSon 02-07-2023 Neutrophil, Absolute 7.7 10 3/mcL High 2.9-6.2 Replaced by [facility] ([place]) Comment on above: Performed By: #### M DW, ANEU, TROPHS, CBC, GFR, PBNP, BMP, ADIFF #### [place] [address] CBCon 02-07-2023 Erythrocyte distribution width (RBC) [Ratio] 13.3 % Normal 11.5-14.5 [facility] ([place]) Comment on above: Performed By: #### M DW, ANEU, TROPHS, CBC, GFR, PBNP, BMP, ADIFF #### [place] [address] Hematocrit (Bld) [Volume fraction] 46.4 % Normal 42.0-52.0 [facility] ([place]) Comment on above: Performed By: #### M DW, ANEU, TROPHS, CBC, GFR, PBNP, BMP, ADIFF #### [place] [address] Hgb 15.2 G/dL Normal 14.0-18.0 [facility] ([place]) Comment on above: Performed By: #### M DW, ANEU, TROPHS, CBC, GFR, PBNP, BMP, ADIFF #### [place] [address] MCH (RBC) [Entitic mass] 30.6 pg Normal 27.0-31.2 [facility] ([place]) Comment on above: Performed By: #### M DW, ANEU, TROPHS, CBC, GFR, PBNP, BMP, ADIFF #### [place] [address] MCHC 32.7 G/dL Normal 31.8-35.4 [facility] ([place]) Comment on above: Performed By: #### M DW, ANEU, TROPHS, CBC, GFR, PBNP, BMP, ADIFF #### [address] [address] MCV (RBC) [Entitic vol] 93.6 fL Normal 80.0-94.0 [facility] ([place]) Comment on above: Performed By: #### M DW, ANEU, TROPHS, CBC, GFR, PBNP, BMP, ADIFF #### [address] [address] Platelet 181 10 3/mcL Normal 130-400 [facility] ([place]) Comment on above: Performed By: #### M DW, ANEU, TROPHS, CBC, GFR, PBNP, BMP, ADIFF #### [address] [address] Platelet mean volume (Bld) [Entitic vol] 7.8 fL Normal 7.4-10.4 [facility] ([place]) Comment on above: Performed By: #### M DW, ANEU, TROPHS, CBC, GFR, PBNP, BMP, ADIFF #### [address] [address] RBC 4.95 10 6/mcL Normal 4.04-6.13 [facility] ([place] Comment on above: Performed By: #### M DW, ANEU, TROPHS, CBC, GFR, PBNP, BMP, ADIFF #### [address] [address] WBC 12.1 10 3/mcL High 4.6-10.8 [facility] ([place]) Comment on above: Performed By: #### M DW, ANEU, TROPHS, CBC, GFR, PBNP, BMP, ADIFF #### [address] [address] CMPon 02-07-2023 ALT [Catalytic activity/Vol] 14 U/L Low 16-63 [facility] ([place]) Comment on above: Performed By: #### M DW, ANEU, TROPHS, CBC, GFR, PBNP, BMP, ADIFF #### [place] [id number] Albumin Level 4.0 G/dL Normal 3.4-4.8 [facility] ([place]) Comment on above: Performed By: #### M DW, ANEU, TROPHS, CBC, GFR, PBNP, BMP, ADIFF #### [address] [address] Albumin/Globulin [Mass ratio] 1.3 {ratio} Normal 1.1-2.5 [facility] ([place]) Comment on above: Performed By: #### M DW, ANEU, TROPHS, CBC, GFR, PBNP, BMP, ADIFF #### [address] [address] ALP [Catalytic activity/Vol] 83 U/L Normal 40-135 [facility] ([place]) Comment on above: Performed By: #### M DW, ANEU, TROPHS, CBC, GFR, PBNP, BMP, ADIFF #### [address] [address] AST [Catalytic activity/Vol] 16 U/L Normal 10-40 [facility] ([place]) Comment on above: Performed By: #### M DW, ANEU, TROPHS, CBC, GFR, PBNP, BMP, ADIFF #### [address] [address] Bili Total 0.4 mg/dL Normal 0.2-1.0 [facility] ([place]) Comment on above: Result Comment: Use of this assay is not recommended for patients undergoing treatment with eltrombopag due to the potential for falsely elevated results. Performed By: #### M DW, ANEU, TROPHS, CBC, GFR, PBNP, BMP, ADIFF #### [address] [address] BUN/Creatinine Ratio 11 ratio Normal 7-27 [facility] ([place]) Comment on above: Performed By: #### M DW, ANEU, TROPHS, CBC, GFR, PBNP, BMP, ADIFF #### [address] [address] Calcium [Mass/Vol] 9.8 mg/dL Normal 8.4-10.2 [facility] ([place]) Comment on above: Performed By: #### M DW, ANEU, TROPHS, CBC, GFR, PBNP, BMP, ADIFF #### [address] [address] Chloride [Moles/Vol] 98 mmol/L Normal 98-107 [facility] ([place]) Comment on above: Performed By: #### M DW, ANEU, TROPHS, CBC, GFR, PBNP, BMP, ADIFF #### [address] [address] CO2 [Moles/Vol] 30 mmol/L Normal 23-31 [facility] ([place]) Comment on above: Performed By: #### M DW, ANEU, TROPHS, CBC, GFR, PBNP, BMP, ADIFF #### [address] [address] Creatinine [Mass/Vol] 1.51 mg/dL High 0.70-1.30 [facility] ([place]) Comment on above: Performed By: #### M DW, ANEU, TROPHS, CBC, GFR, PBNP, BMP, ADIFF #### [address] [address] Electrolyte Balance 15.0 mEq/L Normal 4.0-15.0 [facility] ([place]) Comment on above: Performed By: #### M DW, ANEU, TROPHS, CBC, GFR, PBNP, BMP, ADIFF #### [address] [address] Globulin 3.1 G/dL Normal [facility] ([place]) Comment on above: Performed By: #### M DW, ANEU, TROPHS, CBC, GFR, PBNP, BMP, ADIFF #### [address] [address] Glucose [Mass/Vol] 169 mg/dL High 83-110 [facility] ([place]) Comment on above: Performed By: #### M DW, ANEU, TROPHS, CBC, GFR, PBNP, BMP, ADIFF #### [address] [address] Potassium [Moles/Vol] 4.1 mmol/L Normal 3.5-5.1 [facility] ([place]) Comment on above: Performed By: #### M DW, ANEU, TROPHS, CBC, GFR, PBNP, BMP, ADIFF #### [place] [id number] [place], [place] [address] Sodium [Moles/Vol] 143 mmol/L Normal 136-145 [facility] ([place] Comment on above: Performed By: #### M DW, ANEU, TROPHS, CBC, GFR, PBNP, BMP, ADIFF #### [address] [address] Total Protein 7.1 G/dL Normal 6.4-8.2 [facility] ([place]) Comment on above: Performed By: #### M DW, ANEU, TROPHS, CBC, GFR, PBNP, BMP, ADIFF #### [address] [address] Urea nitrogen [Mass/Vol] 17 mg/dL Normal 7-18 [facility] ([place]) Comment on above: Performed By: #### M DW, ANEU, TROPHS, CBC, GFR, PBNP, BMP, ADIFF #### [address] [address] [address] HEAD OR BRAIN W/O CONTRAS Ton 02-07-2023 CT HEAD OR BRAIN W/O CONTRAST ORIGINAL EXAMINATION: CT OF THE HEAD WITHOUT CONTRAST 02/07/2023 11:06 pm TECHNIQUE: CT of the head was performed without the administration of intravenous contrast. Automated exposure control, iterative reconstruction, and/or weight based adjustment of the mA/kV was utilized to reduce the radiation dose to as low as reasonably achievable. COMPARISON: None. HISTORY: ORDERING SYSTEM PROVIDED HISTORY: Reason for Exam: syncopal episode FINDINGS: BRAIN/VENTRICLES: There is no acute intracranial hemorrhage, mass effect or midline shift. No abnormal extra-axial fluid collection. Mild periventricular hypodensities are seen as well as basal gangliar calcifications on the basis of chronic microangiopathic ischemic change. The alves-white differentiation is maintained without evidence of an acute infarct. There is no evidence of hydrocephalus. ORBITS: The visualized portion of the orbits demonstrate no acute abnormality. SINUSES: The visualized paranasal sinuses and mastoid air cells demonstrate no acute abnormality. SOFT TISSUES/SKULL: No acute abnormality of the visualized skull or soft tissues. IMPRESSION: No acute intracranial abnormality. Mild chronic microangiopathic ischemic change. Interpreted by: See Daevy MD Preliminary Report By: See Davey MD Electronically signed By See Davey MD Dictated Date: 02/07/2023 11:18:07 PM Prelim Date: 02/07/2023 11:22:12 PM Sign Date: 02/07/2023 11:22:12 PM Ordering Provider: DELFINO REYNOLDS [facility] ([place]) LABORATORYOrdered By: SYSTEM SYSTEM on 02-07-2023 Albumin BCP dye [Mass/Vol] 4.0 G/dL Normal 3.4 - 4.8 G/dL AO ADM SS Albumin/Globulin [Mass ratio] 1.3 {ratio} Normal 1.1 - 2.5 ratio AO ADM SS ALP [Catalytic activity/Vol] 83 U/L Normal 40 - 135 U/L AO ADM SS ALT With P-5'-P [Catalytic activity/Vol] 14 U/L Low 16 - 63 U/L AO ADM SS AST With P-5'-P [Catalytic activity/Vol] 16 U/L Normal 10 - 40 U/L AO ADM SS Basophil, Absolute 0.1 103/mcL Normal 0.0 - 0.2 10^3/mcL AO Workflow SS Basophils/100 WBC (Bld) 0.7 % Normal 0.0 - 2.5 % AO Workflow SS Bilirubin [Mass/Vol] 0.4 mg/dL Normal 0.2 - 1 .0 mg/dL AO ADM SS Comment on above: Interpretive Data: U se of this assay is not recommended for patients undergoing treatment with eltrombopag due to the potential for falsely elevated results. Calcium [Mass/Vol] 9.8 mg/dL Normal 8.4 - 10. 2 mg/dL AO ADM SS Chloride [Moles/Vol] 98 mmol/L Normal 98 - 10 7 mmol/L AO ADM SS CO2 [Moles/Vol] 30 mmol/L Normal 23 - 31 mmol/L AO ADM SS Creatinine [Mass/Vol] 1.51 mg/dL High 0.70 - 1.30 mg/dL AO ADM SS Electrolyte Balance 15.0 mEq/L Normal 4.0 - 15 .0 mEq/L AO ADM SS Eosinophil, Absolute 0.2 103/mcL Normal 0.0 - 0 .4 10^3/mcL AO Workflow SS Eosinophils/100 WBC (Bld) 1.3 % Normal 0.0 - 7.0 % AO Workflow SS Erythrocyte distribution width (RBC) [Ratio] 13.3 % Normal 11.5 - 14.5 % AO Workflow SS GFR/1.73 sq M.predicted among blacks MDRD (S/P/Bld) [Vol rate/Area] 54 ml/min/1.73sqm Invalid Interpretation Code AO Chemistry S Comment on above: Interpretive Data: GFR Population mean for , Non- Americans Ages 20-29 = 116 mL/min/1.73 sq.m. Ages 30-39 = 107 mL/min/1.73 sq.m. Ages 40-49 = 99 mL/min/1.73 sq.m. Ages 50-59 = 93 mL/min/1.73 sq.m. Ages 60-69 = 85 mL/min/1.73 sq.m. Ages 70+ = 75 mL/min/1.73 sq.m. Chronic Kidney Disease: Less than 60 mL/min/1.73 square meters End Stage Renal Disease: Less than 15 mL/min/1.73 square meters GFR/1.73 sq M.predicted among non-blacks MDRD (S/P/Bld) [Vol rate/Area] 45 ml/min/1.73sqm Invalid Interpretation Code AO Chemistry S Comment on above: Interpretive Data: GFR Population mean for , Non- Americans Ages 20-29 = 116 mL/min/1.73 sq.m. Ages 30-39 = 107 mL/min/1.73 sq.m. Ages 40-49 = 99 mL/min/1.73 sq.m. Ages 50-59 = 93 mL/min/1.73 sq.m. Ages 60-69 = 85 mL/min/1.73 sq.m. Ages 70+ = 75 mL/min/1.73 sq.m. Chronic Kidney Disease: Less than 60 mL/min/1.73 square meters End Stage Renal Disease: Less than 15 mL/min/1.73 square meters Globulin 3.1 G/dL Invalid Interpretation Code AO ADM SS Glucose [Mass/Vol] 169 mg/dL High 83 - 110 mg/dL AO ADM SS Hematocrit (Bld) [Volume fraction] 46.4 % Normal 42.0 - 52.0 % AO Workflow SS Hemoglobin (Bld) [Mass/Vol] 15.2 G/dL Normal 14.0 - 18.0 G/dL AO Workflow SS Lymphocyte, Absolute 3.4 103/mcL Normal 0.8 - 3 .9 10^3/mcL AO Workflow SS Lymphocytes/100 WBC (Bld) 28.5 % Normal 10.0 - 50.0 % AO Workflow SS MCH (RBC) [Entitic mass] 30.6 pg Normal 27.0 - 31.2 pg AO Workflow SS MCHC 32.7 G/dL Normal 31.8 - 35.4 G/dL AO Workflow SS MCV (RBC) [Entitic vol] 93.6 fL Normal 80.0 - 94.0 fL AO Workflow SS Monocyte distribution width Auto (Bld) [Entitic vol] 16.41 1 Normal 0.00 - 20.00 AO Workflow SS Comment on above: Result Comment: For ED adult patients suspected of sepsis, MDW<=20.0 does not rule out sepsis or risk of sepsis Monocyte, Absolute 0.7 103/mcL Normal 0.2 - 1.0 10^3/mcL AO Workflow SS Monocytes/100 WBC (Bld) 6.0 % Normal 1.7 - 13.0 % AO Workflow SS Neutrophil, Absolute 7.7 103/mcL High 2.9 - 6 .2 10^3/mcL AO Workflow SS Neutrophils/100 WBC (Bld) 63.5 % Normal 37.0 - 80.0 % AO Workflow SS Platelet mean volume (Bld) [Entitic vol] 7.8 fL Normal 7.4 - 10.4 fL AO Workflow SS Platelets (Bld) [#/Vol] 181 103/mcL Normal 130 - 400 10^3/mcL AO Workflow SS Potassium [Moles/Vol] 4.1 mmol/L Normal 3.5 - 5.1 mmol/L AO ADM SS Protein [Mass/Vol] 7.1 G/dL Normal 6.4 - 8.2 G/dL AO ADM SS RBC (Bld) [#/Vol] 4.95 106/mcL Normal 4.04 - 6.1 3 10^6/mcL AO Workflow SS Sodium [Moles/Vol] 143 mmol/L Normal 136 - 145 mmol/L AO ADM SS Troponin I.cardiac DL <= 0.01 ng/mL [Mass/Vol] 15.9 ng/L Normal 0.0 - 76.2 ng/L AO ADM SS Urea nitrogen [Mass/Vol] 17 mg/dL Normal 7 - 18 mg/dL AO ADM SS Urea nitrogen/Creatinine [Mass ratio] 11 ratio Normal 7 - 27 ratio AO ADM SS WBC (Bld) [#/Vol] 12.1 103/mcL High 4.6 - 10.8 10^3/mcL AO Workflow SS TROPHSon 02-07-2023 Troponin I High Sensitivity 15.9 ng/L Normal 0.0-76.2 [facility] ([place]) Comment on above: Performed By: #### M DW, ANEU, TROPHS, CBC, GFR, PBNP, BMP, ADIFF #### [employer] [address] [address] XR CHEST 1 VIEWon 02-07-2023 XR CHEST 1 VIEW ORIGINAL EXAMINATION: ONE XRAY VIEW OF THE CHEST 02/07/2023 10:48 pm COMPARISON: 07/26/2021 HISTORY: ORDERING SYSTEM PROVIDED HISTORY: Reason for Exam: syncopal episode FINDINGS: Again noted moderate elevation of left hemidiaphragm. There is no consolidation or pleural effusion. There is mild enlargement of the cardiomediastinal silhouette. There is no pulmonary vascular congestion. There is no pneumothorax. Visualized osseous structures demonstrate mild degenerative changes. IMPRESSION: 1. There is no consolidation or pleural effusion. Again noted moderate elevation of left hemidiaphragm. Interpreted by: Mamadou Spencer Preliminary Report By: Mamadou Spencer Electronically signed By Mamadou Spencer Dictated Date: 02/07/2023 10:57:16 PM Prelim Date: 02/07/2023 10:59:58 PM Sign Date: 02/07/2023 10:59:58 PM Ordering Provider: DELFINO Rolon [facility] ([place]) No Panel InformationOrdered By: Andrew Figueroa on 10-08-2022 Prostate Specific Antigen Screen 6.16 ng/mL 0.00-4.00 [place] Comment on above: This test was perfor med using the TPSA assay method for the[employer] chemistry system. Values obtained with differentassay methods cannot be used interchangably.When changing PSA assays in the course of monitoring apatient, additional sequential testing should be carriedout to confirm baseline values. .GFRon 09-26-2022 GFR 84 ml/min/1.73sqm Normal [facility] ([place]) Comment on above: Result Comment: GFR Population mean for , Non- Americans Ages 20-29 = 116 mL/min/1.73 sq.m. Ages 30-39 = 107 mL/min/1.73 sq.m. Ages 40-49 = 99 mL/min/1.73 sq.m. Ages 50-59 = 93 mL/min/1.73 sq.m. Ages 60-69 = 85 mL/min/1.73 sq.m. Ages 70+ = 75 mL/min/1.73 sq.m. Chronic Kidney Disease: Less than 60 mL/min/1.73 square meters End Stage Renal Disease: Less than 15 mL/min/1.73 square meters Performed By: #### M DW, ANEU, TROPHS, CBC, GFR, PBNP, BMP, ADIFF #### [address] [address] GFR Non- 69 ml/min/1.73sqm Normal [facility] ([place]) Comment on above: Result Comment: GFR Population mean for , Non- Americans Ages 20-29 = 116 mL/min/1.73 sq.m. Ages 30-39 = 107 mL/min/1.73 sq.m. Ages 40-49 = 99 mL/min/1.73 sq.m. Ages 50-59 = 93 mL/min/1.73 sq.m. Ages 60-69 = 85 mL/min/1.73 sq.m. Ages 70+ = 75 mL/min/1.73 sq.m. Chronic Kidney Disease: Less than 60 mL/min/1.73 square meters End Stage Renal Disease: Less than 15 mL/min/1.73 square meters Performed By: #### M DW, ANEU, TROPHS, CBC, GFR, PBNP, BMP, ADIFF #### [address] [address] CMPon 09-26-2022 Albumin Level 4.0 G/dL Normal 3.4-4.8 [facility] ([place]) Comment on above: Performed By: #### M DW, ANEU, TROPHS, CBC, GFR, PBNP, BMP, ADIFF #### [address] [address] Albumin/Globulin [Mass ratio] 1.3 {ratio} Normal 1.1-2.5 [facility] ([place]) Comment on above: Performed By: #### M DW, ANEU, TROPHS, CBC, GFR, PBNP, BMP, ADIFF #### [address] [address] ALP [Catalytic activity/Vol] 77 U/L Normal 40-135 [facility] ([place]) Comment on above: Performed By: #### M DW, ANEU, TROPHS, CBC, GFR, PBNP, BMP, ADIFF #### [address] [address] ALT [Catalytic activity/Vol] 14 U/L Low 16-63 [facility] ([place]) Comment on above: Performed By: #### M DW, ANEU, TROPHS, CBC, GFR, PBNP, BMP, ADIFF #### [address] [address] AST [Catalytic activity/Vol] 10 U/L Normal 10-40 [facility] ([place]) Comment on above: Performed By: #### M DW, ANEU, TROPHS, CBC, GFR, PBNP, BMP, ADIFF #### [address] [address] Bili Total 0.5 mg/dL Normal 0.2-1.0 [facility] ([place]) Comment on above: Result Comment: Use of this assay is not recommended for patients undergoing treatment with eltrombopag due to the potential for falsely elevated results. Performed By: #### M DW, ANEU, TROPHS, CBC, GFR, PBNP, BMP, ADIFF #### [address] [address] BUN/Creatinine Ratio 12 ratio Normal 7-27 [facility] ([place]) Comment on above: Performed By: #### M DW, ANEU, TROPHS, CBC, GFR, PBNP, BMP, ADIFF #### [address] [address] Calcium [Mass/Vol] 9.3 mg/dL Normal 8.4-10.2 [facility] ([place]) Comment on above: Performed By: #### M DW, ANEU, TROPHS, CBC, GFR, PBNP, BMP, ADIFF #### [address] [address] Chloride [Moles/Vol] 103 mmol/L Normal 98-107 [facility] ([place]) Comment on above: Performed By: #### M DW, ANEU, TROPHS, CBC, GFR, PBNP, BMP, ADIFF #### [address] [address] CO2 [Moles/Vol] 35 mmol/L High 23-31 [facility] ([place]) Comment on above: Performed By: #### M DW, ANEU, TROPHS, CBC, GFR, PBNP, BMP, ADIFF #### [address] [address] Creatinine [Mass/Vol] 1.04 mg/dL Normal 0.70-1.30 [facility] ([place]) Comment on above: Performed By: #### M DW, ANEU, TROPHS, CBC, GFR, PBNP, BMP, ADIFF #### [address] [address] Electrolyte Balance 4.0 mEq/L Normal 4.0-15.0 [facility] ([place]) Comment on above: Performed By: #### M DW, ANEU, TROPHS, CBC, GFR, PBNP, BMP, ADIFF #### [address] [address] Globulin 3.1 G/dL Normal [facility] ([place]) Comment on above: Performed By: #### M DW, ANEU, TROPHS, CBC, GFR, PBNP, BMP, ADIFF #### [address] [address] Glucose [Mass/Vol] 105 mg/dL Normal 83-110 [facility] ([place]) Comment on above: Performed By: #### M DW, ANEU, TROPHS, CBC, GFR, PBNP, BMP, ADIFF #### [address] [address] Potassium [Moles/Vol] 4.7 mmol/L Normal 3.5-5.1 [facility] ([place]) Comment on above: Performed By: #### M DW, ANEU, TROPHS, CBC, GFR, PBNP, BMP, ADIFF #### [address] [address] Sodium [Moles/Vol] 142 mmol/L Normal 136-145 [facility] ([place]) Comment on above: Performed By: #### M DW, ANEU, TROPHS, CBC, GFR, PBNP, BMP, ADIFF #### [address] [address] Total Protein 7.1 G/dL Normal 6.4-8.2 [facility] ([place]) Comment on above: Performed By: #### M DW, ANEU, TROPHS, CBC, GFR, PBNP, BMP, ADIFF #### [address] [address] Urea nitrogen [Mass/Vol] 13 mg/dL Normal 7-18 [facility] ([place]) Comment on above: Performed By: #### M DW, ANEU, TROPHS, CBC, GFR, PBNP, BMP, ADIFF #### [address] [address] LIPIDon 09-26-2022 Cholesterol [Mass/Vol] 240 mg/dL High 0-200 Replaced by [facility] ([place]) Comment on above: Result Comment: Chol esterol Reference Interval: Less than 200 Desirable 200-239 Borderline high risk 240 and above High risk Performed By: #### M DW, ANEU, TROPHS, CBC, GFR, PBNP, BMP, ADIFF #### [address] [address] Cholesterol in HDL [Mass/Vol] 37 mg/dL Low 40-60 [facility] ([place]) Comment on above: Performed By: #### M DW, ANEU, TROPHS, CBC, GFR, PBNP, BMP, ADIFF #### [place] [address] [place], [place] [address] Cholesterol in LDL [Mass/Vol] 165 mg/dL High 0-130 [facility] ([place]) Comment on above: Performed By: #### M DW, ANEU, TROPHS, CBC, GFR, PBNP, BMP, ADIFF #### [facility] [place] [id number] [place], [place] [address] Triglyceride [Mass/Vol] 188 mg/dL High 0-150 [facility] ([place]) Comment on above: Result Comment: Trig lyceride Reference Interval: Less than 150 Normal 150-199 Borderline high risk 200-499 High risk 500 or higher Very high risk Performed By: #### M DW, ANEU, TROPHS, CBC, GFR, PBNP, BMP, ADIFF #### [place] [id number] [place], [place] [address] NM MYOCARDIAL SPECT STRESS/R ESTon 09-19-2022 NM MYOCARDIAL SPECT STRESS/REST ORIGINAL NM MYOCARDIAL SPECT STRESS/REST CLINICAL STATEMENT: SOB TECHNIQUE: Lexiscan dose:0.4 mg Radiopharmaceutical (stress): Tc-99m Sestamibi Dose:32.9 mCi Radiopharmaceutical (rest): Tc-99m Sestamibi Dose:10.5 mCi SPECT acquisition and processing Reconstruction and reorientation of SPECT images into short axis, vertical and horizontal long axis planes Quantitative LVEF assessment COMPARISON:May 2020 REPORT:Overall, image quality is good. Rotating planar images show no significant patient motion. SPECT perfusion images during rest and stress show homogenous radiotracer uptake. No defects to suggest ischemia or infarction. GATED SPECT images show normal LV size and function. LVEF calculated at 51%. IMPRESSION: 1. No evidence for ischemia. 2. No evidence of infarction. 3. Normal LV size and low-normal systolic function. 4. Compared to previous study, ejection fraction has decreased from 62% to now 51%. Interpreted By: Ferdinand Sena Preliminary Report By: Ferdinand Sena Electronically Signed By: Ferdinand Sena Dictated Date: 09/19/2022 5:07:44 PM Prelim Date: 09/19/2022 5:07:44 PM Sign Date: 09/19/2022 5:12:37 PM Ordering Provider:Paulina Rolon [facility] ([place]) No Panel InformationOrdered By: Dr. Figueroa on 04-10-2022 Prostate Specific Antigen Total 6.88 ng/mL 0.0-4.0 [place] Comment on above: This test was perfor med using the TPSA assay method for [employer] chemistry system. Values obtained with differentassay methods cannot be used interchangably.When changing PSA assays in the course of monitoring apatient, additional sequential testing should be carriedout to confirm baseline values. LABORATORYOrdered By: SYSTEM SYSTEM on 03-28-2022 Albumin BCP dye [Mass/Vol] 3.8 G/dL Invalid Interpretation Code 3.4 - 4.8 G/dL AO ADM SS Albumin/Globulin [Mass ratio] 1.3 {ratio} Invalid Interpretation Code 1.1 - 2.5 ratio AO ADM SS ALP [Catalytic activity/Vol] 76 U/L Invalid Interpretation Code 40 - 135 U/L AO ADM SS ALT With P-5'-P [Catalytic activity/Vol] 13 U/L Invalid Interpretation Code 16 - 63 U/L AO ADM SS AST With P-5'-P [Catalytic activity/Vol] 16 U/L Invalid Interpretation Code 10 - 40 U/L AO ADM SS Bilirubin [Mass/Vol] 0.4 mg/dL Invalid Interpretation Code 0.2 - 1.0 mg/dL AO ADM SS Calcium [Mass/Vol] 9.0 mg/dL Invalid Interpretation Code 8.4 - 10.2 mg/dL AO ADM SS Chloride [Moles/Vol] 101 mmol/L Invalid Interpretation Code 98 - 107 mmol/L AO ADM SS CO2 [Moles/Vol] 36 mmol/L Invalid Interpretation Code 23 - 31 mmol/L AO ADM SS Creatinine [Mass/Vol] 0.84 mg/dL Invalid Interpretation Code 0.70 - 1.30 mg/dL AO ADM SS Electrolyte Balance 4.0 mEq/L Invalid Interpretation Code 4.0 - 15.0 mEq/L AO ADM SS GFR 107 ml/min/1.73sqm Invalid Interpretation Code AO Chemistry S GFR Non- 88 ml/min/1.73sqm Invalid Interpretation Code AO Chemistry S Globulin 3.0 G/dL Invalid Interpretation Code AO ADM SS Glucose [Mass/Vol] 75 mg/dL Invalid Interpretation Code 83 - 110 mg/dL AO ADM SS Potassium [Moles/Vol] 4.7 mmol/L Invalid Interpretation Code 3.5 - 5.1 mmol/L AO ADM SS Protein [Mass/Vol] 6.8 G/dL Invalid Interpretation Code 6.4 - 8.2 G/dL AO ADM SS Sodium [Moles/Vol] 141 mmol/L Invalid Interpretation Code 136 - 145 mmol/L AO ADM SS Urea nitrogen [Mass/Vol] 14 mg/dL Invalid Interpretation Code 7 - 18 mg/dL AO ADM SS Urea nitrogen/Creatinine [Mass ratio] 17 ratio Invalid Interpretation Code 7 - 27 ratio AO ADM SS LABORATORYOrdered By: Jossy Brown on 03-28-2022 Cholesterol [Mass/Vol] 217 mg/dL Invalid Interpretation Code 0 - 200 mg/dL AO ADM SS Cholesterol in HDL [Mass/Vol] 39 mg/dL Invalid Interpretation Code 40 - 60 mg/dL AO ADM SS Cholesterol in LDL [Mass/Vol] 128 mg/dL Invalid Interpretation Code 0 - 130 mg/dL AO ADM SS Triglyceride [Mass/Vol] 251 mg/dL Invalid Interpretation Code 0 - 150 mg/dL AO ADM SS Basophil percentageon 2021 Testosterone [Mass/Vol] 525.40 ng/dL [place] Work Phone: Comment on above: CENTRAL 90% REFERENC E RANGES MALE AGE <50 197.44 - 669.58 ng/dL MALE AGE > or = 50 187.72 - 684.19 ng/dL FEMALE AGE <50 8.38 - 35.01 ng/dL FEMALE AGE > or = 50 <7.00 - 35.92 ng/dL Effective as of 09/13/20 No Panel Informationon 10-03 Prostate Specific Antigen Total 8.85 ng/mL 0.0-4.0 [place] Work Phone: Comment on above: This test was perfor med using the TPSA assay method for the[employer] chemistry system. Values obtained with differentassay methods cannot be used interchangably.When changing PSA assays in the course of monitoring apatient, additional sequential testing should be carriedout to confirm baseline values. LABORATORYOrdered By: Baldo Mclain on 09-28-2021 Albumin BCP dye [Mass/Vol] 3.9 G/dL Invalid Interpretation Code 3.4 - 4.8 G/dL AO ADM SS Albumin/Globulin [Mass ratio] 1.3 {ratio} Invalid Interpretation Code 1.1 - 2.5 ratio AO ADM SS ALP [Catalytic activity/Vol] 81 U/L Invalid Interpretation Code 40 - 135 U/L AO ADM SS ALT With P-5'-P [Catalytic activity/Vol] 15 U/L Invalid Interpretation Code 16 - 63 U/L AO ADM SS AST With P-5'-P [Catalytic activity/Vol] 16 U/L Invalid Interpretation Code 10 - 40 U/L AO ADM SS Bilirubin [Mass/Vol] 0.4 mg/dL Invalid Interpretation Code 0.2 - 1.0 mg/dL AO ADM SS Calcium [Mass/Vol] 9.0 mg/dL Invalid Interpretation Code 8.4 - 10.2 mg/dL AO ADM SS Chloride [Moles/Vol] 100 mmol/L Invalid Interpretation Code 98 - 107 mmol/L AO ADM SS Cholesterol [Mass/Vol] 195 mg/dL Invalid Interpretation Code 0 - 200 mg/dL AO ADM SS Cholesterol in HDL [Mass/Vol] 44 mg/dL Invalid Interpretation Code 40 - 60 mg/dL AO ADM SS Cholesterol in LDL [Mass/Vol] 119 mg/dL Invalid Interpretation Code 0 - 130 mg/dL AO ADM SS CO2 [Moles/Vol] 31 mmol/L Invalid Interpretation Code 23 - 31 mmol/L AO ADM SS Creatinine [Mass/Vol] 0.87 mg/dL Invalid Interpretation Code 0.70 - 1.30 mg/dL AO ADM SS Electrolyte Balance 9.0 mEq/L Invalid Interpretation Code 4.0 - 15.0 mEq/L AO ADM SS Globulin 2.9 G/dL Invalid Interpretation Code AO ADM SS Glucose [Mass/Vol] 98 mg/dL Invalid Interpretation Code 83 - 110 mg/dL AO ADM SS Potassium [Moles/Vol] 4.4 mmol/L Invalid Interpretation Code 3.5 - 5.1 mmol/L AO ADM SS Protein [Mass/Vol] 6.8 G/dL Invalid Interpretation Code 6.4 - 8.2 G/dL AO ADM SS Sodium [Moles/Vol] 140 mmol/L Invalid Interpretation Code 136 - 145 mmol/L AO ADM SS Triglyceride [Mass/Vol] 161 mg/dL Invalid Interpretation Code 0 - 150 mg/dL AO ADM SS Urea nitrogen [Mass/Vol] 15 mg/dL Invalid Interpretation Code 7 - 18 mg/dL AO ADM SS Urea nitrogen/Creatinine [Mass ratio] 17 ratio Invalid Interpretation Code 7 - 27 ratio AO ADM SS LABORATORYOrdered By: SYSTEM SYSTEM on 09-28-2021 GFR 103 ml/min/1.73sqm Invalid Interpretation Code AO Chemistry S GFR Non- 85 ml/min/1.73sqm Invalid Interpretation Code AO Chemistry S LABORATORYOrdered By: Jossy Brown on 04-12-2021 Albumin BCP dye [Mass/Vol] 3.6 G/dL Invalid Interpretation Code 3.4 - 4.8 G/dL AO ADM SS Albumin/Globulin [Mass ratio] 1.2 {ratio} Invalid Interpretation Code 1.1 - 2.5 ratio AO ADM SS ALP [Catalytic activity/Vol] 119 U/L Invalid Interpretation Code 40 - 135 U/L AO ADM SS ALT With P-5'-P [Catalytic activity/Vol] 17 U/L Invalid Interpretation Code 16 - 63 U/L AO ADM SS AST With P-5'-P [Catalytic activity/Vol] 15 U/L Invalid Interpretation Code 10 - 40 U/L AO ADM SS Bilirubin [Mass/Vol] 0.4 mg/dL Invalid Interpretation Code 0.2 - 1.0 mg/dL AO ADM SS Calcium [Mass/Vol] 9.2 mg/dL Invalid Interpretation Code 8.4 - 10.2 mg/dL AO ADM SS Chloride [Moles/Vol] 100 mmol/L Invalid Interpretation Code 98 - 107 mmol/L AO ADM SS Cholesterol [Mass/Vol] 184 mg/dL Invalid Interpretation Code 0 - 200 mg/dL AO ADM SS Cholesterol in HDL [Mass/Vol] 32 mg/dL Invalid Interpretation Code 40 - 60 mg/dL AO ADM SS Cholesterol in LDL [Mass/Vol] 112 mg/dL Invalid Interpretation Code 0 - 130 mg/dL AO ADM SS CO2 [Moles/Vol] 31 mmol/L Invalid Interpretation Code 23 - 31 mmol/L AO ADM SS Creatinine [Mass/Vol] 0.82 mg/dL Invalid Interpretation Code 0.70 - 1.30 mg/dL AO ADM SS Electrolyte Balance 7.0 mEq/L Invalid Interpretation Code 4.0 - 15.0 mEq/L AO ADM SS Globulin 3.0 G/dL Invalid Interpretation Code AO ADM SS Glucose [Mass/Vol] 152 mg/dL Invalid Interpretation Code 83 - 110 mg/dL AO ADM SS Potassium [Moles/Vol] 4.6 mmol/L Invalid Interpretation Code 3.5 - 5.1 mmol/L AO ADM SS Protein [Mass/Vol] 6.6 G/dL Invalid Interpretation Code 6.4 - 8.2 G/dL AO ADM SS Sodium [Moles/Vol] 138 mmol/L Invalid Interpretation Code 136 - 145 mmol/L AO ADM SS Triglyceride [Mass/Vol] 202 mg/dL Invalid Interpretation Code 0 - 150 mg/dL AO ADM SS Urea nitrogen [Mass/Vol] 8 mg/dL Invalid Interpretation Code 7 - 18 mg/dL AO ADM SS Urea nitrogen/Creatinine [Mass ratio] 10 ratio Invalid Interpretation Code 7 - 27 ratio AO ADM SS LABORATORYOrdered By: SYSTEM SYSTEM on 04-12-2021 GFR 110 ml/min/1.73sqm Invalid Interpretation Code AO Chemistry S GFR Non- 91 ml/min/1.73sqm Invalid Interpretation Code AO Chemistry S CCP-ABSon 2021 CCP-ABS 8 units Normal 0-19 [facility] Comment on above: Result Comment: Nega tive <20 Weak positive 20 - 39 Moderate positive 40 - 59 Strong positive >59 Performed At: [facility] [address] [id number] Luke Morgan MD [id number] Performed By: #### L [id number] #### [facility] [address] [place] [address] CKon 04-03-2021 CK [Catalytic activity/Vol] 29 U/L Normal 26-192 [facility] Comment on above: Result Comment: Slig ht Hemolysis, Result may be affected. NOTE NEW NORMAL RANGE DUE TO REAGENT CHANGE Performed By: #### L [id number], [id number], [id number] #### [facility] [address] [place] [address] CRPon 04-03-2021 CRP 2.56 MG/DL Normal LESS THAN 1 [facility] Comment on above: Performed By: #### L [id number], [id number], [id number] #### [facility] [address] [place] [address] [id number] 04-03-2021 [id number] 25.6 NG/ML Low 30.0-100.0 [facility] Comment on above: Result Comment: Defi ciency Less than 20 ng/mL Insufficiency 20 - Less than 30 ng/mL Sufficiency 30 - 100 ng/mL Performed By: #### L [id number], [id number], [id number] #### [facility] [address] [place] [address] LABORATORYOrdered By: Frederic Killian on 03-03-2021 Albumin BCP dye [Mass/Vol] 3.4 G/dL Invalid Interpretation Code 3.4 - 4.8 G/dL AO ADM SS Albumin/Globulin [Mass ratio] 1.1 {ratio} Invalid Interpretation Code 1.1 - 2.5 ratio AO ADM SS ALP [Catalytic activity/Vol] 110 U/L Invalid Interpretation Code 40 - 135 U/L AO ADM SS ALT With P-5'-P [Catalytic activity/Vol] 17 U/L Invalid Interpretation Code 16 - 63 U/L AO ADM SS AST With P-5'-P [Catalytic activity/Vol] 15 U/L Invalid Interpretation Code 10 - 40 U/L AO ADM SS Bilirubin [Mass/Vol] 0.4 mg/dL Invalid Interpretation Code 0.2 - 1.0 mg/dL AO ADM SS Calcium [Mass/Vol] 9.3 mg/dL Invalid Interpretation Code 8.4 - 10.2 mg/dL AO ADM SS Chloride [Moles/Vol] 100 mmol/L Invalid Interpretation Code 98 - 107 mmol/L AO ADM SS CO2 [Moles/Vol] 30 mmol/L Invalid Interpretation Code 23 - 31 mmol/L AO ADM SS Creatinine [Mass/Vol] 0.75 mg/dL Invalid Interpretation Code 0.70 - 1.30 mg/dL AO ADM SS CRP [Mass/Vol] 3.8 mg/dL Invalid Interpretation Code 0.0 - 0.9 mg/dL AO ADM SS Electrolyte Balance 10.0 mEq/L Invalid Interpretation Code 4.0 - 15.0 mEq/L AO ADM SS Globulin 3.1 G/dL Invalid Interpretation Code AO ADM SS Glucose [Mass/Vol] 120 mg/dL Invalid Interpretation Code 83 - 110 mg/dL AO ADM SS Potassium [Moles/Vol] 4.5 mmol/L Invalid Interpretation Code 3.5 - 5.1 mmol/L AO ADM SS Protein [Mass/Vol] 6.5 G/dL Invalid Interpretation Code 6.4 - 8.2 G/dL AO ADM SS Sodium [Moles/Vol] 140 mmol/L Invalid Interpretation Code 136 - 145 mmol/L AO ADM SS TSH Qn 1.63 m[IU]/L Invalid Interpretation Code 0.36 - 3.74 mcIU/mL AO ADM SS Urea nitrogen [Mass/Vol] 13 mg/dL Invalid Interpretation Code 7 - 18 mg/dL AO ADM SS Urea nitrogen/Creatinine [Mass ratio] 17 ratio Invalid Interpretation Code 7 - 27 ratio AO ADM SS LABORATORYOrdered By: Baldo Gasca on 03-03-2021 Basophil, Absolute 0.10 103/mcL Invalid Interpretation Code 0.00 - 0.19 10^3/mcL AO Auto Heme SS Basophils/100 WBC (Bld) 0.6 % Invalid Interpretation Code 0.0 - 2.5 % AO Auto Heme SS Eosinophil, Absolute 0.20 103/mcL Invalid Interpretation Code 0.00 - 0.40 10^3/mcL AO Auto Heme SS Eosinophils/100 WBC (Bld) 2.3 % Invalid Interpretation Code 0.0 - 7.0 % AO Auto Heme SS Erythrocyte distribution width (RBC) [Ratio] 16.2 % Invalid Interpretation Code 11.5 - 14.5 % AO Auto Heme SS ESR 15 minute reading (Bld) [Velocity] 36 mm/hr Invalid Interpretation Code 0 - 20 mm/hr AO Man Heme SS Hematocrit (Bld) [Volume fraction] 38.5 % Invalid Interpretation Code 42.0 - 52.0 % AO Auto Heme SS Hemoglobin (Bld) [Mass/Vol] 12.6 G/dL Invalid Interpretation Code 14.0 - 18.0 G/dL AO Auto Heme SS Lymphocyte, Absolute 1.10 103/mcL Invalid Interpretation Code 0.77 - 3.85 10^3/mcL AO Auto Heme SS Lymphocytes/100 WBC (Bld) 12.9 % Invalid Interpretation Code 10.0 - 50.0 % AO Auto Heme SS MCH (RBC) [Entitic mass] 28.8 pg Invalid Interpretation Code 27.0 - 31.2 pg AO Auto Heme SS MCHC (RBC) [Mass/Vol] 32.7 G/dL Invalid Interpretation Code 31.8 - 35.4 G/dL AO Auto Heme SS MCV (RBC) [Entitic vol] 88.0 fL Invalid Interpretation Code 80.0 - 94.0 fL AO Auto Heme SS Monocyte, Absolute 0.70 103/mcL Invalid Interpretation Code 0.15 - 1.00 10^3/mcL AO Auto Heme SS Monocytes/100 WBC (Bld) 8.0 % Invalid Interpretation Code 1.7 - 13.0 % AO Auto Heme SS Neutrophil, Absolute 6.70 103/mcL Invalid Interpretation Code 2.85 - 6.16 10^3/mcL AO Auto Heme SS Neutrophils/100 WBC (Bld) 76.2 % Invalid Interpretation Code 37.0 - 80.0 % AO Auto Heme SS Platelet mean volume (Bld) [Entitic vol] 7.6 fL Invalid Interpretation Code 7.4 - 10.4 fL AO Auto Heme SS Platelets (Bld) [#/Vol] 450 103/mcL Invalid Interpretation Code 130 - 400 10^3/mcL AO Auto Heme SS RBC (Bld) [#/Vol] 4.38 106/mcL Invalid Interpretation Code 4.04 - 6.13 10^6/mcL AO Auto Heme SS WBC (Bld) [#/Vol] 8.80 103/mcL Invalid Interpretation Code 4.60 - 10.80 10^3/mcL AO Auto Heme SS LABORATORYOrdered By: SYSTEM SYSTEM on 03-03-2021 GFR 122 ml/min/1.73sqm Invalid Interpretation Code AO Chemistry S GFR Non- 101 ml/min/1.73sqm Invalid Interpretation Code AO Chemistry S LABORATORYOrdered By: Pat Dumont on 03-03-2021 Uric Acid Lvl 4.2 mg/dL Invalid Interpretation Code 3.5 - 7.2 mg/dL AO ADM SS Vital Signs Date Time Vital Sign Value Performing Clinician Kellie yeboah 10-28-2024 18:59-0400 Diastolic blood pressure 66 mm[Hg] Dr. Armida Bueno DO Work Phone: [place] 10-28-2024 18:59-0400 Heart rate 89 /min Dr. Armida Bueno DO Work Phone: [place] 10-28-2024 18:59-0400 Respiratory rate 16 /min Dr. Armida Bueno DO Work Phone: [place] 10-28-2024 18:59-0400 SaO2% (BldA) [Mass fraction] 93 % Dr. Armida Bueno DO Work Phone: [place] 10-28-2024 18:59-0400 Systolic blood pressure 130 mm[Hg] Dr. Armida Bueno DO Work Phone: [place] 10-28-2024 17:11-0400 Body temperature 98.4 [degF] Dr. Armida Bueno DO Work Phone: [place] 10-28-2024 14:56-0400 Body height 170.[address] Armida Bueno DO Work Phone: [place] 10-28-2024 14:56-0400 Body weight [address] Armida Bueno DO Work Phone: [place] 10-26-2024 15:05-0400 Inhaled oxygen flow rate 2 L/min Dr. Armida Bueno DO Work Phone: [place] 10-21-2024 16:42-0400 Body mass index (BMI) [Ratio] 24.1 kg/m2 Dr. Armida Bueno DO Work Phone: [place] 09-30-2023 10:22-0400 Body height 166.3 cm Brittni Luu MD Work Phone: [facility] 09-30-2023 10:22-0400 Body mass index (BMI) [Ratio] 27.34 kg/m2 Brittni Luu MD Work Phone: [facility] 09-30-2023 10:22-0400 Body weight 75.6 kg Brittni Luu MD Work Phone: [facility] 09-30-2023 10:22-0400 Diastolic blood pressure 80 mm[Hg] Brittni Luu MD Work Phone: [facility] 09-30-2023 10:22-0400 Heart rate 74 /min Brittni Luu MD Work Phone: [facility] 09-30-2023 10:22-0400 Respiratory rate 16 /min Brittni Luu MD Work Phone: [facility] 09-30-2023 10:22-0400 SaO2% (BldA) [Mass fraction] 95 % Brittni Luu MD Work Phone: [facility] 09-30-2023 10:22-0400 Systolic blood pressure 130 mm[Hg] Brittni Luu MD Work Phone: [facility] 08-30-2023 08:44-0400 Diastolic Blood Pressure Non-Invasive 84 mm[Hg] ANDREEA POWERS MD [facility] 08-30-2023 08:44-0400 Heart rate 79 /min ANDREEA POWERS MD [facility] 08-30-2023 08:44-0400 Respiratory rate 18 /min ANDREEA POWERS MD [facility] 08-30-2023 08:44-0400 Systolic Blood Pressure Non-Invasive 150 mm[Hg] ANDREEA POWERS MD [facility] 08-30-2023 07:19-0400 Diastolic Blood Pressure Non-Invasive 90 mm[Hg] ANDREEA POWERS MD [facility] 08-30-2023 07:19-0400 Heart rate 78 /min ANDREEA POWERS MD [facility] 08-30-2023 07:19-0400 Respiratory rate 18 /min ANDREEA POWERS MD [facility] 08-30-2023 07:19-0400 Systolic Blood Pressure Non-Invasive 152 mm[Hg] ANDREEA POWERS MD [facility] 08-30-2023 07:00-0400 Diastolic Blood Pressure Non-Invasive 92 mm[Hg] ANDREEA POWERS MD [facility] 08-30-2023 07:00-0400 Heart rate 80 /min ANDREEA POWERS MD [facility] 08-30-2023 07:00-0400 Respiratory rate 20 /min ANDREEA POWERS MD [facility] 08-30-2023 07:00-0400 Systolic Blood Pressure Non-Invasive 157 mm[Hg] ANDREEA POWERS MD [facility] 08-30-2023 06:28-0400 Blood Pressure Cuff Size ANDREEA POWERS MD [facility] 08-30-2023 06:28-0400 Blood Pressure Location ANDREEA POWERS MD [facility] 08-30-2023 06:28-0400 Blood Pressure Method ANDREEA POWERS MD [facility] 08-30-2023 06:28-0400 Body height 170.2 cm ANDREEA POWERS MD [facility] 08-30-2023 06:28-0400 Body temperature 96.8 [degF] ANDREEA POWERS MD [facility] 08-30-2023 06:28-0400 Body weight 77.3 kg ANDREEA POWERS MD [facility] 08-30-2023 06:28-0400 Heart rate 74 /min ANDREEA POWERS MD [facility] 08-30-2023 06:28-0400 Reason For Taking VItal Signs ANDREEA POWERS MD [facility] 02-08-2023 11:54-0500 Body temperature 98.42 [degF] MAY VAN NUYS EMERGENCY PLANNING AND RESPONSE MANAGER-[employer] [facility] 02-08-2023 11:54-0500 Diastolic Blood Pressure Non-Invasive 68 mm[Hg] MAY [employer]ING AND RESPONSE MANAGER[employer] [facility] 02-08-2023 11:54-0500 Heart rate 88 /min MAY VAN [employer] EMERGENCY PLANNING AND RESPONSE MANAGER-[employer] [facility] 02-08-2023 11:54-0500 Reason For Taking VItal Signs MAY VAN NUYS EMERGENCY PLANNING AND RESPONSE MANAGER-[employer] [facility] 02-08-2023 11:54-0500 Respiratory rate 18 /min MAY V[employer] EMERGENCY PLANNING AND RESPONSE MANAGER-[employer] [facility] 02-08-2023 11:54-0500 Systolic Blood Pressure Non-Invasive 158 mm[Hg] MAY [employer]ANNING AND RESPONSE MANAGER[employer] [facility] 02-08-2023 06:21-0500 Body temperature 99.14 [degF] MAY [employer] PLANNING AND RESPONSE MANAGER[employer] [facility] 02-08-2023 06:21-0500 Diastolic Blood Pressure Non-Invasive 72 mm[Hg] MAY [employer]ING AND RESPONSE MANAGER[employer] [facility] 02-08-2023 06:21-0500 Heart rate 84 /min MAY [employer] PLANNING AND RESPONSE MANAGER[employer] [facility] 02-08-2023 06:21-0500 Respiratory rate 18 /min MAY V[employer] EM[employer] PLANNING AND RESPONSE MANAGER-[employer] [facility] 02-08-2023 06:21-0500 Systolic Blood Pressure Non-Invasive 126 mm[Hg] MAY [employer] AND RESPONSE MANAGER[employer] [facility] 02-08-2023 04:50-0500 Body weight 72.5 kg MAY [employer]ING AND RESPONSE MANAGER[employer] [facility] 02-08-2023 03:49-0500 Body temperature 97.52 [degF] MAY [employer]ING AND RESPONSE MANAGER[employer] [facility] 02-08-2023 03:49-0500 Diastolic Blood Pressure Non-Invasive 86 mm[Hg] MAY [employer]ING AND RESPONSE MANAGER[employer] [facility] 02-08-2023 03:49-0500 Heart rate 78 /min MAY [employer]ING AND RESPONSE MANAGER[employer] [facility] 02-08-2023 03:49-0500 Respiratory rate 18 /min MAY [employer]ING AND RESPONSE MANAGER[employer] [facility] 02-08-2023 03:49-0500 Systolic Blood Pressure Non-Invasive 155 mm[Hg] [employer] AND RESPONSE MANAGER[employer] [facility] 02-08-2023 01:12-0500 Heart rate 85 /min [employer] AND RESPONSE MANAGER[employer] [facility] 02-08-2023 00:55-0500 Body height 170 cm MAY [employer] PL[employer]ING AND RESPONSE MANAGER[employer] [facility] 02-08-2023 00:55-0500 Body weight 77.3 kg MAY [employer] EM[employer] PLANNING AND RESPONSE MANAGER[employer] [facility] 02-08-2023 00:55-0500 Body weight 26.75 kg/m2 MAY VAN [employer] PLANNING AND RESPONSE MANAGER-[employer] [facility] 02-08-2023 00:36-0500 Body height 170 cm WM VAN [employer] PLANNING AND RESPONSE MANAGER[employer] [facility] 02-08-2023 00:36-0500 Body weight 77.3 kg MAY VAN [employer] EM[employer] PLANNING AND RESPONSE MANAGER[employer] [facility] 02-08-2023 00:36-0500 Body weight 26.75 kg/m2 MAY V[employer] PLANNING AND RESPONSE MANAGER-[employer] [facility] 02-08-2023 00:00-0500 Heart rate 78 /min MAY [employer]ING AND RESPONSE MANAGER[employer] [facility] 06-26-2021 09:54-0400 Diastolic Blood Pressure NBP [address] SAVITA OLIVIER MD [facility] 06-26-2021 09:54-0400 Heart rate 80 /min DR SAVITA OLIVIER MD [facility] 06-26-2021 09:54-0400 Respiratory rate 18 /min DR SAVITA OLIVIER MD [facility] 06-26-2021 09:54-0400 Systolic Blood Pressure NBP [address] SAVITA OLIVIER MD [facility] 06-26-2021 09:51-0400 Diastolic Blood Pressure NBP [address] SAVITA OLIVIER MD [facility] 06-26-2021 09:51-0400 Heart rate 79 /min DR SAVITA OLIVIER MD [facility] 06-26-2021 09:51-0400 Respiratory rate 22 /min DR SAVITA OLIVIER MD [facility] 06-26-2021 09:51-0400 Systolic Blood Pressure NBP [address] SAVITA OLIVIER MD [facility] 06-26-2021 09:45-0400 Diastolic Blood Pressure NBP [address] SAVITA OLIVIER MD [facility] 06-26-2021 09:45-0400 Heart rate 78 /min DR SAVITA OLIVIER MD [facility] 06-26-2021 09:45-0400 Respiratory rate 24 /min DR SAVITA OLIVIER MD [facility] 06-26-2021 09:45-0400 Systolic Blood Pressure NBP [address] SAVITA OLIVIER MD [facility] 06-26-2021 07:37-0400 Body height 170.[address] SAVITA OLIVIER MD [facility] 06-26-2021 07:37-0400 Body temperature 97.7 [degF] DR SAVITA OLIVIER MD [facility] 06-26-2021 07:37-0400 Body weight [address] SAVITA OLIVIER MD [facility] 06-26-2021 07:37-0400 diastolic 83 mm[Hg] DR SAVITA OLIVIER MD [facility] 06-26-2021 07:37-0400 Heart rate 89 /min DR SAVITA OLIVIER MD [facility] 06-26-2021 07:37-0400 systolic 127 mm[Hg] DR SAVITA OLIVIER MD [facility] Encounters Encounter Date Encounter Type Care Provider Facility Start: 10-28-2024 Non-patient / Non-visit Dr. Esther Grimm MD -[facility] Work Phone: Start: 10-28-2024 ambulatory Waldo Hearney Facility:[facility] [place] Start: 10-28-2024 Non-patient / Non-visit Dr. Waldo pacheco MD -[facility] Start: 10-27-2024 Non-patient / Non-visit Dr. Esther Grimm MD -[facility] Work Phone: Start: 10-26-2024 ambulatory Andrew Figueroa Faci lity:[facility] Start: 10-26-2024 End: 10-28-2024 Evaluation and management of inpatient Dr. Andrew Figueroa MD -[facility] Work Phone: Start: 10-05-2024 End: 10-06-2024 Emergency department patient visit ALF SARATH [facility] Start: 10-05-2024 End: 10-05-2024 Emergency department patient visit ANDREEA POWERS MD [facility] Start: 10-05-2024 End: 10-05-[address] Armida Bueno DO Work Phone: -Laboratory Start: 10-05-2024 End: 10-05-2024 Patient encounter procedure Cheri Cordova -Laboratory Work Phone: Start: 10-05-2024 End: 10-05-2024 ambulatory Cheri Cordova Facility:[place] Start: 07-15-2024 End: 08-07-[address] ARMIDA BUENO DO Facility:[facility] Start: 07-15-2024 End: 08-07-2024 Physical therapy management CHINMAY SUÁREZ MD [facility] Start: 06-30-2024 End: 06-30-[address] ARMIDA BUENO DO Facility:[facility] Start: 06-30-2024 End: 06-30-[address] ARMIDA BUENO DO [facility] Start: 04-20-2024 End: 04-20-[address] Armida Bueno DO Work Phone: [place] Work Phone: Start: 04-20-2024 End: 04-20-[address] Andrew Figueroa MD -Laboratory Work Phone: Start: 04-20-2024 End: 04-20-2024 ambulatory Andrew Figueroa Facility:[place] Start: 01-02-2024 ambulatory BRITTNI Dumont acility:[facility] Start: 09-30-2023 ambulatory BRITTNI Dumont acility:[facility] Start: 09-30-2023 End: 09-30-2023 Patient encounter procedure Brittni Luu MD Work Phone: [facility] [place] Comment on above: Encounter for medica l examination to establish care (Primary Dx); Coronary artery disease involving nenana coronary artery of nenana heart without angina pectoris; SOB (shortness of breath); Personal history of fall; Hypertensive kidney disease, benign; Pure hypercholesterolemia; Adjustment disorder with depressed mood; Benign prostatic hyperplasia without lower urinary tract symptoms Start: 09-30-2023 End: 09-30-2023 Patient encounter status Brittni Luu MD Work Phone: [facility] Work Phone: Start: 09-30-2023 End: 09-30-2023 ambulatory BRITTNI LUU Facility:[facility] Start: 09-30-2023 Encounter for genera l adult medical examination without abnormal findings BRITTNI LUU [facility] Start: 09-18-2023 Orders Only Juan Manuel MD Work Phone: Cardiology Comment on above: Coronary artery dise ase involving nenana coronary artery without angina pectoris, unspecified whether nenana or transplanted heart (Primary Dx) Appointment (CALLED PT TO SCHEDULE CARDIOLOGY APPT/NO ANSWER, LEFT VM) Start: 09-12-2023 Telephone encounter No One (Historic al) Referring Physician Comment on above: External Referrals/r esources Start: 08-30-2023 End: 08-30-2023 Emergency department patient visit ANDREEA POWERS MD [facility] Start: 08-06-2023 End: 08-06-[address] ARMIDA BUENO DO Facility:[facility] Start: 03-27-2023 End: 03-27-[address] ARMIDA BUENO DO Facility:[facility] Start: 02-07-2023 End: 02-08-[address] ARMIDA BUENO DO Facility:[facility] Start: 02-07-2023 End: 02-08-2023 Observation WM DODD APRN-[employer] [facility] Start: 10-08-2022 End: 10-08-2022 ambulatory [place] Work Phone: Start: 10-08-2022 End: 10-08-2022 [facility] Start: 09-26-2022 End: 09-26-[address] ARMIDA BUENO DO Facility:[facility] Start: 09-19-2022 End: 09-19-2022 ambulatory PAULINA CALLAHAN EMERGENCY PLANNING AND RESPONSE MANAGER-[employer] Facility:[facility] Start: 09-19-2022 End: 09-19-2022 Patient encounter procedure PAULINA CALLAHAN EMERGENCY PLANNING AND RESPONSE MANAGER-[employer] [facility] [facility] Start: 09-14-2022 ambulatory PAULINA CALLAHAN EMERGENCY PLANNING AND RESPONSE MANAGER-[employer] PORTER F acility:B Start: 04-10-2022 End: 04-10-2022 ambulatory [place] Work Phone: Start: 04-10-2022 End: 04-10-2022 [facility] Start: 03-28-2022 End: 04-01-[address] ARMIDA BUENO DO [facility] Start: 10-03-2021 End: 10-03-2021 [facility] Start: 09-28-2021 End: 09-28-[address] ARMIDA BUENO DO [facility] Start: 06-26-2021 End: 06-26-[address] SAVITA OLIVIER MD [facility] Start: 04-12-2021 End: 04-12-2021 Patient encounter procedure ALLIE CARTER MD [facility] Start: 04-03-2021 End: 04-03-2021 Subsequent hospital visit by physician Allie Carter MD Work Phone: IF NERIS ENRIQUE Comment on above: M25.59 Start: 03-03-2021 End: 03-03-[address] ARMIDA BUENO DO [facility] Start: 11-15-2020 End: 01-10-2021 Physical therapy management ROSANNE WOODRUFF DO [facility] Procedures Date Procedure Procedure Detail Performing Clinician Start: 10-28-2024 MRI of brain without contrast Dr. Armida Bueno DO Work Phone: Start: 10-28-[address] Armida Bueno DO Work Phone: Start: 10-27-2024 CT angiography of he ad and neck Dr. Armida Bueno DO Work Phone: Start: 10-27-2024 CT of head without contrast Dr. Armida Bueno DO Work Phone: Start: 10-26-2024 Cysto,TUR,Prostate,O lympus (Not Applicable) Dr. Armida Bueno DO Work Phone: Start: 10-26-2024 Cystoscopy and destr uction of bladder lesion Dr. Armida Bueno DO Work Phone: Start: 10-21-[address] Armida Bueno DO Work Phone: Start: 10-05-2024 Assay of prostate sp ecific antigen total Dr. Armida Bueno DO Work Phone: Comment on above: This test was perfor med using the [employer] tPSA method. Measured values of a patient sample can vary depending on the testing procedure used. PSA values determined on patient samples by different testing procedures cannot be used interchangeably. If there is a change in PSA assays while monitoring therapy, sequential testing should be performed to confirm baseline values. Start: 09-30-2023 Ecg routine ecg w/le ast 12 lds i&r only Brittni Luu MD Work Phone: Start: 09-12-2020 Cardiac catheterization ROSANNE WOODRUFF DO Start: 05-15-2018 Catheterization of l eft heart ROSANNE WOODRUFF DO Comment on above: Stent placed. Start: 05-15-2018 Percutaneous coronar y intervention ROSANNE WOODRUFF DO Colonoscopy ROSANNE WOODRUFF D O Plan of Treatment Date Care Activity Detail Author Start: 10-28-2024 Patient discharge [facility] Start: 10-28-2024 Telemedicine consult ation with patient [place] Start: 10-27-2024 Consultation [facility] Start: 10-26-2024 [facility] Start: 10-26-2024 Referral to service [facility] Start: 10-26-2024 Admission procedure [facility] Start: 10-25-2024 Removal of urinary catheter [place] Start: 10-25-2024 [facility] Start: 10-23-2024 Referral to service [facility] Start: 10-22-2024 Measuring intake and output [place] Start: 10-22-2024 Referral to occupati onal therapist [place] Start: 10-22-2024 Referral to service [facility] Start: 10-22-2024 Removal of urinary catheter [place] Start: 10-21-2024 End: 10-22-2024 [place] Start: 10-21-2024 Application of intermittent pneumatic compression device [place] Start: 10-21-2024 Following clinical pathway protocol [place] Start: 10-21-2024 Measuring intake and output [place] Start: 10-21-2024 Ambulation therapy management [place] Start: 10-21-2024 Assessment of risk o f venous thromboembolism [place] Start: 10-21-2024 Catheterization of vein [place] Start: 10-21-2024 Deep breathing and coughing exercises [place] Start: 10-21-2024 Documentation procedure [place] Start: 10-21-2024 Following clinical pathway protocol [place] Start: 10-21-2024 Irrigation of urinar y bladder [place] Start: 10-21-2024 Provision of activit y privileges [place] Start: 10-21-2024 Taking patient vital signs [place] Start: 10-21-2024 Vital signs measurements [place] Start: 10-21-2024 Admission procedure [facility] Start: 09-29-2024 Annual PCP Team Bender Hand lynette Disease Visit Annual PCP Team Chronic Disease Visit [facility] Start: 03-19-2024 End: 03-19-2024 Patient encounter procedure 03/19/2024 10:45 AM EST Office Visit Cardiology [address] [place] [address] Juan Manuel MD [address] [place] [address] CAD; atherosclerotic heart disease of nenana coronary artery w/o angina pectoris Cardiology Comment on above: CAD; atherosclerotic heart disease of nenana coronary artery w/o angina pectoris Start: 03-19-2024 End: 03-19-2024 ambulatory 03/19/2024 10:15 AM EST Results Only Cardiology [address] [place] [id number] CAD; atherosclerotic heart disease of nenana coronary artery w/o angina pectoris Cardiology Comment on above: CAD; atherosclerotic heart disease of nenana coronary artery w/o angina pectoris Start: 01-02-2024 End: 01-02-2024 Patient encounter procedure 01/02/2024 2:20 PM EST Office Visit Family Medicine [facility] [address] [place] [address] Brittni Luu MD [address] [place], [place] [address] 3 month follow up [facility] Medicine [facility] Comment on above: 3 month follow up Start: 12-06-2023 End: 12-06-2023 Patient encounter procedure 12/06/2023 9:40 AM EDT Office Visit Cardiology [address] [place] [address] Kel Ramyvaleria Nails, DO [address] [place] [address] Coronary artery disease involving nenana coronary artery of nenana heart without angina pectoris [I25.10] Cardiology Comment on above: Coronary artery dise ase involving nenana coronary artery of nenana heart without angina pectoris [I25.10] Start: 10-20-2023 Influenza vaccination Influenza Vacc ine (#1) [facility] Start: 09-30-2023 End: 12-30-2023 CBC W Auto Differential panel - Blood COMPLETE BLOOD COUNT AND DIFFERENTIAL Lab Routine SOB (shortness of breath) Coronary artery disease involving nenana coronary artery of nenana heart without angina pectoris Expected: 09/30/2023, Expires: 12/30/2023 [facility] Work Phone: Comment on above: Expected: 09/30/2023 , Expires: 12/30/2023 Start: 09-30-2023 End: 12-30-2023 Comprehensive metabolic 2000 panel - Serum or Plasma COMPREHENSIVE METABOLIC PANEL Lab Routine SOB (shortness of breath) Coronary artery disease involving nenana coronary artery of nenana heart without angina pectoris Expected: 09/30/2023, Expires: 12/30/2023 [facility] Comment on above: Expected: 09/30/2023 , Expires: 12/30/2023 Start: 09-30-2023 End: 12-30-2023 LIPID PANEL, NONFASTING LIPID PANEL, NONFASTING Lab Routine Coronary artery disease involving nenana coronary artery of nenana heart without angina pectoris Expected: 09/30/2023, Expires: 12/30/2023 [facility] Comment on above: Expected: 09/30/2023 , Expires: 12/30/2023 Start: 09-30-2023 End: 12-30-2023 Natriuretic peptide.B prohormone N-Terminal [Mass/volume] in Serum or Plasma NT PRO BNP Lab Routine SOB (shortness of breath) Coronary artery disease involving nenana coronary artery of nenana heart without angina pectoris Expected: 09/30/2023, Expires: 12/30/2023 [facility] Comment on above: Expected: 09/30/2023 , Expires: 12/30/2023 Start: 09-30-2023 End: 09-30-2023 Patient encounter procedure 09/30/2023 10:20 AM EDT Office Visit Family Medicine Tg [address] [place] [address] Brittni Luu MD [address] [place] [address] [facility] Comment on above: Establish care Start: 02-18-2023 Advance Directive Discussion Advance Directive Discussion [facility] Start: 10-19-2022 Covid-19 Vaccine () Covid-19 Vaccine () [facility] Start: 10-19-2022 Covid-19 Vaccine () Covid-19 Vaccine () [facility] Start: 02-18-2021 ADVANCE DIRECTIVE DISCUSSION ADVANCE DIRECTIVE DISCUSSION [facility] Start: 10-19-2020 Influenza vaccination INFLUENZA (#1) [facility] Start: 2008 Pneumococcal Vaccine : 65+ (1 of 1 - PCV) Pneumococcal Vaccine: 65+ (1 of 1 - PCV) [facility] Start: 2008 PNEUMOVAX AGE 65 AND OVER WITH 5YR LOOKBACK (#1) PNEUMOVAX AGE 65 AND OVER WITH 5YR LOOKBACK (#1) [facility] Start: 2003 RSV Vaccine (1 - 1-d ose 60+ series) RSV Vaccine (1 - 1-dose 60+ series) [facility] Start: 1993 SHINGRIX VACCINE (1 of 2) GIVNES GRIX VACCINE (1 of 2) [facility] Start: 1988 [facility] Start: 1988 Diabetes Screening Diabetes Screenin g [facility] Start: 1962 Urine microalbumin profile [facility] Start: 1961 Anxiety Screening Anxiety Screening [facility] Start: 1961 Depression Screening Depression Scre ening [facility] Start: 1961 Hepatitis B surface antibody level LDL Cholesterol [facility] Start: 1961 HEPATITIS C SCREENING HEPATITIS C SC REENING [facility] Start: 1955 Adult depression screening assessment DEPRESSION SCREENING [facility] Start: 1948 COVID-19 VACCINE (1) COVID-19 VACCIN E (1) [facility] End: 09-17-2024 ECG COMPLETE ECG COMPLETE ECG Routine Coronary artery disease involving nenana coronary artery without angina pectoris, unspecified whether nenana or transplanted heart 1 Occurrences starting 09/18/2023 until 09/17/2024 [facility] Work Phone: Comment on above: 1 Occurrences starti ng 09/18/2023 until 09/17/2024 ECG COMPLETE ECG COMPLETE ECG 09/30/2023 11:32 AM EDT [facility] End: 10-29-2024 XR Chest PA and Lateral XR CHEST 2V FRONTAL/LAT Radiology STAT SOB (shortness of breath) Coronary artery disease involving nenana coronary artery of nenana heart without angina pectoris 1 Occurrences starting 09/30/2023 until 10/29/2024 [facility] Comment on above: 1 Occurrences starti ng 09/30/2023 until 10/29/2024 Immunizations Immunization Date Immunization Notes Care Provider [facility] 12-05-2023 influenza, high dose seasonal, preservative-free; Translations: [Fluad PF Prefilled Syringe ] DR ARMIDA BUENO DO [facility] 07-29-[address] ARMIDA BUENO DO [facility] 05-07-[address] ARMIDA BUENO DO [facility] 11-29-2022 influenza, high dose seasonal, preservative-free; Translations: [Fluad Quadrivalent PF ] WM DODD APRN-AUTO PORTER [facility] Comment on above: Result Comment: [id number] [id number] 11-29-2022 influenza virus vaccine, unspecified formulation Brittni Luu MD Work Phone: [facility] 11-24-2021 COVID-19, mRNA, LNP- S, bivalent booster, PF, 30 mcg/0.3 mL dose; Translations: [Pfizer-BioNTech COVID-19 (12y+) Bivalent Booster Vaccine PF] DR ARMIDA BUENO DO [facility] 11-24-2021 SARSCoV2 mRNA([id number]+)bi dima vac; Translations: [Pfizer-BioNTech COVID-19 (12y+) Bivalent Booster Vaccine PF] MAY JU EMERGENCY PLANNING AND RESPONSE MANAGER-AUTO PORTER [facility] 11-21-2021 influenza, high dose seasonal, preservative-free DR ARMIDA BUENO DO [facility] 12-14-2020 SARS-CoV-2 (COVID-19 ) mRNA-[address] ARMIDA BUENO DO [facility] Comment on above: Result Comment: 2021: [id number] 11-24-2020 influenza, high dose seasonal, preservative-free; Translations: [Fluad Quadrivalent PF ] ROSANNE WOODRUFF DO [facility] 04-25-2020 COVID-19, mRNA, LNP- S, PF, 100 mcg/ 0.5 mL dose; Translations: [Moderna COVID-19 Vaccine] ROSANNE WOODRUFF DO [facility] 03-28-2020 SARS-CoV-2 (COVID-19 ) mRNA-1273 vaccine ROSANNE WOODRUFF DO [facility] 11-09-2019 influenza, injectabl e, quadrivalent, preservative free; Translations: [Fluarix PF Quadrivalent ] ROSANNE WOODRUFF DO [facility] 12-04-2018 influenza, injectabl e, quadrivalent, preservative free; Translations: [Fluarix PF Quadrivalent ] ROSANNE WOODRUFF DO [facility] 12-05-2017 influenza virus vaccine, unspecified formulation ROSANNE WOODRUFF DO [facility] 11-16-2016 influenza virus vaccine, unspecified formulation ROSANNE WOODRUFF DO [facility] 12-14-2015 influenza virus vaccine, unspecified formulation ROSANNE WOODRUFF DO [facility] 12-14-2015 pneumococcal conjuga te vaccine, 13 valent ROSANNE WOODRUFF DO [facility] 11-12-2014 influenza virus vaccine, unspecified formulation ROSANNE WOODRUFF DO [facility] 11-18-2013 influenza virus vaccine, unspecified formulation ROSANNE WOODRUFF DO [facility] 10-14-2013 influenza virus vaccine, unspecified formulation ROSANNE WOODRUFF DO [facility] 10-14-2013 pneumococcal polysaccharide vaccine, 23 valent ROSANNE WOODRUFF DO [facility] 02-18-2013 zoster vaccine, live ROSANNE WOODRUFF DO [facility] 10-07-2012 zoster vaccine, live ROSANNE WOODRUFF DO [facility] Payers Date Payer Category Payer Private Health Insurance [id number] 2024 Unknown [id number] 2024 Self-pay [id number] 2024 Unknown [id number] 2019 Medicare HUMANA MEDICARE HUMANA MEDICARE PPO [id number] 2019-Present [phone] [address] [address] [place] [address] PPO [id number] 2012 Medicare [id number] 2005 Private Health Insurance [facility] CHOICE PLUS [id number] 2005-Present [phone] [address] [place] [address] HMO [id number] 1943 Unknown [id number] 2.16.840.1.070158.3.579.2.6 1943 Unknown [id number] 2.16.840.1.717391.3.579.2.6 1943 Unknown [id number] 2.16.840.1.549728.3.579.2.6 27 1943 Unknown [id number] 2.16.840.1.812733.3.579.2.6 27 1943 Unknown [id number] 2.16.840.1.678327.3.579.2.6 27 1943 Unknown [id number] 2.16.840.1.489354.3.579.2.6 27 1943 Unknown [id number] 2.16.840.1.512041.3.579.2.6 27 1943 Unknown [id number] 2.16.840.1.618531.3.579.2.6 27 1943 Unknown [id number] 2.16.840.1.253323.3.579.2.6 27 1943 Unknown [id number] 2.16.840.1.821810.3.579.2.6 27 1943 Unknown [id number] 2.16.840.1.983710.3.579.2.6 27 Unknown [id number] 2.16.840.1.285654.3.579.2.4 62 Unknown [id number] 2.16.840.1.024639.3.579.2.4 62 Unknown [id number] 2.16.840.1.168604.3.579.2.4 62 Unknown [id number] 2.16.840.1.690907.3.579.2.4 62 Unknown [id number] 2.16.840.1.224085.3.579.2.4 62 Unknown [id number] 2.16.840.1.565279.3.579.2.4 62 Social History Date Type Detail Facility Start: 10-02-2018 End: 10-28-2024 Ex-smoker (finding) [facility] Comment on above: No Tobacco/Smoke Exp osure Start: 1945 Sex Assigned At Male A [facility] Tobacco smoking stat us COIS Never smoked tobacco [facility] Start: 12-26-2005 Alcohol intake 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 (finding) [facility] Start: 1945 Sex Assigned At Not on file [facility] Start: 09-30-2023 Gender identity Not on file [facility] History of tobacco use Current smoker [facility] History of tobacco use Cigarette Smoker C [facility] Start: 09-30-2023 Cigarettes smoked current (pack per day) - Reported 1 [facility] Start: 09-30-2023 Tobacco use and exposure Smoke less tobacco non-user [facility] Start: 09-30-2023 Alcohol intake Ex-drinker (finding) [facility] National Score (1-10 0), lower number is lower risk 56 [facility] Start: 01-12-2019 End: 05-01-2024 Sex Male (finding) [place] Sexual Orientation [facility] Medical Equipment Procedure Code Equipment Code Equipment Original Text Equipment Identifier Dates Cystoscopy with transurethral resection of prostate (TURP) ([id number]) Polymeric ureteral stent [id number] FDA Start: 10-21-2024 Goals Date Patient Goal Desired Activity /State Functional Status Date Assessment Result Facility 10-28-2024 Functional status Ambulates;Bathroom Priv ilege [place] Work Phone: 08-30-2023 Functional Status Up ad monique [facility] 08-30-2023 Functional Status [facility] 02-08-2023 Functional Status Driving, emergency management 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, 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, Personal ADL, Social participation [facility] 02-08-2023 Functional Status Identified as high risk, Fall ID band on, Room located near nursing station, Bed alert on, Door open, Room check performed [facility] 02-08-2023 Functional Status [facility] 02-08-2023 Functional Status [facility] 02-08-2023 Functional Status bilateral knee high removed/off [facility] 06-26-2021 Functional Status [facility] Mental Status Date Assessment Result Facility 10-28-2024 Cognitive function Voice/Name [facility] Work Phone: 08-30-2023 Mental Status Orientation Oriented x 4 [facility] 08-30-2023 Mental Status [facility] 02-08-2023 Mental Status Oriented x 4 [facility] 02-08-2023 Mental Status [facility] 02-07-2023 Mental Status [facility] 06-26-2021 Mental Status [facility] 06-26-2021 Mental Status [facility] Clinical Notes 06-26-2021 to 10-28-2024 Note Date & Type Note Facility 10-28-2024 Progress note Note Date/Time October 28, 2024 10:55am [facility] Medical Records Department [address] [place] [address] Progress Note - Hospitalist 10/28/24924 MR#: [id number] Acct: [id number] Name: RAI MARS Rep #:[id number] 2 : 1945 79 From: Oscar toussaint MD PCP: Dr. Armida Bueno, DO Status:ADM I N Location: [place] [address] Subjective Subjective No significant change from yesterday. Small discussion with his significant other this gaze palsy that he has not necessitated a stroke alert has been goingon since before his admission and otherwise he is at his baseline Objective Data Objective Data Vital Signs: Vital Signs Temp Pulse Resp BP Pulse Ox O2 Del Method O2 Flow Rate 98.5 F 79 16 130/74 H 90 Room Air 2 10/28/24 07:55 10/28/24 07:55 10/28/24 07:55 10/28/24 07:55 10/28/24 07:55 10/28/24 07:55 10/26/24 15:05 Oxygen Flow Rate (L/min) 2 Oxygen Delivery Method Room Air Weight: 154 lb 5.177 oz Body Mass Index (BMI) 24.1 Intake & Output: Intake and Output for Last 24 Hours 10/27/24 10/28/24 10/29/24 03:59 03:59 03:59 Intake Total 800.25 / 800.25 Output Total 6950 / 6950 1900 / 1900 200 / 200 Balance -6950 / -6950 -1099.75 / -1099.75 -200 / -200 Lab / Micro Data 10/28/24 05:03 10/28/24 05:03 Labs: Laboratory Results - last 24 hr 10/28/24 05:03: WBC 12.0 H, RBC 2.89 L, Hgb 9.3 L, Hct 27.8 L, MCV 96.2 H, MCH 32.2 H, MCHC 33.5, RDW Std Deviation 45.7 H, RDW Coeff of Damari 12.8, Plt Count 266, MPV 9.3, Immature Gran % (Auto) 0.400, Neut % (Auto) 73.1 H, Lymph % (Auto)13.9 L, [place] % (Auto) 9.6, Eos % (Auto) 2.5, Baso % (Auto) 0.5, Absolute Neuts (auto) 8.8 H, Absolute Lymphs (auto) 1.67, Nucleated RBC % 0, Sodium 137, Potassium 3.9, Chloride 102, Carbon Dioxide 26.5, Anion Gap 9, BUN 16, Creatinine 0.66 L, Estim Creat Clear Calc 67.71, Est GFR (MDRD) Non-Af 94, BUN/Creatinine Ratio 24.0 H, Glucose 114 H, Calcium 8.7, Magnesium 2.0 Radiography Diagnostic Testing: Radiology Impression Brain CT 10/27/24 09:01 IMPRESSION: 1. No evidence of intracranial hemorrhage or acute ischemia. 2. Changes of chronic microvascular ischemia and volume loss. Findings and impression of this report were called directly to the charge nurse,Lorraine, at 0922 hours Eastern standard time. She relay the information to the covering physician at the time of the phone call. Reading Location: [facility] Head/Neck CTA 10/27/24 09:10 IMPRESSION: 1. No large vessel occlusion. 2. No aneurysm or flow-limiting stenosis. 3. Significant amount of soft plaque at the carotid bulb, proximal internal carotid artery and external carotid artery on the left. Medial course of the distal common carotid; it is located anterior to thelongus colli muscle. Consider nonemergent vascular surgical consultation and possible carotid ultrasound to assess plaque.. Reading Location: [facility] Physical Exam Narrative General: Alert, Oriented x1-2, Cooperative, No apparent distress HEENT: Atraumatic, PERRLA, EOMI, Normocephalic Oral: Moist Mucosa Neck: Supple, No JVD Lungs: Diminished, Normal air movement, No rhonchi, No wheeze, No rales Cardiovascular: Regular rate, Regular Rhythm, Normal S1, Normal S2, No murmurs Abdomen: Soft, Non Tender, Non-Distended, No Hepato-splenomegaly Extremities: No edema, Capillary Refill Less than 3 Seconds Skin: No rashes, No breakdown Musculoskeletal: No Tenderness to Palpation of Joints or Extremities Neurological: To follow commands but would not move his eyes or follow my finger, gaze remained fixed straightforward but visual acuity was intact, Motor Exam 5/5 strength throughout, Sensory exam intact to light touch and pain Psych/Mental Status: Normal Affect, Appropriate Assessment & Plan Assessment/Plan (1) Essential hypertension: PLAN: Plan 1. Anesthesia side effect ? Responded to a stroke alert because of the gaze palsy though he was keenly interactive and moves all of his extremities and was able to follow commands ? Concern for possible delirium versus side effect from anesthesia as he has hada TURP on 10/21/2024 and then a cystoscopy on 10/26/2024 because of [place] trauma andgross hematuria ? CT of the head and neck does show some large vessel stenosis in his carotids, carotid ultrasound demonstrates a greater than 70% stenosis of the left ICA, will obtain an MRI but he can likely follow-up with vascular as an outpatient ? Continue with Lipitor ? I do think that he should be stable for discharge later today ? He does have a history of Alzheimer's which is exacerbating his current presentation. 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 Management per primary ? Continue with Flomax and finasteride 3. Essential HTN/HLD ? Continue with his home blood pressure medications ? Will monitor make adjustments as necessary ? Continue Zetia 4. Anxiety/depression/Alzheimer's dementia ? Recent diagnosis of his dementia in the last month and a half ? Continue with his home Effexor as well as memantine ? Will monitor make adjustments as necessary DVT: SCDs Charges/Coding Visit Charges Inpatient E&M: 59128 Subs Hosp L2 NIHSS NIHSS Nursing Documentation NIHSS Nursing Documentation: NIHSS: Ischemic Stroke/TIA Start: 10/27/24 10:08 Freq: [id number] Status: Active Protocol: Activity Type Activity Date Activity User E-sign Co-sign Detail Recorded Client Recorded Date Recorded By Document 10/28/24 07:55 KG [id number] 10/28/24 08:30 KG 10/28/24 07:55 NIH Stroke Scale [NIHSS] A score of 0 is normal or asymptomatic . Total possible score is 42. Inpatient: RN or Physician to activate a stroke alert for onset of new stroke symptoms or with NIHSS increase >/= 3 points. Following change in neurological status, NIHSS will be performed per physician order or more frequently PRN. -1a. Level of Consciousness 0 - Alert; keenly responsive -1b. LOC Questions 0 - Answers BOTH questions correctly -1c. LOC Commands 0 - Performs BOTH tasks correctly -2. Best Gaze 1 - Partial gaze palsy; -3. Visual 2 - Complete hemianopia -4. Facial Palsy 0 - Normal symmetrical movements -5a. Left Arm 0 - No drift; arm holds 90 ( or 45) degrees for full 10 seconds -5b. Right Arm 0 - No drift; arm holds 90 ( or 45) degrees for full 10 seconds -6a. Left Leg 0 - No drift; leg holds 30- degree position for full 5 seconds -6b. Right Leg 0 - No drift; leg holds 30- degree position for full 5 seconds -7. Limb Ataxia 0 - Absent -8. Sensory 0 - Normal; no sensory loss -9. Best Language 1 - Mild-to- moderate aphasia; -10. Dysarthria 0 - Normal -11. Extinction and Inattention 0 - No abnormality -Total 4 Query Text:A score of 0 is normal or asymptomatic. Total possible score is 42 . ED: Notify Physician for NIHSS increase by > / = 3 points. Inpatient: RN or Physician to activate a stroke alert for NIHSS increase of > / = 3 points. Coma Scale [Assess] -Eye Opening Spontaneous -Motor Obeys Commands -Verbal Oriented [Total] -Coma Scale Total 15 10/28/24 1055 <Electronically signed by Oscar Grimm MD> Cosigner Signature (if applicable): CC: ~ Signed [place] Work Phone: [phone] Consult note Author Birgit Henrandes [place] Note Date/Time October 28, 2024 10:31am [facility] Medical Records Department [address] [place] [address] Consultation - Neurology 10/28/24 1004 MR#: [id number] Acct: [id number] Name: RAI MARS Rep #:[id number] 3 : 1945 79 From: Birgit Hernandes MD PCP: Dr. Armida Bueno, DO Status:ADM I N Location: [place] [address] Assessment and Plan: Neuro Assessment/Plan RAI MARS is a 79 M being evaluated by Teleneurology for fixed midline gaze. He is still struggling to move eyes in the horizontal plane to command. Intermittently will move laterally when looking at a noise but unable to do so to command. Exam otherwise normal. CTH/CTA without significant findings. Unclearetiology, will need to rule out stroke in the horizontal gaze centers(midbrain/evert). Diagnosis: horizontal gaze palsy Plan: - MRI Brain without I personally attended this patient and spent a total time of 35 minutes evaluating this patient including clinical assessment, review of chart, medical history imaging, and determining appropriate treatment and workup. HPI Consult Data Date of Consult: 10/28/24 HPI Narrative HPI Narrative: RAI MARS, is a 79 M who was admitted post-TURP. He under went cystoscopy yesterday for Bagley trauma/gross hematuria. After procedure a stroke alert was called due to fixed midline gaze. He was alert and responsive, moving all extremities but had difficulty moving eyes to either direction. CTH showed atrophy but no acute findings. CTA did not show LVO or flow limiting stenosis. Today he still has difficult moving eyes horizontally voluntarily/to command. Occasional lateral movement automatically to look a noise. He denies any other symptoms. FORMERLY [facility] Medical History Wears glasses Wears dentures Alzheimer dementia Anxiety Arthritis Prostate disease Former smoker Sleep apnea Leg cramps History of stress test Cardiology follow-up encounter Frequent falls BPH (benign prostatic hyperplasia) Atherosclerosis of coronary artery of [place] heart without angina pectoris B12 deficiency Depression Hyperlipidemia Essential hypertension Rheumatoid arthritis Home Medications ?Medication ?Instructions ?Recorded ?Last Taken ?Type amlodipine 2.5 mg tablet 2.5 mg PO QDAY BP 10/29/23 0 10/21/24 History cholecalciferol (vitamin D3) 50 50 mcg PO QDAY SUPPLEM ENT 10/29/23 10/20/24 History mcg (2,000 unit) tablet cyanocobalamin (vitamin B-12) 1,000 mcg PO QHS SUPPLEM ENT 10/29/23 10/20/24 History 1,000 mcg tablet ezetimibe 10 mg tablet (Zetia) 10 mg PO QDAY CHOLESTER OL 10/29/23 10/21/24 History finasteride 5 mg tablet 5 mg PO QDAY PROSTATE 10/21/24 History losartan 50 mg tablet 50 mg PO QDAY BP 10/29/23 History vitamins A,C,Y-zafb-ulxhud 4,296 1 cap PO BID EYE FOZIA MIN 10/29/23 10/20/24 History mcg-226 mg-90 mg capsule (PreserVision AREDS) RELIEF FACTOR 1 tab PO BID ARTHRITIS 10/1410/20/24 History coenzyme Q10 100 mg capsule (Co 200 mg PO DAILY SUPPLE MENT 10/14/24 10/20/24 History Q-10) diphenhydramine 25 1 tab PO QHS PRN sleep 10/1410/14/24 History mg-acetaminophen 500 mg tablet memantine 10 mg tablet (Namenda) 10 mg PO BID ALZEHEIM ERS 10/14/24 10/21/24 History tamsulosin 0.4 mg capsule 0.4 mg PO QHS PROSTATE 10/1410/20/24 History venlafaxine 150 mg 150 mg PO DAILY DEPRESSION 0 10/14/24 10/21/24 History capsule,extended release 24 hr ciprofloxacin HCl 500 mg tablet 500 mg PO BID #10 tabs 10/21/24 Unknown Rx (Cipro) Allergy/AdvReac Type Severity Reaction Status Date / Time isosorbide Allergy Unknown unknown Verified 10/21/24 11:57 Sulfa (Sulfonamide Allergy Unknown unknown Verified 10/21/24 11:57 Antibiotics) sulfacetamide Allergy Unknown unknown Verified 10/21/24 11:57 Family History Father Cancer Brother Suicide Surgical History History of coronary artery stent placement History of colonoscopy History of left heart catheterization (09/12/20) Social History Smoking Status: Former smoker how long ago did patient quit smoking: stopped at age 54 alcohol intake: former year quit: 39y substance use type: does not use caffeine: Yes Type: carbonated beverages Number of servings: 2 Vital Signs Vital Signs Vital Signs: 10/27/24 14:06 10/27/24 15:34 10/27/24 18:00 Temperature 97.4 F L 97.9 F Temperature Source Oral Oral Pulse Rate 85 90 Respiratory Rate 16 14 Respiratory Effort Respiratory Depth Respiratory Pattern Blood Pressure 101/57 L 98/68 Blood Pressure Mean 71 78 Blood Pressure Source Monitor Monitor Blood Pressure Position Sitting Sitting Blood Pressure Location Right Arm Right Arm Pulse Ox 93 93 94 Oxygen Delivery Method Room Air Room Air 10/27/24 22:00 10/27/24 23:00 10/28/24 02:00 Temperature 97.4 F L 98.2 F Temperature Source Temporal Temporal Pulse Rate 88 88 Respiratory Rate 18 18 Respiratory Effort Normal Respiratory Depth Normal Respiratory Pattern Normal Blood Pressure 129/68 H 133/65 H Blood Pressure Mean 88 87 Blood Pressure Source Monitor Monitor Blood Pressure Position Semi-Fowlers Semi-Fowlers Blood Pressure Location Left Arm Left Arm Pulse Ox 94 94 Oxygen Delivery Method Room Air Room Air Room Air 10/28/24 06:00 10/28/24 07:55 10/28/24 09:21 Temperature 97.9 F 98.5 F Temperature Source Temporal Oral Pulse Rate 84 79 Respiratory Rate 18 16 Respiratory Effort Normal Respiratory Depth Normal Respiratory Pattern Normal Blood Pressure 137/75 H 130/74 H Blood Pressure Mean 95 92 Blood Pressure Source Monitor Monitor Blood Pressure Position Semi-Fowlers Supine Blood Pressure Location Left Arm Pulse Ox 94 90 Oxygen Delivery Method Room Air Room Air Weight Weight: 70 kg Body Mass Index (BMI) 24.1 EEG Results Procedure Details EEG Procedure Details: RAI MARS is a 79 year old M with a past medical history of , who presents for evaluation of Electroencephalogram on DATE at TIME Physical Exam Eyes Pupil: PERRL Neuro Neuro Narrative: AOx3, CN intact except difficulty with horizontal gaze bilaterally, unable to move eyes from midline to command. Coordination / Balance: [id number] test normal and [id number]-[id number] test normal Speech: speech normal Sensory Exam: double simultaneous stimulation for sensation normal Motor Exam: strength 5/5 throughout, muscle tone normal throughout, no pronator drift, no tremor and no asterixis Pupil Exam: Normal Pupillary Reactivity/Response: bilateral Lab / Micro Data 10/28/24 05:03 10/28/24 05:03 Labs: Laboratory Results - last 24 hr 10/28/24 05:03: WBC 12.0 H, RBC 2.89 L, Hgb 9.3 L, Hct 27.8 L, MCV 96.2 H, MCH 32.2 H, MCHC 33.5, RDW Std Deviation 45.7 H, RDW Coeff of Damari 12.8, Plt Count 266, MPV 9.3, Immature Gran % (Auto) 0.400, Neut % (Auto) 73.1 H, Lymph % (Auto)13.9 L, [place] % (Auto) 9.6, Eos % (Auto) 2.5, Baso % (Auto) 0.5, Absolute Neuts (auto) 8.8 H, Absolute Lymphs (auto) 1.67, Nucleated RBC % 0, Sodium 137, Potassium 3.9, Chloride 102, Carbon Dioxide 26.5, Anion Gap 9, BUN 16, Creatinine 0.66 L, Estim Creat Clear Calc 67.71, Est GFR (MDRD) Non-Af 94, BUN/Creatinine Ratio 24.0 H, Glucose 114 H, Calcium 8.7, Magnesium 2.0 Active Medications Active Medications Active Medications: Current Medications Generic Name Dose Route Start Last Admin Trade Name Freq PRN Reason Stop Dose Admin Acetaminophen 650 mg 10/21/24 15:02 10/27/24 08:36 Acetaminophen 325 Mg Tablet PO 650 mg Q6H PRN PRN Administration Pain Score 1-10 Al Hydroxide/Mg Hydroxide 30 ml 10/21/24 15:02 Mag Hydrox/Al Hydrox/Simeth 30 Ml Udc PO Q4H PRN PRN HEARTBURN Amlodipine Besylate 2.5 mg 10/22/24 10:00 10/28/24 09:29 Amlodipine 2.5 Mg Tablet PO 2.5 mg DAILY LEIGH ANN Administration Protocol Ciprofloxacin HCl 500 mg 10/21/24 22:00 10/28/24 09:29 Ciprofloxacin 500 Mg Tablet PO 500 mg BID LEIGH ANN Administration Diphenhydramine HCl 25 mg 10/21/24 15:10 10/22/24 21:07 Diphenhydramine 25 Mg Capsule PO 25 mg QHS PRN Administration sleep Docusate Sodium 200 mg 10/21/24 22:00 10/28/24 09:28 Docusate Sodium 100 Mg Capsule PO 200 mg BID LEIGH ANN Administration Ezetimibe 10 mg 10/22/24 10:00 10/28/24 09:30 Ezetimibe 10 Mg Tablet PO 10 mg DAILY LEIGH ANN Administration Finasteride 5 mg 10/22/24 10:00 10/28/24 09:30 Finasteride 5 Mg Tablet PO 5 mg DAILY LEIGH ANN Administration Sodium Chloride 250 mls @ 15 mls/hr 10/21/24 16:45 IV .[id number] PRN Saline Flush Sodium Chloride 250 mls @ 15 mls/hr 10/21/24 16:45 IV .[id number] PRN Additional IVPB Infusion Lactated Ringer's 1,000 mls @ 15 mls/hr 10/26/24 11:15 10/27/24 07:18 IV Infused .Q48H LEIGH ANN Infusion Losartan Potassium 50 mg 10/22/24 10:00 10/28/24 09:29 Losartan Potassium 50 Mg Tablet PO 50 mg DAILY LEIGH ANN Administration Protocol Memantine 10 mg 10/21/24 22:00 10/28/24 09:29 Memantine Hydrochloride 10 Mg Tablet PO 10 mg BID LEIGH ANN Administration Metoclopramide HCl 10 mg 10/21/24 15:02 Metoclopramide 10 Mg/2 Ml Vial IV Q8H PRN PRN Nausea/vomiting Multivitamins/Minerals 1 cap 10/21/24 17:00 10/28/24 09:28 Multivitamin (Healthy Eyes) Capsule PO 1 cap BIDCM LEIGH ANN Administration Ondansetron HCl 4 mg 10/21/24 15:02 Ondansetron 4 Mg/2 Ml Vial IV Q8H PRN NAUSEA/VOMITING Oxycodone HCl 5 - 10 mg 10/21/24 15:02 10/27/24 00:29 Oxycodone 5 Mg Tablet PO 5 mg Q6H PRN PRN Administration Pain Score 4-10 Sodium Chloride 10 - 40 ml 10/21/24 16:45 10/22/24 05:49 0.9% Saline Lock 10 Ml Syringe IV 40 ml UD PRN Administration SALINE FLUSH Tamsulosin HCl 0.4 mg 10/21/24 22:00 10/27/24 22:23 Tamsulosin Hcl 0.4 Mg Capsule PO 0.4 mg QHS LEIGH ANN Administration Venlafaxine HCl 150 mg 10/22/24 10:00 10/28/24 09:29 Venlafaxine Xr 150 Mg Capsule PO 150 mg DAILY LEIGH ANN Administration NIHSS NIHSS Nursing Documentation NIHSS Nursing Documentation: NIHSS: Ischemic Stroke/TIA Start: 10/27/24 10:08 Freq: [id number] Status: Active Protocol: Activity Type Activity Date Activity User E-sign Co-sign Detail Recorded Client Recorded Date Recorded By Document 10/28/24 07:55 KG [id number] 10/28/24 08:30 KG 10/28/24 07:55 NIH Stroke Scale [NIHSS] A score of 0 is normal or asymptomatic . Total possible score is 42. Inpatient: RN or Physician to activate a stroke alert for onset of new stroke symptoms or with NIHSS increase >/= 3 points. Following change in neurological status, NIHSS will be performed per physician order or more frequently PRN. -1a. Level of Consciousness 0 - Alert; keenly responsive -1b. LOC Questions 0 - Answers BOTH questions correctly -1c. LOC Commands 0 - Performs BOTH tasks correctly -2. Best Gaze 1 - Partial gaze palsy; -3. Visual 2 - Complete hemianopia -4. Facial Palsy 0 - Normal symmetrical movements -5a. Left Arm 0 - No drift; arm holds 90 ( or 45) degrees for full 10 seconds -5b. Right Arm 0 - No drift; arm holds 90 ( or 45) degrees for full 10 seconds -6a. Left Leg 0 - No drift; leg holds 30- degree position for full 5 seconds -6b. Right Leg 0 - No drift; leg holds 30- degree position for full 5 seconds -7. Limb Ataxia 0 - Absent -8. Sensory 0 - Normal; no sensory loss -9. Best Language 1 - Mild-to- moderate aphasia; -10. Dysarthria 0 - Normal -11. Extinction and Inattention 0 - No abnormality -Total 4 Query Text:A score of 0 is normal or asymptomatic. Total possible score is 42 . ED: Notify Physician for NIHSS increase by > / = 3 points. Inpatient: RN or Physician to activate a stroke alert for NIHSS increase of > / = 3 points. Coma Scale [Assess] -Eye Opening Spontaneous -Motor Obeys Commands -Verbal Oriented [Total] -Coma Scale Total 15 10/28/24 1031 <Electronically signed by Birgit Hernandes MD> Cosigner Signature (if applicable): CC: Dr. Armida uBeno DO; Dr. Andrew Figueroa MD~ Signed [place] Work Phone: 1(270) 707-174709-10-2025 Progress note [facility] Medical Records Department [address] [place] [address] Progress Note - Hospitalist 10/28/24924 MR#: [id number] Acct: [id number] Name: RAI MARS Rep #:[id number] 2 : 1945 79 From: Oscar toussaint MD PCP: Dr. Armida Bueno DO Status:ADM I N Location: [place] [address] Subjective Subjective No significant change from yesterday. Small discussion with his significant other this gaze palsy that he has not necessitated a stroke alert has been goingon since before his admission and otherwisehe is at his baseline Objective Data Objective Data Vital Signs: Vital Signs Temp Pulse Resp BP Pulse Ox O2 Del Method O2 Flow Rate 98.5 F 79 16 130/74 H 90 Room Air 2 10/28/24 07:55 10/28/24 07:55 10/28/24 07:55 10/28/24 07:55 10/28/24 07:55 10/28/24 07:55 10/26/24 15:05 Oxygen Flow Rate (L/min) 2 Oxygen Delivery Method Room Air Weight: 154 lb 5.177 oz Body Mass Index (BMI) 24.1 Intake & Output: Intake and Output for Last 24 Hours 10/27/24 10/28/24 10/29/24 03:59 03:59 03:59 Intake Total 800.25 / 800.25 Output Total 6950 / 6950 1900 / 1900 200 / 200 Balance -6950 / -6950 -1099.75 / -1099.75 -200 / -200 Lab / Micro Data 10/28/24 05:03 10/28/24 05:03 Labs: Laboratory Results - last 24 hr 10/28/24 05:03: WBC 12.0 H, RBC 2.89 L, Hgb 9.3 L, Hct 27.8 L, MCV 96.2 H, MCH 32.2 H, MCHC 33.5, RDW Std Deviation 45.7 H, RDW Coeff of Damari 12.8, Plt Count 266, MPV 9.3, Immature Gran % (Auto) 0.400, Neut % (Auto) 73.1 H, Lymph % (Auto)13.9 L, [place] % (Auto) 9.6, Eos % (Auto) 2.5, Baso % (Auto) 0.5, Absolute Neuts (auto) 8.8 H, Absolute Lymphs (auto) 1.67, Nucleated RBC % 0, Sodium 137, Potassium3.9, Chloride 102, Carbon Dioxide 26.5, Anion Gap 9, BUN 16, Creatinine 0.66 L, Estim Creat Clear Calc 67.71, Est GFR (MDRD) Non-Af 94, BUN/Creatinine Ratio 24.0 H, Glucose 114 H, Calcium 8.7, Magnesium 2.0 Radiography Diagnostic Testing: Radiology Impression Brain CT 10/27/24 09:01 IMPRESSION: 1. No evidence of intracranial hemorrhage or acute ischemia. 2. Changes of chronic microvascular ischemia and volume loss. Findings and impression of this report were called directly to the charge nurse,Lorraine, at 0922 hours Eastern standard time. She relay the information to the covering physician at the time of the phone call. Reading Location: [facility] Head/Neck CTA 10/27/24 09:10 IMPRESSION: 1. No large vessel occlusion. 2. No aneurysm or flow-limiting stenosis. 3. Significant amount of soft plaque at the carotid bulb, proximal internal carotid artery and external carotid artery on the left. Medial course of the distal common carotid; it is located anterior to thelongus colli muscle.Consider nonemergent vascular surgical consultation and possible carotid ultrasound to assess plaque.. Reading Location: [facility] Physical Exam Narrative General: Alert, Oriented x1-2, Cooperative, No apparent distress HEENT: Atraumatic, PERRLA, EOMI, Normocephalic Oral: Moist Mucosa Neck: Supple, No JVD Lungs: Diminished, Normal air movement, No rhonchi, No wheeze, No rales Cardiovascular: Regular rate, Regular Rhythm, Normal S1, Normal S2, No murmurs Abdomen: Soft, Non Tender, Non-Distended, No Hepato-splenomegaly Extremities: No edema, Capillary Refill Less than 3 Seconds Skin: No rashes, No breakdown Musculoskeletal: No Tenderness to Palpation of Joints or Extremities Neurological: To follow commands but would not move his eyes or follow my finger, gaze remained fixed straightforward but visual acuity was intact, Motor Exam 5/5 strength throughout, Sensory exam intact to light touch and pain Psych/Mental Status: Normal Affect, Appropriate Assessment & Plan Assessment/Plan (1) Essential hypertension: PLAN: Plan 1. Anesthesia side effect ? Responded to a stroke alert because of the gaze palsy though he was keenly interactive and moves all of his extremities and was able to follow commands ? Concern for possible delirium versus side effect from anesthesia as he has hada TURP on 10/21/2024 and then a cystoscopy on 10/26/2024 because of Bagley trauma andgross hematuria ? CT of the head and neck does show some large vessel stenosis in his carotids, carotid ultrasound demonstrates a greater than 70% stenosis of the left ICA, will obtain an MRI but he can likely follow-up with vascular as an outpatient ? Continue with Lipitor ? I do think that he should be stable for discharge later today ? He does have a history of Alzheimer's which is exacerbating his current presentation. 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 Management per primary ? Continue with Flomax and finasteride 3. Essential HTN/HLD ? Continue with his home blood pressure medications ? Will monitor make adjustments as necessary ? Continue Zetia 4. Anxiety/depression/Alzheimer's dementia ? Recent diagnosis of his dementia in the last month and a half ? Continue with his home Effexor as well as memantine ? Will monitor make adjustments as necessary DVT: SCDs Charges/Coding Visit Charges Inpatient E&M: 14800 Subs Hosp L2 NIHSS NIHSS Nursing Documentation NIHSS Nursing Documentation: NIHSS: Ischemic Stroke/TIA Start: 10/27/24 10:08 Freq: [id number] Status: Active Protocol: Activity Type Activity Date Activity User E-sign Co-sign Detail Recorded Client Recorded Date Recorded By Document 10/28/24 07:55 KG [id number] 10/28/24 08:30 KG 10/28/24 07:55 NIH Stroke Scale [NIHSS] A score of 0 is normal or asymptomatic . Total possible score is 42. Inpatient: RN or Physician to activate a stroke alert for onset of new stroke symptoms or with NIHSS increase >/= 3 points. Following change in neurological status, NIHSS will be performed per physician order or more frequently PRN. -1a. Level of Consciousness 0 - Alert; keenly responsive -1b. LOC Questions 0 - Answers BOTH questions correctly -1c. LOC Commands 0 - Performs BOTH tasks correctly -2. Best Gaze 1 - Partial gaze palsy; -3. Visual 2 - Complete hemianopia -4. Facial Palsy 0 - Normal symmetrical movements -5a. Left Arm 0 - No drift; arm holds 90 ( or 45) degrees for full 10 seconds -5b. Right Arm 0 - No drift; arm holds 90 ( or 45) degrees for full 10 seconds -6a. Left Leg 0 - No drift; leg holds 30- degree position for full 5 seconds -6b. Right Leg 0 - No drift; leg holds 30- degree position for full 5 seconds -7. Limb Ataxia 0 - Absent -8. Sensory 0 - Normal; no sensory loss -9. Best Language 1 - Mild-to- moderate aphasia; -10. Dysarthria 0 - Normal -11. Extinction and Inattention 0 - No abnormality -Total 4 Query Text:A score of 0 is normal or asymptomatic. Total possible score is 42 . ED: Notify Physician for NIHSS increase by > / = 3 points. Inpatient: RN or Physician to activate a stroke alert for NIHSS increase of > / = 3 points. Coma Scale [Assess] -Eye Opening Spontaneous -Motor Obeys Commands -Verbal Oriented [Total] -Coma Scale Total 15 10/28/24 1055 Cosigner Signature (if applicable): CC: ~ Signed [place]09-10-2025 Consult note [facility] Medical Records Department [address] [place] [address] Consultation - Neurology 10/28/24 1004 MR#: [id number] Acct: [id number] Name: RAI MARS Rep #:[id number] 3 : 1945 79 From: Birgit Hernandes MD PCP: Dr. Armida Bueno, DO Status:ADM I N Location: [place] [address] Assessment and Plan: Neuro Assessment/Plan RAI MARS is a 79 M being evaluated by Teleneurology for fixed midline gaze. He is still struggling to move eyes in the horizontal plane to command. Intermittently will move laterally when looking at a noise but unable to do so to command. Exam otherwise normal. CTH/CTA without significant findings. Unclearetiology, will need to rule out stroke in the horizontal gaze centers(midbrain/evert). Diagnosis: horizontal gaze palsy Plan: - MRI Brain without I personally attended this patient and spent a total time of 35 minutes evaluating this patient including clinical assessment, review of chart, medical history imaging, and determining appropriate treatment and workup. HPI Consult Data Date of Consult: 10/28/24 HPI Narrative HPI Narrative: RAI MARS, is a 79 M who was admitted post-TURP. He under went cystoscopy yesterday for Foleytrauma/gross hematuria. After procedure a stroke alert was called due to fixed midline gaze. He wasalert and responsive, moving all extremities but had difficulty moving eyes to either direction. CTH showed atrophy but no acute findings. CTA did not show LVO or flow limiting stenosis. Today he still has difficult moving eyes horizontally voluntarily/to command. Occasional lateral movement automatically to look a noise. He denies any other symptoms. [facility]LY [facility] Medical History Wears glasses Wears dentures Alzheimer dementia Anxiety Arthritis Prostate disease Former smoker Sleep apnea Leg cramps History of stress test Cardiology follow-up encounter Frequent falls BPH (benign prostatic hyperplasia) Atherosclerosis of coronary artery of [place] heart without angina pectoris B12 deficiency Depression Hyperlipidemia Essential hypertension Rheumatoid arthritis Home Medications ?Medication ?Instructions ?Recorded ?Last Taken ?Type amlodipine 2.5 mg tablet 2.5 mg PO QDAY BP 10/29/23 0 10/21/24 History cholecalciferol (vitamin D3) 50 50 mcg PO QDAY SUPPLEM ENT 10/29/23 10/20/24 History mcg (2,000 unit) tablet cyanocobalamin (vitamin B-12) 1,000 mcg PO QHS SUPPLEM ENT 10/29/23 10/20/24 History 1,000 mcg tablet ezetimibe 10 mg tablet (Zetia) 10 mg PO QDAY CHOLESTER OL 10/29/23 10/21/24 History finasteride 5 mg tablet 5 mg PO QDAY PROSTATE 10/21/24 History losartan 50 mg tablet 50 mg PO QDAY BP 10/29/23 History vitamins A,C,D-gevf-eecdzh 4,296 1 cap PO BID EYE FOZIA MIN 10/29/23 10/20/24 History mcg-226 mg-90 mg capsule (PreserVision AREDS) RELIEF FACTOR 1 tab PO BID ARTHRITIS 10/1410/20/24 History coenzyme Q10 100 mg capsule (Co 200 mg PO DAILY SUPPLE MENT 10/14/24 10/20/24 History Q-10) diphenhydramine 25 1 tab PO QHS PRN sleep 10/1410/14/24 History mg-acetaminophen 500 mg tablet memantine 10 mg tablet (Namenda) 10 mg PO BID ALZEHEIM ERS 10/14/24 10/21/24 History tamsulosin 0.4 mg capsule 0.4 mg PO QHS PROSTATE 10/1410/20/24 History venlafaxine 150 mg 150 mg PO DAILY DEPRESSION 0 10/14/24 10/21/24 History capsule,extended release 24 hr ciprofloxacin HCl 500 mg tablet 500 mg PO BID #10 tabs 10/21/24 Unknown Rx (Cipro) Allergy/AdvReac Type Severity Reaction Status Date / Time isosorbide Allergy Unknown unknown Verified 10/21/24 11:57 Sulfa (Sulfonamide Allergy Unknown unknown Verified 10/21/24 11:57 Antibiotics) sulfacetamide Allergy Unknown unknown Verified 10/21/24 11:57 Family History Father Cancer Brother Suicide Surgical History History of coronary artery stent placement History of colonoscopy History of left heart catheterization (09/12/20) Social History Smoking Status: Former smoker how long ago did patient quit smoking: stopped at age 54 alcohol intake: former year quit: 39y substance use type: does not use caffeine: Yes Type: carbonated beverages Number of servings: 2 Vital Signs Vital Signs Vital Signs: 10/27/24 14:06 10/27/24 15:34 10/27/24 18:00 Temperature 97.4 F L 97.9 F Temperature Source Oral Oral Pulse Rate 85 90 Respiratory Rate 16 14 Respiratory Effort Respiratory Depth Respiratory Pattern Blood Pressure 101/57 L 98/68 Blood Pressure Mean 71 78 Blood Pressure Source Monitor Monitor Blood Pressure Position Sitting Sitting Blood Pressure Location Right Arm Right Arm Pulse Ox 93 93 94 Oxygen Delivery Method Room Air Room Air 10/27/24 22:00 10/27/24 23:00 10/28/24 02:00 Temperature 97.4 F L 98.2 F Temperature Source Temporal Temporal Pulse Rate 88 88 Respiratory Rate 18 18 Respiratory Effort Normal Respiratory Depth Normal Respiratory Pattern Normal Blood Pressure 129/68 H 133/65 H Blood Pressure Mean 88 87 Blood Pressure Source Monitor Monitor Blood Pressure Position Semi-Fowlers Semi-Fowlers Blood Pressure Location Left Arm Left Arm Pulse Ox 94 94 Oxygen Delivery Method Room Air Room Air Room Air 10/28/24 06:00 10/28/24 07:55 10/28/24 09:21 Temperature 97.9 F 98.5 F Temperature Source Temporal Oral Pulse Rate 84 79 Respiratory Rate 18 16 Respiratory Effort Normal Respiratory Depth Normal Respiratory Pattern Normal Blood Pressure 137/75 H 130/74 H Blood Pressure Mean 95 92 Blood Pressure Source Monitor Monitor Blood Pressure Position Semi-Fowlers Supine Blood Pressure Location Left Arm Pulse Ox 94 90 Oxygen Delivery Method Room Air Room Air Weight Weight: 70 kg Body Mass Index (BMI) 24.1 EEG Results Procedure Details EEG Procedure Details: RAI MARS is a 79 year old M with a past medical history of , who presents for evaluation of Electroencephalogram on DATE at TIME Physical Exam Eyes Pupil: PERRL Neuro Neuro Narrative: AOx3, CN intact except difficulty with horizontal gaze bilaterally, unable to move eyes from midline to command. Coordination / Balance: [id number] test normal and [id number] test normal Speech: speech normal Sensory Exam: double simultaneous stimulation for sensation normal Motor Exam: strength 5/5 throughout, muscle tone normal throughout, no pronator drift, no tremor and no asterixis Pupil Exam: Normal Pupillary Reactivity/Response: bilateral Lab / Micro Data 10/28/24 05:03 10/28/24 05:03 Labs: Laboratory Results - last 24 hr 10/28/24 05:03: WBC 12.0 H, RBC 2.89 L, Hgb 9.3 L, Hct 27.8 L, MCV 96.2 H, MCH 32.2 H, MCHC 33.5, RDW Std Deviation 45.7 H, RDW Coeff of Damari 12.8, Plt Count 266, MPV 9.3, Immature Gran % (Auto) 0.400, Neut % (Auto) 73.1 H, Lymph % (Auto)13.9 L, [place] % (Auto) 9.6, Eos % (Auto) 2.5, Baso % (Auto) 0.5, Absolute Neuts (auto) 8.8 H, Absolute Lymphs (auto) 1.67, Nucleated RBC % 0, Sodium 137, Potassium3.9, Chloride 102, Carbon Dioxide 26.5, Anion Gap 9, BUN 16, Creatinine 0.66 L, Estim Creat Clear Calc 67.71, Est GFR (MDRD) Non-Af 94, BUN/Creatinine Ratio 24.0 H, Glucose 114 H, Calcium 8.7, Magnesium 2.0 Active Medications Active Medications Active Medications: Current Medications Generic Name Dose Route Start Last Admin Trade Name Freq PRN Reason Stop Dose Admin Acetaminophen 650 mg 10/21/24 15:02 10/27/24 08:36 Acetaminophen 325 Mg Tablet PO 650 mg Q6H PRN PRN Administration Pain Score 1-10 Al Hydroxide/Mg Hydroxide 30 ml 10/21/24 15:02 Mag Hydrox/Al Hydrox/Simeth 30 Ml Udc PO Q4H PRN PRN HEARTBURN Amlodipine Besylate 2.5 mg 10/22/24 10:00 10/28/24 09:29 Amlodipine 2.5 Mg Tablet PO 2.5 mg DAILY LEIGH ANN Administration Protocol Ciprofloxacin HCl 500 mg 10/21/24 22:00 10/28/24 09:29 Ciprofloxacin 500 Mg Tablet PO 500 mg BID LEIGH ANN Administration Diphenhydramine HCl 25 mg 10/21/24 15:10 10/22/24 21:07 Diphenhydramine 25 Mg Capsule PO 25 mg QHS PRN Administration sleep Docusate Sodium 200 mg 10/21/24 22:00 10/28/24 09:28 Docusate Sodium 100 Mg Capsule PO 200 mg BID LEIGH ANN Administration Ezetimibe 10 mg 10/22/24 10:00 10/28/24 09:30 Ezetimibe 10 Mg Tablet PO 10 mg DAILY LEIGH ANN Administration Finasteride 5 mg 10/22/24 10:00 10/28/24 09:30 Finasteride 5 Mg Tablet PO 5 mg DAILY LEIGH ANN Administration Sodium Chloride 250 mls @ 15 mls/hr 10/21/24 16:45 IV .[id number] PRN Saline Flush Sodium Chloride 250 mls @ 15 mls/hr 10/21/24 16:45 IV .[id number] PRN Additional IVPB Infusion Lactated Ringer's 1,000 mls @ 15 mls/hr 10/26/24 11:15 10/27/24 07:18 IV Infused .Q48H LEIGH ANN Infusion Losartan Potassium 50 mg 10/22/24 10:00 10/28/24 09:29 Losartan Potassium 50 Mg Tablet PO 50 mg DAILY LEIGH ANN Administration Protocol Memantine 10 mg 10/21/24 22:00 10/28/24 09:29 Memantine Hydrochloride 10 Mg Tablet PO 10 mg BID LEIGH ANN Administration Metoclopramide HCl 10 mg 10/21/24 15:02 Metoclopramide 10 Mg/2 Ml Vial IV Q8H PRN PRN Nausea/vomiting Multivitamins/Minerals 1 cap 10/21/24 17:00 10/28/24 09:28 Multivitamin (Healthy Eyes) Capsule PO 1 cap BIDCM LEIGH ANN Administration Ondansetron HCl 4 mg 10/21/24 15:02 Ondansetron 4 Mg/2 Ml Vial IV Q8H PRN NAUSEA/VOMITING Oxycodone HCl 5 - 10 mg 10/21/24 15:02 10/27/24 00:29 Oxycodone 5 Mg Tablet PO 5 mg Q6H PRN PRN Administration Pain Score 4-10 Sodium Chloride 10 - 40 ml 10/21/24 16:45 10/22/24 05:49 0.9% Saline Lock 10 Ml Syringe IV 40 ml UD PRN Administration SALINE FLUSH Tamsulosin HCl 0.4 mg 10/21/24 22:00 10/27/24 22:23 Tamsulosin Hcl 0.4 Mg Capsule PO 0.4 mg QHS LEIGH ANN Administration Venlafaxine HCl 150 mg 10/22/24 10:00 10/28/24 09:29 Venlafaxine Xr 150 Mg Capsule PO 150 mg DAILY LEIGH ANN Administration NIHSS NIHSS Nursing Documentation NIHSS Nursing Documentation: NIHSS: Ischemic Stroke/TIA Start: 10/27/24 10:08 Freq: [id number] Status: Active Protocol: Activity Type Activity Date Activity User E-sign Co-sign Detail Recorded Client Recorded Date Recorded By Document 10/28/24 07:55 KG [id number] 10/28/24 08:30 KG 10/28/24 07:55 NIH Stroke Scale [NIHSS] A score of 0 is normal or asymptomatic . Total possible score is 42. Inpatient: RN or Physician to activate a stroke alert for onset of new stroke symptoms or with NIHSS increase >/= 3 points. Following change in neurological status, NIHSS will be performed per physician order or more frequently PRN. -1a. Level of Consciousness 0 - Alert; keenly responsive -1b. LOC Questions 0 - Answers BOTH questions correctly -1c. LOC Commands 0 - Performs BOTH tasks correctly -2. Best Gaze 1 - Partial gaze palsy; -3. Visual 2 - Complete hemianopia -4. Facial Palsy 0 - Normal symmetrical movements -5a. Left Arm 0 - No drift; arm holds 90 ( or 45) degrees for full 10 seconds -5b. Right Arm 0 - No drift; arm holds 90 ( or 45) degrees for full 10 seconds -6a. Left Leg 0 - No drift; leg holds 30- degree position for full 5 seconds -6b. Right Leg 0 - No drift; leg holds 30- degree position for full 5 seconds -7. Limb Ataxia 0 - Absent -8. Sensory 0 - Normal; no sensory loss -9. Best Language 1 - Mild-to- moderate aphasia; -10. Dysarthria 0 - Normal -11. Extinction and Inattention 0 - No abnormality -Total 4 Query Text:A score of 0 is normal or asymptomatic. Total possible score is 42 . ED: Notify Physician for NIHSS increase by > / = 3 points. Inpatient: RN or Physician to activate a stroke alert for NIHSS increase of > / = 3 points. Coma Scale [Assess] -Eye Opening Spontaneous -Motor Obeys Commands -Verbal Oriented [Total] -Coma Scale Total 15 10/28/24 1031 Cosigner Signature (if applicable): CC: Dr. Armida Bueno DO; Dr. Andrew Figueroa MD~ Signed [place]09-10-2025 Progress note Author Andrew Jai [place] Note Date/Time October 28, 2024 8:29am [facility] Medical Records Department [address] [place] [address] Progress Note - Urology 10/28/2428 MR#: [id number] Acct: [id number] Name: RAI MARS Rep #:[id number] : 1945 79 From: Andrew Figueroa MD PCP: Dr. Armida Bueno DO Status:ADM I N Location: [place] [address] Subjective Subjective Patient was supposed to go to the care home yesterday for rehab but in the morning there was a concern about a possible stroke so discharge was held and heunderwent an evaluation and is currently still going underneath a stroke evaluation by the medical service. This morning I spoke to the patient he knowshe is in [place] equal bilateral strength smile is symmetrical I do not see any physical signs of a stroke he is acting normal. I will leave it up to the medical team to decide whether he really had a stroke or not. At this point themain risk is that he says a catheter in place he could always pull the catheter out again and would be a major setback so organ to take out the catheter today and see if he can urinate if he is able to urinate then we will leave him without a catheter so I remove the catheter this morning for another voiding trial hopefully is able to urinate I was hoping to leave the catheter in longer but the risk is that he could pull the catheter out again so organ to take the catheter out and see if he can go. Objective Data Objective Data Vital Signs: Vital Signs Temp Pulse Resp BP Pulse Ox O2 Del Method O2 Flow Rate 98.5 F 79 16 130/74 H 90 Room Air 2 10/28/24 07:55 10/28/24 07:55 10/28/24 07:55 10/28/24 07:55 10/28/24 07:55 10/28/24 07:55 10/26/24 15:05 Oxygen Flow Rate (L/min) 2 Oxygen Delivery Method Room Air Weight: 70 kg Body Mass Index (BMI) 24.1 Intake & Output: Intake and Output for Last 24 Hours 10/26/24 10/27/24 10/28/24 23:59 23:59 23:59 Intake Total 800.25 / 800.25 Output Total 6950 / 6950 1900 / 1900 200 / 200 Balance -6950 / -6950 -1099.75 / -1099.75 -200 / -200 Lab / Micro Data 10/28/24 05:03 10/28/24 05:03 Labs: Laboratory Results - last 24 hr 10/27/24 08:57: POC Glucose 115 H 10/28/24 05:03: WBC 12.0 H, RBC 2.89 L, Hgb 9.3 L, Hct 27.8 L, MCV 96.2 H, MCH 32.2 H, MCHC 33.5, RDW Std Deviation 45.7 H, RDW Coeff of Damari 12.8, Plt Count 266, MPV 9.3, Immature Gran % (Auto) 0.400, Neut % (Auto) 73.1 H, Lymph % (Auto)13.9 L, [place] % (Auto) 9.6, Eos % (Auto) 2.5, Baso % (Auto) 0.5, Absolute Neuts (auto) 8.8 H, Absolute Lymphs (auto) 1.67, Nucleated RBC % 0, Sodium 137, Potassium 3.9, Chloride 102, Carbon Dioxide 26.5, Anion Gap 9, BUN 16, Creatinine 0.66 L, Estim Creat Clear Calc 67.71, Est GFR (MDRD) Non-Af 94, BUN/Creatinine Ratio 24.0 H, Glucose 114 H, Calcium 8.7, Magnesium 2.0 Radiography Diagnostic Testing: Radiology Impression Brain CT 10/27/24 09:01 IMPRESSION: 1. No evidence of intracranial hemorrhage or acute ischemia. 2. Changes of chronic microvascular ischemia and volume loss. Findings and impression of this report were called directly to the charge nurse,Lorraine, at 0922 hours Eastern standard time. She relay the information to the covering physician at the time of the phone call. Reading Location: [facility] Head/Neck CTA 10/27/24 09:10 IMPRESSION: 1. No large vessel occlusion. 2. No aneurysm or flow-limiting stenosis. 3. Significant amount of soft plaque at the carotid bulb, proximal internal carotid artery and external carotid artery on the left. Medial course of the distal common carotid; it is located anterior to thelongus colli muscle. Consider nonemergent vascular surgical consultation and possible carotid ultrasound to assess plaque.. Reading Location: [id number] 10/28/24 0829 <Electronically signed by Andrew Figueroa MD> Cosigner Signature (if applicable): CC: ~ Signed [place] Work Phone: [phone] 266-305409-10-2025 Progress note [facility] Medical Records Department [address] [place] [address] Progress Note - Urology 10/28/24827 MR#: [id number] Acct: [id number] Name: RAI MARS Shannon Rep #:[id number] : 1945 79 From: Andrew Figueroa MD PCP: Dr. Armida Bueno, DO Status:ADM I N Location: [place] [address] Subjective Subjective Patient was supposed to go to the care home yesterday for rehab but in the morning there was a concern about a possible stroke so discharge was held and heunderwent an evaluation and is currently still going underneath a stroke evaluation by the medical service. This morning I spoke to the patient he knowshe is in [place] equal bilateral strength smile is symmetrical I do not see any physical signs of a stroke he is acting normal. I will leave it up to the medical team to decide whether hereally had a stroke or not. At this point themain risk is that he says a catheter in place he couldalways pull the catheter out again and would be a major setback so organ to take out the catheter today and see if he can urinate if he is able to urinate then we will leave him without a catheter soI remove the catheter this morning for another voiding trial hopefully is able to urinate I was hoping to leave the catheter in longer but the risk is that he could pull the catheter out again so organ to take the catheter out and see if he can go. Objective Data Objective Data Vital Signs: Vital Signs Temp Pulse Resp BP Pulse Ox O2 Del Method O2 Flow Rate 98.5 F 79 16 130/74 H 90 Room Air 2 10/28/24 07:55 10/28/24 07:55 10/28/24 07:55 10/28/24 07:55 10/28/24 07:55 10/28/24 07:55 10/26/24 15:05 Oxygen Flow Rate (L/min) 2 Oxygen Delivery Method Room Air Weight: 70 kg Body Mass Index (BMI) 24.1 Intake & Output: Intake and Output for Last 24 Hours 10/26/24 10/27/24 10/28/24 23:59 23:59 23:59 Intake Total 800.25 / 800.25 Output Total 6950 / 6950 1900 / 1900 200 / 200 Balance -6950 / -6950 -1099.75 / -1099.75 -200 / -200 Lab / Micro Data 10/28/24 05:03 10/28/24 05:03 Labs: Laboratory Results - last 24 hr 10/27/24 08:57: POC Glucose 115 H 10/28/24 05:03: WBC 12.0 H, RBC 2.89 L, Hgb 9.3 L, Hct 27.8 L, MCV 96.2 H, MCH 32.2 H, MCHC 33.5, RDW Std Deviation 45.7 H, RDW Coeff of Damari 12.8, Plt Count 266, MPV 9.3, Immature Gran % (Auto) 0.400, Neut % (Auto) 73.1 H, Lymph % (Auto)13.9 L, [place] % (Auto) 9.6, Eos % (Auto) 2.5, Baso % (Auto) 0.5, Absolute Neuts (auto) 8.8 H, Absolute Lymphs (auto) 1.67, Nucleated RBC % 0, Sodium 137, Potassium3.9, Chloride 102, Carbon Dioxide 26.5, Anion Gap 9, BUN 16, Creatinine 0.66 L, Estim Creat Clear Calc 67.71, Est GFR (MDRD) Non-Af 94, BUN/Creatinine Ratio 24.0 H, Glucose 114 H, Calcium 8.7, Magnesium 2.0 Radiography Diagnostic Testing: Radiology Impression Brain CT 10/27/24 09:01 IMPRESSION: 1. No evidence of intracranial hemorrhage or acute ischemia. 2. Changes of chronic microvascular ischemia and volume loss. Findings and impression of this report were called directly to the charge nurse,Lorraine, at 0922 hours Eastern standard time. She relay the information to the covering physician at the time of the phone call. Reading Location: [id number] Head/Neck CTA 10/27/24 09:10 IMPRESSION: 1. No large vessel occlusion. 2. No aneurysm or flow-limiting stenosis. 3. Significant amount of soft plaque at the carotid bulb, proximal internal carotid artery and external carotid artery on the left. Medial course of the distal common carotid; it is located anterior to thelongus colli muscle.Consider nonemergent vascular surgical consultation and possible carotid ultrasound to assess plaque.. Reading Location: [id number] 10/28/24 0829 Cosigner Signature (if applicable): CC: ~ Signed [place]09-09-2025 Progress note Author Oscar Grimm [place] Note Date/Time October 27, 2024 5:11pm [facility] Medical Records Department [address] [place] [address] Progress Note - Hospitalist 10/27/24 1704 MR#: [id number] Acct: [id number] Name: RAI MARS Rep #:[id number] : 1945 79 From: Oscar toussaint MD PCP: Dr. Armida Bueno, DO Status:ADM I N Location: [place] [id number] Subjective Subjective Called a stroke alert today because his eyes remained fixed forward. However hewas interactive and moves all extremities, and he did not have a gaze deviation Objective Data Objective Data Vital Signs: Vital Signs Temp Pulse Resp BP Pulse Ox O2 Del Method O2 Flow Rate 97.4 F L 85 16 101/57 L 93 Room Air 2 10/27/24 14:06 10/27/24 14:06 10/27/24 14:06 10/27/24 14:06 10/27/24 15:34 10/27/24 14:06 10/26/24 15:05 Oxygen Flow Rate (L/min) 2 Oxygen Delivery Method Room Air Weight: 154 lb 5.177 oz Body Mass Index (BMI) 24.1 Intake & Output: Intake and Output for Last 24 Hours 10/26/24 10/27/24 10/28/24 03:59 03:59 03:59 Intake Total 120 / 120 550.25 / 550.25 Output Total 800 / 800 6950 / 6950 1300 / 1300 Balance -680 / -680 -6950 / -6950 -749.75 / -749.75 Lab / Micro Data 10/26/24 07:35 10/26/24 07:35 Labs: Laboratory Results - last 24 hr 10/27/24 08:57: POC Glucose 115 H Radiography Diagnostic Testing: Radiology Impression Brain CT 10/27/24 09:01 IMPRESSION: 1. No evidence of intracranial hemorrhage or acute ischemia. 2. Changes of chronic microvascular ischemia and volume loss. Findings and impression of this report were called directly to the charge nurseLorraine, at 0922 hours Eastern standard time. She relay the information to the covering physician at the time of the phone call. Reading Location: [id number] Head/Neck CTA 10/27/24 09:10 IMPRESSION: 1. No large vessel occlusion. 2. No aneurysm or flow-limiting stenosis. 3. Significant amount of soft plaque at the carotid bulb, proximal internal carotid artery and external carotid artery on the left. Medial course of the distal common carotid; it is located anterior to thelongus colli muscle. Consider nonemergent vascular surgical consultation and possible carotid ultrasound to assess plaque.. Reading Location: [facility] Physical Exam Narrative General: Alert, Oriented x1-2, Cooperative, No apparent distress HEENT: Atraumatic, PERRLA, EOMI, Normocephalic Oral: Moist Mucosa Neck: Supple, No JVD Lungs: Diminished, Normal air movement, No rhonchi, No wheeze, No rales Cardiovascular: Regular rate, Regular Rhythm, Normal S1, Normal S2, No murmurs Abdomen: Soft, Non Tender, Non-Distended, No Hepato-splenomegaly Extremities: No edema, Capillary Refill Less than 3 Seconds Skin: No rashes, No breakdown Musculoskeletal: No Tenderness to Palpation of Joints or Extremities Neurological: To follow commands but would not move his eyes or follow my finger, gaze remained fixed straightforward but visual acuity was intact, Motor Exam 5/5 strength throughout, Sensory exam intact to light touch and pain Psych/Mental Status: Normal Affect, Appropriate Assessment & Plan Assessment/Plan (1) Essential hypertension: PLAN: Plan 1. TIA versus anesthesia side effect ? Responded to a stroke alert because of the gaze palsy though he was keenly interactive and moves all of his extremities and was able to follow commands ? Concern for possible delirium versus side effect from anesthesia as he has hada TURP on 10/21/2024 and then a cystoscopy on 10/26/2024 because of [place] trauma andgross hematuria ? CT of the head and neck does show some large vessel stenosis in his carotids, will obtain carotid ultrasound ? He does have a history of Alzheimer's which is exacerbating his current presentation. ? 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 Management per primary ? Continue with Flomax and finasteride 3. Essential HTN/HLD ? Continue with his home blood pressure medications ? Will monitor make adjustments as necessary ? Continue Zetia 4. Anxiety/depression/Alzheimer's dementia ? Recent diagnosis of his dementia in the last month and a half ? Continue with his home Effexor as well as memantine ? Will monitor make adjustments as necessary DVT: SCDs Charges/Coding Visit Charges Inpatient E&M: 81068 Subs Hosp L3 NIHSS NIHSS Nursing Documentation NIHSS Nursing Documentation: NIHSS: Ischemic Stroke/TIA Start: 10/27/24 10:08 Freq: [id number] Status: Active Protocol: Activity Type Activity Date Activity User E-sign Co-sign Detail Recorded Client Recorded Date Recorded By Document 10/27/24 14:06 [id number] 10/27/24 14:09 NB 10/27/24 14:06 NIH Stroke Scale [NIHSS] A score of 0 is normal or asymptomatic . Total possible score is 42. Inpatient: RN or Physician to activate a stroke alert for onset of new stroke symptoms or with NIHSS increase >/= 3 points. Following change in neurological status, NIHSS will be performed per physician order or more frequently PRN. -1a. Level of Consciousness 0 - Alert; keenly responsive -1b. LOC Questions 0 - Answers BOTH questions correctly -1c. LOC Commands 0 - Performs BOTH tasks correctly -2. Best Gaze 1 - Partial gaze palsy; -3. Visual 0 - No visual loss -4. Facial Palsy 0 - Normal symmetrical movements -5a. Left Arm 0 - No drift; arm holds 90 ( or 45) degrees for full 10 seconds -5b. Right Arm 0 - No drift; arm holds 90 ( or 45) degrees for full 10 seconds -6a. Left Leg 0 - No drift; leg holds 30- degree position for full 5 seconds -6b. Right Leg 0 - No drift; leg holds 30- degree position for full 5 seconds -7. Limb Ataxia 0 - Absent -8. Sensory 0 - Normal; no sensory loss -9. Best Language 1 - Mild-to- moderate aphasia; -10. Dysarthria 0 - Normal -11. Extinction and Inattention 0 - No abnormality -Total 2 Query Text:A score of 0 is normal or asymptomatic. Total possible score is 42 . ED: Notify Physician for NIHSS increase by > / = 3 points. Inpatient: RN or Physician to activate a stroke alert for NIHSS increase of > / = 3 points. Coma Scale [Assess] -Eye Opening Spontaneous -Motor Obeys Commands -Verbal Confused [Total] -Coma Scale Total 14 10/27/24 8420 <Electronically signed by Oscar Grimm MD> Cosigner Signature (if applicable): CC: ~ Signed [place] Work Phone: 1(311) 743-390609-09-2025 Progress note [facility] Medical Records Department [address] [place] [address] Progress Note - Hospitalist 10/27/24 1703 MR#: [id number] Acct: [id number] Name: RAI MARS Rep #:[id number] : 1945 79 From: Oscar toussaint MD PCP: Dr. Armida Bueno, DO Status:ADM I N Location: [place] [address] Subjective Subjective Called a stroke alert today because his eyes remained fixed forward. However hewas interactive and moves all extremities, and he did not have a gaze deviation Objective Data Objective Data Vital Signs: Vital Signs Temp Pulse Resp BP Pulse Ox O2 Del Method O2 Flow Rate 97.4 F L 85 16 101/57 L 93 Room Air 2 10/27/24 14:06 10/27/24 14:06 10/27/24 14:06 10/27/24 14:06 10/27/24 15:34 10/27/24 14:06 10/26/24 15:05 Oxygen Flow Rate (L/min) 2 Oxygen Delivery Method Room Air Weight: 154 lb 5.177 oz Body Mass Index (BMI) 24.1 Intake & Output: Intake and Output for Last 24 Hours 10/26/24 10/27/24 10/28/24 03:59 03:59 03:59 Intake Total 120 / 120 550.25 / 550.25 Output Total 800 / 800 6950 / 6950 1300 / 1300 Balance -680 / -680 -6950 / -6950 -749.75 / -749.75 Lab / Micro Data 10/26/24 07:35 10/26/24 07:35 Labs: Laboratory Results - last 24 hr 10/27/24 08:57: POC Glucose 115 H Radiography Diagnostic Testing: Radiology Impression Brain CT 10/27/24 09:01 IMPRESSION: 1. No evidence of intracranial hemorrhage or acute ischemia. 2. Changes of chronic microvascular ischemia and volume loss. Findings and impression of this report were called directly to the charge nurse,Lorraine, at 0922 hours Eastern standard time. She relay the information to the covering physician at the time of the phone call. Reading Location: [facility] Head/Neck CTA 10/27/24 09:10 IMPRESSION: 1. No large vessel occlusion. 2. No aneurysm or flow-limiting stenosis. 3. Significant amount of soft plaque at the carotid bulb, proximal internal carotid artery and external carotid artery on the left. Medial course of the distal common carotid; it is located anterior to thelongus colli muscle.Consider nonemergent vascular surgical consultation and possible carotid ultrasound to assess plaque.. Reading Location: [facility] Physical Exam Narrative General: Alert, Oriented x1-2, Cooperative, No apparent distress HEENT: Atraumatic, PERRLA, EOMI, Normocephalic Oral: Moist Mucosa Neck: Supple, No JVD Lungs: Diminished, Normal air movement, No rhonchi, No wheeze, No rales Cardiovascular: Regular rate, Regular Rhythm, Normal S1, Normal S2, No murmurs Abdomen: Soft, Non Tender, Non-Distended, No Hepato-splenomegaly Extremities: No edema, Capillary Refill Less than 3 Seconds Skin: No rashes, No breakdown Musculoskeletal: No Tenderness to Palpation of Joints or Extremities Neurological: To follow commands but would not move his eyes or follow my finger, gaze remained fixed straightforward but visual acuity was intact, Motor Exam 5/5 strength throughout, Sensory exam intact to light touch and pain Psych/Mental Status: Normal Affect, Appropriate Assessment & Plan Assessment/Plan (1) Essential hypertension: PLAN: Plan 1. TIA versus anesthesia side effect ? Responded to a stroke alert because of the gaze palsy though he was keenly interactive and moves all of his extremities and was able to follow commands ? Concern for possible delirium versus side effect from anesthesia as he has hada TURP on 10/21/2024 and then a cystoscopy on 10/26/2024 because of Bagley trauma andgross hematuria ? CT of the head and neck does show some large vessel stenosis in his carotids, will obtain carotidultrasound ? He does have a history of Alzheimer's which is exacerbating his current presentation. ? 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 Management per primary ? Continue with Flomax and finasteride 3. Essential HTN/HLD ? Continue with his home blood pressure medications ? Will monitor make adjustments as necessary ? Continue Zetia 4. Anxiety/depression/Alzheimer's dementia ? Recent diagnosis of his dementia in the last month and a half ? Continue with his home Effexor as well as memantine ? Will monitor make adjustments as necessary DVT: SCDs Charges/Coding Visit Charges Inpatient E&M: 65724 Subs Hosp L3 NIHSS NIHSS Nursing Documentation NIHSS Nursing Documentation: NIHSS: Ischemic Stroke/TIA Start: 10/27/24 10:08 Freq: [id number] Status: Active Protocol: Activity Type Activity Date Activity User E-sign Co-sign Detail Recorded Client Recorded Date Recorded By Document 10/27/24 14:06 [id number] 10/27/24 14:09 10/27/24 14:06 NIH Stroke Scale [NIHSS] A score of 0 is normal or asymptomatic . Total possible score is 42. Inpatient: RN or Physician to activate a stroke alert for onset of new stroke symptoms or with NIHSS increase >/= 3 points. Following change in neurological status, NIHSS will be performed per physician order or more frequently PRN. -1a. Level of Consciousness 0 - Alert; keenly responsive -1b. LOC Questions 0 - Answers BOTH questions correctly -1c. LOC Commands 0 - Performs BOTH tasks correctly -2. Best Gaze 1 - Partial gaze palsy; -3. Visual 0 - No visual loss -4. Facial Palsy 0 - Normal symmetrical movements -5a. Left Arm 0 - No drift; arm holds 90 ( or 45) degrees for full 10 seconds -5b. Right Arm 0 - No drift; arm holds 90 ( or 45) degrees for full 10 seconds -6a. Left Leg 0 - No drift; leg holds 30- degree position for full 5 seconds -6b. Right Leg 0 - No drift; leg holds 30- degree position for full 5 seconds -7. Limb Ataxia 0 - Absent -8. Sensory 0 - Normal; no sensory loss -9. Best Language 1 - Mild-to- moderate aphasia; -10. Dysarthria 0 - Normal -11. Extinction and Inattention 0 - No abnormality -Total 2 Query Text:A score of 0 is normal or asymptomatic. Total possible score is 42 . ED: Notify Physician for NIHSS increase by > / = 3 points. Inpatient: RN or Physician to activate a stroke alert for NIHSS increase of > / = 3 points. Coma Scale [Assess] -Eye Opening Spontaneous -Motor Obeys Commands -Verbal Confused [Total] -Coma Scale Total 14 10/27/24 1711 Cosigner Signature (if applicable): CC: ~ Signed [place]09-09-2025 Hospital Discharge instructionsAdditional [facility]ructions [facility]: [facility] Phone: [phone]) 888-560709-09-2025 Consult note Author Melinda Veliz [place] Note Date/Time October 27, 2024 9:31am [facility] Medical Records Department [address] [place] [address] Counseling Note - Pharmacy 10/27/24 0931 MR#: [id number] Acct: [id number] Name: RAI MARS Rep #:[id number] : 1945 79 From: Melinda Veliz PCP: Dr. Armida Bueno, DO Status:ADM I N Y Location: [place] [address] Pharmacy [place] [facility] Recon[facility] Pharmacy Service has performed discharge medication reconciliation for this patient. The patient's discharge medication list was reviewed for discrepancies and discrepancies were resolved. Medications at Discharge Home Medications amlodipine 2.5 mg tablet 2.5 mg PO QDAY BP 10/29/23 cholecalciferol (vitamin D3) 50 mcg (2,000 unit) tablet 50 mcg PO QDAY SUPPLEMENT 10/29/23 cyanocobalamin (vitamin B-12) 1,000 mcg tablet 1,000 mcg PO QHS SUPPLEMENT 10/29/23 ezetimibe 10 mg tablet (Zetia) 10 mg PO QDAY CHOLESTEROL 10/29/23 finasteride 5 mg tablet 5 mg PO QDAY PROSTATE 10/29/23 losartan 50 mg tablet 50 mg PO QDAY BP 10/29/23 vitamins A,C,R-rpbp-aiqdoa 4,296 mcg-226 mg-90 mg capsule (PreserVision AREDS) 1cap PO BID EYE VITAMIN 10/29/23 RELIEF FACTOR 1 tab PO BID ARTHRITIS 10/14/24 coenzyme Q10 100 mg capsule (Co Q-10) 200 mg PO DAILY SUPPLEMENT 10/14/24 diphenhydramine 25 mg-acetaminophen 500 mg tablet 1 tab PO QHS PRN sleep 10/14/24 memantine 10 mg tablet (Namenda) 10 mg PO BID ALZEHEIMERS 10/14/24 tamsulosin 0.4 mg capsule 0.4 mg PO QHS PROSTATE 10/14/24 venlafaxine 150 mg capsule,extended release 24 hr 150 mg PO DAILY DEPRESSION 10/14/24 ciprofloxacin HCl 500 mg tablet (Cipro) 500 mg PO BID #10 tabs 10/21/24 10/27/24 0931 <Electronically signed by Melinda Veliz> Date _ Melinda Veliz Cosigner Signature (if applicable): Date CC: ~ Signed [place] Work Phone: 1(268) 916-358509-09-2025 Radiology Diagnostic study note [facility] Imaging Services [address] [place] [address] [id number] STROKE CTA Head AND Neck W/Con MR#: [id number] Acct: [id number] Name: RAI MARS Rep #: [id number] 7 : 1945 M 79 From: Lyndsey Darden MD PCP: Dr. Armida Bueno, DO Status: ADM I N Study:STROKE CTA Head AND Neck W/Con Date of Exam: 10/27/24 Exam# [id number] Ordering Dr: Oscar Grimm MD PROCEDURE: STROKE CTA HEAD AND NECK W/CON 10/27/2024 REASON FOR EXAM: CVA TECHNIQUE: Procedure Code: CTCTA.ST.HN Modality: CT Procedure: STROKE CTA HEAD AND NECK W/CON Multiplanar Sagittal and Coronal images were obtained. 3D post processing was performed CONTRAST: Isovue 370 VOLUME: 98 mL One or more dose reduction techniques were used (e.g., Automated exposure control, adjustment of the mA and/or kV according to patient size, use of iterative reconstruction technique). RADIATION DOSE SUMMARY: CTDlvol: 35 mGy DLP: 756 mGycm COMPARISON: Head CT of the same day FINDINGS: Aortic Arch: Normal size and branching pattern. No significant atherosclerotic plaque. Brachiocephalic and Subclavians: Unremarkable RIGHT Carotid: Right CCA: Eccentric calcified and noncalcified plaque at the carotid bulb. Right ICA: Continuation of the aforementioned eccentric calcified and noncalcified plaque into the proximal internal carotid artery. Maximum stenosis (NASCET): Less than 25 % Right ECA: Unremarkable. LEFT Carotid: Left CCA: The distal common carotid takes a medial course anterior to the longuscoli muscle. Minimal amount of calcified plaque but a [id number]-ag-[id number] amount of soft plaque surrounding the carotid bulb and proximal internal carotid and external carotid artery. Left ICA: Soft plaque circumferentially of the proximal portion. Maximum stenosis (NASCET): Less than 50 % Left ECA: 50-69% stenosis near the origin related to soft plaque. Vertebrals: Codominant. Arise from the subclavians. Both vertebrals form the basilar. RIGHT Vertebral: Minimal plaque at the origin. Tortuous. Otherwise patent. LEFT Vertebral: Tortuous. Otherwise patent. Anatomy: [place] anatomy is normal. Aneurysm or avm: No intracranial aneurysms or large vascular malformations are identified. Anterior cerebral arteries: Unremarkable. Middle cerebral arteries: No large vessel occlusion. Otherwise unremarkable. Basilar artery: Unremarkable. Posterior cerebral arteries: Unremarkable. Other major branches of the posterior circulation: Unremarkable. Major venous structures: Unremarkable. Other findings: Neck: No lymphadenopathy. Right mid to upper pole thyroid nodule posteriorly is 16 x 8 x 13 mm. Lungs: Lung apices are clear. Bones: Bones are unremarkable. CT/STROKE CTA Head AND Neck W/Con IMPRESSION: 1. No large vessel occlusion. 2. No aneurysm or flow-limiting stenosis. 3. Significant amount of soft plaque at the carotid bulb, proximal internal carotid artery and external carotid artery on the left. Medial course of the distal common carotid; it is located anterior to thelongus colli muscle.Consider nonemergent vascular surgical consultation and possible carotid ultrasound to assess plaque.. Reading Location: [facility] CC: Dr. Armida Bueno, DO; Dr. Oscar Grimm MD ~ Bar Waiter/Waitress: Signed [place]09-09-2025 Consult note [facility] Medical Records Department [address] [place] [address] Counseling Note - Pharmacy 10/27/24930 MR#: [id number] Acct: [id number] Name: RAI MARS Rep #:[id number] 0 : 1945 79 From: Melinda Veliz PCP: Dr. Armida Bueno DO Status:ADM I N Y Location: [address] Pharmacy [place] [facility] Re[facility] Pharm[facility] Service has performed discharge medication reconciliation for this patient. The patient's discharge medication list was reviewed for discrepancies and discrepancies were resolved. Medications at Discharge Home Medications amlodipine 2.5 mg tablet 2.5 mg PO QDAY BP 10/29/23 cholecalciferol (vitamin D3) 50 mcg (2,000 unit) tablet 50 mcg PO QDAY SUPPLEMENT 10/29/23 cyanocobalamin (vitamin B-12) 1,000 mcg tablet 1,000 mcg PO QHS SUPPLEMENT 10/29/23 ezetimibe 10 mg tablet (Zetia) 10 mg PO QDAY CHOLESTEROL 10/29/23 finasteride 5 mg tablet 5 mg PO QDAY PROSTATE 10/29/23 losartan 50 mg tablet 50 mg PO QDAY BP 10/29/23 vitamins A,C,L-kqal-aaeuwl 4,296 mcg-226 mg-90 mg capsule (PreserVision AREDS) 1cap PO BID EYE VITAMIN 10/29/23 RELIEF FACTOR 1 tab PO BID ARTHRITIS 10/14/24 coenzyme Q10 100 mg capsule (Co Q-10) 200 mg PO DAILY SUPPLEMENT 10/14/24 diphenhydramine 25 mg-acetaminophen 500 mg tablet 1 tab PO QHS PRN sleep 10/14/24 memantine 10 mg tablet (Namenda) 10 mg PO BID ALZEHEIMERS 10/14/24 tamsulosin 0.4 mg capsule 0.4 mg PO QHS PROSTATE 10/14/24 venlafaxine 150 mg capsule,extended release 24 hr 150 mg PO DAILY DEPRESSION 10/14/24 ciprofloxacin HCl 500 mg tablet (Cipro) 500 mg PO BID #10 tabs 10/21/24 10/27/24 0931 Date _ Melinad Gonzalesignradha Signature (if applicable): Date CC: ~ Signed [place]09-09-2025 Radiology Diagnostic study note [facility] Imaging Services [address] [place] [address] STROKE Brain/Head without Cont MR#: [id number] Acct: [id number] Name: RAI MARS Rep #: [id number] 6 : 1945 79 From: Lyndsey Darden MD PCP: Dr. Armida Bueno, DO Status: ADM I N Study:STROKE Brain/Head without Cont Date of Exam: 10/27/24 Exam# [id number] Ordering Dr: Wood Figueroa MD PROCEDURE: STROKE BRAIN/HEAD WITHOUT CONT 10/27/2024 REASON FOR EXAM: STROKE ALERT TECHNIQUE: Procedure Code: CTBR.ST Modality: CT Procedure: STROKE BRAIN/HEAD WITHOUT CONT Coronal and Sagittal reconstruction series were provided. One or more dose reduction techniques were used (e.g., Automated exposure control, adjustment of the mA and/or kV according to patient size, use of iterative reconstruction technique. RADIATION DOSE SUMMARY: CTDlvol: 45 mGy DLP: <1000 mGycm COMPARISON: None FINDINGS: The patient is slightly malpositioned in the CT gantry on the mold yarn supervisor image. Brain: There is no evidence of hemorrhage, acute ischemia or mass. No extra- axial fluid collection,midline shift or mass effect. Low-density is seen in the periventricular white matter and deep white matter of the frontal and parietal lobes. Benign mineralization is seen in the basal ganglia. CSF Spaces: Moderate generalized cerebral atrophy Sinuses/Mastoids: Clear. Bones: Intact. Bilateral lens implants are present. Cavernous and supraclinoid internal carotid artery atherosclerotic plaque is present. CT/STROKE Brain/Head without Cont IMPRESSION: 1. No evidence of intracranial hemorrhage or acute ischemia. 2. Changes of chronic microvascular ischemia and volume loss. Findings and impression of this report were called directly to the charge nurse,Lorraine, at 0922 hours Eastern standard time. She relay the information to the covering physician at the time of the phone call. Reading Location: [id number] CC: Dr. Armida Bueno DO; Dr. Andrew Figueroa MD ~ Bar Waiter/Waitress: Signed [place]09-09-2025 Discharge summary Author Andrew Figueroa [place] Note Date/Time October 27, 2024 7:18am [facility] Medical Records Department [address] [place] [address] Discharge Summary 10/27/24 0717 MR#: [id number] Acct: [id number] Name: RAI MARS Rep #:[id number] 1 : 1945 79 From: Andrew Figueroa MD PCP: Dr. Armida Bueno DO Status:ADM I N [place] [facility] Providers Date of Admission: 10/26/24 Date of Discharge: 10/27/24 Primary Care Physician: Dr. Armida Bueno DO Reason For Visit: TURP Medications at Discharge Home Medications amlodipine 2.5 mg tablet 2.5 mg PO QDAY BP 10/29/23 cholecalciferol (vitamin D3) 50 mcg (2,000 unit) tablet 50 mcg PO QDAY SUPPLEMENT 10/29/23 cyanocobalamin (vitamin B-12) 1,000 mcg tablet 1,000 mcg PO QHS SUPPLEMENT 10/29/23 ezetimibe 10 mg tablet (Zetia) 10 mg PO QDAY CHOLESTEROL 10/29/23 finasteride 5 mg tablet 5 mg PO QDAY PROSTATE 10/29/23 losartan 50 mg tablet 50 mg PO QDAY BP 10/29/23 vitamins A,C,B-osfw-mtfblq 4,296 mcg-226 mg-90 mg capsule (PreserVision AREDS) 1cap PO BID EYE VITAMIN 10/29/23 RELIEF FACTOR 1 tab PO BID ARTHRITIS 10/14/24 coenzyme Q10 100 mg capsule (Co Q-10) 200 mg PO DAILY SUPPLEMENT 10/14/24 diphenhydramine 25 mg-acetaminophen 500 mg tablet 1 tab PO QHS PRN sleep 10/14/24 memantine 10 mg tablet (Namenda) 10 mg PO BID ALZEHEIMERS 10/14/24 tamsulosin 0.4 mg capsule 0.4 mg PO QHS PROSTATE 10/14/24 venlafaxine 150 mg capsule,extended release 24 hr 150 mg PO DAILY DEPRESSION 10/14/24 ciprofloxacin HCl 500 mg tablet (Cipro) 500 mg PO BID #10 tabs 10/21/24 Hospital Course Summary of Care Provided Hospital Course: 5 79-year-old male status post TURP the first night after surgery pulled out hiscatheter and tore his urethra causing significant bleeding that the catheter wasput in voiding trial was done after this he failed a voiding trial and he pulledout a second catheter to take him back to surgery got all the clots out resecteda little more the prostate and the apex to ensure voiding inspected the urethra which had a large tear in the prostate with the tear from the catheter being ripped out the should heal up with a catheter but he did not need a catheter buthe will go home to short-term SNF today with a Bagley catheter draining urine is fairly clear today. Into follow-up in my office 2 weeks after catheter removal. Weight / BMI Weight Weight: 70 kg Body Mass Index (BMI) 24.1 ABG / Lab / Microbiology Data 10/26/24 07:35 10/26/24 07:35 Laboratory: Laboratory Results - last 24 hr 10/26/24 07:35: WBC 11.7 H, RBC 3.29 L, Hgb 10.6 L, Hct 31.1 L, MCV 94.5 H, MCH 32.2 H, MCHC 34.1, RDW Std Deviation 43.4, RDW Coeff of Damari 12.5, Plt Count 232,MPV 10.1, Immature Gran % (Auto) 0.400, Neut % (Auto) 79.1 H, Lymph % (Auto) 9.2L, [place] % (Auto) 10.0, Eos % (Auto) 1.0, Baso % (Auto) 0.3, Absolute Neuts (auto) 9.2 H, Absolute Lymphs (auto) 1.07, Nucleated RBC % 0, Sodium 135, Potassium 3.6, Chloride 98, Carbon Dioxide 25.9, Anion Gap 11, BUN 11, Creatinine 0.60 L, Estim Creat Clear Calc 67.71, Est GFR (MDRD) Non-Af 97, BUN/Creatinine Ratio 17.8, Glucose 135 H, Calcium 8.8 D/C Instructions May shower in (days): 1 Call your doctor if your incision/area has: Sudden Increased Bleeding Call your doctor if you observe: Fever of 101 or Higher Catheter: Bagley to leg bag and Bagley to large bag Drain: [place] DC O2, CPAP, BIPAP Needs Home O2 Discharge instructions: No Please Follow Up With: Andrew Figueroa MD When: Call [phone] for an appointment Meaningful Use Info Meaningful Use Meaningful Use Diagnoses (Choose all that apply): None applicable Discharge Plan Admission Admit Date/Time: 10/26/24 11:57 Primary Reason for Your Visit: taye Attending Provider: Andrew Figureoa Primary Care Provider: Armida Bueno Discharge Orders/Prescriptions Prescriptions: New ciprofloxacin HCl [Cipro] 500 mg tablet 500 mg PO BID Qty: 10 0RF Continued cyanocobalamin (vitamin B-12) 1,000 mcg tablet 1,000 mcg PO QHS amlodipine 2.5 mg tablet 2.5 mg PO QDAY losartan 50 mg tablet 50 mg PO QDAY finasteride 5 mg tablet 5 mg PO QDAY ezetimibe [Zetia] 10 mg tablet 10 mg PO QDAY PreserVision AREDS 4,296 mcg-226 mg-90 mg capsule 1 cap PO BID cholecalciferol (vitamin D3) 50 mcg (2,000 unit) tablet 50 mcg PO QDAY venlafaxine 150 mg capsule,extended release 24hr 150 mg PO DAILY memantine [Namenda] 10 mg tablet 10 mg PO BID coenzyme Q10 [Co Q-10] 100 mg capsule 200 mg PO DAILY RELIEF FACTOR 1 tab PO BID diphenhydramine-acetaminophen 25-500 mg tablet 1 tab PO QHS PRN (Reason: sleep) tamsulosin 0.4 mg capsule 0.4 mg PO QHS Referrals / Follow Up: Amrida Bueno DO [Primary Care Provider] - Andrew Figueroa MD [Med Staff - Active Staff] - Disposition Discharge Orders: Discharge Patient (Routine); Ordered 10/25/24 Ordered By: Dr. Andrew Figueroa 10/27/24 0718 <Electronically signed by Andrew Figueroa MD> Cosigner Signature (if applicable): CC: Dr. Armida Bueno DO; Dr. Andrew Figueroa MD~ Signed [place] Work Phone: 1(465) 936-262609-09-2025 Discharge summary Author Andrew Figueroa [place] Note Date/Time October 27, 2024 7:17am [facility] Medical Records Department [address] [place] [address] Transfer to [facility] MR#: [id number] Acct: [id number] Name: RAI MARS Rep #:[id number] 0 : 1945 79 From: Andrew Figueroa MD PCP: Dr. Armida Bueno DO Status:ADM I N Certification of patient admission REQUIRED AT TIME OF ADMISSION. I CERTIFY THAT POST-HOSPITAL ECF SERVICES ARE REQUIRED TO BE GIVEN ON AN IN-PATIENT BASIS BECAUSE OF THE ABOVE NAMED PATIENT'S NEED FOR JAIL CARE ON A CONTINUING BASIS FOR THE CONDITION(S) FOR WHICH HE/SHE WAS RECEIVING IN-PATIENT HOSPITAL SERVICES PRIOR TO HIS/HER TRANSFER TO THE [facility]. 10/27/24 0717<Electronically signed by Andrew Figueroa MD> Diet Diet Order/Speech Therapy: INPATIENT Hospital Diet / Speech Therapy Order(s) 10/26/24 12:51 Diet: Regular - General DC O2, CPAP, BIPAP needs Home O2 Discharge instructions: No Wound(s) penis: Dressing Change: Bagley do not remove, okay to flush if needed, do not manipulate Therapies Weight Bearing: Full weight bearing Occupational Therapy: Eval and Treat Speech Therapy: Eval and Treat Allergies/Procedures Done in Hospital Allergies isosorbide Allergy (Unknown, Verified 10/21/24 11:57) unknown Sulfa (Sulfonamide Antibiotics) Allergy (Unknown, Verified 10/21/24 11:57) unknown sulfacetamide Allergy (Unknown, Verified 10/21/24 11:57) unknown Type of Care/Length of Stay Estimated LOS: Convalescent Care Less Than 30 days Type of Care Needed: Skilled Rehab Potential: Good Prognosis: Good Additional Orders/Day of Discharge Day of Discharge: 10/27/24 Follow Up Care Please Follow Up With: Andrew Figueroa MD When: 2 weeks Discharge Plan Admission Admit Date/Time: 10/26/24 11:57 Primary Reason for Your Visit: turp Attending Provider: Andrew Figueroa Primary Care Provider: Armida Bueno Discharge Orders/Prescriptions Prescriptions: New ciprofloxacin HCl [Cipro] 500 mg tablet 500 mg PO BID Qty: 10 0RF Continued cyanocobalamin (vitamin B-12) 1,000 mcg tablet 1,000 mcg PO QHS amlodipine 2.5 mg tablet 2.5 mg PO QDAY losartan 50 mg tablet 50 mg PO QDAY finasteride 5 mg tablet 5 mg PO QDAY ezetimibe [Zetia] 10 mg tablet 10 mg PO QDAY PreserVision AREDS 4,296 mcg-226 mg-90 mg capsule 1 cap PO BID cholecalciferol (vitamin D3) 50 mcg (2,000 unit) tablet 50 mcg PO QDAY venlafaxine 150 mg capsule,extended release 24hr 150 mg PO DAILY memantine [Namenda] 10 mg tablet 10 mg PO BID coenzyme Q10 [Co Q-10] 100 mg capsule 200 mg PO DAILY RELIEF FACTOR 1 tab PO BID diphenhydramine-acetaminophen 25-500 mg tablet 1 tab PO QHS PRN (Reason: sleep) tamsulosin 0.4 mg capsule 0.4 mg PO QHS Referrals / Follow Up: Armida Bueno DO [Primary Care Provider] - Andrew Figueroa MD [Med Staff - Active Staff] - Disposition Discharge Orders: Discharge Patient (Routine); Ordered 10/25/24 Ordered By: Dr. Andrew Figueroa 10/27/24716 <Electronically signed by Andrew Figueroa MD> Cosigner Signature (if applicable): CC: Dr. Armida Bueno DO ~ [place] Work Phone: 1(851) 141-828209-09-2025 Discharge summary [facility] Medical Records Department [address] [place] [address] Discharge Summary 10/27/24716 MR#: [id number] Acct: [id number] Name: RAI MARS Rep #:[id number] 1 : 1945 79 From: Andrew Figueroa MD PCP: Dr. Armida Bueno, Status:ADM I N Location: [facility] [id number] Providers Date of Admission: 10/26/24 Date of Discharge: 10/27/24 Primary Care Physician: Dr. Armida Bueno, Reason For Visit: TURP Medications at Discharge Home Medications amlodipine 2.5 mg tablet 2.5 mg PO QDAY BP 10/29/23 cholecalciferol (vitamin D3) 50 mcg (2,000 unit) tablet 50 mcg PO QDAY SUPPLEMENT 10/29/23 cyanocobalamin (vitamin B-12) 1,000 mcg tablet 1,000 mcg PO QHS SUPPLEMENT 10/29/23 ezetimibe 10 mg tablet (Zetia) 10 mg PO QDAY CHOLESTEROL 10/29/23 finasteride 5 mg tablet 5 mg PO QDAY PROSTATE 10/29/23 losartan 50 mg tablet 50 mg PO QDAY BP 10/29/23 vitamins A,C,Y-lgbt-fhqqvq 4,296 mcg-226 mg-90 mg capsule (PreserVision AREDS) 1cap PO BID EYE VITAMIN 10/29/23 RELIEF FACTOR 1 tab PO BID ARTHRITIS 10/14/24 coenzyme Q10 100 mg capsule (Co Q-10) 200 mg PO DAILY SUPPLEMENT 10/14/24 diphenhydramine 25 mg-acetaminophen 500 mg tablet 1 tab PO QHS PRN sleep 10/14/24 memantine 10 mg tablet (Namenda) 10 mg PO BID ALZEHEIMERS 10/14/24 tamsulosin 0.4 mg capsule 0.4 mg PO QHS PROSTATE 10/14/24 venlafaxine 150 mg capsule,extended release 24 hr 150 mg PO DAILY DEPRESSION 10/14/24 ciprofloxacin HCl 500 mg tablet (Cipro) 500 mg PO BID #10 tabs 10/21/24 Hospital Course Summary of Care Provided Hospital Course: 5 79-year-old male status post TURP the first night after surgery pulled out hiscatheter and tore his urethra causing significant bleeding that the catheter wasput in voiding trial was done after this he failed a voiding trial and he pulledout a second catheter to take him back to surgery got all the clots out resecteda little more the prostate and the apex to ensure voiding inspected the urethrawhich had a large tear in the prostate with the tear from the catheter being ripped out the should heal up with a catheter but he did not need a catheter buthe will go home to short-term SNF today with a Bagley catheter draining urine is fairly clear today. Into follow-up in my office 2 weeks after catheter removal. Weight / BMI Weight Weight: 70 kg Body Mass Index (BMI) 24.1 ABG / Lab / Microbiology Data 10/26/24 07:35 10/26/24 07:35 Laboratory: Laboratory Results - last 24 hr 10/26/24 07:35: WBC 11.7 H, RBC 3.29 L, Hgb 10.6 L, Hct 31.1 L, MCV 94.5 H, MCH 32.2 H, MCHC 34.1, RDW Std Deviation 43.4, RDW Coeff of Damari 12.5, Plt Count 232,MPV 10.1, Immature Gran % (Auto) 0.400,Neut % (Auto) 79.1 H, Lymph % (Auto) 9.2L, [place] % (Auto) 10.0, Eos % (Auto) 1.0, Baso % (Auto) 0.3,Absolute Neuts (auto) 9.2 H, Absolute Lymphs (auto) 1.07, Nucleated RBC % 0, Sodium 135, Potassium 3.6, Chloride 98, Carbon Dioxide 25.9, Anion Gap 11, BUN 11, Creatinine 0.60 L, Estim Creat Clear Calc 67.71, Est GFR (MDRD) Non-Af 97, BUN/Creatinine Ratio 17.8, Glucose 135 H, Calcium 8.8 D/C Instructions May shower in (days): 1 Call your doctor if your incision/area has: Sudden Increased Bleeding Call your doctor if you observe: Fever of 101 or Higher Catheter: [place] to leg bag and [place] to large bag Drain: [place] DC O2, CPAP, BIPAP Needs Home O2 Discharge instructions: No Please Follow Up With: Andrew Figueroa MD When: Call [phone] for an appointment Meaningful Use Info Meaningful Use Meaningful Use Diagnoses (Choose all that apply): None applicable Discharge Plan Admission Admit Date/Time: 10/26/24 11:57 Primary Reason for Your Visit: turp Attending Provider: Andrew Figueroa Primary Care Provider: Armida Beuno Discharge Orders/Prescriptions Prescriptions: New ciprofloxacin HCl [Cipro] 500 mg tablet 500 mg PO BID Qty: 10 0RF Continued cyanocobalamin (vitamin B-12) 1,000 mcg tablet 1,000 mcg PO QHS amlodipine 2.5 mg tablet 2.5 mg PO QDAY losartan 50 mg tablet 50 mg PO QDAY finasteride 5 mg tablet 5 mg PO QDAY ezetimibe [Zetia] 10 mg tablet 10 mg PO QDAY PreserVision AREDS 4,296 mcg-226 mg-90 mg capsule 1 cap PO BID cholecalciferol (vitamin D3) 50 mcg (2,000 unit) tablet 50 mcg PO QDAY venlafaxine 150 mg capsule,extended release 24hr 150 mg PO DAILY memantine [Namenda] 10 mg tablet 10 mg PO BID coenzyme Q10 [Co Q-10] 100 mg capsule 200 mg PO DAILY RELIEF FACTOR 1 tab PO BID diphenhydramine-acetaminophen 25-500 mg tablet 1 tab PO QHS PRN (Reason: sleep) tamsulosin 0.4 mg capsule 0.4 mg PO QHS Referrals / Follow Up: Armida Bueno DO [Primary Care Provider] - Andrew Figueroa MD [Med Staff - Active Staff] - Disposition Discharge Orders: Discharge Patient (Routine); Ordered 10/25/24 Ordered By: Dr. Andrew Figueroa 10/27/24 0718 Cosigner Signature (if applicable): CC: Dr. Armida Bueno DO; Dr. Andrew Figueroa MD~ Signed [place]09-09-2025 Discharge summary [facility] Medical Records Department [address] [place] [id number] Transfer to [facility] MR#: [id number] Acct: [id number] Name: RAI MARS Rep #:[id number] : 1945 79 From: Andrew Figueroa MD PCP: Dr. Armida Bueno DO Status:ADM I N Certification of patient admission REQUIRED AT TIME OF ADMISSION. I CERTIFY THAT POST-HOSPITAL ECF SERVICES ARE REQUIRED TO BE GIVEN ON AN IN-PATIENT BASIS BECAUSE OF THE ABOVE NAMED PATIENT'S NEED FOR JAIL CARE ON A CONTINUING BASIS FOR THE CONDITION(S) FOR WHICH HE/SHE WAS RECEIVING IN-PATIENT HOSPITAL SERVICES PRIOR TO HIS/HER TRANSFER TO THE [facility]. 10/27/24 0717 Diet Diet Order/Speech Therapy: INPATIENT Hospital Diet / Speech Therapy Order(s) 10/26/24 12:51 Diet: Regular - General DC O2, CPAP, BIPAP needs Home O2 Discharge instructions: No Wound(s) penis: Dressing Change: Bagley do not remove, okay to flush if needed, do not manipulate Therapies Weight Bearing: Full weight bearing Occupational Therapy: Eval and Treat Speech Therapy: Eval and Treat Allergies/Procedures Done in Hospital Allergies isosorbide Allergy (Unknown, Verified 10/21/24 11:57) unknown Sulfa (Sulfonamide Antibiotics) Allergy (Unknown, Verified 10/21/24 11:57) unknown sulfacetamide Allergy (Unknown, Verified 10/21/24 11:57) unknown Type of Care/Length of Stay Estimated LOS: Convalescent Care Less Than 30 days Type of Care Needed: Skilled Rehab Potential: Good Prognosis: Good Additional Orders/Day of Discharge Day of Discharge: 10/27/24 Follow Up Care Please Follow Up With: Andrew Figueroa MD When: 2 weeks Discharge Plan Admission Admit Date/Time: 10/26/24 11:57 Primary Reason for Your Visit: taye Attending Provider: Andrew Figueroa Primary Care Provider: Armida Bueno Discharge Orders/Prescriptions Prescriptions: New ciprofloxacin HCl [Cipro] 500 mg tablet 500 mg PO BID Qty: 10 0RF Continued cyanocobalamin (vitamin B-12) 1,000 mcg tablet 1,000 mcg PO QHS amlodipine 2.5 mg tablet 2.5 mg PO QDAY losartan 50 mg tablet 50 mg PO QDAY finasteride 5 mg tablet 5 mg PO QDAY ezetimibe [Zetia] 10 mg tablet 10 mg PO QDAY PreserVision AREDS 4,296 mcg-226 mg-90 mg capsule 1 cap PO BID cholecalciferol (vitamin D3) 50 mcg (2,000 unit) tablet 50 mcg PO QDAY venlafaxine 150 mg capsule,extended release 24hr 150 mg PO DAILY memantine [Namenda] 10 mg tablet 10 mg PO BID coenzyme Q10 [Co Q-10] 100 mg capsule 200 mg PO DAILY RELIEF FACTOR 1 tab PO BID diphenhydramine-acetaminophen 25-500 mg tablet 1 tab PO QHS PRN (Reason: sleep) tamsulosin 0.4 mg capsule 0.4 mg PO QHS Referrals / Follow Up: Armida Bueno DO [Primary Care Provider] - Andrew Figueroa MD [Med Staff - Active Staff] - Disposition Discharge Orders: Discharge Patient (Routine); Ordered 10/25/24 Ordered By: Dr. Andrew Figueroa 10/27/24 0717 Cosigner Signature (if applicable): CC: Dr. Armida Bueno DO ~ [place]09-09-2025 [facility] Medical Records Department [address] [place] [address] Discharge Summary 10/27/24 0717 MR#: [id number] Acct: [id number] Name: RAI MARS Rep #: [id number] : 1945 79 From: Andrew Figueroa MD PCP: Dr. Armida Bueno DO Status:ADM IN Location: [place] [address] Providers Date of Admission: 10/26/24 Date of Discharge: 10/27/24 Primary Care Physician: Dr. Armida Bueno DO Reason For Visit: TURP Medications at Discharge Home Medications amlodipine 2.5 mg tablet 2.5 mg PO QDAY BP 10/29/23 cholecalciferol (vitamin D3) 50 mcg (2,000 unit) tablet 50 mcg PO QDAY SUPPLEMENT 10/29/23 cyanocobalamin (vitamin B-12) 1,000 mcg tablet 1,000 mcg PO QHS SUPPLEMENT 10/29/23 ezetimibe 10 mg tablet (Zetia) 10 mg PO QDAY CHOLESTEROL 10/29/23 finasteride 5 mg tablet 5 mg PO QDAY PROSTATE 10/29/23 losartan 50 mg tablet 50 mg PO QDAY BP 10/29/23 vitamins A,C,P-yqqw-mehtns 4,296 mcg-226 mg-90 mg capsule (PreserVision AREDS) 1 cap PO BID EYE VITAMIN 10/29/23 RELIEF FACTOR 1 tab PO BID ARTHRITIS 10/14/24 coenzyme Q10 100 mg capsule (Co Q-10) 200 mg PO DAILY SUPPLEMENT 10/14/24 diphenhydramine 25 mg-acetaminophen 500 mg tablet 1 tab PO QHS PRN sleep 10/14/24 memantine 10 mg tablet (Namenda) 10 mg PO BID ALZEHEIMERS 10/14/24 tamsulosin 0.4 mg capsule 0.4 mg PO QHS PROSTATE 10/14/24 venlafaxine 150 mg capsule,extended release 24 hr 150 mg PO DAILY DEPRESSION 10/14/24 ciprofloxacin HCl 500 mg tablet (Cipro) 500 mg PO BID #10 tabs 10/21/24 Hospital Course Summary of Care Provided Hospital Course: 5 79-year-old male status post TURP the first night after surgery pulled out his catheter and tore his urethra causing significant bleeding that the catheter was put in voiding trial was done after this he failed a voiding trial and he pulled out a second catheter to take him back to surgery got all the clots out resected a little more the prostate and the apex to ensure voiding inspected the urethra which had a large tear in the prostate with the tear from the catheter being ripped out the should heal up with a catheter but he did not need a catheter but he will go home to short-term SNF today with a Bagley catheter draining urine is fairly clear today. Into follow-up in my office 2 weeks after catheter removal. Weight / BMI Weight Weight: 70 kg Body Mass Index (BMI) 24.1 ABG / Lab / Microbiology Data 10/26/24 07:35 10/26/24 07:35 Laboratory: Laboratory Results - last 24 hr 10/26/24 07:35: WBC 11.7 H, RBC 3.29 L, Hgb 10.6 L, Hct 31.1 L, MCV 94.5 H, MCH 32.2 H, MCHC 34.1, RDW Std Deviation 43.4, RDW Coeff of Damari 12.5, Plt Count 232, MPV 10.1, Immature Gran % (Auto) 0.400, Neut % (Auto) 79.1 H, Lymph % (Auto) 9.2 L, [place] % (Auto) 10.0, Eos % (Auto) 1.0, Baso % (Auto) 0.3, Absolute Neuts (auto) 9.2 H, Absolute Lymphs (auto) 1.07, Nucleated RBC % 0, Sodium 135, Potassium 3.6, Chloride 98, Carbon Dioxide 25.9, Anion Gap 11, BUN 11, Creatinine 0.60 L, Estim Creat Clear Calc 67.71, Est GFR (MDRD) Non-Af 97, BUN/Creatinine Ratio 17.8, Glucose 135 H, Calcium 8.8 D/C Instructions May shower in (days): 1 Call your doctor if your incision/area has: Sudden Increased Bleeding Call your doctor if you observe: Fever of 101 or Higher Catheter: Bagley to leg bag and Bagley to large bag Drain: [place] DC O2, CPAP, BIPAP Needs Home O2 Discharge instructions: No Please Follow Up With: Andrew Figueroa MD When: Call [phone] for an appointment Meaningful Use Info Meaningful Use Meaningful Use Diagnoses (Choose all that apply): None applicable Discharge Plan Admission Admit Date/Time: 10/26/24 11:57 Primary Reason for Your Visit: turp Attending Provider: Andrew Figueroa Primary Care Provider: Armida Bueno Discharge Orders/Prescriptions Prescriptions: New ciprofloxacin HCl [Cipro] 500 mg tablet 500 mg PO BID Qty: 10 0RF Continued cyanocobalamin (vitamin B-12) 1,000 mcg tablet 1,000 mcg PO QHS amlodipine 2.5 mg tablet 2.5 mg PO QDAY losartan 50 mg tablet 50 mg PO QDAY finasteride 5 mg tablet 5 mg PO QDAY ezetimibe [Zetia] 10 mg tablet 10 mg PO QDAY PreserVision AREDS 4,296 mcg-226 mg-90 mg capsule 1 cap PO BID cholecalciferol (vitamin D3) 50 mcg (2,000 unit) tablet 50 mcg PO QDAY venlafaxine 150 mg capsule,extended release 24hr 150 mg PO DAILY memantine [Namenda] 10 mg tablet 10 mg PO BID coenzyme Q10 [Co Q-10] 100 mg capsule 200 mg PO DAILY RELIEF FACTOR 1 tab PO BID diphenhydramine-acetaminophen 25-500 mg tablet 1 tab PO QHS PRN (Reason: sleep) tamsulosin 0.4 mg capsule 0.4 mg PO QHS Referrals / Follow Up: Armida Bueno DO [Primary Care Provider] - Andrew Figueroa MD [Med Staff - Active Staff] - Disposition Discharge Orders: Discharge Patient (Routine); Ordered 10/25/24 Ordered By: Dr. Andrew Pompa (more content not included)...[place]09-08-2025 Consult note Author Randall Berger [place] Note Date/Time October 26, 2024 2:50pm [facility] Medical Records Department [address] [place] [address] Anesthesia Postop Eval II 10/26/24 1450 MR#: [id number] Acct: [id number] Name: RAI MARS Rep #:[id number] : 1945 79 From: Randall Mason PCP: Dr. Armida Bueno, DO Status:ADM I N Y Race: C Location: [place] [address] -1 Anesthesia Postop Eval I Sum Postop Eval Completion status Anesthesia document: Postop Eval 1 completed: Yes Anesthesia Postop Eval I Summary Anesthesia Postop Eval I Summary: Anesthesia Postop Eval I: Assessment Summary Airway patent Yes 10/26/24 14:40 ASSISTANT BRANCH OPERATIONS MANAGER.[email or web address] Spontaneous unlabored Yes 10/26/24 14:40 ASSISTANT BRANCH OPERATIONS MANAGER.[email or web address] respirations Mental status Awake,Calm 10/26/24 14:40 ASSISTANT BRANCH OPERATIONS MANAGER.[email or web address] nausea No 10/26/24 14:40 ASSISTANT BRANCH OPERATIONS MANAGER.[email or web address] Vomiting No 10/26/24 14:40 ASSISTANT BRANCH OPERATIONS MANAGER.[email or web address] Anesthesia Postop Eval I: Fluid Summary Crystalloid volume administer 400 10/26/24 14:40 ASSISTANT BRANCH OPERATIONS MANAGER.JBLOU (ml) Colloids volume administered ( ml) Blood Product volume administered (ml) Total IV fluid infused 400 10/26/24 14:40 ASSISTANT BRANCH OPERATIONS MANAGER.[email or web address] Anesthesia Postop Eval I: Summary Notes Anesthesia Complication No 10/26/24 14:40 ASSISTANT BRANCH OPERATIONS MANAGER.[email or web address] Anesthesia Complication Comment: Post-operative progress note Anesthesia: Postop Eval II Evaluation Mental status: Awake and Calm Pain Level: 1 nausea: No Vomiting: No Complications Anesthesia Complication: No 10/26/241449 <Electronically signed by Randall Berger MD> Date _ Randall Berger MD Cosigner Signature: Date CC: ~ Signed [place] Work Phone: 1(392) 971-882609-08-2025 Consult note Author David Evangelista [place] Note Date/Time October 26, 2024 2:40pm [facility] Medical Records Department [address] [place] [address] Anesthesia Postop Eval I 10/26/24 1439 MR#: [id number] Acct: [id number] Name: RAI MARS Rep #:[id number] : 1945 79 From: David TELLEZ PCP: Dr. Armida Bueno, DO Status:ADM I N Y Race: C Location: [place] [address] Anesthesia: Postop Eval I Current Vital Signs Temperature: 97 F Pulse Rate: 73 Blood Pressure: 104/61 Respiratory Rate: 16 Pulse Ox: 94 Oxygen Delivery Method: Room Air Assessment Airway patent: Yes Spontaneous unlabored respirations: Yes Mental status: Awake and Calm nausea: No Vomiting: No Anesthesia Complication: No Fluid Hydration Crystalloid volume administer (ml): 400 Total IV fluid infused: 400 Progress Note Anesthesia document: Postop Eval 1 completed: Yes 10/26/24 1440 <Electronically signed by David Evangelista CRNA> Date _ David Evangelista CRNA Cosigner Signature: Date CC: ~ Signed [place] Work Phone: [phone] Consult note [facility] Medical Records Department [address] [place] [address] Anesthesia Postop Eval II 10/26/24 1450 MR#: [id number] Acct: [id number] Name: RAI MARS Rep #:[id number] : 1945 79 From: Randall Mason PCP: Dr. Armida Bueno, DO Status:ADM I N Y Race: C Location: [place] -1 Anesthesia Postop Eval I Sum Postop Eval Completion status Anesthesia document: Postop Eval 1 completed: Yes Anesthesia Postop Eval I Summary Anesthesia Postop Eval I Summary: Anesthesia Postop Eval I: Assessment Summary Airway patent Yes 10/26/24 14:40 ASSISTANT BRANCH OPERATIONS MANAGER.[email or web address] Spontaneous unlabored Yes 10/26/24 14:40 ASSISTANT BRANCH OPERATIONS MANAGER.[email or web address] respirations Mental status Awake,Calm 10/26/24 14:40 ASSISTANT BRANCH OPERATIONS MANAGER.JBLOU nausea No 10/26/24 14:40 ASSISTANT BRANCH OPERATIONS MANAGER.JBLOU Vomiting No 10/26/24 14:40 ASSISTANT BRANCH OPERATIONS MANAGER.JBLOU Anesthesia Postop Eval I: Fluid Summary Crystalloid volume administer 400 10/26/24 14:40 ASSISTANT BRANCH OPERATIONS MANAGER.JBLOU (ml) Colloids volume administered ( ml) Blood Product volume administered (ml) Total IV fluid infused 400 10/26/24 14:40 ASSISTANT BRANCH OPERATIONS MANAGER.JBLOU Anesthesia Postop Eval I: Summary Notes Anesthesia Complication No 10/26/24 14:40 ASSISTANT BRANCH OPERATIONS MANAGER.JBLOU Anesthesia Complication Comment: Post-operative progress note Anesthesia: Postop Eval II Evaluation Mental status: Awake and Calm Pain Level: 1 nausea: No Vomiting: No Complications Anesthesia Complication: No 10/26/24 1450 > Date _ Randall Berger MD Cosigner Signature: Date CC: ~ Signed [place]09-08-2025 Consult note [facility] Medical Records Department [address] [place] [address] Anesthesia Postop Eval I 10/26/24 1439 MR#: [id number] Acct: [id number] Name: RAI MARS Rep #:[id number] : 1945 79 From: David TELLEZ PCP: Dr. Armida Bueno, DO Status:ADM I N Y Race: C Location: [place] -1 Anesthesia: Postop Eval I Current Vital Signs Temperature: 97 F Pulse Rate: 73 Blood Pressure: 104/61 Respiratory Rate: 16 Pulse Ox: 94 Oxygen Delivery Method: Room Air Assessment Airway patent: Yes Spontaneous unlabored respirations: Yes Mental status: Awake and Calm nausea: No Vomiting: No Anesthesia Complication: No Fluid Hydration Crystalloid volume administer (ml): 400 Total IV fluid infused: 400 Progress Note Anesthesia document: Postop Eval 1 completed: Yes 10/26/24 1440 ASSISTANT BRANCH OPERATIONS MANAGER> Date _ David Blough ASSISTANT BRANCH OPERATIONS MANAGER Cosigner Signature: Date CC: ~ Signed [place]09-08-2025 Progress note Author Andrew Figueroa [place] Note Date/Time October 26, 2024 12:05pm [facility] Medical Records Department [address] [place] [address] Progress Note - Urology 10/26/24 1205 MR#: [id number] Acct: [id number] Name: RAI MARS Rep #:[id number] : 1945 79 From: Andrew Figueroa MD PCP: Dr. Armida Bueno, DO Status:ADM I NO Location: [place] [id number] Subjective Subjective pulled out his bagley again last night, short staff no sitter is want the charge nurse told me. will take him to [facility] today to remove clots may have to resect more prostate tissue? Objective Data Objective Data Vital Signs: Vital Signs Temp Pulse Resp BP Pulse Ox O2 Del Method O2 Flow Rate 98.2 F 87 18 125/75 H 95 Room Air 2 10/26/24 11:11 10/26/24 11:11 10/26/24 11:11 10/26/24 11:11 10/26/24 11:11 10/26/24 11:14 10/26/24 11:11 Oxygen Flow Rate (L/min) 2 Oxygen Delivery Method Room Air Weight: 70 kg Body Mass Index (BMI) 24.1 Intake & Output: Intake and Output for Last 24 Hours 10/24/24 10/25/24 10/26/24 23:59 23:59 23:59 Intake Total 200 / 200 120 / 120 Output Total 1250 / 1750 1300 / 1300 500 / 500 Balance -1050 / -1550 -1180 / -1180 -500 / -500 Lab / Micro Data 10/26/24 07:35 10/26/24 07:35 Labs: Laboratory Results - last 24 hr 10/26/24 07:35: WBC 11.7 H, RBC 3.29 L, Hgb 10.6 L, Hct 31.1 L, MCV 94.5 H, MCH 32.2 H, MCHC 34.1, RDW Std Deviation 43.4, RDW Coeff of Damari 12.5, Plt Count 232,MPV 10.1, Immature Gran % (Auto) 0.400, Neut % (Auto) 79.1 H, Lymph % (Auto) 9.2L, [place] % (Auto) 10.0, Eos % (Auto) 1.0, Baso % (Auto) 0.3, Absolute Neuts (auto) 9.2 H, Absolute Lymphs (auto) 1.07, Nucleated RBC % 0, Sodium 135, Potassium 3.6, Chloride 98, Carbon Dioxide 25.9, Anion Gap 11, BUN 11, Creatinine 0.60 L, Estim Creat Clear Calc 67.71, Est GFR (MDRD) Non-Af 97, BUN/Creatinine Ratio 17.8, Glucose 135 H, Calcium 8.8 10/26/24 1205 <Electronically signed by Andrew Figueroa MD> Cosigner Signature (if applicable): CC: ~ Signed [place] Work Phone: 1([phone] 446-303609-08-2025 Evaluation note* Diagnosis Onset Date Resolution Status Admit Date Essential hypertension acute Se ptember 2024 11:57am [place] Work Phone: [phone] 447-398709-08-2025 Consult note Author Randall Berger [place] Note Date/Time October 26, 2024 11:14am [facility] Medical Records Department [address] [place] [address] Pre-Anesthesia Evaluation 10/26/24 1109 MR#: [id number] Acct: [id number] Name: RAI MARS Rep #:[id number] : 1945 79 From: Randall Mason PCP: Dr. Armida Bueno, DO Status:ADM I NO Y Race: C Location: [place] [address] ASA Classification* ASA Classification ASA Classification: 3 ((Prolong QTc - NO ZOFRAN. Recommend doing TIVA to avoid PONV and due to alzheimers (reduce postop confusion). Patient also has HTN, CADx stent, FIDEL. )) Assessment & Plan Anesthesia* Anesthesia Assessment Anesthesia Assessment: Discussed sedation and/or anesthesia options, risks, benefits, and alternatives with patient/parents/legal guardian/POA. Questions invited. The patient/parents/legal guardian/POA seems to understand and agrees to proceedwith anesthesia plan. Reviewed the physical assessment, medical history, allergy history and patient home medications list prior to surgery/procedure/anesthetic and documented any changes. Performed airway and anesthesia risk assessments. Anesthesia Type Anesthesia Type: General History Source History Obtained from:: Patient, Chart, Parent/ Guardian (Significant other present. Son has power of validation specialist and signed consent for surgery.) and Significant Other Anesthesia Focused Assessment* Temperature: 98.2 F Pulse Rate: 87 Blood Pressure: 125/75 Respiratory Rate: 18 Pulse Ox: 95 Oxygen Delivery Method: Room Air Oxygen Flow Rate (L/min): 2 Airway Assessment Mouth opens: >3 cm Mallampati Score: II Teeth Condition: Dentures Neck Range of motion (ROM): Limited ROM Labs Anesthesia Preop lab: CBC WBC 11.7 K/mm3 (4.4-11.0) H 10/26/24 07:35 5 RBC 3.29 M/mm3 (4.6-6.2) L 10/26/24 07:35 10/26/24 Hgb 10.6 g/dL (13.0-16.5) L 10/26/24 07:35 5 Hct 31.1 % (40-54) L 10/26/24 07:35 10/26/24 Plt Count 232 K/mm3 (150-450) 10/26/24 07:35 10/26/24 CHEMISTRY Potassium 3.6 mmol/L (3.3-5.1) 10/26/24 07:35 10/26/24 Sodium 135 mmol/L (133-145) 10/26/24 07:35 10/26/24 BUN 11 mg/dL (4-19) 10/26/24 07:35 10/26/24 Creatinine 0.60 mg/dL (0.70-1.20) L 10/26/24 07:35 Glucose 135 mg/dL (70-99) H 10/26/24 07:35 10/26/24 TSH 1.92 uIU/mL (0.358-3.74) 03/23/14 12:15 COAG Pre-Assessment Diagnosis/Proposed Procedure Planned Operative Procedure(s): CYSTO,TURP Anesthesia History 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 When Was Last Pacemaker Check QUESTION #4 FULL TEXT: You/Your Family Experience fever (hyperthermia) with Anesthesia Last Oral Intake Last Oral intake: Last Oral Intake NPO since 10:00 10/21/24 12:02 Meds taken in AM with sips of Yes 10/21/24 12:02 water? 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 Female No 10/14/24 11:35 HX of Motion Sickness No 10/14/24 11:35 HX of N/V After Surgery No 10/14/24 11:35 Non-Smoker Yes 10/14/24 11:35 Duration of Surgery greater Yes 10/14/24 11:35 than 60 minutes Number of Risk Factors 2 10/14/24 11:35 PONV Score Moderate Risk 10/14/24 11:35 Height & Weight Height & Weight: Anesthesia: Height & Weight Height 5 ft 7 in 10/21/24 16:42 Weight: 70 kg 10/21/24 16:42 Body Mass Index (BMI) 24.1 10/21/24 16:42 Respiratory Assessment Respiratory Assessment - heavy mobile equipment repairer: Respiratory Tract Infection Hx - heavy mobile equipment repairer Hx Respiratory Tract Infection No 10/14/24 11:35 STOP Sleep Apnea STOP Sleep Apnea - heavy mobile equipment repairer: STOP Sleep Apnea - heavy mobile equipment repairer Hx Hypertension Yes: CONTROLLED WITH MED 10/14/24 11:35 Hx Sleep Apnea No 10/14/24 11:35 CPAP BIPAP Do you snore loudly (louder No 10/14/24 11:35 than talking or can be heard Do you often feel tired/ Yes 10/14/24 11:35 fatigued/ sleepy during daytime? Has anyone observed you stop No 10/14/24 11:35 breathing during sleep? STOP Results Positive 10/21/24 15:10 QUESTION #5 FULL TEXT : Do you snore loudly (louder than talking or can be heard through closed doors)? 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 Hx Now No 10/14/24 11:35 Gestational Age (in weeks): EDC: Hx Hx Para Hx Section SAB No 10/14/24 11:35 Active Medications Active Medications: Current Medications Generic Name Dose Route Start Last Admin Trade Name Freq PRN Reason Stop Dose Admin Acetaminophen 650 mg 10/21/24 15:02 10/22/24 13:14 Acetaminophen 325 Mg Tablet PO 650 mg Q6H PRN PRN Administration Pain Score 1-10 Al Hydroxide/Mg Hydroxide 30 ml 10/21/24 15:02 Mag Hydrox/Al Hydrox/Simeth 30 Ml Udc PO Q4H PRN PRN HEARTBURN Amlodipine Besylate 2.5 mg 10/22/24 10:00 10/26/24 08:44 Amlodipine 2.5 Mg Tablet PO 2.5 mg DAILY LEIGH ANN Administration Protocol Ciprofloxacin HCl 500 mg 10/21/24 22:00 10/26/24 08:42 Ciprofloxacin 500 Mg Tablet PO 500 mg BID LEIGH ANN Administration Diphenhydramine HCl 25 mg 10/21/24 15:10 10/22/24 21:07 Diphenhydramine 25 Mg Capsule PO 25 mg QHS PRN Administration sleep Docusate Sodium 200 mg 10/21/24 22:00 10/26/24 08:44 Docusate Sodium 100 Mg Capsule PO 200 mg BID LEIGH ANN Administration Ezetimibe 10 mg 10/22/24 10:00 10/26/24 08:43 Ezetimibe 10 Mg Tablet PO 10 mg DAILY LEIGH ANN Administration Finasteride 5 mg 10/22/24 10:00 10/26/24 08:41 Finasteride 5 Mg Tablet PO 5 mg DAILY LEIGH ANN Administration Sodium Chloride 250 mls @ 15 mls/hr 10/21/24 16:45 IV .[id number] PRN Saline Flush Sodium Chloride 250 mls @ 15 mls/hr 10/21/24 16:45 IV .[id number] PRN Additional IVPB Infusion Losartan Potassium 50 mg 10/22/24 10:00 10/26/24 08:43 Losartan Potassium 50 Mg Tablet PO 50 mg DAILY LEIGH ANN Administration Protocol Memantine 10 mg 10/21/24 22:00 10/26/24 08:42 Memantine Hydrochloride 10 Mg Tablet PO 10 mg BID LEIGH ANN Administration Metoclopramide HCl 10 mg 10/21/24 15:02 Metoclopramide 10 Mg/2 Ml Vial IV Q8H PRN PRN Nausea/vomiting Multivitamins/Minerals 1 cap 10/21/24 17:00 10/26/24 08:43 Multivitamin (Healthy Eyes) Capsule PO 1 cap BIDCM LEIGH ANN Administration Ondansetron HCl 4 mg 10/21/24 15:02 Ondansetron 4 Mg/2 Ml Vial IV Q8H PRN NAUSEA/VOMITING Oxycodone HCl 5 - 10 mg 10/21/24 15:02 Oxycodone 5 Mg Tablet PO Q6H PRN PRN Pain Score 4-10 Sodium Chloride 10 - 40 ml 10/21/24 16:45 10/22/24 05:49 0.9% Saline Lock 10 Ml Syringe IV 40 ml UD PRN Administration SALINE FLUSH Tamsulosin HCl 0.4 mg 10/21/24 22:00 10/25/24 21:53 Tamsulosin Hcl 0.4 Mg Capsule PO 0.4 mg QHS LEIGH ANN Administration Venlafaxine HCl 150 mg 10/22/24 10:00 10/26/24 08:44 Venlafaxine Xr 150 Mg Capsule PO 150 mg DAILY LEIGH ANN Administration PFSH Medical History Wears glasses Wears dentures Alzheimer dementia Anxiety Arthritis Prostate disease Former smoker Sleep apnea Leg cramps History of stress test Cardiology follow-up encounter Frequent falls BPH (benign prostatic hyperplasia) Atherosclerosis of coronary artery of [place] heart without angina pectoris B12 deficiency Depression Hyperlipidemia Essential hypertension Rheumatoid arthritis Home Medications ?Medication ?Instructions ?Recorded ?Last Taken ?Type amlodipine 2.5 mg tablet 2.5 mg PO QDAY BP 10/29/23 0 10/21/24 History cholecalciferol (vitamin D3) 50 50 mcg PO QDAY SUPPLEM ENT 10/29/23 10/20/24 History mcg (2,000 unit) tablet cyanocobalamin (vitamin B-12) 1,000 mcg PO QHS SUPPLEM ENT 10/29/23 10/20/24 History 1,000 mcg tablet ezetimibe 10 mg tablet (Zetia) 10 mg PO QDAY CHOLESTER OL 10/29/23 10/21/24 History finasteride 5 mg tablet 5 mg PO QDAY PROSTATE 10/21/24 History losartan 50 mg tablet 50 mg PO QDAY BP 10/29/23 History vitamins A,C,T-fpjj-ngspsk 4,296 1 cap PO BID EYE FOZIA MIN 10/29/23 10/20/24 History mcg-226 mg-90 mg capsule (PreserVision AREDS) RELIEF FACTOR 1 tab PO BID ARTHRITIS 10/1410/20/24 History coenzyme Q10 100 mg capsule (Co 200 mg PO DAILY SUPPLE MENT 10/14/24 10/20/24 History Q-10) diphenhydramine 25 1 tab PO QHS PRN sleep 10/1410/14/24 History mg-acetaminophen 500 mg tablet memantine 10 mg tablet (Namenda) 10 mg PO BID ALZEHEIM ERS 10/14/24 10/21/24 History tamsulosin 0.4 mg capsule 0.4 mg PO QHS PROSTATE 10/1410/20/24 History venlafaxine 150 mg 150 mg PO DAILY DEPRESSION 0 10/14/24 10/21/24 History capsule,extended release 24 hr ciprofloxacin HCl 500 mg tablet 500 mg PO BID #10 tabs 10/21/24 Unknown Rx (Cipro) Allergy/AdvReac Type Severity Reaction Status Date / Time isosorbide Allergy Unknown unknown Verified 10/21/24 11:57 Sulfa (Sulfonamide Allergy Unknown unknown Verified 10/21/24 11:57 Antibiotics) sulfacetamide Allergy Unknown unknown Verified 10/21/24 11:57 Family History Father Cancer Brother Suicide Surgical History History of coronary artery stent placement History of colonoscopy History of left heart catheterization (09/12/20) Social History Smoking Status: Former smoker how long ago did patient quit smoking: stopped at age 54 alcohol intake: former year quit: 39y substance use type: does not use caffeine: Yes Type: carbonated beverages Number of servings: 2 Review of Systems (Anesthesia) ROS Narrative System reviewed and no additional complaints, except as documented. 10/26/24 1114 <Electronically signed by Randall Berger MD> Date _ Randall Berger MD Cosigner Signature: Date CC: ~ Signed [place] Work Phone: [phone] 203-390309-08-2025 Procedure note [facility] Medical Records Department [address] [facility] [place] [address] Operative Report 10/26/24 1247 MR#: [id number] Acct: [id number] Name: RAI MARS Rep #:[id number] : 1945 79 From: Andrew Figueroa MD PCP: Dr. Armida Bueno, Status:ADM I N [place] [facility] [id number] Operative Report (Standard) Operative Information Date of Procedure: 10/26/24 Pre-Operative Diagnosis: Bagley trauma and gross hematuria Post-Operative Diagnosis: The same Surgery/Procedure Performed: Cystoscopy evacuation of blood clots resection of some obstructive tissue at the apex of the prostate library clerk talking books: No Type of Anesthesia: General RN Documented Start/Stop Times: Operation Date: 10/26/24 12:00 Case Time Into Pre-Op 10/26/24 10:48 Anesthesia Start 10/26/24 12:11 Into Room 10/26/24 12:11 Procedure Start 10/26/24 12:24 Procedure Start Time: 12:24 Procedure Stop Time: 12:48 Select all DRAINS/GRAFTS/IMPLANTS that apply: Drains Drain details: 22 Omani three-way Bagley Estimated Blood Loss: 20 cc Specimen collected: Yes Description of specimen(s) removed: Prostate tissue and blood clots Description of surgery: This is an 79-year-old male who had some sundowning got confused and then removed his catheter traumatically out first day after surgery try to manage this with a catheter he was doing okay there wasconcerned about him going home with a catheter so we took out the catheter for voiding trial but hefailed the voiding trial catheter was replaced and the last night he ripped out the catheter again and so taken back to surgery to evaluate the situation and get rid of any blood clots make sure he has an open channel. Taken back to the operating room underwent general anesthetic is placed in dorsolithotomy position penis and testicle prepped and draped in usual fashion went along the urethra with a 24 Omani none continuous-flow Olympus bipolar resectoscope he had a significant tear within the urethra this needsto heal up sphincter was intact he does have a obstructive apical tissue and inside the bladder with significant mount of clots evacuated all the clots of the bladder thebladder neck actually healed up from prior resections of this that healed up completely and he had still stent on the right side then looking at the verumontanum he had a significant mount of apical tissue and so I resected the apical tissue did a flow test had a wide open flow and at this point we will puta 22 Omani catheter back in the bladder I put a significant bout of urine in the balloon so hopefully avoid another traumatic removal put over 70 cc in the balloon and he will need to have the catheter for at least 2 weeks to let the Bagley and the bladder heal up if you take out the catheter soon from that you will notbe able to urinate he will need the catheter for several weeks to let everything heal. I will goingexplain the situation of the family if I end up he will need to go to a care home Surgical Findings: Had significant tearing along the urethra from traumatic catheter removals and lots of blood clots in the bladder that were removed I resected resected some obstructive apical tissue Complications Complications: No 10/26/24 1250 Cosigner Signature (if applicable): CC: Dr. Armida Bueno DO; Dr. Andrew Figueroa MD~ Signed [place]09-08-2025 Progress note [facility] Medical Records Department [address] [place] [address] Progress Note - Urology 10/26/24 1205 MR#: [id number] Acct: [id number] Name: RAI MARS Rep #:[id number] : 1945 79 From: Andrew Figueroa MD PCP: Dr. Armida Myles, DO Status:ADM I NO Location: [facility]3 [id number] Subjective Subjective pulled out his bagley again last night, short staff no sitter is want the charge nurse told me. will take him to [facility] today to remove clots may have to resect more prostate tissue? Objective Data Objective Data Vital Signs: Vital Signs Temp Pulse Resp BP Pulse Ox O2 Del Method O2 Flow Rate 98.2 F 87 18 125/75 H 95 Room Air 2 10/26/24 11:11 10/26/24 11:11 10/26/24 11:11 10/26/24 11:11 10/26/24 11:11 10/26/24 11:14 10/26/24 11:11 Oxygen Flow Rate (L/min) 2 Oxygen Delivery Method Room Air Weight: 70 kg Body Mass Index (BMI) 24.1 Intake & Output: Intake and Output for Last 24 Hours 10/24/24 10/25/24 10/26/24 23:59 23:59 23:59 Intake Total 200 / 200 120 / 120 Output Total 1250 / 1750 1300 / 1300 500 / 500 Balance -1050 / -1550 -1180 / -1180 -500 / -500 Lab / Micro Data 10/26/24 07:35 10/26/24 07:35 Labs: Laboratory Results - last 24 hr 10/26/24 07:35: WBC 11.7 H, RBC 3.29 L, Hgb 10.6 L, Hct 31.1 L, MCV 94.5 H, MCH 32.2 H, MCHC 34.1, RDW Std Deviation 43.4, RDW Coeff of Damari 12.5, Plt Count 232,MPV 10.1, Immature Gran % (Auto) 0.400,Neut % (Auto) 79.1 H, Lymph % (Auto) 9.2L, [place] % (Auto) 10.0, Eos % (Auto) 1.0, Baso % (Auto) 0.3,Absolute Neuts (auto) 9.2 H, Absolute Lymphs (auto) 1.07, Nucleated RBC % 0, Sodium 135, Potassium 3.6, Chloride 98, Carbon Dioxide 25.9, Anion Gap 11, BUN 11, Creatinine 0.60 L, Estim Creat Clear Calc 67.71, Est GFR (MDRD) Non-Af 97, BUN/Creatinine Ratio 17.8, Glucose 135 H, Calcium 8.8 10/26/24 1205 Cosigner Signature (if applicable): CC: ~ Signed [place]09-08-2025 Consult note [facility] Medical Records Department [address] [place] [address] Pre-Anesthesia Evaluation 10/26/24 1109 MR#: [id number] Acct: [id number] Name: RAI MARS Rep #:[id number] 9 : 1945 79 From: Randall Mason PCP: Dr. Armida Bueno, DO Status:ADM I NO Y Race: C [facility] [facility] [place] [facility] ASA Classification ASA Classification: 3 ((Prolong QTc - NO ZOFRAN. Recommend doing TIVA to avoid PONV and due to alzheimers (reduce postop confusion). Patient also has HTN, CADx stent, FIDEL. )) Assessment & Plan Anesthesia* Anesthesia Assessment Anesthesia Assessment: Discussed sedation and/or anesthesia options, risks, benefits, and alternatives with patient/parents/legal guardian/POA. Questions invited. The patient/parents/legal guardian/POA seems to understand and agrees to proceedwith anesthesia plan. Reviewed the physical assessment, medical history, allergy history and patient home medications list prior to surgery/procedure/anesthetic and documented any changes. Performed airway and anesthesia risk assessments. Anesthesia Type Anesthesia Type: General History Source History Obtained from:: Patient, Chart, Parent/ Guardian (Significant other present. Son has power of validation specialist and signed consent for surgery.) and Significant Other Anesthesia Focused Assessment* Temperature: 98.2 F Pulse Rate: 87 Blood Pressure: 125/75 Respiratory Rate: 18 Pulse Ox: 95 Oxygen Delivery Method: Room Air Oxygen Flow Rate (L/min): 2 Airway Assessment Mouth opens: >3 cm Mallampati Score: II Teeth Condition: Dentures Neck Range of motion (ROM): Limited ROM Labs Anesthesia Preop lab: CBC WBC 11.7 K/mm3 (4.4-11.0) H 10/26/24 07:35 5 RBC 3.29 M/mm3 (4.6-6.2) L 10/26/24 07:35 10/26/24 Hgb 10.6 g/dL (13.0-16.5) L 10/26/24 07:35 5 Hct 31.1 % (40-54) L 10/26/24 07:35 10/26/24 Plt Count 232 K/mm3 (150-450) 10/26/24 07:35 10/26/24 CHEMISTRY Potassium 3.6 mmol/L (3.3-5.1) 10/26/24 07:35 10/26/24 Sodium 135 mmol/L (133-145) 10/26/24 07:35 10/26/24 BUN 11 mg/dL (4-19) 10/26/24 07:35 10/26/24 Creatinine 0.60 mg/dL (0.70-1.20) L 10/26/24 07:35 Glucose 135 mg/dL (70-99) H 10/26/24 07:35 10/26/24 TSH 1.92 uIU/mL (0.358-3.74) 03/23/14 12:15 COAG Pre-Assessment Diagnosis/Proposed Procedure Planned Operative Procedure(s): CYSTO,TURP Anesthesia History 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 When Was Last Pacemaker Check QUESTION #4 FULL TEXT: You/Your Family Experience fever (hyperthermia) with Anesthesia Last Oral Intake Last Oral intake: Last Oral Intake NPO since 10:00 10/21/24 12:02 Meds taken in AM with sips of Yes 10/21/24 12:02 water? 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 Female No 10/14/24 11:35 HX of Motion Sickness No 10/14/24 11:35 HX of N/V After Surgery No 10/14/24 11:35 Non-Smoker Yes 10/14/24 11:35 Duration of Surgery greater Yes 10/14/24 11:35 than 60 minutes Number of Risk Factors 2 10/14/24 11:35 PONV Score Moderate Risk 10/14/24 11:35 Height & Weight Height & Weight: Anesthesia: Height & Weight Height 5 ft 7 in 10/21/24 16:42 Weight: 70 kg 10/21/24 16:42 Body Mass Index (BMI) 24.1 10/21/24 16:42 Respiratory Assessment Respiratory Assessment - heavy mobile equipment repairer: Respiratory Tract Infection Hx - heavy mobile equipment repairer Hx Respiratory Tract Infection No 10/14/24 11:35 STOP Sleep Apnea STOP Sleep Apnea - heavy mobile equipment repairer: STOP Sleep Apnea - heavy mobile equipment repairer Hx Hypertension Yes: CONTROLLED WITH MED 10/14/24 11:35 Hx Sleep Apnea No 10/14/24 11:35 CPAP BIPAP Do you snore loudly (louder No 10/14/24 11:35 than talking or can be heard Do you often feel tired/ Yes 10/14/24 11:35 fatigued/ sleepy during daytime? Has anyone observed you stop No 10/14/24 11:35 breathing during sleep? STOP Results Positive 10/21/24 15:10 QUESTION #5 FULL TEXT : Do you snore loudly (louder than talking or can be heard through closeddoors)? 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 Hx Now No 10/14/24 11:35 Gestational Age (in weeks): EDC: Hx Hx Para Hx Section SAB No 10/14/24 11:35 Active Medications Active Medications: Current Medications Generic Name Dose Route Start Last Admin Trade Name Freq PRN Reason Stop Dose Admin Acetaminophen 650 mg 10/21/24 15:02 10/22/24 13:14 Acetaminophen 325 Mg Tablet PO 650 mg Q6H PRN PRN Administration Pain Score 1-10 Al Hydroxide/Mg Hydroxide 30 ml 10/21/24 15:02 Mag Hydrox/Al Hydrox/Simeth 30 Ml Udc PO Q4H PRN PRN HEARTBURN Amlodipine Besylate 2.5 mg 10/22/24 10:00 10/26/24 08:44 Amlodipine 2.5 Mg Tablet PO 2.5 mg DAILY LEIGH ANN Administration Protocol Ciprofloxacin HCl 500 mg 10/21/24 22:00 10/26/24 08:42 Ciprofloxacin 500 Mg Tablet PO 500 mg BID LEIGH ANN Administration Diphenhydramine HCl 25 mg 10/21/24 15:10 10/22/24 21:07 Diphenhydramine 25 Mg Capsule PO 25 mg QHS PRN Administration sleep Docusate Sodium 200 mg 10/21/24 22:00 10/26/24 08:44 Docusate Sodium 100 Mg Capsule PO 200 mg BID LEIGH ANN Administration Ezetimibe 10 mg 10/22/24 10:00 10/26/24 08:43 Ezetimibe 10 Mg Tablet PO 10 mg DAILY LEIGH ANN Administration Finasteride 5 mg 10/22/24 10:00 10/26/24 08:41 Finasteride 5 Mg Tablet PO 5 mg DAILY LEIGH ANN Administration Sodium Chloride 250 mls @ 15 mls/hr 10/21/24 16:45 IV .[id number] PRN Saline Flush Sodium Chloride 250 mls @ 15 mls/hr 10/21/24 16:45 IV .[id number] PRN Additional IVPB Infusion Losartan Potassium 50 mg 10/22/24 10:00 10/26/24 08:43 Losartan Potassium 50 Mg Tablet PO 50 mg DAILY LEIGH ANN Administration Protocol Memantine 10 mg 10/21/24 22:00 10/26/24 08:42 Memantine Hydrochloride 10 Mg Tablet PO 10 mg BID LEIGH ANN Administration Metoclopramide HCl 10 mg 10/21/24 15:02 Metoclopramide 10 Mg/2 Ml Vial IV Q8H PRN PRN Nausea/vomiting Multivitamins/Minerals 1 cap 10/21/24 17:00 10/26/24 08:43 Multivitamin (Healthy Eyes) Capsule PO 1 cap BIDCM LEIGH ANN Administration Ondansetron HCl 4 mg 10/21/24 15:02 Ondansetron 4 Mg/2 Ml Vial IV Q8H PRN NAUSEA/VOMITING Oxycodone HCl 5 - 10 mg 10/21/24 15:02 Oxycodone 5 Mg Tablet PO Q6H PRN PRN Pain Score 4-10 Sodium Chloride 10 - 40 ml 10/21/24 16:45 10/22/24 05:49 0.9% Saline Lock 10 Ml Syringe IV 40 ml UD PRN Administration SALINE FLUSH Tamsulosin HCl 0.4 mg 10/21/24 22:00 10/25/24 21:53 Tamsulosin Hcl 0.4 Mg Capsule PO 0.4 mg QHS LEIGH ANN Administration Venlafaxine HCl 150 mg 10/22/24 10:00 10/26/24 08:44 Venlafaxine Xr 150 Mg Capsule PO 150 mg DAILY LEIGH ANN Administration PFSH Medical History Wears glasses Wears dentures Alzheimer dementia Anxiety Arthritis Prostate disease Former smoker Sleep apnea Leg cramps History of stress test Cardiology follow-up encounter Frequent falls BPH (benign prostatic hyperplasia) Atherosclerosis of coronary artery of [place] heart without angina pectoris B12 deficiency Depression Hyperlipidemia Essential hypertension Rheumatoid arthritis Home Medications ?Medication ?Instructions ?Recorded ?Last Taken ?Type amlodipine 2.5 mg tablet 2.5 mg PO QDAY BP 10/29/23 0 10/21/24 History cholecalciferol (vitamin D3) 50 50 mcg PO QDAY SUPPLEM ENT 10/29/23 10/20/24 History mcg (2,000 unit) tablet cyanocobalamin (vitamin B-12) 1,000 mcg PO QHS SUPPLEM ENT 10/29/23 10/20/24 History 1,000 mcg tablet ezetimibe 10 mg tablet (Zetia) 10 mg PO QDAY CHOLESTER OL 10/29/23 10/21/24 History finasteride 5 mg tablet 5 mg PO QDAY PROSTATE 10/21/24 History losartan 50 mg tablet 50 mg PO QDAY BP 10/29/23 History vitamins A,C,M-ehhe-imfedp 4,296 1 cap PO BID EYE FOZIA MIN 10/29/23 10/20/24 History mcg-226 mg-90 mg capsule (PreserVision AREDS) RELIEF FACTOR 1 tab PO BID ARTHRITIS 10/1410/20/24 History coenzyme Q10 100 mg capsule (Co 200 mg PO DAILY SUPPLE MENT 10/14/24 10/20/24 History Q-10) diphenhydramine 25 1 tab PO QHS PRN sleep 10/1410/14/24 History mg-acetaminophen 500 mg tablet memantine 10 mg tablet (Namenda) 10 mg PO BID ALZEHEIM ERS 10/14/24 10/21/24 History tamsulosin 0.4 mg capsule 0.4 mg PO QHS PROSTATE 10/1410/20/24 History venlafaxine 150 mg 150 mg PO DAILY DEPRESSION 0 10/14/24 10/21/24 History capsule,extended release 24 hr ciprofloxacin HCl 500 mg tablet 500 mg PO BID #10 tabs 10/21/24 Unknown Rx (Cipro) Allergy/AdvReac Type Severity Reaction Status Date / Time isosorbide Allergy Unknown unknown Verified 10/21/24 11:57 Sulfa (Sulfonamide Allergy Unknown unknown Verified 10/21/24 11:57 Antibiotics) sulfacetamide Allergy Unknown unknown Verified 10/21/24 11:57 Family History Father Cancer Brother Suicide Surgical History History of coronary artery stent placement History of colonoscopy History of left heart catheterization (09/12/20) Social History Smoking Status: Former smoker how long ago did patient quit smoking: stopped at age 54 alcohol intake: former year quit: 39y substance use type: does not use caffeine: Yes Type: carbonated beverages Number of servings: 2 Review of Systems (Anesthesia) ROS Narrative System reviewed and no additional complaints, except as documented. 10/26/24 1114 MD> Date _ Randall Berger MD Cosigner Signature: Date CC: ~ Signed [place]09-07-2025 Progress note Author Andrew Figueroa [place] Note Date/Time October 25, 2024 8:52am [facility] Medical Records Department [address] [place] [address] Progress Note - Urology 10/25/24 0852 MR#: [id number] Acct: [id number] Name: RAI MARS Rep #:[id number] 1 : 1945 79 From: Andrew Figueroa MD PCP: Dr. Armida Bueno, DO Status:ADM I NO Location: [place] [address]-1 Subjective Subjective Patient's family would not take the patient home yesterday with a catheter, the family refused to take him home so this morning I took the catheter out for voiding trial if the patient is able to urinate then he can go home with family without a catheter. Objective Data Objective Data Vital Signs: Vital Signs Temp Pulse Resp BP Pulse Ox O2 Del Method O2 Flow Rate 97.9 F 78 20 H 140/67 H 94 Room Air 2 10/25/24 02:45 10/25/24 02:45 10/25/24 02:45 10/25/24 02:45 10/25/24 02:45 10/25/24 02:45 10/23/24 13:56 Oxygen Flow Rate (L/min) 2 Oxygen Delivery Method Room Air Weight: 70 kg Body Mass Index (BMI) 24.1 Intake & Output: Intake and Output for Last 24 Hours 10/23/24 10/24/24 10/25/24 23:59 23:59 23:59 Intake Total 1120 / 1120 200 / 200 Output Total 1250 / 1750 800 / 800 Balance 1120 / 320 -1050 / -1550 -800 / -800 Lab / Micro Data 10/22/24 05:40 10/22/24 05:40 10/25/24 0852 <Electronically signed by Andrew Figueroa MD> Cosigner Signature (if applicable): CC: ~ Signed [place] Work Phone: 1(928) 771-234509-07-2025 Progress note [facility] Medical Records Department [address] [place] [address] Progress Note - Urology 10/25/24851 MR#: [id number] Acct: [id number] Name: RAI MARS Rep #:[id number] 1 : 1945 79 From: Andrew Figueroa MD PCP: Dr. Armida Bueno, DO Status:ADM I NO [place] [facility] [place] PT990-6 Subjective Subjective Patient's family would not take the patient home yesterday with a catheter, the family refused to take him home so this morning I took the catheter out for voiding trial if the patient is able to urinate then he can go home with family without a catheter. Objective Data Objective Data Vital Signs: Vital Signs Temp Pulse Resp BP Pulse Ox O2 Del Method O2 Flow Rate 97.9 F 78 20 H 140/67 H 94 Room Air 2 10/25/24 02:45 10/25/24 02:45 10/25/24 02:45 10/25/24 02:45 10/25/24 02:45 10/25/24 02:45 10/23/24 13:56 Oxygen Flow Rate (L/min) 2 Oxygen Delivery Method Room Air Weight: 70 kg Body Mass Index (BMI) 24.1 Intake & Output: Intake and Output for Last 24 Hours 10/23/24 10/24/24 10/25/24 23:59 23:59 23:59 Intake Total 1120 / 1120 200 / 200 Output Total 1250 / 1750 800 / 800 Balance 1120 / 320 -1050 / -1550 -800 / -800 Lab / Micro Data 10/22/24 05:40 10/22/24 05:40 10/25/24 0852 Cosigner Signature (if applicable): CC: ~ Signed [place]09-06-2025 Discharge summary Author Andrew Figueroa [place] Note Date/Time October 24, 2024 7:38am [facility] Medical Records Department [address] [place] [address] Instructions for Home/Discharge Instructions 10/24/24 0738 MR#: [id number] Acct: [id number] Name: RAI MARS Rep #:[id number] 7 : 1945 79 From: Andrew Figueroa MD PCP: Dr. Armida Bueno, DO Status:ADM I NO Discharge Instructions DC O2, CPAP, BIPAP needs Home O2 Discharge instructions: No Dressing / Incision Discharge Activity: Return to Normal Activity and May Not Drive (while taking narcotic pain medications.) May shower in (days): 1 Dressing / Incision Call your doctor if your incision/area has: Sudden Increased Bleeding Call your doctor if you observe: Fever of 101 or Higher Catheter: Bagley to leg bag and Bagley to large bag Drain: [place] Follow Up Care Please Follow Up With: Andrew Figueroa MD When: Call [phone] for an appointment Test Results: Test results from this visit will be discussed in further detail at your follow- up appointment, if applicable. Discharge Plan Admission Admit Date/Time: 10/21/24 15:00 Primary Reason for Your Visit: taye Attending Provider: Andrew Figueroa Primary Care Provider: Armida Bueno Discharge Orders/Prescriptions Prescriptions: New ciprofloxacin HCl [Cipro] 500 mg tablet 500 mg PO BID Qty: 10 0RF Continued cyanocobalamin (vitamin B-12) 1,000 mcg tablet 1,000 mcg PO QHS amlodipine 2.5 mg tablet 2.5 mg PO QDAY losartan 50 mg tablet 50 mg PO QDAY finasteride 5 mg tablet 5 mg PO QDAY ezetimibe [Zetia] 10 mg tablet 10 mg PO QDAY PreserVision AREDS 4,296 mcg-226 mg-90 mg capsule 1 cap PO BID cholecalciferol (vitamin D3) 50 mcg (2,000 unit) tablet 50 mcg PO QDAY venlafaxine 150 mg capsule,extended release 24hr 150 mg PO DAILY memantine [Namenda] 10 mg tablet 10 mg PO BID coenzyme Q10 [Co Q-10] 100 mg capsule 200 mg PO DAILY RELIEF FACTOR 1 tab PO BID diphenhydramine-acetaminophen 25-500 mg tablet 1 tab PO QHS PRN (Reason: sleep) tamsulosin 0.4 mg capsule 0.4 mg PO QHS Referrals / Follow Up: Armida Bueno DO [Primary Care Provider] - Andrew Figueroa MD [Med Staff - Active Staff] - Disposition Discharge Orders: Discharge Patient (Routine); Ordered 10/24/24 Ordered By: Dr. Andrew Figueroa 10/24/24 0738<Electronically signed by Andrew Figueroa MD>Andrew Figueroa MD CC: Dr. Armida Bueno DO ~ Signed [place] Work Phone: 1(229) 763-496309-06-2025 Discharge summary Author Andrew Figueroa [place] Note Date/Time October 24, 2024 7:33[facility] Medical Records Department [address] [place] [address] Discharge Summary 10/24/24 0732 MR#: [id number] Acct: [id number] Name: RAI MARS Rep #:[id number] : 1945 79 From: Andrew Figueroa MD PCP: Dr. Armida Bueno DO Status:ADM I NO Location: [place] [address] Providers Date of Admission: 10/21/24 Date of Discharge: 10/24/24 Primary Care Physician: Dr. Armida Bueno DO Reason For Visit: TURP Medications at Discharge Home Medications amlodipine 2.5 mg tablet 2.5 mg PO QDAY BP 10/29/23 cholecalciferol (vitamin D3) 50 mcg (2,000 unit) tablet 50 mcg PO QDAY SUPPLEMENT 10/29/23 cyanocobalamin (vitamin B-12) 1,000 mcg tablet 1,000 mcg PO QHS SUPPLEMENT 10/29/23 ezetimibe 10 mg tablet (Zetia) 10 mg PO QDAY CHOLESTEROL 10/29/23 finasteride 5 mg tablet 5 mg PO QDAY PROSTATE 10/29/23 losartan 50 mg tablet 50 mg PO QDAY BP 10/29/23 vitamins A,C,V-imly-duusos 4,296 mcg-226 mg-90 mg capsule (PreserVision AREDS) 1cap PO BID EYE VITAMIN 10/29/23 RELIEF FACTOR 1 tab PO BID ARTHRITIS 10/14/24 coenzyme Q10 100 mg capsule (Co Q-10) 200 mg PO DAILY SUPPLEMENT 10/14/24 diphenhydramine 25 mg-acetaminophen 500 mg tablet 1 tab PO QHS PRN sleep 10/14/24 memantine 10 mg tablet (Namenda) 10 mg PO BID ALZEHEIMERS 10/14/24 tamsulosin 0.4 mg capsule 0.4 mg PO QHS PROSTATE 10/14/24 venlafaxine 150 mg capsule,extended release 24 hr 150 mg PO DAILY DEPRESSION 10/14/24 ciprofloxacin HCl 500 mg tablet (Cipro) 500 mg PO BID #10 tabs 10/21/24 Hospital Course Operations TURP Summary of Care Provided Hospital Course: 79-year-old male who had a very large obstructive prostate underwent a transurethral resection of the prostate complicated by injury to the right ureteral orifice a stent was placed on the right side at the time of the surgeryalso his bladder neck was undermined so I believe the catheter and the plan was to send him home with a catheter the urine was crystal-clear overnight in the middle the night he became confused and ripped out his catheter completely so a new catheter was put in the urine was fairly bloody so at the continue with irrigation now finally off irrigation the urine is clear he can go home with a catheter to let the bladder and the prostate heal off and the trauma I will see him next week in the office to remove the catheter. Weight / BMI Weight Weight: 70 kg Body Mass Index (BMI) 24.1 ABG / Lab / Microbiology Data 10/22/24 05:40 10/22/24 05:40 D/C Instructions May shower in (days): 1 Call your doctor if your incision/area has: Sudden Increased Bleeding Call your doctor if you observe: Fever of 101 or Higher Catheter: Bagley to leg bag and Bagley to large bag Drain: [place] DC O2, CPAP, BIPAP Needs Home O2 Discharge instructions: No Please Follow Up With: Andrew Figueroa MD When: Call [phone] for an appointment Meaningful Use Info Meaningful Use Meaningful Use Diagnoses (Choose all that apply): None applicable Discharge Plan Admission Admit Date/Time: 10/21/24 15:00 Primary Reason for Your Visit: taye Attending Provider: Andrew Figueroa Primary Care Provider: Armida Bueno Discharge Orders/Prescriptions Prescriptions: New ciprofloxacin HCl [Cipro] 500 mg tablet 500 mg PO BID Qty: 10 0RF Continued cyanocobalamin (vitamin B-12) 1,000 mcg tablet 1,000 mcg PO QHS amlodipine 2.5 mg tablet 2.5 mg PO QDAY losartan 50 mg tablet 50 mg PO QDAY finasteride 5 mg tablet 5 mg PO QDAY ezetimibe [Zetia] 10 mg tablet 10 mg PO QDAY PreserVision AREDS 4,296 mcg-226 mg-90 mg capsule 1 cap PO BID cholecalciferol (vitamin D3) 50 mcg (2,000 unit) tablet 50 mcg PO QDAY venlafaxine 150 mg capsule,extended release 24hr 150 mg PO DAILY memantine [Namenda] 10 mg tablet 10 mg PO BID coenzyme Q10 [Co Q-10] 100 mg capsule 200 mg PO DAILY RELIEF FACTOR 1 tab PO BID diphenhydramine-acetaminophen 25-500 mg tablet 1 tab PO QHS PRN (Reason: sleep) tamsulosin 0.4 mg capsule 0.4 mg PO QHS Referrals / Follow Up: Armida Bueno DO [Primary Care Provider] - Andrew Figueroa MD [Med Staff - Active Staff] - Disposition Discharge Orders: Discharge Patient (Routine); Ordered 10/24/24 Ordered By: Dr. Andrew Figueroa 10/24/24 0733 <Electronically signed by Andrew Figueroa MD> Cosigner Signature (if applicable): CC: Dr. Armida Bueno DO; Dr. Andrew Figueroa MD~ Signed [place] Work Phone: [phone] Discharge summary [facility] Medical Records Department [address] [place] [address] Instructions for Home/Discharge Instructions 10/24/24 0738 MR#: [id number] Acct: [id number] Name: RAI MARS Rep #:[id number] : 1945 79 From: Andrew Figueroa MD PCP: Dr. Armida Bueno DO Status:ADM I NO Discharge Instructions DC O2, CPAP, BIPAP needs Home O2 Discharge instructions: No Dressing / Incision Discharge Activity: Return to Normal Activity and May Not Drive (while taking narcotic pain medications.) May shower in (days): 1 Dressing / Incision Call your doctor if your incision/area has: Sudden Increased Bleeding Call your doctor if you observe: Fever of 101 or Higher Catheter: Bagley to leg bag and Bagley to large bag Drain: [place] Follow Up Care Please Follow Up With: Andrew Figueroa MD When: Call [phone] for an appointment Test Results: Test results from this visit will be discussed in further detail at your follow- up appointment, if applicable. Discharge Plan Admission Admit Date/Time: 10/21/24 15:00 Primary Reason for Your Visit: taye Attending Provider: Andrew Figueroa Primary Care Provider: Armida Buneo Discharge Orders/Prescriptions Prescriptions: New ciprofloxacin HCl [Cipro] 500 mg tablet 500 mg PO BID Qty: 10 0RF Continued cyanocobalamin (vitamin B-12) 1,000 mcg tablet 1,000 mcg PO QHS amlodipine 2.5 mg tablet 2.5 mg PO QDAY losartan 50 mg tablet 50 mg PO QDAY finasteride 5 mg tablet 5 mg PO QDAY ezetimibe [Zetia] 10 mg tablet 10 mg PO QDAY PreserVision AREDS 4,296 mcg-226 mg-90 mg capsule 1 cap PO BID cholecalciferol (vitamin D3) 50 mcg (2,000 unit) tablet 50 mcg PO QDAY venlafaxine 150 mg capsule,extended release 24hr 150 mg PO DAILY memantine [Namenda] 10 mg tablet 10 mg PO BID coenzyme Q10 [Co Q-10] 100 mg capsule 200 mg PO DAILY RELIEF FACTOR 1 tab PO BID diphenhydramine-acetaminophen 25-500 mg tablet 1 tab PO QHS PRN (Reason: sleep) tamsulosin 0.4 mg capsule 0.4 mg PO QHS Referrals / Follow Up: Armida Bueno DO [Primary Care Provider] - Andrew Figueroa MD [Med Staff - Active Staff] - Disposition Discharge Orders: Discharge Patient (Routine); Ordered 10/24/24 Ordered By: Dr. Andrew Figueroa 10/24/24 0738Andrew Figueroa MD CC: Dr. Armida Bueno, ~ Signed [place]09-06-2025 Discharge summary [facility] Medical Records Department [address] [place] [address] Discharge Summary 10/24/24 0732 MR#: [id number] Acct: [id number] Name: RAI MARS Rep #:[id number] : 1945 79 From: Andrew Figueroa MD PCP: Dr. Armida Bueno, Status:ADM I NO Location: [place] GW249-4 Providers Date of Admission: 10/21/24 Date of Discharge: 10/24/24 Primary Care Physician: Dr. Armida Bueno DO Reason For Visit: TURP Medications at Discharge Home Medications amlodipine 2.5 mg tablet 2.5 mg PO QDAY BP 10/29/23 cholecalciferol (vitamin D3) 50 mcg (2,000 unit) tablet 50 mcg PO QDAY SUPPLEMENT 10/29/23 cyanocobalamin (vitamin B-12) 1,000 mcg tablet 1,000 mcg PO QHS SUPPLEMENT 10/29/23 ezetimibe 10 mg tablet (Zetia) 10 mg PO QDAY CHOLESTEROL 10/29/23 finasteride 5 mg tablet 5 mg PO QDAY PROSTATE 10/29/23 losartan 50 mg tablet 50 mg PO QDAY BP 10/29/23 vitamins A,C,H-tplu-rhuugx 4,296 mcg-226 mg-90 mg capsule (PreserVision AREDS) 1cap PO BID EYE VITAMIN 10/29/23 RELIEF FACTOR 1 tab PO BID ARTHRITIS 10/14/24 coenzyme Q10 100 mg capsule (Co Q-10) 200 mg PO DAILY SUPPLEMENT 10/14/24 diphenhydramine 25 mg-acetaminophen 500 mg tablet 1 tab PO QHS PRN sleep 10/14/24 memantine 10 mg tablet (Namenda) 10 mg PO BID ALZEHEIMERS 10/14/24 tamsulosin 0.4 mg capsule 0.4 mg PO QHS PROSTATE 10/14/24 venlafaxine 150 mg capsule,extended release 24 hr 150 mg PO DAILY DEPRESSION 10/14/24 ciprofloxacin HCl 500 mg tablet (Cipro) 500 mg PO BID #10 tabs 10/21/24 Hospital Course Operations TURP Summary of Care Provided Hospital Course: 79-year-old male who had a very large obstructive prostate underwent a transurethral resection of the prostate complicated by injury to the right ureteral orifice a stent was placed on the right sideat the time of the surgeryalso his bladder neck was undermined so I believe the catheter and the plan was to send him home with a catheter the urine was crystal-clear overnight in the middle the night he became confused and ripped out his catheter completely so a new catheter was put in the urine was fairly bloody so at the continue with irrigation now finally off irrigation the urine is clear hecan go home with a catheter to let the bladder and the prostate heal off and the trauma I will see him next week in the office to remove the catheter. Weight / BMI Weight Weight: 70 kg Body Mass Index (BMI) 24.1 ABG / Lab / Microbiology Data 10/22/24 05:40 10/22/24 05:40 D/C Instructions May shower in (days): 1 Call your doctor if your incision/area has: Sudden Increased Bleeding Call your doctor if you observe: Fever of 101 or Higher Catheter: Bagley to leg bag and Bagley to large bag Drain: [place] DC O2, CPAP, BIPAP Needs Home O2 Discharge instructions: No Please Follow Up With: Andrew Figueroa MD When: Call [phone] for an appointment Meaningful Use Info Meaningful Use Meaningful Use Diagnoses (Choose all that apply): None applicable Discharge Plan Admission Admit Date/Time: 10/21/24 15:00 Primary Reason for Your Visit: turp Attending Provider: Andrew Figueroa Primary Care Provider: Armida Bueno Discharge Orders/Prescriptions Prescriptions: New ciprofloxacin HCl [Cipro] 500 mg tablet 500 mg PO BID Qty: 10 0RF Continued cyanocobalamin (vitamin B-12) 1,000 mcg tablet 1,000 mcg PO QHS amlodipine 2.5 mg tablet 2.5 mg PO QDAY losartan 50 mg tablet 50 mg PO QDAY finasteride 5 mg tablet 5 mg PO QDAY ezetimibe [Zetia] 10 mg tablet 10 mg PO QDAY PreserVision AREDS 4,296 mcg-226 mg-90 mg capsule 1 cap PO BID cholecalciferol (vitamin D3) 50 mcg (2,000 unit) tablet 50 mcg PO QDAY venlafaxine 150 mg capsule,extended release 24hr 150 mg PO DAILY memantine [Namenda] 10 mg tablet 10 mg PO BID coenzyme Q10 [Co Q-10] 100 mg capsule 200 mg PO DAILY RELIEF FACTOR 1 tab PO BID diphenhydramine-acetaminophen 25-500 mg tablet 1 tab PO QHS PRN (Reason: sleep) tamsulosin 0.4 mg capsule 0.4 mg PO QHS Referrals / Follow Up: Armida Bueno DO [Primary Care Provider] - Andrew Figueroa MD [Med Staff - Active Staff] - Disposition Discharge Orders: Discharge Patient (Routine); Ordered 10/24/24 Ordered By: Dr. Andrew Figueroa 10/24/24 0733 Cosigner Signature (if applicable): CC: Dr. Armida Bueno DO; Dr. Andrew Figueroa MD~ Signed [place]09-06-2025 [facility] Medical Records Department [address] [place] [address] Discharge Summary 10/24/24 0732 MR#: [id number] Acct: [id number] Name: RAI MARS Rep #: [id number] : 1945 79 From: Anrdew Figueroa MD PCP: Dr. Armida Bueno DO Status:ADM CHAYO Location: [address] Providers Date of Admission: 10/21/24 Date of Discharge: 10/24/24 Primary Care Physician: Dr. Armida Bueno DO Reason For Visit: TURP Medications at Discharge Home Medications amlodipine 2.5 mg tablet 2.5 mg PO QDAY BP 10/29/23 cholecalciferol (vitamin D3) 50 mcg (2,000 unit) tablet 50 mcg PO QDAY SUPPLEMENT 10/29/23 cyanocobalamin (vitamin B-12) 1,000 mcg tablet 1,000 mcg PO QHS SUPPLEMENT 10/29/23 ezetimibe 10 mg tablet (Zetia) 10 mg PO QDAY CHOLESTEROL 10/29/23 finasteride 5 mg tablet 5 mg PO QDAY PROSTATE 10/29/23 losartan 50 mg tablet 50 mg PO QDAY BP 10/29/23 vitamins A,C,U-hlcq-urjgpj 4,296 mcg-226 mg-90 mg capsule (PreserVision AREDS) 1 cap PO BID EYE VITAMIN 10/29/23 RELIEF FACTOR 1 tab PO BID ARTHRITIS 10/14/24 coenzyme Q10 100 mg capsule (Co Q-10) 200 mg PO DAILY SUPPLEMENT 10/14/24 diphenhydramine 25 mg-acetaminophen 500 mg tablet 1 tab PO QHS PRN sleep 10/14/24 memantine 10 mg tablet (Namenda) 10 mg PO BID ALZEHEIMERS 10/14/24 tamsulosin 0.4 mg capsule 0.4 mg PO QHS PROSTATE 10/14/24 venlafaxine 150 mg capsule,extended release 24 hr 150 mg PO DAILY DEPRESSION 10/14/24 ciprofloxacin HCl 500 mg tablet (Cipro) 500 mg PO BID #10 tabs 10/21/24 Hospital Course Operations TURP Summary of Care Provided Hospital Course: 79-year-old male who had a very large obstructive prostate underwent a transurethral resection of the prostate complicated by injury to the right ureteral orifice a stent was placed on the right side at the time of the surgery also his bladder neck was undermined so I believe the catheter and the plan was to send him home with a catheter the urine was crystal-clear overnight in the middle the night he became confused and ripped out his catheter completely so a new catheter was put in the urine was fairly bloody so at the continue with irrigation now finally off irrigation the urine is clear he can go home with a catheter to let the bladder and the prostate heal off and the trauma I will see him next week in the office to remove the catheter. Weight / BMI Weight Weight: 70 kg Body Mass Index (BMI) 24.1 ABG / Lab / Microbiology Data 10/22/24 05:40 10/22/24 05:40 D/C Instructions May shower in (days): 1 Call your doctor if your incision/area has: Sudden Increased Bleeding Call your doctor if you observe: Fever of 101 or Higher Catheter: Bagley to leg bag and Bagley to large bag Drain: [place] DC O2, CPAP, BIPAP Needs Home O2 Discharge instructions: No Please Follow Up With: Andrew Figueroa MD When: Call [phone] for an appointment Meaningful Use Info Meaningful Use Meaningful Use Diagnoses (Choose all that apply): None applicable Discharge Plan Admission Admit Date/Time: 10/21/24 15:00 Primary Reason for Your Visit: turp Attending Provider: Andrew Figueroa Primary Care Provider: Armida Bueno Discharge Orders/Prescriptions Prescriptions: New ciprofloxacin HCl [Cipro] 500 mg tablet 500 mg PO BID Qty: 10 0RF Continued cyanocobalamin (vitamin B-12) 1,000 mcg tablet 1,000 mcg PO QHS amlodipine 2.5 mg tablet 2.5 mg PO QDAY losartan 50 mg tablet 50 mg PO QDAY finasteride 5 mg tablet 5 mg PO QDAY ezetimibe [Zetia] 10 mg tablet 10 mg PO QDAY PreserVision AREDS 4,296 mcg-226 mg-90 mg capsule 1 cap PO BID cholecalciferol (vitamin D3) 50 mcg (2,000 unit) tablet 50 mcg PO QDAY venlafaxine 150 mg capsule,extended release 24hr 150 mg PO DAILY memantine [Namenda] 10 mg tablet 10 mg PO BID coenzyme Q10 [Co Q-10] 100 mg capsule 200 mg PO DAILY RELIEF FACTOR 1 tab PO BID diphenhydramine-acetaminophen 25-500 mg tablet 1 tab PO QHS PRN (Reason: sleep) tamsulosin 0.4 mg capsule 0.4 mg PO QHS Referrals / Follow Up: Armida Bueno DO [Primary Care Provider] - Andrew Figueroa MD [Med Staff - Active Staff] - Disposition Discharge Orders: Discharge Patient (Routine); Ordered 10/24/24 Ordered By: Dr. Andrew Figueroa 10/24/24 0733 Cosigner Signature (if applicable): CC: Dr. Armida Bueno DO; Dr. Andrew Figueroa MD [facility] Progress note Author Andrew Figueroa [place] Note Date/Time October 23, 2024 5:08pm [facility] Medical Records Department [address] [place] [address] Progress Note - Urology 10/23/24 1707 MR#: [id number] Acct: [id number] Name: RAI MARS Rep #:[id number] : 1945 79 From: Andrew Figueroa MD PCP: Dr. Armida Bueno DO Status:ADM I NO Location: [place] [id number] Subjective Subjective s/p turp traumatic bagley removal urine now finaly clear i will send him home tomorrow w bagley Objective Data Objective Data Vital Signs: Vital Signs Temp Pulse Resp BP Pulse Ox O2 Del Method O2 Flow Rate 98.3 F 81 18 134/69 H 95 Nasal Cannula 2 10/23/24 13:56 10/23/24 13:56 10/23/24 13:56 10/23/24 13:56 10/23/24 13:56 10/23/24 13:56 10/23/24 13:56 Oxygen Flow Rate (L/min) 2 Oxygen Delivery Method Nasal Cannula Weight: 70 kg Body Mass Index (BMI) 24.1 Intake & Output: Intake and Output for Last 24 Hours 10/21/24 10/22/24 10/23/24 23:59 23:59 23:59 Intake Total 1000 / 1000 1865 / 1865 1120 / 1120 Output Total 560 / 560 1800 / 1800 Balance 440 / 440 65 / 65 1120 / 1120 Lab / Micro Data 10/22/24 05:40 10/22/24 05:40 10/23/24 1708 <Electronically signed by Andrew Figueroa MD> Cosigner Signature (if applicable): CC: ~ Signed [place] Work Phone: 1(452) 578-105809-05-2025 Progress note [facility] Medical Records Department [address] [place] [address] Progress Note - Urology 10/23/24 170 MR#: [id number] Acct: [id number] Name: RAI MARS Shannon Rep #:[id number] 2 : 1945 79 From: Andrew Figueroa MD PCP: Dr. Armida Bueno, DO Status:ADM I NO Location: [place] BI267-8 Subjective Subjective s/p turp traumatic bagley removal urine now finaly clear i will send him home tomorrow w bagley Objective Data Objective Data Vital Signs: Vital Signs Temp Pulse Resp BP Pulse Ox O2 Del Method O2 Flow Rate 98.3 F 81 18 134/69 H 95 Nasal Cannula 2 10/23/24 13:56 10/23/24 13:56 10/23/24 13:56 10/23/24 13:56 10/23/24 13:56 10/23/24 13:56 10/23/24 13:56 Oxygen Flow Rate (L/min) 2 Oxygen Delivery Method Nasal Cannula Weight: 70 kg Body Mass Index (BMI) 24.1 Intake & Output: Intake and Output for Last 24 Hours 10/21/24 10/22/24 10/23/24 23:59 23:59 23:59 Intake Total 1000 / 1000 1865 / 1865 1120 / 1120 Output Total 560 / 560 1800 / 1800 Balance 440 / 440 65 / 65 1120 / 1120 Lab / Micro Data 10/22/24 05:40 10/22/24 05:40 10/23/24 1708 Cosigner Signature (if applicable): CC: ~ Signed [place]09-04-2025 Progress note Author Andrew Figueroa [place] Note Date/Time October 22, 2024 7:28am [facility] Medical Records Department [address] [place] [address] Progress Note - Urology 10/22/24726 MR#: [id number] Acct: [id number] Name: RAI MARS Rep #:[id number] : 1945 79 From: Andrew Figueroa MD PCP: Dr. Armida Bueno, DO Status:ADM I NO Location: [place] [address]1 Subjective Subjective Status post TURP yesterday he unfortunately traumatically removed his catheter last night he was confused he is better this morning but urine still fairly bloody recommend continue CBI will not remove the Bagley catheter today hopefullyby tomorrow we can send him home with a catheter we will see how it goes for nowdiscontinue bladder irrigation do not stop Objective Data Objective Data Vital Signs: Vital Signs Temp Pulse Resp BP Pulse Ox O2 Del Method O2 Flow Rate 97.8 F 83 18 120/81 H 96 Nasal Cannula 2 10/22/24 06:31 10/22/24 06:31 10/22/24 06:31 10/22/24 06:31 10/22/24 06:31 10/22/24 06:31 10/22/24 06:31 Oxygen Flow Rate (L/min) 2 Oxygen Delivery Method Nasal Cannula Weight: 70 kg Body Mass Index (BMI) 24.1 Intake & Output: Intake and Output for Last 24 Hours 10/20/24 10/21/24 10/22/24 23:59 23:59 23:59 Intake Total 1000 / 1000 1000 / 1000 Output Total 560 / 560 1000 / 1000 Balance 440 / 440 0 / 0 Lab / Micro Data 10/22/24 05:40 10/22/24 05:40 Labs: Laboratory Results - last 24 hr 10/22/24 05:40: WBC 21.8 H, RBC 3.79 L, Hgb 12.3 L, Hct 37.0 L, MCV 97.6 H, MCH 32.5 H, MCHC 33.2, RDW Std Deviation 45.9 H, RDW Coeff of Damari 12.8, Plt Count 201, MPV 10.0, Immature Gran % (Auto) 0.300, Neut % (Auto) 87.2 H, Lymph % (Auto) 5.4 L, [place] % (Auto) 6.8, Eos % (Auto) 0.0, Baso % (Auto) 0.3, Absolute Neuts (auto) 19.0 H, Absolute Lymphs (auto) 1.18, Nucleated RBC % 0, Sodium 135,Potassium 3.9, Chloride 100, Carbon Dioxide 22.3, Anion Gap 13, BUN 10, Creatinine 0.76, Estim Creat Clear Calc 67.71, Est GFR (MDRD) Non-Af 90, BUN/Creatinine Ratio 12.7, Glucose 190 H, Calcium 8.3, Blood Type A POSITIVE, Antibody Screen NEGATIVE 10/22/24727 <Electronically signed by Andrew Figueroa MD> Cosigner Signature (if applicable): CC: ~ Signed [place] Work Phone: 1(677) 630-500809-04-2025 Progress note [facility] Medical Records Department [address] [place] [address] Progress Note - Urology 10/22/24726 MR#: [id number] Acct: [id number] Name: RAI MARS Rep #:[id number] : 1945 79 From: Andrew Figueroa MD PCP: Dr. Armida Bueno, DO Status:ADM I NO Location: [place] ZM212-8 Subjective Subjective Status post TURP yesterday he unfortunately traumatically removed his catheter last night he was confused he is better this morning but urine still fairly bloody recommend continue CBI will not remove the Bagley catheter today hopefullyby tomorrow we can send him home with a catheter we will see howit goes for nowdiscontinue bladder irrigation do not stop Objective Data Objective Data Vital Signs: Vital Signs Temp Pulse Resp BP Pulse Ox O2 Del Method O2 Flow Rate 97.8 F 83 18 120/81 H 96 Nasal Cannula 2 10/22/24 06:31 10/22/24 06:31 10/22/24 06:31 10/22/24 06:31 10/22/24 06:31 10/22/24 06:31 10/22/24 06:31 Oxygen Flow Rate (L/min) 2 Oxygen Delivery Method Nasal Cannula Weight: 70 kg Body Mass Index (BMI) 24.1 Intake & Output: Intake and Output for Last 24 Hours 10/20/24 10/21/24 10/22/24 23:59 23:59 23:59 Intake Total 1000 / 1000 1000 / 1000 Output Total 560 / 560 1000 / 1000 Balance 440 / 440 0 / 0 Lab / Micro Data 10/22/24 05:40 10/22/24 05:40 Labs: Laboratory Results - last 24 hr 10/22/24 05:40: WBC 21.8 H, RBC 3.79 L, Hgb 12.3 L, Hct 37.0 L, MCV 97.6 H, MCH 32.5 H, MCHC 33.2, RDW Std Deviation 45.9 H, RDW Coeff of Damari 12.8, Plt Count 201, MPV 10.0, Immature Gran % (Auto) 0.300, Neut % (Auto) 87.2 H, Lymph % (Auto) 5.4 L, [place] % (Auto) 6.8, Eos % (Auto) 0.0, Baso % (Auto) 0.3, Absolute Neuts (auto) 19.0 H, Absolute Lymphs (auto) 1.18, Nucleated RBC % 0, Sodium 135,Potassium 3.9, Chloride 100, Carbon Dioxide 22.3, Anion Gap 13, BUN 10, Creatinine 0.76, Estim Creat Clear Calc 67.71, Est GFR (MDRD) Non-Af 90, BUN/Creatinine Ratio 12.7, Glucose 190 H, Calcium 8.3, Blood Type A POSITIVE, Antibody Screen NEGATIVE 10/22/24727 Cosigner Signature (if applicable): CC: ~ Signed [place]09-04-2025 Progress note Author Andrew Figueroa [place] Note Date/Time October 22, 2024 3:15am [facility] Medical Records Department [address] [place] [address] Progress Note - Urology 10/22/24313 MR#: [id number] Acct: [id number] Name: RAI MARS Rep #:[id number] : 1945 79 From: Andrew Figueroa MD PCP: Dr. Armida Bueno, DO Status:ADM I NO Location: [place] ES231-5 Subjective Subjective s/p turp confused and pulled out his bagley tonight nurse put in a 20 fr but too bloody so came in and used a catheter guide and placed a 22fr [address] able to irrigate continue CBI do no stop in am, urine v bloody. Objective Data Objective Data Vital Signs: Vital Signs Temp Pulse Resp BP Pulse Ox O2 Del Method O2 Flow Rate 97.8 F 68 18 148/75 H 98 Nasal Cannula 2 10/22/24 00:42 10/22/24 00:42 10/22/24 00:42 10/22/24 00:42 10/22/24 00:42 10/22/24 00:42 10/22/24 00:42 Oxygen Flow Rate (L/min) 2 Oxygen Delivery Method Nasal Cannula Weight: 70 kg Body Mass Index (BMI) 24.1 Intake & Output: Intake and Output for Last 24 Hours 10/20/24 10/21/24 10/22/24 23:59 23:59 23:59 Intake Total 1000 / 1000 Output Total 10 / Balance 990 / 990 10/22/24314 <Electronically signed by Andrew Figueroa MD> Cosigner Signature (if applicable): CC: ~ Signed [place] Work Phone: 1(780) 637-165509-04-2025 Progress note [facility] Medical Records Department [address] [place] [address] Progress Note - Urology 10/22/24313 MR#: [id number] Acct: [id number] Name: RAI MARS Rep #:[id number] : 1945 79 From: Andrew Figueroa MD PCP: Dr. Armida Bueno, DO Status:ADM I NO Location: [place] TM149-9 Subjective Subjective s/p turp confused and pulled out his bagley tonight nurse put in a 20 fr but too bloody so came in and used a catheter guide and placed a 22fr [address] able to irrigate continue CBI do no stop in am, urine v bloody. Objective Data Objective Data Vital Signs: Vital Signs Temp Pulse Resp BP Pulse Ox O2 Del Method O2 Flow Rate 97.8 F 68 18 148/75 H 98 Nasal Cannula 2 10/22/24 00:42 10/22/24 00:42 10/22/24 00:42 10/22/24 00:42 10/22/24 00:42 10/22/24 00:42 10/22/24 00:42 Oxygen Flow Rate (L/min) 2 Oxygen Delivery Method Nasal Cannula Weight: 70 kg Body Mass Index (BMI) 24.1 Intake & Output: Intake and Output for Last 24 Hours 10/20/24 10/21/24 10/22/24 23:59 23:59 23:59 Intake Total 1000 / 1000 Output Total Balance 990 / 990 10/22/24 0315 Cosigner Signature (if applicable): CC: ~ Signed [place]09-03-2025 Consult note Author Soham Nathanael [place] Note Date/Time October 21, 2024 3:56pm [facility] Medical Records Department [address] [place] [address] Anesthesia Postop Eval II 10/21/24 1555 MR#: [id number] Acct: [id number] Name: RAI MARS Rep #:[id number] 0 : 1945 79 From: Soham Huffman MD PCP: Dr. Armida Bueno, DO Status:ADM I NO Y Race: C Location: MS3 MS302 - Anesthesia Postop Eval I Sum Postop Eval Completion status Anesthesia document: Postop Eval 1 completed: Yes Anesthesia Postop Eval I Summary Anesthesia Postop Eval I Summary: Anesthesia Postop Eval I: Assessment Summary Airway patent Yes 10/21/24 15:12 ASSISTANT BRANCH OPERATIONS MANAGER.TNES Spontaneous unlabored Yes 10/21/24 15:12 ASSISTANT BRANCH OPERATIONS MANAGER.TNES respirations Mental status nausea No 10/21/24 15:12 ASSISTANT BRANCH OPERATIONS MANAGER.TNES Vomiting No 10/21/24 15:12 ASSISTANT BRANCH OPERATIONS MANAGER.TNES Anesthesia Postop Eval I: Fluid Summary Crystalloid volume administer 800 10/21/24 15:12 ASSISTANT BRANCH OPERATIONS MANAGER.TNES (ml) Colloids volume administered ( ml) Blood Product volume administered (ml) Total IV fluid infused 800 10/21/24 15:12 ASSISTANT BRANCH OPERATIONS MANAGER.TNES Anesthesia Postop Eval I: Summary Notes Anesthesia Complication No 10/21/24 15:12 ASSISTANT BRANCH OPERATIONS MANAGER.TNES Anesthesia Complication Comment: Post-operative progress note Anesthesia: Postop Eval II Evaluation Mental status: Awake Pain Level: 0 nausea: No Vomiting: No Complications Anesthesia Complication: No 10/21/24 1556 <Electronically signed by Soham Huffman MD> Date _ Soham Huffman MD Cosigner Signature: Date CC: ~ Signed [place] Work Phone: 1(595) 233-456309-03-2025 Consult note Author Mason Laytonbitt [place] Note Date/Time October 21, 2024 3:12pm [facility] Medical Records Department [address] [place] [address] Anesthesia Postop Eval I 10/21/24 1512 MR#: [id number] Acct: [id number] Name: RAI MARS Rep #:[id number] 3 : 1945 79 From: Mason TELLEZ PCP: Dr. Armida Bueno, DO Status:ADM I NO Y Race: C Location: [place] [address] Anesthesia: Postop Eval I Current Vital Signs Temperature: 97.8 F Pulse Rate: 65 Blood Pressure: 117/68 Respiratory Rate: 16 Pulse Ox: 95 Assessment Airway patent: Yes Spontaneous unlabored respirations: Yes nausea: No Vomiting: No Anesthesia Complication: No Fluid Hydration Crystalloid volume administer (ml): 800 Total IV fluid infused: 800 Progress Note Anesthesia document: Postop Eval 1 completed: Yes 10/21/24 1512 <Electronically signed by Mason Royal CRNA> Date _ Mason Royal CRNA Cosigner Signature: Date CC: ~ Signed [place] Work Phone: [phone] 223-557009-03-2025 Discharge summary Author Andrew Figueroa [place] Note Date/Time October 21, 2024 3:06pm [facility] Medical Records Department [address] [place] [address] Instructions for Home/Discharge Instructions 10/21/24 1506 MR#: [id number] Acct: [id number] Name: JERADRAI Shannon Rep #:[id number] 4 : 1945 79 From: Andrew Figueroa MD PCP: Dr. Armida Bueno, DO Status:REG S DC Discharge Instructions DC O2, CPAP, BIPAP needs Home O2 Discharge instructions: No Dressing / Incision Discharge Activity: May Not Drive May shower in (days): 1 Dressing / Incision Call your doctor if your incision/area has: Sudden Increased Bleeding Call your doctor if you observe: Fever of 101 or Higher Catheter: Bagley to leg bag and Bagley to large bag Drain: [place] Follow Up Care Please Follow Up With: Andrew Figueroa MD When: Call [phone] for an appointment Test Results: Test results from this visit will be discussed in further detail at your follow- up appointment, if applicable. Discharge Plan Admission Primary Reason for Your Visit: turp Attending Provider: Andrew Figueroa Primary Care Provider: Armida Bueno Instructions Print Language: Guatemalan Discharge Orders/Prescriptions Prescriptions: New ciprofloxacin HCl [Cipro] 500 mg tablet 500 mg PO BID Qty: 10 0RF Continued cyanocobalamin (vitamin B-12) 1,000 mcg tablet 1,000 mcg PO QHS amlodipine 2.5 mg tablet 2.5 mg PO QDAY losartan 50 mg tablet 50 mg PO QDAY finasteride 5 mg tablet 5 mg PO QDAY ezetimibe [Zetia] 10 mg tablet 10 mg PO QDAY PreserVision AREDS 4,296 mcg-226 mg-90 mg capsule 1 cap PO BID cholecalciferol (vitamin D3) 50 mcg (2,000 unit) tablet 50 mcg PO QDAY venlafaxine 150 mg capsule,extended release 24hr 150 mg PO DAILY memantine [Namenda] 10 mg tablet 10 mg PO BID coenzyme Q10 [Co Q-10] 100 mg capsule 200 mg PO DAILY RELIEF FACTOR 1 tab PO BID diphenhydramine-acetaminophen 25-500 mg tablet 1 tab PO QHS PRN (Reason: sleep) tamsulosin 0.4 mg capsule 0.4 mg PO QHS Referrals / Follow Up: Armida Bueno DO [Primary Care Provider] - Andrew Figueroa MD [Med Staff - Active Staff] - Disposition Disposition (needs filled in before D/C Order can be placed): Home, Self Care 10/21/24 1506<Electronically signed by Andrew Figueroa MD>Andrew Figueroa MD CC: Dr. Armida Bueno DO ~ Signed [place] Work Phone: 1(625) 930-992309-03-2025 Consult note [facility] Medical Records Department [address] [place] [address] Anesthesia Postop Eval II 10/21/24 1555 MR#: [id number] Acct: [id number] Name: RAI MARS Rep #:[id number] 0 : 1945 79 From: Soham Huffman MD PCP: Dr. Armida Bueno DO Status:ADM I NO Y Race: C Location: MS3 MS302 -1 Anesthesia Postop Eval I Sum Postop Eval Completion status Anesthesia document: Postop Eval 1 completed: Yes Anesthesia Postop Eval I Summary Anesthesia Postop Eval I Summary: Anesthesia Postop Eval I: Assessment Summary Airway patent Yes 10/21/24 15:12 ASSISTANT BRANCH OPERATIONS MANAGER.TNES Spontaneous unlabored Yes 10/21/24 15:12 ASSISTANT BRANCH OPERATIONS MANAGER.TNES respirations Mental status nausea No 10/21/24 15:12 ASSISTANT BRANCH OPERATIONS MANAGER.TNES Vomiting No 10/21/24 15:12 ASSISTANT BRANCH OPERATIONS MANAGER.TNES Anesthesia Postop Eval I: Fluid Summary Crystalloid volume administer 800 10/21/24 15:12 ASSISTANT BRANCH OPERATIONS MANAGER.TNES (ml) Colloids volume administered ( ml) Blood Product volume administered (ml) Total IV fluid infused 800 10/21/24 15:12 ASSISTANT BRANCH OPERATIONS MANAGER.TNES Anesthesia Postop Eval I: Summary Notes Anesthesia Complication No 10/21/24 15:12 ASSISTANT BRANCH OPERATIONS MANAGER.TNES Anesthesia Complication Comment: Post-operative progress note Anesthesia: Postop Eval II Evaluation Mental status: Awake Pain Level: 0 nausea: No Vomiting: No Complications Anesthesia Complication: No 10/21/24 1556 MD> Date _ Soham Huffman MD Cosigner Signature: Date CC: ~ Signed [place]09-03-2025 Consult note [facility] Medical Records Department [address] [place] [address] Anesthesia Postop Eval I 10/21/24 1512 MR#: [id number] Acct: [id number] Name: RAI MARS Rep #:[id number] 3 : 1945 79 From: Mason TELLEZ PCP: Dr. Armida Bueno, DO Status:ADM I NO Y Race: C Location: [place] [address] Anesthesia: Postop Eval I Current Vital Signs Temperature: 97.8 F Pulse Rate: 65 Blood Pressure: 117/68 Respiratory Rate: 16 Pulse Ox: 95 Assessment Airway patent: Yes Spontaneous unlabored respirations: Yes nausea: No Vomiting: No Anesthesia Complication: No Fluid Hydration Crystalloid volume administer (ml): 800 Total IV fluid infused: 800 Progress Note Anesthesia document: Postop Eval 1 completed: Yes 10/21/24 1512 ASSISTANT BRANCH OPERATIONS MANAGER> Date _ Mason Royal ASSISTANT BRANCH OPERATIONS MANAGER Cosigner Signature: Date CC: ~ Signed [place]09-03-2025 Procedure note [facility] Medical Records Department [address] [facility] [place] [address] Operative Report 10/21/24 1507 MR#: [id number] Acct: [id number] Name: RAI MARS Rep #:[id number] 1 : 1945 79 From: Andrew Figueroa MD PCP: Dr. Armida Bueno, Status:ADM I NO Location: [place] [address]-1 Operative Report (Standard) Operative Information Date of Procedure: 10/21/24 Pre-Operative Diagnosis: BPH with obstruction Post-Operative Diagnosis: The same Surgery/Procedure Performed: Transurethral section of the prostate and cystoscopy and right stent placement library clerk talking books: No Type of Anesthesia: General RN Documented Start/Stop Times: Operation Date: 10/21/24 13:15 Case Time Into Pre-Op 10/21/24 11:20 Out of Pre-Op 10/21/24 13:55 Anesthesia Start 10/21/24 13:58 Into Room 10/21/24 13:58 Procedure Start 10/21/24 14:13 Procedure End 10/21/24 14:56 Anesthesia End 10/21/24 15:05 Out of Room 10/21/24 15:05 Procedure Start Time: 14:13 Procedure Stop Time: 14:56 Select all DRAINS/GRAFTS/IMPLANTS that apply: Drains Drain details: Stent placement of the right side, Bagley placement continuous bladder irrigation Estimated Blood Loss: 25 cc Specimen collected: Yes Description of specimen(s) removed: Prostate tissue Description of surgery: 79-year-old male with BPH and obstruction very large prostate he has a significant obstruction withthe prostate he has been on maximal medical therapywith Flomax and Proscar still having difficulties emptying his bladder going to the bathroom frequently and up and in his bladder completely so organ to offeredhim a transurethral resection of prostate hoping open of the prostate will alleviate hissymptoms course is no guarantees that this will happen. Today organ to take him back for TURP. Patient underwent general anesthetic he was placed in dorsolithotomy position the penis and testicles were prepped and draped in usual fashion I first dilatedthe meatus starting from 16 Omani up to 32 Omani to allow for a 26 O[place]i continuous-flow Olympus bipolar resectoscope I went into the bladder he had a small median lobe identified the right and left ureteral orifice I then started resecting the median lobe and resecting back to the verumontanum I resected the entire right lobe of the prostate completely, I resected the entire left lobe the prostate completely had a nice wide open channel very carefully resected theapical tissue but still left enough tissue in the apex for the sphincter and then went back in the bladder as I was resecting I then noticed that the bladderneck was undermined I went up and inspected I was able to find the left ureteralorifice but the right UO orificewas not able to identify it took a long time toidentify and finally identified to the right ureter was had been resected duringthe TURP during the undermining of the bladder neck so decided place a stent to make sure that the stent the ureter on the right side will heal properly went back in with the cystoscope took some time to find it but I was able to find theright ureteral orifice within the bladder neck that was undermined and put a wire up on that side and then put a stent on that side this will out of the ureter healed up and that that side I then cauterize the prostate got all the bleeding stopped we will put a catheter for continuous irrigation he will spend the night in the hospital with irrigation he ought to go home with a catheter since the bladder neck was undermined and what the remove the stent in about a month from now told the family the findings of surgery otherwise had a nice resection of the prostate and once it all heals up hopefully he will be able to urinate better Surgical Findings: Prostate resected completely bladder neck undermined and ureteral injury of the right side during resection so stent placed on the right side and Bagley placed Complications Complications: Yes Complication Details: Ureteral injury on the right side stentplaced on the rightside Admit VTE Documentation VTE Present on Admission: No VTE Mechan Device Prophylaxis: SCD's VTE Pharm Prophylaxis ordered?: No 10/21/24 1511 Cosigner Signature (if applicable): CC: Dr. Armida Bueno DO; Dr. Andrew Figueroa MD~ Signed [place]09-03-2025 Discharge summary [facility] Medical Records Department [address] [place] [address] Instructions for Home/Discharge Instructions 10/21/24 1506 MR#: [id number] Acct: [id number] Name: RAI MARS Rep #:[id number] 4 : 1945 79 From: Andrew Figueroa MD PCP: Dr. Armida Bueno DO Status:REG S DC Discharge Instructions DC O2, CPAP, BIPAP needs Home O2 Discharge instructions: No Dressing / Incision Discharge Activity: May Not Drive May shower in (days): 1 Dressing / Incision Call your doctor if your incision/area has: Sudden Increased Bleeding Call your doctor if you observe: Fever of 101 or Higher Catheter: Bagley to leg bag and Bagley to large bag Drain: [place] Follow Up Care Please Follow Up With: Andrew Figueroa MD When: Call [phone] for an appointment Test Results: Test results from this visit will be discussed in further detail at your follow- up appointment, if applicable. Discharge Plan Admission Primary Reason for Your Visit: turp Attending Provider: Andrew Figueroa Primary Care Provider: Armida Bueno Instructions Print Language: Guatemalan Discharge Orders/Prescriptions Prescriptions: New ciprofloxacin HCl [Cipro] 500 mg tablet 500 mg PO BID Qty: 10 0RF Continued cyanocobalamin (vitamin B-12) 1,000 mcg tablet 1,000 mcg PO QHS amlodipine 2.5 mg tablet 2.5 mg PO QDAY losartan 50 mg tablet 50 mg PO QDAY finasteride 5 mg tablet 5 mg PO QDAY ezetimibe [Zetia] 10 mg tablet 10 mg PO QDAY PreserVision AREDS 4,296 mcg-226 mg-90 mg capsule 1 cap PO BID cholecalciferol (vitamin D3) 50 mcg (2,000 unit) tablet 50 mcg PO QDAY venlafaxine 150 mg capsule,extended release 24hr 150 mg PO DAILY memantine [Namenda] 10 mg tablet 10 mg PO BID coenzyme Q10 [Co Q-10] 100 mg capsule 200 mg PO DAILY RELIEF FACTOR 1 tab PO BID diphenhydramine-acetaminophen 25-500 mg tablet 1 tab PO QHS PRN (Reason: sleep) tamsulosin 0.4 mg capsule 0.4 mg PO QHS Referrals / Follow Up: Armida Bueno DO [Primary Care Provider] - Andrew Figueroa MD [Med Staff - Active Staff] - Disposition Disposition (needs filled in before D/C Order can be placed): Home, Self Care 10/21/24 1506Andrew Figueroa MD CC: Dr. Armida Bueno DO ~ Signed [place]09-03-2025 Consult note Author Soham Nahtanael [place] Note Date/Time October 21, 2024 12:35pm [facility] Medical Records Department [address] [place] [address] Pre-Anesthesia Evaluation 10/21/24 1229 MR#: [id number] Acct: [id number] Name: RAI MARS Rep #:[id number] 5 : 1945 79 From: Soham Huffman MD PCP: Dr. Armida Bueno DO Status:REG S DC Y Race: C Location: [place] [address] ASA Classification* ASA Classification ASA Classification: 3 (Prolonged QTc - NO ZOFRAN. Recommend doing TIVA to avoid PONV and due to alzheimers (reduce postop confusion). Patient also has HTN, CADx stent, FIDEL. ) Assessment & Plan Anesthesia* Anesthesia Assessment Anesthesia Assessment: Discussed sedation and/or anesthesia options, risks, benefits, and alternatives with patient/parents/legal guardian/POA. Questions invited. The patient/parents/legal guardian/POA seems to understand and agrees to proceedwith anesthesia plan. Reviewed the physical assessment, medical history, allergy history and patient home medications list prior to surgery/procedure/anesthetic and documented any changes. Performed airway and anesthesia risk assessments. Anesthesia Type Anesthesia Type: General History Source History Obtained from:: Patient and Chart Anesthesia Focused Assessment* Temperature: 98.6 F Pulse Rate: 78 Blood Pressure: 161/86 Respiratory Rate: 16 Pulse Ox: 98 Oxygen Delivery Method: Room Air Airway Assessment Mouth opens: >3 cm Mallampati Score: II Neck Range of motion (ROM): Full ROM Labs Anesthesia Preop lab: CBC WBC 5.4 K/mm3 (4.4-11.0) 03/23/14 12:15 03/23/14 RBC 5.10 M/mm3 (4.6-6.2) 03/23/14 12:15 03/23/14 Hgb 15.6 g/dl (13.0-16.5) 03/23/14 12:15 03/23/14 Hct 47.6 % (40-54) 03/23/14 12:15 03/23/14 Plt Count 190 K/mm3 (150-450) 03/23/14 12:15 03/23/14 CHEMISTRY Potassium 4.1 mmol/L (3.5-5.1) 03/23/14 12:15 03/23/14 Sodium 138 mmol/L (136-145) 03/23/14 12:15 03/23/14 BUN 10 mg/dL (7-18) 03/23/14 12:15 03/23/14 Creatinine 1.0 mg/dL (0.8-1.3) 03/23/14 12:15 03/23/14 Glucose 101 mg/dL (70-110) 03/23/14 12:15 03/23/14 TSH 1.92 uIU/mL (0.358-3.74) 03/23/14 12:15 COAG Pre-Assessment Diagnosis/Proposed Procedure Planned Operative Procedure(s): CYSTO,TURP Anesthesia History 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 When Was Last Pacemaker Check QUESTION #4 FULL TEXT: You/Your Family Experience fever (hyperthermia) with Anesthesia Last Oral Intake Last Oral intake: Last Oral Intake NPO since 10:00 10/21/24 12:02 Meds taken in AM with sips of Yes 10/21/24 12:02 water? 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 Female No 10/14/24 11:35 HX of Motion Sickness No 10/14/24 11:35 HX of N/V After Surgery No 10/14/24 11:35 Non-Smoker Yes 10/14/24 11:35 Duration of Surgery greater Yes 10/14/24 11:35 than 60 minutes Number of Risk Factors 2 10/14/24 11:35 PONV Score Moderate Risk 10/14/24 11:35 Height & Weight Height & Weight: Anesthesia: Height & Weight Height 5 ft 7 in 10/21/24 12:02 Weight: 70 kg 10/21/24 12:02 Body Mass Index (BMI) 24.1 10/21/24 12:02 Respiratory Assessment Respiratory Assessment - heavy mobile equipment repairer: Respiratory Tract Infection Hx - heavy mobile equipment repairer Hx Respiratory Tract Infection No 10/14/24 11:35 STOP Sleep Apnea STOP Sleep Apnea - heavy mobile equipment repairer: STOP Sleep Apnea - heavy mobile equipment repairer Hx Hypertension Yes: CONTROLLED WITH MED 10/14/24 11:35 Hx Sleep Apnea No 10/14/24 11:35 CPAP BIPAP Do you snore loudly (louder No 10/14/24 11:35 than talking or can be heard Do you often feel tired/ Yes 10/14/24 11:35 fatigued/ sleepy during daytime? Has anyone observed you stop No 10/14/24 11:35 breathing during sleep? STOP Results Positive 10/14/24 11:35 QUESTION #5 FULL TEXT : Do you snore loudly (louder than talking or can be heard through closed doors)? 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 Hx Now No 10/14/24 11:35 Gestational Age (in weeks): EDC: Hx Hx Para Hx Section SAB No 10/14/24 11:35 Active Medications Active Medications: Current Medications Generic Name Dose Route Start Last Admin Trade Name Freq PRN Reason Stop Dose Admin Cefazolin Sodium 2 gm/ Sodium 110 mls @ 200 mls/hr 10/21/24 13:15 Chloride IV 10/21/24 13:47 INTRAOP ONE Lactated Ringer's 1,000 mls @ 15 mls/hr 10/21/24 11:30 10/21/24 12:07 IV 15 mls/hr .Q48H LEIGH ANN Administration PFSH Medical History (Updated 10/14/24 @ 11:47 by Mini Johnson) Wears glasses Wears dentures Alzheimer dementia Anxiety Arthritis Prostate disease Former smoker Sleep apnea Leg cramps History of stress test Cardiology follow-up encounter Frequent falls BPH (benign prostatic hyperplasia) Atherosclerosis of coronary artery of [place] heart without angina pectoris B12 deficiency Depression Hyperlipidemia Essential hypertension Rheumatoid arthritis Home Medications ?Medication ?Instructions ?Recorded ?Last Taken ?Type amlodipine 2.5 mg tablet 2.5 mg PO QDAY BP 10/29/23 0 10/21/24 History cholecalciferol (vitamin D3) 50 50 mcg PO QDAY SUPPLEM ENT 10/29/23 10/20/24 History mcg (2,000 unit) tablet cyanocobalamin (vitamin B-12) 1,000 mcg PO QHS SUPPLEM ENT 10/29/23 10/20/24 History 1,000 mcg tablet ezetimibe 10 mg tablet (Zetia) 10 mg PO QDAY CHOLESTER OL 10/29/23 10/21/24 History finasteride 5 mg tablet 5 mg PO QDAY PROSTATE 10/21/24 History losartan 50 mg tablet 50 mg PO QDAY BP 10/29/23 History vitamins A,C,Y-sgwi-qnmeam 4,296 1 cap PO BID EYE FOZIA MIN 10/29/23 10/20/24 History mcg-226 mg-90 mg capsule (PreserVision AREDS) RELIEF FACTOR 1 tab PO BID ARTHRITIS 10/1410/20/24 History coenzyme Q10 100 mg capsule (Co 200 mg PO DAILY SUPPLE MENT 10/14/24 10/20/24 History Q-10) diphenhydramine 25 1 tab PO QHS PRN sleep 10/1410/14/24 History mg-acetaminophen 500 mg tablet memantine 10 mg tablet (Namenda) 10 mg PO BID ALZEHEIM ERS 10/14/24 10/21/24 History tamsulosin 0.4 mg capsule 0.4 mg PO QHS PROSTATE 10/1410/20/24 History venlafaxine 150 mg 150 mg PO DAILY DEPRESSION 0 10/14/24 10/21/24 History capsule,extended release 24 hr Allergy/AdvReac Type Severity Reaction Status Date / Time isosorbide Allergy Unknown unknown Verified 10/21/24 11:57 Sulfa (Sulfonamide Allergy Unknown unknown Verified 10/21/24 11:57 Antibiotics) sulfacetamide Allergy Unknown unknown Verified 10/21/24 11:57 Family History (Updated 11/01/23 @ 14:29 by Adelaide Patel) Father Cancer Brother Suicide Surgical History (Updated 10/14/24 @ 11:47 by Mnii Johnson) History of coronary artery stent placement History of colonoscopy History of left heart catheterization (09/12/20) Social History (Updated 11/01/23 @ 14:38 by Adelaide Patel) Smoking Status: Former smoker how long ago did patient quit smoking: stopped at age 54 alcohol intake: former year quit: 39y substance use type: does not use caffeine: Yes Type: carbonated beverages Number of servings: 2 Review of Systems (Anesthesia) ROS Narrative System reviewed and no additional complaints, except as documented. Physical Exam Const alert, oriented x3 and average body habitus Resp normal respiratory effort, normal air movement and clear to auscultation bilaterally Cardio regular rate, regular rhythm and no murmurs 10/21/24 1235 <Electronically signed by Soham Huffman MD> Date _ Soham Huffman MD Cosigner Signature: Date CC: ~ Signed [place] Work Phone: 1(680) 553-356309-03-2025 Consult note [facility] Medical Records Department [address] [place] [address] Pre-Anesthesia Evaluation 10/21/24 1229 MR#: [id number] Acct: [id number] Name: RAI MARS Rep #:[id number] 5 : 1945 79 From: Soham Huffman MD PCP: Dr. Armida Bueno, DO Status:REG S DC Y Race: C Location: [place] [address] ASA Classification* ASA Classification ASA Classification: 3 (Prolonged QTc - NO ZOFRAN. Recommend doing TIVA to avoid PONV and due to alzheimers (reduce postop confusion). Patient also has HTN, CADx stent, FIDEL. ) Assessment & Plan Anesthesia* Anesthesia Assessment Anesthesia Assessment: Discussed sedation and/or anesthesia options, risks, benefits, and alternatives with patient/parents/legal guardian/POA. Questions invited. The patient/parents/legal guardian/POA seems to understand and agrees to proceedwith anesthesia plan. Reviewed the physical assessment, medical history, allergy history and patient home medications list prior to surgery/procedure/anesthetic and documented any changes. Performed airway and anesthesia risk assessments. Anesthesia Type Anesthesia Type: General History Source History Obtained from:: Patient and Chart Anesthesia Focused Assessment* Temperature: 98.6 F Pulse Rate: 78 Blood Pressure: 161/86 Respiratory Rate: 16 Pulse Ox: 98 Oxygen Delivery Method: Room Air Airway Assessment Mouth opens: >3 cm Mallampati Score: II Neck Range of motion (ROM): Full ROM Labs Anesthesia Preop lab: CBC WBC 5.4 K/mm3 (4.4-11.0) 03/23/14 12:15 03/23/14 RBC 5.10 M/mm3 (4.6-6.2) 03/23/14 12:15 03/23/14 Hgb 15.6 g/dl (13.0-16.5) 03/23/14 12:15 03/23/14 Hct 47.6 % (40-54) 03/23/14 12:15 03/23/14 Plt Count 190 K/mm3 (150-450) 03/23/14 12:15 03/23/14 CHEMISTRY Potassium 4.1 mmol/L (3.5-5.1) 03/23/14 12:15 03/23/14 Sodium 138 mmol/L (136-145) 03/23/14 12:15 03/23/14 BUN 10 mg/dL (7-18) 03/23/14 12:15 03/23/14 Creatinine 1.0 mg/dL (0.8-1.3) 03/23/14 12:15 03/23/14 Glucose 101 mg/dL (70-110) 03/23/14 12:15 03/23/14 TSH 1.92 uIU/mL (0.358-3.74) 03/23/14 12:15 COAG Pre-Assessment Diagnosis/Proposed Procedure Planned Operative Procedure(s): CYSTO,TURP Anesthesia History 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 When Was Last Pacemaker Check QUESTION #4 FULL TEXT: You/Your Family Experience fever (hyperthermia) with Anesthesia Last Oral Intake Last Oral intake: Last Oral Intake NPO since 10:00 10/21/24 12:02 Meds taken in AM with sips of Yes 10/21/24 12:02 water? 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 Female No 10/14/24 11:35 HX of Motion Sickness No 10/14/24 11:35 HX of N/V After Surgery No 10/14/24 11:35 Non-Smoker Yes 10/14/24 11:35 Duration of Surgery greater Yes 10/14/24 11:35 than 60 minutes Number of Risk Factors 2 10/14/24 11:35 PONV Score Moderate Risk 10/14/24 11:35 Height & Weight Height & Weight: Anesthesia: Height & Weight Height 5 ft 7 in 10/21/24 12:02 Weight: 70 kg 10/21/24 12:02 Body Mass Index (BMI) 24.1 10/21/24 12:02 Respiratory Assessment Respiratory Assessment - heavy mobile equipment repairer: Respiratory Tract Infection Hx - heavy mobile equipment repairer Hx Respiratory Tract Infection No 10/14/24 11:35 STOP Sleep Apnea STOP Sleep Apnea - heavy mobile equipment repairer: STOP Sleep Apnea - heavy mobile equipment repairer Hx Hypertension Yes: CONTROLLED WITH MED 10/14/24 11:35 Hx Sleep Apnea No 10/14/24 11:35 CPAP BIPAP Do you snore loudly (louder No 10/14/24 11:35 than talking or can be heard Do you often feel tired/ Yes 10/14/24 11:35 fatigued/ sleepy during daytime? Has anyone observed you stop No 10/14/24 11:35 breathing during sleep? STOP Results Positive 10/14/24 11:35 QUESTION #5 FULL TEXT : Do you snore loudly (louder than talking or can be heard through closeddoors)? 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 Hx Now No 10/14/24 11:35 Gestational Age (in weeks): EDC: Hx Hx Para Hx Section SAB No 10/14/24 11:35 Active Medications Active Medications: Current Medications Generic Name Dose Route Start Last Admin Trade Name Freq PRN Reason Stop Dose Admin Cefazolin Sodium 2 gm/ Sodium 110 mls @ 200 mls/hr 10/21/24 13:15 Chloride IV 10/21/24 13:47 INTRAOP ONE Lactated Ringer's 1,000 mls @ 15 mls/hr 10/21/24 11:30 10/21/24 12:07 IV 15 mls/hr .Q48H LEIGH ANN Administration PFSH Medical History (Updated 10/14/24 @ 11:47 by Mini Johnson) Wears glasses Wears dentures Alzheimer dementia Anxiety Arthritis Prostate disease Former smoker Sleep apnea Leg cramps History of stress test Cardiology follow-up encounter Frequent falls BPH (benign prostatic hyperplasia) Atherosclerosis of coronary artery of [place] heart without angina pectoris B12 deficiency Depression Hyperlipidemia Essential hypertension Rheumatoid arthritis Home Medications ?Medication ?Instructions ?Recorded ?Last Taken ?Type amlodipine 2.5 mg tablet 2.5 mg PO QDAY BP 10/29/23 0 10/21/24 History cholecalciferol (vitamin D3) 50 50 mcg PO QDAY SUPPLEM ENT 10/29/23 10/20/24 History mcg (2,000 unit) tablet cyanocobalamin (vitamin B-12) 1,000 mcg PO QHS SUPPLEM ENT 10/29/23 10/20/24 History 1,000 mcg tablet ezetimibe 10 mg tablet (Zetia) 10 mg PO QDAY CHOLESTER OL 10/29/23 10/21/24 History finasteride 5 mg tablet 5 mg PO QDAY PROSTATE 10/21/24 History losartan 50 mg tablet 50 mg PO QDAY BP 10/29/23 History vitamins A,C,X-lrcq-btbdfu 4,296 1 cap PO BID EYE FOZIA MIN 10/29/23 10/20/24 History mcg-226 mg-90 mg capsule (PreserVision AREDS) RELIEF FACTOR 1 tab PO BID ARTHRITIS 10/1410/20/24 History coenzyme Q10 100 mg capsule (Co 200 mg PO DAILY SUPPLE MENT 10/14/24 10/20/24 History Q-10) diphenhydramine 25 1 tab PO QHS PRN sleep 10/1410/14/24 History mg-acetaminophen 500 mg tablet memantine 10 mg tablet (Namenda) 10 mg PO BID ALZEHEIM ERS 10/14/24 10/21/24 History tamsulosin 0.4 mg capsule 0.4 mg PO QHS PROSTATE 10/1410/20/24 History venlafaxine 150 mg 150 mg PO DAILY DEPRESSION 0 10/14/24 10/21/24 History capsule,extended release 24 hr Allergy/AdvReac Type Severity Reaction Status Date / Time isosorbide Allergy Unknown unknown Verified 10/21/24 11:57 Sulfa (Sulfonamide Allergy Unknown unknown Verified 10/21/24 11:57 Antibiotics) sulfacetamide Allergy Unknown unknown Verified 10/21/24 11:57 Family History (Updated 11/01/23 @ 14:29 by Adelaide Patel) Father Cancer Brother Suicide Surgical History (Updated 10/14/24 @ 11:47 by Mini Johnson) History of coronary artery stent placement History of colonoscopy History of left heart catheterization (09/12/20) Social History (Updated 11/01/23 @ 14:38 by Adelaide Patel) Smoking Status: Former smoker how long ago did patient quit smoking: stopped at age 54 alcohol intake: former year quit: 39y substance use type: does not use caffeine: Yes Type: carbonated beverages Number of servings: 2 Review of Systems (Anesthesia) ROS Narrative System reviewed and no additional complaints, except as documented. Physical Exam Const alert, oriented x3 and average body habitus Resp normal respiratory effort, normal air movement and clear to auscultation bilaterally Cardio regular rate, regular rhythm and no murmurs 10/21/24 1235 MD> Date _ Soham Huffman MD Cosigner Signature: Date CC: ~ Signed [place]08-19-2025 Hospital Discharge instructions Patient Education 10/05/2024 23:56:57 Exercises to Prevent Falls Exercises to Prevent Falls Certain types of exercises may help make you less likely to fall. Try the ones below. Or do other exercises that your healthcare provider suggests. Depending on your health, you may need to start slowly. Don't let that stop you. Even small amounts of exercise can help you. Be sure to talk to your healthcare provider before starting any exercise program. Improve balance Many types of exercise can help improve balance. Damon chi and yoga are good examples. Here's anotherone to try. You can do it anytime and almost anywhere. Stand next to a counter or solid support. Push yourself up onto your tiptoes. Hold for 5 seconds. If you start to lose your balance, hold on to the counter. Rest and repeat 5 times. Work up to holding for 20 to 30 seconds, if you can. Increase flexibility Being more flexible makes it easier for you to move around safely. Try exercises like the seated hamstring stretch. Sit in a chair and put one foot on a stool. Straighten your leg and reach with both hands down either side of your leg. Reach as far down your leg as you can. Hold for about 20 seconds. Go back to the starting position. Then repeat 5 times. Switch legs. Build strength Resistance exercises help build strength. You can do them without equipment. Or you can use weights, elastic bands, or special machines. One such exercise is called the biceps curl. You can hold a 1-pound weight or even a can of soup. Do this exercise at least 3 times a week. Strive for every day. Sit up straight in a chair. Keep your elbow close to your body and your wrist straight. Bend your arm, moving your hand up to your shoulder. Then slowly lower your arm. Repeat 5 times. Switch to the other arm. Build your staying power Aerobic exercises make your heart and lungs stronger so you can keep moving longer. Walking and swimming are two of the best types of exercises you can do. Using a stationary bike is great, too. Findan aerobic exercise that you enjoy. Start slowly and build up. Even 5 minutes is helpful. Aim for agoal of 30 minutes, at least 3 times a week. You don't have to do 30 minutes in 1 session. Break itup and walk a little throughout the day. More helpful tips Start easy. Slowly work up to doing more. Talk with your healthcare provider about the best exercises for you. Call senior centers or health clubs about exercise programs. If needed, have a family member watch you walk every so often to check your stability. Exercise with a friend. Choose an activity you both enjoy. Consider damon chi or yoga to strengthen your balance. Try exercises that you can do anytime, anywhere. Here are 2 examples. Have someone with you when you first try these: oPractice walking by placing 1 foot right in front of the other. oStand up and sit down 10 times. Repeat this throughout the day. 5540-9[address] [employer] [place] [address]. All rights reserved. This information is not intended as a substitute for professional medical care. Always follow yourhealthcare professional's instructions. Follow Up Care 10/05/2024 22:01:27 With:ARMIDA BUENO DO Address: [address] [facility] [place] [address]- [phone] When:2-4 days [facility] [place] 08-19-2025 Emergency department Discharge summary Discharge Instructions Thank you for allowing [facility] to assist you with your healthcare needs. The following is importantdischarge information regarding your hospital visit. Diagnosis from Today's Visit Fall What to Do Next Instructions from Your Care Team No qualifying data available. Post Acute Orders No qualifying data available. You Need to Schedule the Following Appointments Follow Up with ARMIDA BUENO DO When:Within 2-4 days Where:[address] [facility] [place] [address]- [phone] Allergies Sulfacetamide Sodium isosorbide sulfa drug Medications Please ask your primary doctor or pharmacist before taking any other medication not listed, including over the counter drugs, herbal medications, vitamins and or supplements as they may interact withyour home medications. What How Much When Why Instructions Last Dose Unchanged acetaminophen (Tylenol 8 HR Arthritis Pain) by mouth Every 8 hours Unchanged acetaminophen-diphenhydramine (Tylenol PM Extra Strength oral tablet) by mouth Daily at bedtime Unchanged albuterol (ProAir HFA MDI (90 mcg/ inh) inhalation aerosol) 1 puff(s) by inhalation Every 4 hours as needed for as needed for wheezing Unchanged amLODIPine (amLODIPine 2.5 mg oral tablet) 1 tab(s) by mouth Once a day Unchanged cholecalciferol (Vitamin D3 1250 mcg (50,000 intl units) oral capsule) 1 cap by mouth Every week Unchanged cyanocobalamin (cyanocobalamin 1000 mcg oral tablet) 1 tab(s) by mouth Every day B12 deficiency Unchanged ezetimibe (Zetia 10 mg oral tablet) 1 tab(s) by mouth Once a day Unchanged finasteride (finasteride 5 mg oral tablet) 1 tab(s) by mouth Once a day Unchanged losartan (losartan 50 mg oral tablet) 1 tab(s) by mouth Once a day Unchanged memantine (memantine 5 mg oral tablet) TAKE 1 TABLET BY MOUTH TWICE A DAY Unchanged Misc Medication See instructions Relief Factor daily Unchanged multivitamin with minerals (Ocuvite PreserVision oral tablet) 1 tab(s) by mouth Every day Unchanged venlafaxine (venlafaxine 150 mg oral capsule, extended release) 1 cap by mouth Once a day Depression Take with food Please take this list to your next doctor s visit. Bring all medications you take, including over the counter medications, herbals and other supplements with you to your doctor s visit. Patients and families are reminded to discard old lists and to update any records with all medication providers or retail pharmacies. Education Materials Exercises to Prevent Falls Certain types of exercises may help make you less likely to fall. Try the ones below. Or do other exercises that your healthcare provider suggests. Depending on your health, you may need to start slowly. Don't let that stop you. Even small amounts of exercise can help you. Be sure to talk to your healthcare provider before starting any exercise program. Improve balance Many types of exercise can help improve balance. Damon chi and yoga are good examples. Here's anotherone to try. You can do it anytime and almost anywhere. Stand next to a counter or solid support. Push yourself up onto your tiptoes. Hold for 5 seconds. If you start to lose your balance, hold on to the counter. Rest and repeat 5 times. Work up to holding for 20 to 30 seconds, if you can. Increase flexibility Being more flexible makes it easier for you to move around safely. Try exercises like the seated hamstring stretch. Sit in a chair and put one foot on a stool. Straighten your leg and reach with both hands down either side of your leg. Reach as far down your leg as you can. Hold for about 20 seconds. Go back to the starting position. Then repeat 5 times. Switch legs. Build strength Resistance exercises help build strength. You can do them without equipment. Or you can use weights, elastic bands, or special machines. One such exercise is called the biceps curl. You can hold a 1-pound weight or even a can of soup. Do this exercise at least 3 times a week. Strive for every day. Sit up straight in a chair. Keep your elbow close to your body and your wrist straight. Bend your arm, moving your hand up to your shoulder. Then slowly lower your arm. Repeat 5 times. Switch to the other arm. Build your staying power Aerobic exercises make your heart and lungs stronger so you can keep moving longer. Walking and swimming are two of the best types of exercises you can do. Using a stationary bike is great, too. Findan aerobic exercise that you enjoy. Start slowly and build up. Even 5 minutes is helpful. Aim for agoal of 30 minutes, at least 3 times a week. You don't have to do 30 minutes in 1 session. Break itup and walk a little throughout the day. More helpful tips Start easy. Slowly work up to doing more. Talk with your healthcare provider about the best exercises for you. Call senior centers or health clubs about exercise programs. If needed, have a family member watch you walk every so often to check your stability. Exercise with a friend. Choose an activity you both enjoy. Consider damon chi or yoga to strengthen your balance. Try exercises that you can do anytime, anywhere. Here are 2 examples. Have someone with you when you first try these: oPractice walking by placing 1 foot right in front of the other. oStand up and sit down 10 times. Repeat this throughout the day. 0012-[address] [employer] [place] [address], [place] [address]. All rights reserved. This information is not intended as a substitute for professional medical care. Always follow yourhealthcare professional's instructions. Additional Information VACCINATE! IT SAVES LIVES! Members of the community who have not yet received the COVID-19 vaccine and would like to receive it can visit one of [facility] vaccine clinics. There are many vaccine clinic locations within the [facility]. For locations and available times, please visit www.[email or web address].[place].gov/. It is important to note that some COVID mobile vaccine clinics are held outdoors and may be canceled in rainy or stormy conditions. To learn more about pediatric vaccinations (ages 5-11), we invite you to visit the [facility] webpage. https://www.[email or web address].org/pages/[email or web address]-Gfsik-Kmpxgpialta-Izmmxtcajt-Asljl-Jpp stions.htmlTo learn more about the COVID-19 vaccine, we invite you to visit the CDC website for a list of frequently asked questions. https://www.cdc.gov/coronavirus/2019-ncov/vaccines/faq.html [facility] Patient Portal Access Instructions: Stay connected with your healthcare team and access your personal medical information anytime with the [facility] Patient Portal. If you would like a full copy of your medical records please contact the [facility] Medical Records Department Saturday through Saturday between 8a.m. and 4:30p.m. Please follow the directions below to access the portal: 1.Access the email account you provided upon registration to the [facility].2.Look for an invitation email from [facility].3.Open the email and access the invitation link: Accept Invitation to [facility]4.Fill in the required bañuelos to create your account. Sign into www.[employer] with your username and password that you created in the above steps to stay up to date. You can then view a summary of results, a summary of your visits, and the ability to download your summaries to your computer or send the information securely to a physician. Remember that your healthcare information is confidential, so carefully consider who you will allow to register on the [facility] Patient Portal for access to your information. You can also access the [facility] Patient Portal on the [employer] and services. Simply click on Health Records under [facility] and then click on the [employer] logo. HOW TO SAFELY DISPOSE OF PRESCRIPTION MEDICATIONS Please use one of the following methods to safely dispose of your unused medications. 1.Use a drug disposal kit: the drug disposal pouch allows you to safely discard your old and unuseddrugs. Ask your nurse to give you one when you are discharged.2.Visit a local take-back location: Many local pharmacies and police departments have programs that collect old and unwanted prescriptiondrugs. Call your local pharmacy or go to http://[employer].MogiMe/4J4Xt1l to find one close to you.3.Make use of household items: Use cat litter or old coffee grounds to dispose medications if other options arenot available. Mix your drugs with these household products, seal them in an airtight container andthrow it into the garbage. Call [facility]: [phone] to be sure your drugs can be disposed of in this way. Some medicines may require a different approach.4.Never flush your medications down the toilet. IF YOU HAVE BEEN PRESCRIBED AN OPIOIDS FOR PAIN If you have been prescribed an opioid (such as hydrocodone, oxycodone or morphine), it is critical to understand the possible side effects and risks of opioid pain medications. Even when taken as directed, opioids can have several side effects including: Tolerance, meaning you might need to take more of a medication for the same pain relief. Nausea, vomiting and/or constipation. Sleepiness, dizziness, dry mouth, confusion, depression or itching. Physical dependence, meaning you have withdrawal symptoms when a medication is stopped ? this can develop within a few days. KNOW YOUR RESPONSIBILITIES It is important to know exactly how much and how often to take the opioid pain medications you are prescribed. Never take opioids in higher amounts or more often than prescribed. Do not combine opioids with alcohol or other drugs that cause drowsiness, such as benzodiazepines, also known as benzos,including diazepam and alprazolam, muscle relaxants or sleep aids. Never sell or share prescriptionopioids. This is illegal. Store opioids in a secure place and out of reach of others (including children, family, friends and visitors). The last page(s) of this document has been signed and retained as a CHART COPY Signatures Patient Education Materials Exercises to Prevent Falls Medication Leaflets My discharge plan and instructions have been reviewed and explained to me and I,RAI MARS understand my current condition and have read and understand these discharge instructions. I have received a written copy of the plan/instructions. If I have questions, I am aware that I should contact my doctor. Patient/Unhairing Inspector Signature: Date/Time: Relationship to Patient: Witness Name/Signature: Date/Time: [facility] [place]08-18-2025 Note* Exam Date Time Procedure Performing Provider Status 10/05/24 11:12 PM XR Chest 1 View MEGGAN RICARDO DO; [facility] (Verified) [id number] ORIGINAL EXAMINATION: ONE XRAY VIEW OF THE CHEST 10/05/2024 11:12 pm COMPARISON: None. HISTORY: ORDERING SYSTEM PROVIDED HISTORY: Reason for Exam: fall FINDINGS: Redemonstration of asymmetric elevation of the left hemidiaphragm. Left basilar atelectasis, otherwise the lungs are without acute focal process. There is no effusion or pneumothorax. The cardiomediastinal silhouette is without acute process. The osseous structures are without acute process. IMPRESSION: No acute process. Interpreted by: Meggan Ricardo Preliminary Report By: Meggan Ricardo Electronically signed By Meggan Ricardo Dictated Date: 10/05/2024 11:29:28 PM Prelim Date: 10/05/2024 11:30:19 PM Sign Date: 10/05/2024 11:30:19 PM [facility] [id number] Note* Exam Date Time Procedure Performing Provider Status 10/05/24 10:[address] Head or Brain w/o Contrast CASA CERVANTES MD; Auth (Verified) [id number] ORIGINAL EXAMINATION: CT OF THE HEAD WITHOUT CONTRAST 10/05/2024 10:58 pm TECHNIQUE: CT of the head was performed without the administration of intravenous contrast. Automated exposure control, iterative reconstruction, and/or weight based adjustment of the mA/kV was utilized to reduce the radiation dose to as low as reasonably achievable. COMPARISON: Unenhanced CT scan of the head on 02/07/2023. HISTORY: ORDERING SYSTEM PROVIDED HISTORY: Reason for Exam: Head trauma, moderate-severe FINDINGS: BRAIN/VENTRICLES: There is no acute intracranial hemorrhage, mass effect or midline shift. No abnormal extra-axial fluid collection. The alves-white differentiation is maintained without evidence of an acute infarct. There is no evidence of hydrocephalus. Ixyk-ys-[id number] cortical atrophy changes over the convexities of both cerebral hemispheres, redemonstrated. Pre-existing calcifications in bilateral globus pallidus, redemonstrated. Redemonstration of moderate chronic microvascular ischemic/aging changes in the white matter of both cerebral hemispheres. ORBITS: The visualized portion of the orbits demonstrate no acute abnormality. SINUSES: The visualized paranasal sinuses and mastoid air cells demonstrate no acute abnormality. SOFT TISSUES/SKULL: No acute abnormality of the visualized skull or soft tissues. IMPRESSION: 1. No acute intracranial abnormality. No evidence of intracranial hemorrhage. 2. Ftjf-on-tjbzgutl cortical atrophy changes over the convexities of both cerebral hemispheres, redemonstrated. Interpreted by: Casa Cervantes Preliminary Report By: Casa Cervantes Electronically signed By Casa Cervantes Dictated Date: 10/05/2024 11:04:45 PM Prelim Date: 10/05/2024 11:07:12 PM Sign Date: 10/05/2024 11:07:12 PM Ordering Provider: ALF ZUNILDAHAILEE [facility] [place]08-18-2025 Note* Exam Date Time Procedure Performing Provider Status 10/05/24 10:40 PM EKG [ED [facility]] - CV SARATHALF; Rai (Verified) ECG Final Report Sinus rhythm Multiple ventricular premature complexes Abnormal R-wave progression, early transition Borderline repolarization abnormality Prolonged QT interval Baseline wander in lead(s) V3 Compared to ECG at 08/30/2023 06:50:13 BORDERLINE ECG Electronic Signature: ZUNILDAZOEFredrick ALF WARD 10/05/2024 22:43:13 [facility]08-18-2025 Hospital Discharge instructions Patient Education 10/05/2024 17:22:27 Anatomy of the Male Urinary Tract Anatomy of the Male Urinary Tract Your urinary tract helps to get rid of your body s liquid waste. The kidneys constantly filter the blood to collect unneeded chemicals and water, making urine. Urine travels through the ureters to the bladder. The bladder fills with urine, holding it until you re ready to release it. Signals from the brain tell the sphincter (muscles around the opening of the bladder) when to let urine flow out of the bladder. The urethra is the tube that carries urine from the bladder out of the body. In men, the prostate gland wraps around the urethra near the bladder. Front view of male urinary tract. 2271-[address] [employer] [place] [address]. All rights reserved. This information is not intended as a substitute for professional medical care. Always follow yourhealthcare professional's instructions. Follow Up Care 10/05/2024 15:19:37 With:ARMIDA BUENO DO Address: [address] [facility] [place] [phone] When:2-4 days [facility] 08-18-2025 Note Discharge Instructions Thank you for allowing [facility] to assist you with your healthcare needs. The following is importantdischarge information regarding your hospital visit. Diagnosis from Today's Visit Difficulty urinating What to Do Next Instructions from Your Care Team No qualifying data available. Post Acute Orders No qualifying data available. You Need to Schedule the Following Appointments Follow Up with ARMIDA BUENO DO When:Within 2-4 days Where:[address] [facility] [place] [phone] Allergies Sulfacetamide Sodium isosorbide sulfa drug Medications Please ask your primary doctor or pharmacist before taking any other medication not listed, including over the counter drugs, herbal medications, vitamins and or supplements as they may interact withyour home medications. What How Much When Why Instructions Last Dose Unchanged acetaminophen (Tylenol 8 HR Arthritis Pain) by mouth Every 8 hours Unchanged acetaminophen-diphenhydramine (Tylenol PM Extra Strength oral tablet) by mouth Daily at bedtime Unchanged albuterol (ProAir HFA MDI (90 mcg/ inh) inhalation aerosol) 1 puff(s) by inhalation Every 4 hours as needed for as needed for wheezing Unchanged amLODIPine (amLODIPine 2.5 mg oral tablet) 1 tab(s) by mouth Once a day Unchanged cholecalciferol (Vitamin D3 1250 mcg (50,000 intl units) oral capsule) 1 cap by mouth Every week Unchanged cyanocobalamin (cyanocobalamin 1000 mcg oral tablet) 1 tab(s) by mouth Every day B12 deficiency Unchanged ezetimibe (Zetia 10 mg oral tablet) 1 tab(s) by mouth Once a day Unchanged finasteride (finasteride 5 mg oral tablet) 1 tab(s) by mouth Once a day Unchanged losartan (losartan 50 mg oral tablet) 1 tab(s) by mouth Once a day Unchanged memantine (memantine 5 mg oral tablet) TAKE 1 TABLET BY MOUTH TWICE A DAY Unchanged Misc Medication See instructions Relief Factor daily Unchanged multivitamin with minerals (Ocuvite PreserVision oral tablet) 1 tab(s) by mouth Every day Unchanged venlafaxine (venlafaxine 150 mg oral capsule, extended release) 1 cap by mouth Once a day Depression Take with food Please take this list to your next doctor s visit. Bring all medications you take, including over the counter medications, herbals and other supplements with you to your doctor s visit. Patients and families are reminded to discard old lists and to update any records with all medication providers or retail pharmacies. Education Materials Anatomy of the Male Urinary Tract Your urinary tract helps to get rid of your body s liquid waste. The kidneys constantly filter the blood to collect unneeded chemicals and water, making urine. Urine travels through the ureters to the bladder. The bladder fills with urine, holding it until you re ready to release it. Signals from the brain tell the sphincter (muscles around the opening of the bladder) when to let urine flow out of the bladder. The urethra is the tube that carries urine from the bladder out of the body. In men, the prostate gland wraps around the urethra near the bladder. Front view of male urinary tract. [id number] [employer] [place] [address]. All rights reserved. This information is not intended as a substitute for professional medical care. Always follow yourhealthcare professional's instructions. Additional Information VACCINATE! IT SAVES LIVES! Members of the community who have not yet received the COVID-19 vaccine and would like to receive it can visit one of [facility] vaccine clinics. There are many vaccine clinic locations within the [facility]. For locations and available times, please visit www.[email or web address].[place].gov/. It is important to note that some COVID mobile vaccine clinics are held outdoors and may be canceled in rainy or stormy conditions. To learn more about pediatric vaccinations (ages 5-11), we invite you to visit the [facility] webpage. [email or web address]/[email or web address] [email or web address] learn more about the COVID-19 vaccine, we invite you to visit the CDC website for a list of frequently asked questions. https://www.cdc.gov/coronavirus/2019-ncov/vaccines/faq.html [facility] Patient [facility] Access Instructions: Stay connected with your healthcare team and access your personal medical information anytime with the [facility] Patient Portal. If you would like a full copy of your medical records please contact the [facility] Medical Records Department Saturday through Saturday between 8a.m. and 4:30p.m. Please follow the directions below to access the portal: 1.Access the email account you provided upon registration to the [facility].2.Look for an invitation email from [facility].3.Open the email and access the invitation link: Accept Invitation to [facility]4.Fill in the required bañuelos to create your account. Sign into www.[employer] with your username and password that you created in the above steps to stay up to date. You can then view a summary of results, a summary of your visits, and the ability to download your summaries to your computer or send the information securely to a physician. Remember that your healthcare information is confidential, so carefully consider who you will allow to register on the [facility] Patient Portal for access to your information. You can also access the [facility] Patient Portal on the [employer] and services. Simply click on Health Records under [employer] and then click on the [employer] logo. HOW TO SAFELY DISPOSE OF PRESCRIPTION MEDICATIONS Please use one of the following methods to safely dispose of your unused medications. 1.Use a drug disposal kit: the drug disposal pouch allows you to safely discard your old and unuseddrugs. Ask your nurse to give you one when you are discharged.2.Visit a local take-back location: Many local pharmacies and police departments have programs that collect old and unwanted prescriptiondrugs. Call your local pharmacy or go to http://[employer].MogiMe/3M1Qu0l to find one close to you.3.Make use of household items: Use cat litter or old coffee grounds to dispose medications if other options arenot available. Mix your drugs with these household products, seal them in an airtight container andthrow it into the garbage. Call [facility]: [phone] to be sure your drugs can be disposed of in this way. Some medicines may require a different approach.4.Never flush your medications down the toilet. IF YOU HAVE BEEN PRESCRIBED AN OPIOIDS FOR PAIN If you have been prescribed an opioid (such as hydrocodone, oxycodone or morphine), it is critical to understand the possible side effects and risks of opioid pain medications. Even when taken as directed, opioids can have several side effects including: Tolerance, meaning you might need to take more of a medication for the same pain relief. Nausea, vomiting and/or constipation. Sleepiness, dizziness, dry mouth, confusion, depression or itching. Physical dependence, meaning you have withdrawal symptoms when a medication is stopped ? this can develop within a few days. KNOW YOUR RESPONSIBILITIES It is important to know exactly how much and how often to take the opioid pain medications you are prescribed. Never take opioids in higher amounts or more often than prescribed. Do not combine opioids with alcohol or other drugs that cause drowsiness, such as benzodiazepines, also known as benzos,including diazepam and alprazolam, muscle relaxants or sleep aids. Never sell or share prescriptionopioids. This is illegal. Store opioids in a secure place and out of reach of others (including children, family, friends and visitors). The last page(s) of this document has been signed and retained as a CHART COPY Signatures Patient Education Materials Anatomy of the Male Urinary Tract Medication Leaflets My discharge plan and instructions have been reviewed and explained to me and I,RAI MARS understand my current condition and have read and understand these discharge instructions. I have received a written copy of the plan/instructions. If I have questions, I am aware that I should contact my doctor. Patient/Unhairing Inspector Signature: Date/Time: Relationship to Patient: Witness Name/Signature: Date/Time: [facility]08-12-2024 NoteHNO ID: [id number] Author: BRITTNI LUU MD Service: ? Author Type: Physician Type: Progress Notes Filed: 09/30/2023 12:46 Note Text: Chief Complaint Patient presents with: [facility] Care HPI Rai Jensenlin is a 78 year old male who presents here today for Above Complaints. Previous PCP: Dr. Bueno in [place] with last OV about 2 months ago. States that he did have blood work drawn at last OV, but he does not know what his results showed. Patient is poor historian. Patient requesting referral to cardiology today for history of CAD s/p stent x1. He has been seeing Ivania Callahan at [facility] cardiology with last OV about 2 weeks ago without changes to his regimen. He is not on a beta pamella at this time, but is on ARB and statin. Admits to SOB at rest and orthopnea for the last couple of months without chest pain, palpitations, LE edema. Has had stress testing and echo in the past, but cannot recall when. States that he was told to schedule appointment with [facility] cardiology at his last OV with Ivania Fish for the SOB. No other testing ordered including labs or EKG. He does not have nitro at home and is not on ASA or Plavix. BP well controlled on current regimen. Does not monitor at home. Patient admits to history of falls with last being 1 week ago. States that he tripped and fell without head injury or LOC. Denies joint pain or swelling today. Not using cane or walker and is not interested in rx today. Thinks he is up to date on vaccinations and cancer screening. Past medical history, appointments, medications, allergies reviewed. Previous Medical History PAST MEDICAL HISTORY No date: Adjustment disorder with depressed mood No date: CAD (coronary artery disease) Comment: [employer] No date: Diverticulosis of colon (without mention of hemorrhage) No date: Hypertensive kidney disease, benign No date: Internal hemorrhoids without mention of complication No date: Other abnormal blood chemistry No date: Personal history of fall No date: Pure hypercholesterolemia Previous Surgical History PAST SURGICAL HISTORY No date: SIGMOIDOSCOPY FLX DX W/COLLJ SPEC BR/WA IF PFRMD Comment: Sigmoidoscopy Family History No family history on file. Patient Allergies ALLERGIES Allergen Reactions Sulfa (Sulfonamide * Intolerance Current Medications Current Outpatient Medications on File Prior to Visit Medication Sig cyanocobalamin (VITAMIN B-12) 1,000 mcg tab Take 1,000 mcg by mouth once daily. amLODIPine (NORVASC) 2.5 mg tablet Take 2.5 mg by mouth once daily. losartan (COZAAR) 50 mg tablet Take 50 mg by mouth once daily. finasteride (PROSCAR) 5 mg tablet Take 5 mg by mouth once daily. ezetimibe (ZETIA) 10 mg tablet Take 10 mg by mouth once daily. vit A/vit C/vit E/zinc/copper (PRESERVISION AREDS ORAL) Take 1 capsule by mouth once daily. acetaminophen/diphenhydramine (TYLENOL PM ORAL) Take 500 mg by mouth daily at bedtime. cholecalciferol (VITAMIN D-3) 50 mcg (2,000 unit) tablet Take 2,000 Units by mouth once daily. acetaminophen (TYLENOL ARTHRITIS PAIN) 650 mg CR tablet Take 650 mg by mouth every 8 hours as needed for pain. rosuvastatin (CRESTOR) 10 mg tablet Take 10 mg by mouth every 48 hours. ATENOLOL 50 MG TAB Take one(1) tablet daily. (Patient not taking: Reported on 09/30/2023) EFFEXOR XR 37.5 MG 24 HR CAP Take one(1) tablet daily. (Patient not taking: Reported on 09/30/2023) LIPITOR 20 MG TAB Take one(1) tablet daily. (Patient not taking: Reported on 09/30/2023) VIAGRA 50 MG TAB Take one(1) tablet daily.as needed (Patient not taking: Reported on 09/30/2023) VANQUISH 227 MG-194 MG-33 MG TAB as needed (Patient not taking: Reported on 09/30/2023) No current facility-administered medications on file prior to visit. Social History Social History Tobacco Use Smoking status: Never Smokeless tobacco: Never Substance Use Topics Alcohol use: No Review of Symptoms REVIEW OF SYSTEMS GENERAL: No weight loss, malaise or fevers RESPIRATORY: Negative for cough, hemoptysis, wheezing, COPD, dyspnea or shortness of breath CARDIOVASCULAR: Negative for chest pain, leg swelling, hypertension, CHF or palpitations GI: No nausea, vomiting, or diarrhea SKIN: Negative for lesions, rash, and itching EXAM: BP 130/80 Pulse 74 Resp 16 Ht 166.3 cm (5' 5.47) Wt 75.6 kg (166 lb 10.7 oz) SpO2 95% BMI 27.34 kg/m? General Appearance: Well appearing, alert, in no acute distress, well-hydrated, well nourished.. Skin: Skin color, texture, turgor normal, no suspicious rashes or lesions. Neck: Supple, no adenopathy; thyroid symmetric, normal size, no bruits. Lungs: Lungs clear to auscultation. No wheezing, rhonchi, rales.. Heart: RRR without murmur, gallop, or rubs. No ectopy. Abdomen: Normal abdominal exam, Abdomen soft, non-tender. Bowel sounds normal. No masses, organomegaly. Extremities: No deformities, edema, skin disc (more content not included)... [facility]08-12-2024 History of Present illness Narrative* Brittni Luu MD - 09/30/2023 10:35 AM EDT Chief Complaint Patient presents with: [facility] Rai Mars is a 78 year old male who presents here today for Above Complaints. Previous PCP: Dr. Bueno in [place] with last OV about 2 months ago. States that he did have blood work drawn at last OV, but he does not know what his results showed. Patient is poor historian. Patient requesting referral to cardiology today for history of CAD s/p stent x1. He has been seeing[facility]vania Callahan at [facility] cardiology with last OV about 2 weeks ago without changes to his regimen. He is not on a beta pamella at this time, but is on ARB and statin. Admits to SOB at rest and orthopnea for the last couple of months without chest pain, palpitations, LE edema. Has had stress darlyn ting and echo in the past, but cannot recall when. States that he was told to schedule appointment with [facility] cardiology at his last OV with Ivania Callahan for the SOB. No other testing ordered including labs or EKG. He does not have nitro at home and is not on ASA or Plavix. BP well controlled on current regimen. Does not monitor at home. Patient admits to history of falls with last being 1 week ago. States that he tripped and fell without head injury or LOC. Denies joint pain or swelling today. Not using cane or walker and is not interested in rx today. Thinks he is up to date on vaccinations and cancer screening. Past medical history, appointments, medications, allergies reviewed. Previous Medical History PAST MEDICAL HISTORY No date: Adjustment disorder with depressed mood No date: CAD (coronary artery disease) Comment: [facility] No date: Diverticulosis of colon (without mention of hemorrhage) No date: Hypertensive kidney disease, benign No date: Internal hemorrhoids without mention of complication No date: Other abnormal blood chemistry No date: Personal history of fall No date: Pure hypercholesterolemia Previous Surgical History PAST SURGICAL HISTORY No date: SIGMOIDOSCOPY FLX DX W/COLLJ SPEC BR/WA IF PFRMD Comment: Sigmoidoscopy Family History No family history on file. Patient Allergies ALLERGIES Allergen Reactions Sulfa (Sulfonamide * Intolerance Current Medications Current Outpatient Medications on File Prior to Visit Medication Sig cyanocobalamin (VITAMIN B-12) 1,000 mcg tab Take 1,000 mcg by mouth once daily. amLODIPine (NORVASC) 2.5 mg tablet Take 2.5 mg by mouth once daily. losartan (COZAAR) 50 mg tablet Take 50 mg by mouth once daily. finasteride (PROSCAR) 5 mg tablet Take 5 mg by mouth once daily. ezetimibe (ZETIA) 10 mg tablet Take 10 mg by mouth once daily. vit A/vit C/vit E/zinc/copper (PRESERVISION AREDS ORAL) Take 1 capsule by mouth once daily. acetaminophen/diphenhydramine (TYLENOL PM ORAL) Take 500 mg by mouth daily at bedtime. cholecalciferol (VITAMIN D-3) 50 mcg (2,000 unit) tablet Take 2,000 Units by mouth once daily. acetaminophen (TYLENOL ARTHRITIS PAIN) 650 mg CR tablet Take 650 mg by mouth every 8 hours as needed for pain. rosuvastatin (CRESTOR) 10 mg tablet Take 10 mg by mouth every 48 hours. ATENOLOL 50 MG TAB Take one(1) tablet daily. (Patient not taking: Reported on 09/30/2023) EFFEXOR XR 37.5 MG 24 HR CAP Take one(1) tablet daily. (Patient not taking: Reported on 09/30/2023) LIPITOR 20 MG TAB Take one(1) tablet daily. (Patient not taking: Reported on 09/30/2023) VIAGRA 50 MG TAB Take one(1) tablet daily.as needed (Patient not taking: Reported on 09/30/2023) VANQUISH 227 MG-194 MG-33 MG TAB as needed (Patient not taking: Reported on 09/30/2023) No current facility-administered medications on file prior to visit. Social History Social History Tobacco Use Smoking status: Never Smokeless tobacco: Never Substance Use Topics Alcohol use: No Review of Symptoms REVIEW OF SYSTEMS GENERAL: No weight loss, malaise or fevers RESPIRATORY: Negative for cough, hemoptysis, wheezing, COPD, dyspnea or shortness of breath CARDIOVASCULAR: Negative for chest pain, leg swelling, hypertension, CHF or palpitations GI: No nausea, vomiting, or diarrhea SKIN: Negative for lesions, rash, and itching EXAM: BP 130/80 Pulse 74 Resp 16 Ht 166.3 cm (5' 5.47) Wt 75.6 kg (166 lb 10.7 oz) SpO2 95% BMI 27.34 kg/m General Appearance: Well appearing, alert, in no acute distress, well-hydrated, well nourished.. Skin: Skin color, texture, turgor normal, no suspicious rashes or lesions. Neck: Supple, no adenopathy; thyroid symmetric, normal size, no bruits. Lungs: Lungs clear to auscultation. No wheezing, rhonchi, rales.. Heart: RRR without murmur, gallop, or rubs. No ectopy. Abdomen: Normal abdominal exam, Abdomen soft, non-tender. Bowel sounds normal. No masses, organomegaly. Extremities: No deformities, edema, skin discoloration, clubbing or cyanosis. Good capillary refill. . Health Maintenance List Depression Screening Never done Anxiety Screening Never done DTaP,Tdap,Td Vaccine(1 - Tdap) Never done Diabetes Screening Never done RSV Vaccine(1 - 1-dose 60+ series) Never done Covid-19 Vaccine( - 2022- season) due on 10/19/2022 Advance Directive Discussion Never done Influenza Vaccine(1) due on 10/20/2023 Shingrix Vaccine Completed Pneumococcal Vaccine: 65+ Completed Data reviewed EKG Sinus rhythm at 72 bpm with short PA, nonspecific T wave abnormality, abnormal EKG. ASSESSMENT/PLAN: 1. 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 - Counseled on healthy diet and regular exercise 2. Coronary artery disease involving nenana coronary artery of nenana heart without angina pectoris- ICD9: 414.01, ICD10: I25.10 Known CAD s/p stent x1 with occasional SOB at rest. EKG non specific today. Obtain imaging and labsas ordered for further evaluation and will obtain previous stress testing and echo results from hiscardiologist's office. Discussed rest, low sodium/low cholesterol diet and should start 81 mg ASA da marcella. Red flags for re-assessment reviewed with patient in detail. - CONSULT TO CARDIOLOGY - XR CHEST 2V FRONTAL/LAT - COMPLETE BLOOD COUNT AND DIFFERENTIAL - COMPREHENSIVE METABOLIC PANEL - NT PRO BNP - XR CHEST 2V FRONTAL/LAT - NITROGLYCERIN 0.4 MG SUBLINGUAL TABLET - LIPID PANEL, NONFASTING 3. SOB (shortness of breath) - ICD9: 786.05, ICD10: R06.02 See above. - ECG COMPLETE - XR CHEST 2V FRONTAL/LAT - COMPLETE BLOOD COUNT AND DIFFERENTIAL - COMPREHENSIVE METABOLIC PANEL - NT PRO BNP - XR CHEST 2V FRONTAL/LAT 4. Personal history of fall - ICD9: V15.88, ICD10: Z91.81 Recent fall without apparent injury. Patient refusing cane, walker, or PT referral today. Discussedfall risk prevention and risk from falls including hip fracture, head injury or . 5. Hypertensive kidney disease, benign - ICD9: 403.10, ICD10: I12.9 - Controlled - Continue current medications - Recommend home blood pressure monitoring, to bring results to next visit - Encouraged sodium restriction, DASH or Mediterranean diet - Recommend regular aerobic exercise 6. Pure hypercholesterolemia - ICD9: 272.0, ICD10: E78.00 Check lipid panel. Continue statin. 7. Adjustment disorder with depressed mood - ICD9: 309.0, ICD10: F43.21 In remission. 8. Benign prostatic hyperplasia without lower urinary tract symptoms - ICD9: 600.00, ICD10: N40.0 Patient denies symptoms on finasteride. I spent a total of 45 minutes on the date of the service which included preparing to see the patient, [id number] patient care, completing clinical documentation, obtaining and/or reviewing separately obtained history, performing a medically appropriate examination, counseling and educating the pat ient/family/caregiver, ordering medications, tests, or procedures, and independently interpreting results (not separately reported). Brittni Luu MD documented in this encounterDunlap [facility] Telephone encounter Note * Telephone Encounter - Haley Jo - 09/12/2023 10:45 AM EDT Patient: Rai Mars Date of : 1945 Patient phone number: [phone] Referring Provider for the encounter: Lois Phillips APRN, [employer]TER Requesting Provider: ANY Reason for requesting visit (RFV/signs and symptoms/diagnosis): CAD; atherosclerotic heart disease of [place] coronary artery w/o angina pectoris Person calling: caregiver: Haley Return call to: self Medical Records/Insurance Card scanned into Epic: No Comments: addl documents stored in external docs--please let me know if you would like me to fax them. [facility]07-25-2024 Miscellaneous Notes* Telephone Encounter - Haley Jo - 09/12/2023 10:45 AM EDT Patient: Rai Mars Date of : 1945 Patient phone number: [phone] Referring Provider for the encounter: Lois Phillips APRN, CNP Requesting Provider: ANY Reason for requesting visit (RFV/signs and symptoms/diagnosis): CAD; atherosclerotic heart disease of [place] coronary artery w/o angina pectoris Person calling: caregiver: Haley Return call to: self Medical Records/Insurance Card scanned into Epic: No Comments: addl documents stored in external docs--please let me know if you would like me to fax them. [facility] Note. MICRO - Microbiology PROCEDURE: Blood Culture (bacterial) [*1] SOURCE: Blood BODY SITE: COLLECTED DATE/TIME: 08/30/2023 06:47 EDT RECEIVED DATE/TIME: 08/30/2023 14:37 EDT START DATE/TIME: 08/30/2023 14:37 EDT FREE TEXT SOURCE: FINAL REPORTS Final Report [] Verified Date/Time/Personnel: 09/04/2023 14:59 EDT Blood Culture: No Growth at 5 days. PRELIMINARY REPORTS Preliminary Report [] Verified Date/Time/Personnel: 08/30/2023 15:59 EDT Culture has been received in lab and is no growth to date. Routine cultures are held for 5 days. Performing Locations *1: This test was performed at: [address], [id number] [place], [place] [address]09-04-2023 Note. MICRO - Microbiology PROCEDURE: Blood Culture (bacterial) [*1] SOURCE: Blood BODY SITE: COLLECTED DATE/TIME: 08/30/2023 06:47 EDT RECEIVED DATE/TIME: 08/30/2023 14:37 EDT START DATE/TIME: 08/30/2023 14:37 EDT FREE TEXT SOURCE: FINAL REPORTS Final Report [] Verified Date/Time/Personnel: 09/04/2023 14:59 EDT Blood Culture: No Growth at 5 days. PRELIMINARY REPORTS Preliminary Report [] Verified Date/Time/Personnel: 08/30/2023 15:59 EDT Culture has been received in lab and is no growth to date. Routine cultures are held for 5 days. Performing Locations *1: This test was performed at: [address], [address] [place], [place] [address]-30-2023 Hospital Discharge instructions Patient Education 08/30/2023 08:39:14 Shortness of Breath (Dyspnea) Shortness of Breath (Dyspnea) Shortness of breath is the feeling that you can't catch your breath or get enough air. It is also known as dyspnea. Dyspnea can be caused by many different conditions. They include: Acute asthma attack Worsening of chronic lung diseases such as chronic bronchitis and emphysema Heart failure. This is when weak heart muscle allows extra fluid to collect in the lungs. Panic attacks or anxiety. Fear can cause rapid breathing (hyperventilation). Pneumonia, or an infection in the lung tissue Exposure to toxic substances, fumes, smoke, or certain medicines Blood clot in the lung (pulmonary embolism). This is often from a piece of blood clot in a deep vein of the leg (deep vein thrombosis) that breaks off and travels to the lungs. Heart attack or heart-related chest pain (angina) Anemia Collapsed lung (pneumothorax) Dehydration Based on your visit today, the exact cause of your shortness of breath is not certain. Your tests don t show any of the serious causes of dyspnea. You may need other tests to find out if you have a serious problem. It s important to watch for any new symptoms or symptoms that get worse. Follow up with your healthcare provider as directed. Home care Follow these tips to take care of yourself at home: When your symptoms are better, go back to your usual activities. If you smoke, you should stop. Join a quit-smoking program or ask your healthcare provider for help. Eat a healthy diet and get plenty of sleep. Get regular exercise. Talk with your healthcare provider before starting to exercise, especially ifyou have other medical problems. Cut down on the amount of caffeine and stimulants you consume. Follow-up care Follow up with your healthcare provider, or as advised. If tests were done, you will be told if your treatment needs to be changed. You can call as directed for the results. If an X-ray was taken, a specialist will review it. You will be notified of any new findings that may affect your care. Call 911 Shortness of breath may be a sign of a serious medical problem. For example, it may be a problem with your heart or lungs. Call 911 if you have worsening shortness of breath or trouble breathing, especially with any of the symptoms below: Confusion or difficulty waking Fainting or loss of consciousness. Fast or irregular heartbeat Coughing up blood Pain in your chest, arm, shoulder, neck, or upper back Sweating When to seek medical advice Call your healthcare provider right away if any of these occur: Slight shortness of breath or wheezing Redness, pain or swelling in your leg, arm, or other body area Swelling in both legs or ankles Fast weight gain Dizziness or weakness Fever of 100.4 F (38 C) or higher, or as directed by your healthcare provider [id number] [employer] [place] [address]. All rights reserved. This information is not intended as a substitute for professional medical care. Always follow yourhealthcare professional's instructions. Follow Up Care 08/30/2023 06:28:12 With:ARMIDA BUENO DO Address: [address] [facility] [place] [address] [phone] When:2-4 days [facility] 07-12-2024 Note Discharge Instructions Thank you for allowing [facility] to assist you with your healthcare needs. The following is importantdischarge information regarding your hospital visit. Diagnosis from Today's Visit Dyspnea What to Do Next Instructions from Your Care Team No qualifying data available. Post Acute Orders No qualifying data available. You Need to Schedule the Following Appointments Follow Up with ARMIDA BUENO DO When:Within 2-4 days Where:[address] [facility] [place] [phone] Allergies Sulfacetamide Sodium isosorbide sulfa drug Medications Please ask your primary doctor or pharmacist before taking any other medication not listed, including over the counter drugs, herbal medications, vitamins and or supplements as they may interact withyour home medications. What How Much When Why Instructions Last Dose Unchanged amLODIPine (amLODIPine 2.5 mg oral tablet) 1 tab(s) by mouth Once a day Unchanged cholecalciferol (Vitamin D3 1250 mcg (50,000 intl units) oral capsule) 1 cap by mouth Every week Unchanged cyanocobalamin (cyanocobalamin 1000 mcg oral tablet) 1 tab(s) by mouth Every day B12 deficiency Unchanged diphenhydrAMINE (Unisom 25mg oral tablet) 1 tab(s) by mouth Daily at bedtime Unchanged ezetimibe (Zetia 10 mg oral tablet) 1 tab(s) by mouth Once a day Unchanged finasteride (finasteride 5 mg oral tablet) 1 tab(s) by mouth Once a day Unchanged losartan (losartan 50 mg oral tablet) 1 tab(s) by mouth Once a day Unchanged Misc Medication See instructions Relief Factor daily Unchanged multivitamin with minerals (Ocuvite PreserVision oral tablet) 1 tab(s) by mouth Every day Unchanged rosuvastatin (rosuvastatin 10 mg oral tablet) See instructions Hypercholesteremia 1 tab(s) Oral every other Day Unchanged venlafaxine (venlafaxine 150 mg oral capsule, extended release) 1 cap by mouth Once a day Depression Take with food Please take this list to your next doctor s visit. Bring all medications you take, including over the counter medications, herbals and other supplements with you to your doctor s visit. Patients and families are reminded to discard old lists and to update any records with all medication providers or retail pharmacies. Education Materials Shortness of Breath (Dyspnea) Shortness of breath is the feeling that you can't catch your breath or get enough air. It is also known as dyspnea. Dyspnea can be caused by many different conditions. They include: Acute asthma attack Worsening of chronic lung diseases such as chronic bronchitis and emphysema Heart failure. This is when weak heart muscle allows extra fluid to collect in the lungs. Panic attacks or anxiety. Fear can cause rapid breathing (hyperventilation). Pneumonia, or an infection in the lung tissue Exposure to toxic substances, fumes, smoke, or certain medicines Blood clot in the lung (pulmonary embolism). This is often from a piece of blood clot in a deep vein of the leg (deep vein thrombosis) that breaks off and travels to the lungs. Heart attack or heart-related chest pain (angina) Anemia Collapsed lung (pneumothorax) Dehydration Based on your visit today, the exact cause of your shortness of breath is not certain. Your tests don t show any of the serious causes of dyspnea. You may need other tests to find out if you have a serious problem. It s important to watch for any new symptoms or symptoms that get worse. Follow up with your healthcare provider as directed. Home care Follow these tips to take care of yourself at home: When your symptoms are better, go back to your usual activities. If you smoke, you should stop. Join a quit-smoking program or ask your healthcare provider for help. Eat a healthy diet and get plenty of sleep. Get regular exercise. Talk with your healthcare provider before starting to exercise, especially ifyou have other medical problems. Cut down on the amount of caffeine and stimulants you consume. Follow-up care Follow up with your healthcare provider, or as advised. If tests were done, you will be told if your treatment needs to be changed. You can call as directed for the results. If an X-ray was taken, a specialist will review it. You will be notified of any new findings that may affect your care. Call 911 Shortness of breath may be a sign of a serious medical problem. For example, it may be a problem with your heart or lungs. Call 911 if you have worsening shortness of breath or trouble breathing, especially with any of the symptoms below: Confusion or difficulty waking Fainting or loss of consciousness. Fast or irregular heartbeat Coughing up blood Pain in your chest, arm, shoulder, neck, or upper back Sweating When to seek medical advice Call your healthcare provider right away if any of these occur: Slight shortness of breath or wheezing Redness, pain or swelling in your leg, arm, or other body area Swelling in both legs or ankles Fast weight gain Dizziness or weakness Fever of 100.4 F (38 C) or higher, or as directed by your healthcare provider [phone] [employer] [place] [address]. All rights reserved. This information is not intended as a substitute for professional medical care. Always follow yourhealthcare professional's instructions. Additional Information VACCINATE! IT SAVES LIVES! Members of the community who have not yet received the COVID-19 vaccine and would like to receive it can visit one of [facility] vaccine clinics. There are many vaccine clinic locations within the [facility]. For locations and available times, please visit www.gettheshot.coronavirus.[place].gov/. It is important to note that some COVID mobile vaccine clinics are held outdoors and may be canceled in rainy or stormy conditions. To learn more about pediatric vaccinations (ages 5-11), we invite you to visit the [facility] webpage. https://www.[facility].org/pages/8972-Ftlke-Jfurkzojkna-Znrmnbyiix-Dkdno-Zkw stions.htmlTo learn more about the COVID-19 vaccine, we invite you to visit the CDC website for a list of frequently asked questions. https://www.cdc.gov/coronavirus/2019-ncov/vaccines/faq.html [employer] Patient Portal Access Instructions: Stay connected with your healthcare team and access your personal medical information anytime with the [employer] Patient Portal. If you would like a full copy of your medical records please contact the [facility] Medical Records Department Saturday through Saturday between 8a.m. and 4:30p.m. Please follow the directions below to access the portal: 1.Access the email account you provided upon registration to the hospital.2.Look for an invitation email from [facility].3.Open the email and access the invitation link: Accept Invitation to [employer]4.Fill in the required bañuelos to create your account. Sign into www.[employer] with your username and password that you created in the above steps to stay up to date. You can then view a summary of results, a summary of your visits, and the ability to download your summaries to your computer or send the information securely to a physician. Remember that your healthcare information is confidential, so carefully consider who you will allow to register on the [employer] Patient Portal for access to your information. You can also access the [employer] Patient Portal on the [email or web address] sigrid. Simply click on Health Records under [employer] and then click on the [employer] logo. HOW TO SAFELY DISPOSE OF PRESCRIPTION MEDICATIONS Please use one of the following methods to safely dispose of your unused medications. 1.Use a drug disposal kit: the drug disposal pouch allows you to safely discard your old and unuseddrugs. Ask your nurse to give you one when you are discharged.2.Visit a local take-back location: Many local pharmacies and police departments have programs that collect old and unwanted prescriptiondrugs. Call your local pharmacy or go to http://[employer].MogiMe/5M0Bp0q to find one close to you.3.Make use of household items: Use cat litter or old coffee grounds to dispose medications if other options arenot available. Mix your drugs with these household products, seal them in an airtight container andthrow it into the garbage. Call [facility]: [phone] to be sure your drugs can be disposed of in this way. Some medicines may require a different approach.4.Never flush your medications down the toilet. IF YOU HAVE BEEN PRESCRIBED AN OPIOIDS FOR PAIN If you have been prescribed an opioid (such as hydrocodone, oxycodone or morphine), it is critical to understand the possible side effects and risks of opioid pain medications. Even when taken as directed, opioids can have several side effects including: Tolerance, meaning you might need to take more of a medication for the same pain relief. Nausea, vomiting and/or constipation. Sleepiness, dizziness, dry mouth, confusion, depression or itching. Physical dependence, meaning you have withdrawal symptoms when a medication is stopped ? this can develop within a few days. KNOW YOUR RESPONSIBILITIES It is important to know exactly how much and how often to take the opioid pain medications you are prescribed. Never take opioids in higher amounts or more often than prescribed. Do not combine opioids with alcohol or other drugs that cause drowsiness, such as benzodiazepines, also known as benzos,including diazepam and alprazolam, muscle relaxants or sleep aids. Never sell or share prescriptionopioids. This is illegal. Store opioids in a secure place and out of reach of others (including children, family, friends and visitors). The last page(s) of this document has been signed and retained as a CHART COPY Signatures Patient Education Materials Shortness of Breath (Dyspnea) Medication Leaflets My discharge plan and instructions have been reviewed and explained to me and I,RAI MARS understand my current condition and have read and understand these discharge instructions. I have received a written copy of the plan/instructions. If I have questions, I am aware that I should contact my doctor. Patient/Unhairing Inspector Signature: Date/Time: Relationship to Patient: Witness Name/Signature: Date/Time: [facility]07-12-2024 Note ORIGINAL EXAMINATION: ONE XRAY VIEW OF THE CHEST 08/30/2023 7:29 am COMPARISON: Chest x-ray 02/07/2023 HISTORY: ORDERING SYSTEM PROVIDED HISTORY: Reason for Exam: SOB/cough/fever FINDINGS: Cardiomediastinal contours stable. Stable chronic elevation of the left hemidiaphragm. No definite focal consolidation or pulmonary edema. No pneumothorax or large pleural effusion. No acute osseous abnormality. IMPRESSION: Chronic elevation of the left hemidiaphragm limiting evaluation of the left basilar region. No definite acute radiographic abnormality. I have personally reviewed the images of this examination and agree with the resident's findings and interpretation. Interpreted by: Gilmar Trejo MD Preliminary Report By: Tristan Edwards Electronically signed By Gilmar Trejo MD Dictated Date: 08/30/2023 7:41:01 AM Prelim Date: 08/30/2023 7:42:41 AM Sign Date: 08/30/2023 7:54:15 AM [facility] Sinus rhythm Probable left atrial enlargement Abnormal R-wave progression, early transition Nonspecific T abnrm, anterolateral leads This EKG was read and contributed directly to the care of the patient Electronic Signature: LINA BOYKIN DO 08/30/2023 06:53:42[facility] 12-22-2023 Hospital Discharge instructions Patient Education 02/08/2023 12:57:32 Nausea and Vomiting, Adult, Bjgx-hv-Lhcx Nausea and Vomiting, Adult Nausea is feeling sick to your stomach or feeling that you are about to throw up (vomit). Vomiting is when food in your stomach is thrown up and out of the mouth. Throwing up can make you feel weak. It can also make you lose too much water in your body (get dehydrated). If you lose too much water in your body, you may: Feel tired. Feel thirsty. Have a dry mouth. Have cracked lips. Go pee (urinate) less often. Older adults and people with other diseases or a weak body defense system (immune system) are at higher risk for losing too much water in the body. If you feel sick to your stomach and you throw up, it is important to follow instructions from your doctor about how to take care of yourself. Follow these instructions at home: Watch your symptoms for any changes. Tell your doctor about them. Follow these instructions to carefor yourself at home. Eating and drinking Take an ORS (oral rehydration solution). This is a drink that is sold at pharmacies and stores. Drink clear fluids in small amounts as you are able, such as: ?Water. ?Ice chips. ?Fruit juice that has water added (diluted fruit juice). ?Low-calorie sports drinks. Eat bland, xevo-tc-fjftta foods in small amounts as you are able, such as: ?Bananas. ?Applesauce. ?Rice. ?Low-fat (lean) meats. ?[place]. ?Crackers. Avoid drinking fluids that have a lot of sugar or caffeine in them. This includes energy drinks, sports drinks, and soda. Avoid alcohol. Avoid spicy or fatty foods. General instructions Take xwus-zdw-dexuifk and prescription medicines only as told by your doctor. Drink enough fluid to keep your pee (urine) pale yellow. Wash your hands often with soap and water. If you cannot use soap and water, use hand record press supervisor. Make sure that all people in your home wash their hands well and often. Rest at home while you get better. Watch your condition for any changes. Take slow and deep breaths when you feel sick to your stomach. Keep all follow-up visits as told by your doctor. This is important. Contact a doctor if: Your symptoms get worse. You have new symptoms. You have a fever. You cannot drink fluids without throwing up. You feel sick to your stomach for more than 2 days. You feel light-headed or dizzy. You have a headache. You have muscle cramps. You have a rash. You have pain while peeing. Get help right away if: You have pain in your chest, neck, arm, or jaw. You feel very weak or you pass out (faint). You throw up again and again. You have throw up that is bright red or looks like black coffee grounds. You have bloody or black poop (stools) or poop that looks like tar. You have a very bad headache, a stiff neck, or both. You have very bad pain, cramping, or bloating in your belly (abdomen). You have trouble breathing. You are breathing very quickly. Your heart is beating very quickly. Your skin feels cold and clammy. You feel confused. You have signs of losing too much water in your body, such as: ?Dark pee, very little pee, or no pee. ?Cracked lips. ?Dry mouth. ?Sunken eyes. ?Sleepiness. ?Weakness. These symptoms may be an emergency. Do not wait to see if the symptoms will go away. Get medical help right away. Call your local emergency services (911 in the [place] Do not drive yourself to the hospital. Summary Nausea is feeling sick to your stomach or feeling that you are about to throw up (vomit). Vomiting is when food in your stomach is thrown up and out of the mouth. Follow instructions from your doctor about eating and drinking to keep from losing too much water in your body. Take mjge-pkm-jfmgztt and prescription medicines only as told by your doctor. Contact your doctor if your symptoms get worse or you have new symptoms. Keep all follow-up visits as told by your doctor. This is important. This information is not intended to replace advice given to you by your health care provider. Make sure you discuss any questions you have with your health care provider. Document Released: 07/23/2008 Document Revised: 05/29/2019 Document Reviewed: 07/15/2018 [employer] Patient Education 2020 [employer]. Follow Up Care 02/07/2023 22:18:40 With:ARMIDA BUENO DO Address: [address] [facility] [place] [address] [phone] When: Unknown With:MARY PETTY Address: [address] [place] [address] [phone] When:02/14/2023 13:00:00 Comments:This is your post-hospital follow-up appointment and is in the [place] office. [facility] 12-22-2023 Evaluation + Plan noteExtracted from: Title:History and Physical Author:KATHY GUTIÉRREZ Date:02/08/23 1. Nausea 2. Diarrhea 3. Hypertension 4. Hypomagnesemia Orders: Nausea/vomiting/diarrhea patient was sitting on the toilet when he became very nauseous. When he walked downstairs he fell backwards onto the steps. He had no emesis at that time. Today he reports he has had a couple of episodes of diarrhea. States that he ordered takeout from a [employer] restaurant yesterday. He was the only one that ate this. Has had no sick contacts. No recent antibiotic use. He feels better today other than having some diarrhea still. No further nausea. He tolerated a clear liquid breakfast. Obtain KUB for completeness. Abdominal exam is benign. Suspect gastroenteritis. HTN- SBP goal 140 or less. Continue home antihypertensives. Hypomagnesemia-magnesium level 1.7. Magnesium sulfate 2 g IV x 1. DVT prophylaxis:SCD's Code Status:Full code Plan of care discussed with patient. All questions answered. Patient verbalizes understanding is agreeable to plan of care. This dictation was performed using voice recognition software and may include grammatical and/or spelling errors. Future Appointments Appointment Date:02/14/2023 01:00:00 PM Scheduled Provider:MARY PETTY Location:[facility] Appointment Type:[facility] Follow-Up Appointment Date:03/18/2023 01:00:00 PM Scheduled Provider:PAULINA CALLAHAN Location:[facility] Appointment Type:CV OV Appointment Date:03/27/2023 08:30:00 AM Scheduled Provider: Location:[facility] Appointment Type:PC Nurse Lab Appointment Date:04/08/2023 02:50:00 PM Scheduled Provider:ARMIDA BUENO DO Location:[facility] Appointment Type:PC Wellness Medicare Diagnostic Tests Pending * Stool Gastrointestinal Panel 02/08/23 Future Scheduled Tests Laboratory* Thyroid Stimulating Hormone 04/03/23 * Vitamin B12 Level 04/03/23 * Complete Blood Count 04/03/23 * Lipid Profile 04/03/23 * Microalbumin Level Urine 04/02/22 * Complete Metabolic Panel 04/03/23 [facility] 12-22-2023 Note Discharge Instructions Thank you for allowing [facility] to assist you with your healthcare needs. The following is importantdischarge information regarding your hospital visit. Your Care Team Ariela Gutiérrez CNP Your Diagnosis Altered mental status Diarrhea Hypertension Hypomagnesemia Nausea Nausea What to do next Scheduled Follow-Up Appointments Appointment Type [facility] With [facility]/14/2023 01:00 PM EST MARY PETTY [facility] [address] [place] [address] OV 03/18/2023 01:00 PM EST PAULINA CALLAHAN [facility] Nurse Lab 03/27/2023 08:30 AM EST [facility] Medicare 04/08/2023 02:50 PM EST ARMIDA BUENO DO [facility] Follow Up Appointments Follow Up with MARY PETTY When 02/14/2023 01:00 PM EST Why: This is your post-hospital follow-up appointment and is in the [place] office. Where: [address] [place] [phone] Follow Up with ARMIDA BUENO DO When Where: [address] [place] [phone] The Following Activity and Diet Have Been Ordered for You Discharge Activity - Ordered -- Resume your pre-hospitalization activity, 02/08/23 12:04:00 EST Discharge Diet - Ordered -- No changes were made to your diet during your hospital stay. Please resume your pre hospitalization diet on discharge., 02/08/23 12:04:00 EST The Following Treatments Have Been Ordered for You Discharge Labs No qualifying data available. Discharge Radiology No qualifying data available. Other Therapies No qualifying data available. Post Acute Orders No qualifying data available. Allergies Sulfacetamide Sodium isosorbide sulfa drug Medications Please ask your primary doctor or pharmacist before taking any other medication not listed, including over the counter drugs, herbal medications, vitamins and or supplements as they may interact withyour home medications. What How Much When Why Instructions Last Dose Unchanged acetaminophen- diphenhydramine (Tylenol PM Extra Strength oral tablet) 1 tab(s) by mouth Daily at bedtime Unchanged amLODIPine (amLODIPine 2.5 mg oral tablet) 1 tab(s) by mouth Once a day Unchanged cholecalciferol (Prevagen 50 mcg (2000 intl units) oral capsule) 1 cap by mouth Once a day Unchanged cholecalciferol (Vitamin D3 1250 mcg (50,000 intl units) oral capsule) 1 cap by mouth Every week Unchanged diphenhydrAMINE (Unisom 25mg oral tablet) 1 tab(s) by mouth Daily at bedtime Unchanged ezetimibe (Zetia 10 mg oral tablet) 1 tab(s) by mouth Once a day Unchanged finasteride (finasteride 5 mg oral tablet) 1 tab(s) by mouth Once a day Unchanged lisinopril (lisinopril 20 mg oral tablet) 1 tab(s) by mouth Every day Unchanged Misc Medication See instructions Relief Factor daily Unchanged multivitamin (Vitamin B Complex oral capsule) by mouth Once a day Unchanged multivitamin with minerals (Ocuvite PreserVision oral tablet) 1 tab(s) by mouth Every day Unchanged rosuvastatin (rosuvastatin 10 mg oral tablet) See instructions Hypercholesteremia 1 tab(s) Oral every other Day Unchanged venlafaxine (venlafaxine 75 mg oral capsule, extended release) 1 cap by mouth Once a day Please take this list to your next doctor s visit. Bring all medications you take, including over the counter medications, herbals and other supplements with you to your doctor s visit. Patients and families are reminded to discard old lists and to update any records with all medication providers or retail pharmacies. Education Materials Nausea and Vomiting, Adult Nausea is feeling sick to your stomach or feeling that you are about to throw up (vomit). Vomiting is when food in your stomach is thrown up and out of the mouth. Throwing up can make you feel weak. It can also make you lose too much water in your body (get dehydrated). If you lose too much water in your body, you may: Feel tired. Feel thirsty. Have a dry mouth. Have cracked lips. Go pee (urinate) less often. Older adults and people with other diseases or a weak body defense system (immune system) are at higher risk for losing too much water in the body. If you feel sick to your stomach and you throw up, it is important to follow instructions from your doctor about how to take care of yourself. Follow these instructions at home: Watch your symptoms for any changes. Tell your doctor about them. Follow these instructions to carefor yourself at home. Eating and drinking Take an ORS (oral rehydration solution). This is a drink that is sold at pharmacies and stores. Drink clear fluids in small amounts as you are able, such as: ? Water. ? Ice chips. ? Fruit juice that has water added (diluted fruit juice). ? Low-calorie sports drinks. Eat bland, ivvc-hg-iatiyz foods in small amounts as you are able, such as: ? Bananas. ? Applesauce. ? Rice. ? Low-fat (lean) meats. ? [place]. ? Crackers. Avoid drinking fluids that have a lot of sugar or caffeine in them. This includes energy drinks, sports drinks, and soda. Avoid alcohol. Avoid spicy or fatty foods. General instructions Take zmcg-jhn-ieqpaff and prescription medicines only as told by your doctor. Drink enough fluid to keep your pee (urine) pale yellow. Wash your hands often with soap and water. If you cannot use soap and water, use hand record press supervisor. Make sure that all people in your home wash their hands well and often. Rest at home while you get better. Watch your condition for any changes. Take slow and deep breaths when you feel sick to your stomach. Keep all follow-up visits as told by your doctor. This is important. Contact a doctor if: Your symptoms get worse. You have new symptoms. You have a fever. You cannot drink fluids without throwing up. You feel sick to your stomach for more than 2 days. You feel light-headed or dizzy. You have a headache. You have muscle cramps. You have a rash. You have pain while peeing. Get help right away if: You have pain in your chest, neck, arm, or jaw. You feel very weak or you pass out (faint). You throw up again and again. You have throw up that is bright red or looks like black coffee grounds. You have bloody or black poop (stools) or poop that looks like tar. You have a very bad headache, a stiff neck, or both. You have very bad pain, cramping, or bloating in your belly (abdomen). You have trouble breathing. You are breathing very quickly. Your heart is beating very quickly. Your skin feels cold and clammy. You feel confused. You have signs of losing too much water in your body, such as: ? Dark pee, very little pee, or no pee. ? Cracked lips. ? Dry mouth. ? Sunken eyes. ? Sleepiness. ? Weakness. These symptoms may be an emergency. Do not wait to see if the symptoms will go away. Get medical help right away. Call your local emergency services (911 in the [place] Do not drive yourself to the hospital. Summary Nausea is feeling sick to your stomach or feeling that you are about to throw up (vomit). Vomiting is when food in your stomach is thrown up and out of the mouth. Follow instructions from your doctor about eating and drinking to keep from losing too much water in your body. Take toix-rcc-zhgaklw and prescription medicines only as told by your doctor. Contact your doctor if your symptoms get worse or you have new symptoms. Keep all follow-up visits as told by your doctor. This is important. This information is not intended to replace advice given to you by your health care provider. Make sure you discuss any questions you have with your health care provider. Document Released: 07/23/2008 Document Revised: 05/29/2019 Document Reviewed: 07/15/2018 [employer] Patient Education 2020 [employer] Additional Information VACCINATE! IT SAVES LIVES! Members of the community who have not yet received the COVID-19 vaccine and would like to receive it can visit one of [facility] vaccine clinics. There are many vaccine clinic locations within the [facility]. For locations and available times, please visit https://gettheshot.coronavirus.[place].gov/. It is important to note that some COVID mobile vaccine clinics are held outdoors and may be canceled in rainy or stormy conditions. To learn more about pediatric vaccinations (ages 5-11), we invite you to visit the [facility] webpage. https://www.[facility].org/pages/4654-Yyxyf-Izoasmrdnsq-Npluwgngty-Deoxk-Lqz stions.htmlTo learn more about the COVID-19 vaccine, we invite you to visit the CDC website for a list of frequently asked questions.https://www.cdc.gov/coronavirus/2019-ncov/vaccines/faq.html [employer] Patient Portal Access Instructions: Stay connected with your healthcare team and access your personal medical information anytime with the [facility] Patient Portal. Please follow the directions below to create your [facility] account: 1.Access the email account you provided upon registration to the hospital/physician office.2.Look for an invitation email from [facility].3.Open the email and access the invitation link: AcceptInvitation to [employer].4.Fill in the required bañuelos to create your account. To access your account, visit [email or web address]. Click the blue button labeled Access Patient Portal and then log in with the username and password that you created in the steps above. You will be able to view your test results, lab results, a summary of your visits, upcoming appointments and more. There is also a convenient messaging option where you can send secure messages to your p rovider. In addition, you will have the ability to download any documents or summaries to your computer and/or send the information securely to a physician. Remember that your healthcare information is confidential, so carefully consider who you will allowto register on the [facility] [employer] Patient Portal for access to your information. You can also access the [facility] Patient Portal on the [facility] sigrid. Simply click on Patient Portal and then log into your account. If you would like to receive a full copy of your medical records, please contact the [facility] Medical Records Department by calling [phone], Saturday through Saturday between 8 a.m. and 4:30 p.m. HOW TO SAFELY DISPOSE OF PRESCRIPTION MEDICATIONS Please use one of the following methods to safely dispose of your unused medications. 1.Use a drug disposal kit: the drug disposal pouch allows you to safely discard your old and unuseddrugs. Ask your nurse to give you one when you are discharged.2.Visit a local take-back location: Many local pharmacies and police departments have programs that collect old and unwanted prescriptiondrugs. Call your local pharmacy or go to http://[employer].MogiMe/2P3Tq1g to find one close to you.3.Make use of household items: Use cat litter or old coffee grounds to dispose medications if other options arenot available. Mix your drugs with these household products, seal them in an airtight container andthrow it into the garbage. Call [facility]: [phone] to be sure your drugs can be disposed of in this way. Some medicines may require a different approach.4.Never flush your medications down the toilet. IF YOU HAVE BEEN PRESCRIBED AN OPIOID FOR PAIN If you have been prescribed an opioid (such as hydrocodone, oxycodone or morphine), it is critical to understand the possible side effects and risks of opioid pain medications. Even when taken as directed, opioids can have several side effects including: Tolerance, meaning you might need to take more of a medication for the same pain relief. Nausea, vomiting and/or constipation. Sleepiness, dizziness, dry mouth, confusion, depression or itching. Physical dependence, meaning you have withdrawal symptoms when a medication is stopped, can develop within a few days. KNOW YOUR RESPONSIBILITIES It is important to know exactly how much and how often to take the opioid pain medications you are prescribed. Never take opioids in higher amounts or more often than prescribed. Do not combine opioids with alcohol or other drugs that cause drowsiness, such as benzodiazepines, also known as benzos, including diazepam and alprazolam, muscle relaxants or sleep aids. Never sell or share prescription opioids. This is illegal. Store opioids in a secure place and out of reach of others (including children, family, friends and visitors). The last page of this document has been signed and retained as a CHART COPY. Signatures Patient Education Materials Nausea and Vomiting, Adult, Yczr-he-Hxxx Medication Leaflets My discharge plan and instructions have been reviewed and explained to me and I,RAI MARS understand my current condition and have read and understand these discharge instructions. I have received a written copy of the plan/instructions. If I have questions, I am aware that I should contact my doctor. Patient/Unhairing Inspector Signature: Date/Time: Relationship to Patient: Witness Name/Signature: Date/Time: [facility]12-22-2023 Note ORIGINAL EXAMINATION: ONE SUPINE XRAY VIEW(S) OF THE JNMIING7802/08/2023 10:30 am COMPARISON: None available at time of dictation. HISTORY: ORDERING SYSTEM PROVIDED HISTORY: Reason for Exam: Vomiting, diarrhea FINDINGS: Mildly distended air-filled loops of bowel. The renal shadows and expected course of bilateral ureters are partially obscured by overlying bowel. No definite abnormal calculus is identified. No acute osseous abnormalities. Degenerative changes of the spine. IMPRESSION: Mildly distended air-filled loops of bowel with no other acute radiographic findings. The findings are nonspecific but considered nonobstructive. I have personally reviewed the images of this examination and agree with the resident's findings and interpretation. Interpreted by: Fransico Isaacs MD Preliminary Report By: Cornell Horton Electronically signed By Fransico Isaacs MD Dictated Date: 02/08/2023 10:34:55 AM Prelim Date: 02/08/2023 10:44:58 AM Sign Date: 02/08/2023 10:44:58 AM Ordering Provider: [facility] [place]12-22-2023 Note Date of Service 02/08/23 Chief Complaint n/v at home after trying to have a bowel movement, was pale and diaphoretic at home, almost passed out per family History of Present Illness 77-year-old male with past medical history significant for CAD s/p stents, chronic back pain, depression, hypertension, FIDEL, RA, prostate cancer. Patient presented to [facility] emergency department on 02/07/2023 via EMS for a near syncopal episode. He went to the restroom to have a bowel movement and felt like he was going to vomit but he did not. He then went downstairs and was not quite acting himself. He bent down and vomited. Prior to this episode patient was in normal state of health. He had been out with his family. In the emergency department he was afebrile, borderline hypotensive. Oxygen saturation was 88% on room air. Per ER physician documentation it is likely that the patient's fingers were cold and this was not accurate. He was taken off of oxygen with sats at 95% on room air. Orthostatic vital signs were negative. White blood cell count was 12,100, creatinine 1.51 with a GFR 45, troponin 15.9. COVID/flu/RSV negative. There was concern for aspiration pneumonia. Chest x-ray was unremarkable. CT head showed no acute changes. He was given 1 L of normal saline, Zofran, Compazine. He was subsequently admitted forobservation. Overnight his vital signs remained stable. Urinalysis this morning is unremarkable. Renal function has improved with creatinine of 1.17 and GFR of 60. Hypomagnesemic at 1.7. On exam today, pt denies any fever or chills. No headache or dizziness. Denies chest pain, palpitations. No cough, dyspnea, sputum production. Denies N/V//C. Admits diarrhea today. No melena/hematochezia. No dysuria or hematuria. No new paresthesias. Review of Systems See HPI for specific ROS. All other systems reviewed and negative. Physical Exam Vitals and Measurements T: 37.3 C (Oral) TMIN: 36.1 C (Oral) TMAX: 37.3 C (Oral) HR: 84(Monitored) RR: 18 BP: 126/72 BP: 144/71(Sitting) BP: 147/85(Standing) BP: 152/75(Supine) SpO2: 94% HT: 170 cm WT: 72.5 kg BMI: 26.75 Weight Dosing Weight: 72.5 kg (02/08/23) Dosing Weight: 77.3 kg (02/08/23) GEN: Appears chronically ill EYES: No conjunctival erythema, drainage. EOMI EARS: Hearing grossly intact. NOSE: No nasal discharge. THROAT: Oral cavity and pharynx pink and moist. CHEST: Normal S1 and S2. Rhythm is regular. Clear to auscultation, without rales, rhonchi, wheezing. ABD: Positive bowel sounds x 4 quads. Soft, nondistended, nontender. EXT: No significant deformity or joint abnormality. No edema. Peripheral pulses intact. NEURO: Sensation grossly intact SKIN: Skin color normal PSYCH: The mental examination revealed the patient was alert and oriented x 4 Lab Results 02/08 05:49 Glucose Level: 159 H Sodium Level: 140 Potassium Level: 4.6 BUN: 16 Creatinine Lvl (s): 1.17 02/07 22:27 WBC: 12.1 H Hgb: 15.2 Hct: 46.4 Platelet: 181 Neutrophil %: 63.5 Glucose Level: 169 H Sodium Level: 143 Potassium Level: 4.1 BUN: 17 Creatinine Lvl (s): 1.51 H Imaging Results and Diagnostics CT Head or Brain w/o Contrast Result Date: February 07, 2023 Verified By: SEE DAVEY MD CLINICAL STATEMENT: IMPRESSION: No acute intracranial abnormality. Mild chronic microangiopathic ischemic change. XR Chest 1 View Result Date: February 07, 2023 Verified By: MAMADOU SPENCER MD CLINICAL STATEMENT: IMPRESSION: 1. There is no consolidation or pleural effusion. Again noted moderate elevation of left hemidiaphragm. Assessment/Plan 1. Nausea 2. Diarrhea 3. Hypertension 4. Hypomagnesemia Orders: Nausea/vomiting/diarrhea patient was sitting on the toilet when he became very nauseous. When he walked downstairs he fell backwards onto the steps. He had no emesis at that time. Today he reports hehas had a couple of episodes of diarrhea. States that he ordered takeout from a [employer] restaurantye. He was the only one that ate this. Has had no sick contacts. No recent antibiotic use. He feels better today other than having some diarrhea still. No further nausea. He tolerated a clear liquid breakfast. Obtain KUB for completeness. Abdominal exam is benign. Suspect gastroenteritis. HTN- SBP goal 140 or less. Continue home antihypertensives. Hypomagnesemia-magnesium level 1.7. Magnesium sulfate 2 g IV x 1. DVT prophylaxis:SCD's Code Status:Full code Plan of care discussed with patient. All questions answered. Patient verbalizes understanding is agreeable to plan of care. This dictation was performed using voice recognition software and may include grammatical and/or spelling errors. Problem List/Past Medical History Ongoing Back pain CAD IN [place] ARTERY Coronary artery disease involving nenana coronary artery Depression ED (erectile dysfunction) Elevated PSA, between 10 and less than 20 ng/ml Fatigue Hypercholesteremia Hypertension Moderate obstructive sleep apnea Prostate cancer Rheumatoid arthritis SOB (shortness of breath) Historical Chest pain in adult Claudication Hypertension Procedure/Surgical History Cardiac catheterization: 09/12/20 Cardiac catheterization, left heart: 05/15/18 PCI - Percutaneous coronary intervention: 05/15/18 Colonoscopy Medications Home Medications (13) Active amLODIPine 2.5 mg oral tablet 2.5 mg = 1 tab(s), Oral, qDay finasteride 5 mg oral tablet 5 mg = 1 tab(s), Oral, qDay lisinopril 20 mg oral tablet 20 mg = 1 tab(s), Oral, Daily Misc Medication See Instructions Ocuvite PreserVision oral tablet 1 tab(s), Oral, Daily Prevagen 50 mcg (2000 intl units) oral capsule 50 mcg = 1 cap(s), Oral, qDay rosuvastatin 10 mg oral tablet See Instructions Tylenol PM Extra Strength oral tablet 1 tab(s), Oral, qHS Unisom 25mg oral tablet 25 mg = 1 tab(s), Oral, qHS venlafaxine 75 mg oral capsule, extended release 75 mg = 1 cap(s), Oral, qDay Vitamin B Complex oral capsule , Oral, qDay Vitamin D3 1250 mcg (50,000 intl units) oral capsule 1,250 mcg = 1 cap(s), Oral, qWeek Zetia 10 mg oral tablet 10 mg = 1 tab(s), Oral, qDay Allergies Sulfacetamide Sodium isosorbide sulfa drug Social History Smoking Status - 10/15/2014 Never smoker Alcohol Use: Past. Stopped at age: 39 Years., 10/02/2018 Employment/School Status: Retired., 10/02/2018 Home/Environment Living situation: Home/Independent. Self Primary Aquatics Specialist:., 10/02/2018 Nutrition/Health Type of diet: Well-balanced. Caffeine intake amount: Carbonated beverages 2 servings daily., 10/03/2020 Substance Abuse Use: Never., 10/02/2018 Tobacco Tobacco Use: Former smoker, quit more than 30 days ago. Stopped at age: 54 Years., 10/02/2018 Family History Cancer: Father. Suicide: Brother. Immunizations pneumococcal 13-valent conjugate vaccine: 0 unknown unit (12/14/15) pneumococcal 23-valent vaccine(Pneumovax: 0 unknown unit (10/14/13) SARS-CoV-2 (COVID-19) mRNA-1273 vaccine: 0.25 unknown unit (12/14/20) SARS-CoV-2 (COVID-19) mRNA-1273 vaccine: 100 mcg (04/25/20) SARS-CoV-2 (COVID-19) mRNA-1273 vaccine: 0 unknown unit (03/28/20) zoster vaccine live: 0 unknown unit (02/18/13) zoster vaccine live: 0 unknown unit (10/07/12) Code Status Code Status - Ordered -- 02/08/23 0:35:00 EST, Full Code, Constant Order Digitally Signed by KATHY GUTIÉRREZ on 02/08/2023 11:58 AM [facility]12-22-2023 SARS-CoV-2 (COVID-19) RNA KARI+probe Ql (Nph)Negative *NA* (02/08/23 12:38 AM)AO Auto Urine [id number] Note ORIGINAL EXAMINATION: CT OF THE HEAD WITHOUT CONTRAST 02/07/2023 11:06 pm TECHNIQUE: CT of the head was performed without the administration of intravenous contrast. Automated exposure control, iterative reconstruction, and/or weight based adjustment of the mA/kV was utilized to reduce the radiation dose to as low as reasonably achievable. COMPARISON: None. HISTORY: ORDERING SYSTEM PROVIDED HISTORY: Reason for Exam: syncopal episode FINDINGS: BRAIN/VENTRICLES: There is no acute intracranial hemorrhage, mass effect or midline shift. No abnormal extra-axial fluid collection. Mild periventricular hypodensities are seen as well as basal gangliar calcifications on the basis of chronic microangiopathic ischemic change. The alves-white differentiation is maintained without evidence of an acute infarct. There is no evidence of hydrocephalus. ORBITS: The visualized portion of the orbits demonstrate no acute abnormality. SINUSES: The visualized paranasal sinuses and mastoid air cells demonstrate no acute abnormality. SOFT TISSUES/SKULL: No acute abnormality of the visualized skull or soft tissues. IMPRESSION: No acute intracranial abnormality. Mild chronic microangiopathic ischemic change. Interpreted by: See Davey MD Preliminary Report By: See Davey MD Electronically signed By See Davey MD Dictated Date: 02/07/2023 11:18:07 PM Prelim Date: 02/07/2023 11:22:12 PM Sign Date: 02/07/2023 11:22:12 PM Ordering Provider: [facility]12-21-2023 Note ORIGINAL EXAMINATION: ONE XRAY VIEW OF THE CHEST 02/07/2023 10:48 pm COMPARISON: 07/26/2021 HISTORY: ORDERING SYSTEM PROVIDED HISTORY: Reason for Exam: syncopal episode FINDINGS: Again noted moderate elevation of left hemidiaphragm. There is no consolidation or pleural effusion. There is mild enlargement of the cardiomediastinal silhouette. There is no pulmonary vascular congestion. There is no pneumothorax. Visualized osseous structures demonstrate mild degenerative changes. IMPRESSION: 1. There is no consolidation or pleural effusion. Again noted moderate elevation of left hemidiaphragm. Interpreted by: Mamadou Spencer Preliminary Report By: Mamadou Spencer Electronically signed By Mamadou Spencer Dictated Date: 02/07/2023 10:57:16 PM Prelim Date: 02/07/2023 10:59:58 PM Sign Date: 02/07/2023 10:59:58 PM [facility]ing [facility] Note Sinus rhythm Abnormal R-wave progression, early transition Nonspecific T abnrm, anterolateral leads Compared to ECG at 05/15/2018 20:21:01 Electronic Signature: DELFINO REYNOLDS MD 02/07/[facility]23 [facility] Note ORIGINAL NM MYOCARDIAL SPECT STRESS/REST CLINICAL STATEMENT: SOB TECHNIQUE: Lexiscan dose:0.4 mg Radiopharmaceutical (stress): Tc-99m Sestamibi Dose:32.9 mCi Radiopharmaceutical (rest): Tc-99m Sestamibi Dose:10.5 mCi SPECT acquisition and processing Reconstruction and reorientation of SPECT images into short axis, vertical and horizontal long axisplanes Quantitative LVEF assessment COMPARISON:May 2020 REPORT:Overall, image quality is good. Rotating planar images show no significant patient motion. SPECT perfusion images during rest and stress show homogenous radiotracer uptake. No defects to suggest ischemia or infarction. GATED SPECT images show normal LV size and function. LVEF calculated at 51%. IMPRESSION: 1. No evidence for ischemia. 2. No evidence of infarction. 3. Normal LV size and low-normal systolic function. 4. Compared to previous study, ejection fraction has decreased from 62% to now 51%. Interpreted By: Ferdinand Sena Preliminary Report By: Ferdinand Sena Electronically Signed By: Ferdinand Sena Dictated Date: 09/19/2022 5:07:44 PM Prelim Date: 09/19/2022 5:07:44 PM Sign Date: 09/19/2022 5:12:37 PM Ordering Provider[facility] Evaluation + Plan noteExtracted from: Title:Clinical Document Author:SAVITA OLIVIER Date:06/26/21 [facility] ADMISSION HISTORY AN D PHYSICIAL CHIEF COMPLAINT: HISTORY OF PRESENT ILLNESS: REVIEW OF SYSTEMS: ACTIVE PROBLEMS: (13) Back pain (372485931) CAD IN PAIUTE-SHOSHONE ARTERY (9116833577) Chest pain in adult (51209218) Claudication (446947250) Coronary artery disease involving nenana coronary artery (3210468808) Depression (920845742) ED (erectile dysfunction) (460302187) Elevated PSA, between 10 and less than 20 ng/ml (2629040603) Fatigue (119253923) Hypercholesteremia ([id number]) Hypertension (3999999650) Moderate obstructive sleep apnea (497589640) SOB (shortness of breath) (616476752) MEDICATIONS: Active Inpt Meds: None Active PRN Meds: None One Time Meds: None Active IV Meds: Lactated Ringers Infusion 1,000 mL (LR 1,000 mL) Start: 06/26/21 8:02:00 EDT, Rate: 50 mL/hr, 06/26/21 8:02:00 EDT ALLERGIES: (4) isosorbide Statins sulfa drug Sulfacetamide Sodium FAMILY HISTORY: SOCIAL HISTORY: PHYSICAL EXAM: VITALS: MoyxegSqswKJFlakaXGSmQ9WVZ9WyhjIc(kg) 06/26 07:3736.5127/59612234MG16/09 75.0 24 Hr Tmax: 36.5 at 06/26 07:37 36 Hr Tmax: 36.5 at 06/26 07:37 Vital Signs are the last 5 in the past 48 hours. Weights display the last 5 within 7 days. Initial Wt: 06/26 75.0 kg 165 lb Current Wt: 06/26 75.0 kg 165 lb GENERAL: HEENT: CARDIOVASCULAR: RESPIRATORY: ABDOMEN: EXREMETIES: NEUROLOGICAL: PSYCHIATRIC: LABS: No 36hr Lab Data DIAGNOSTICS: IMPRESSION: PLAN: History and Physical Update I have examined the patient; reviewed the H&P and there are no changes to the H&P unless noted below. Future Appointments Appointment Date:10/02/2021 01:50:00 PM Scheduled Provider:ARMIDA BUENO DO Location:[facility] Appointment Type: OV Future Scheduled Tests Laboratory* Lipid Profile 04/05/21 * Lipid Profile 10/01/21 * Complete Metabolic Panel 04/05/21 * Complete Metabolic Panel 10/01/21 Radiology* XR Wrist Minimum 3 Views Left 04/12/21 * XR Wrist Minimum 3 Views Right 04/12/21 [facility] 05-09-2022 Hospital Discharge instructions Patient Education 06/26/2021 09:47:53 Colonoscopy, Adult, Care After, Ydez-xi-Ctem Colonoscopy, Adult, Care After This sheet gives you information about how to care for yourself after your procedure. Your doctor may also give you more specific instructions. If you have problems or questions, call your doctor. What can I expect after the procedure? After the procedure, it is common to have: A small amount of blood in your poop for 24 hours. Some gas. Mild cramping or bloating in your belly. Follow these instructions at home: General instructions For the first 24 hours after the procedure: ?Do not drive or use machinery. ?Do not sign important documents. ?Do not drink alcohol. ?Do your daily activities more slowly than normal. ?Eat foods that are soft and easy to digest. Take phij-jun-lznqiom or prescription medicines only as told by your doctor. To help cramping and bloating: Try walking around. Put heat on your belly (abdomen) as told by your doctor. Use a heat source that your doctor recommends, such as a moist heat pack or a heating pad. ?Put a towel between your skin and the heat source. ?Leave the heat on for 20 30 minutes. ?Remove the heat if your skin turns bright red. This is especially important if you cannot feel pain, heat, or cold. You can get burned. Eating and drinking Drink enough fluid to keep your pee (urine) clear or pale yellow. Return to your normal diet as told by your doctor. Avoid heavy or fried foods that are hard to digest. Avoid drinking alcohol for as long as told by your doctor. Contact a doctor if: You have blood in your poop (stool) 2 3 days after the procedure. Get help right away if: You have more than a small amount of blood in your poop. You see large clumps of tissue (blood clots) in your poop. Your belly is swollen. You feel sick to your stomach (nauseous). You throw up (vomit). You have a fever. You have belly pain that gets worse, and medicine does not help your pain. Summary After the procedure, it is common to have a small amount of blood in your poop. You may also have mild cramping and bloating in your belly. For the first 24 hours after the procedure, do not drive or use machinery, do not sign important documents, and do not drink alcohol. Get help right away if you have a lot of blood in your poop, feel sick to your stomach, have a fever, or have more belly pain. This information is not intended to replace advice given to you by your health care provider. Make sure you discuss any questions you have with your health care provider. Document Released: 03/09/2011 Document Revised: 12/05/2017 Document Reviewed: 10/29/2016 [employer] Follow Up Care 05/31/2021 13:06:22 With:SAVITA OLIVIER MD Address: [address] [place] [phone] When: Unknown Comments:Follow-up as needed [facility] Evaluation + Plan note Future Appointments Appointment Date:03/08/2021 10:30:00 AM Scheduled Provider:ARMIDA BUENO DO Location:[facility] Appointment Type: OV Appointment Date:03/30/2021 09:00:00 AM Scheduled Provider: Location:[facility] Appointment Type: Nurse Lab Appointment Date:04/03/2021 01:20:00 PM Scheduled Provider:ARMIDA BUENO DO Location:[facility] Appointment Type:PC Wellness Medicare Future Scheduled Tests Laboratory* Lipid Profile 10/02/20 * Lipid Profile 04/05/21 * Complete Metabolic Panel 10/02/20 * Complete Metabolic Panel 04/05/21 [facility] Evaluation + Plan note Future Appointments Appointment Date:03/30/2021 09:00:00 AM Scheduled Provider: Location:[facility] Appointment Type: Nurse Lab Appointment Date:04/03/2021 01:20:00 PM Scheduled Provider:ARMIDA BUENO DO Location:[facility] Appointment Type:PC Wellness Medicare Diagnostic Tests Pending * Rheumatoid Factor 03/03/21 * Antinuclear Antibody Screen, Serum 1/14/22 Future Scheduled Tests Laboratory* Lipid Profile 10/02/20 * Lipid Profile 04/05/21 * Complete Metabolic Panel 10/02/20 * Complete Metabolic Panel 04/05/21 [facility] Evaluation + Plan note Future Appointments Appointment Date:10/02/2021 01:20:00 PM Scheduled Provider:ARMIDA BUENO DO Location:[facility] Appointment Type:PC OV Future Scheduled Tests Laboratory* Lipid Profile 04/05/21 * Lipid Profile 10/01/21 * Complete Metabolic Panel 04/05/21 * Complete Metabolic Panel 10/01/21 Radiology* XR Wrist Minimum 3 Views Left 04/12/21 * XR Wrist Minimum 3 Views Right 04/12/21 [facility] Evaluation + Plan note Future Appointments Appointment Date:10/02/2021 01:50:00 PM Scheduled Provider:ARMIDA BUENO DO Location:[facility] Appointment Type:PC OV Future Scheduled Tests Laboratory* Lipid Profile 04/05/21 * Complete Metabolic Panel 04/05/21 Radiology* XR Wrist Minimum 3 Views Left 04/12/21 * XR Wrist Minimum 3 Views Right 04/12/21 [facility] Lyksaluation + Plan note Future Appointments Appointment Date:04/02/2022 01:20:00 PM Scheduled Provider:ARMIDA BUENO DO Location:[facility] Appointment Type:PC OV Appointment Date:09/03/2022 01:00:00 PM Scheduled Provider:PAULINA CALLAHAN Location:[facility] Appointment Type:CV OV Future Scheduled Tests Laboratory* Lipid Profile 04/05/21 * Complete Metabolic Panel 04/05/21 Radiology* XR Wrist Minimum 3 Views Left 04/12/21 * XR Wrist Minimum 3 Views Right 04/12/21 [facility] Evaluation + Plan note Future Appointments Appointment Date:09/26/2022 09:00:00 AM Scheduled Provider: Location:[facility] Appointment Type:PC Nurse Lab Appointment Date:10/01/2022 01:20:00 PM Scheduled Provider:ARMIDA BUENO DO Location:[facility] Appointment Type:PC OV Appointment Date:10/08/2022 01:00:00 PM Scheduled Provider:PAULINA CALLAHAN Location:[facility] Appointment Type:CV OV Future Scheduled Tests Laboratory* Lipid Profile 10/01/22 * Microalbumin Level Urine 04/02/22 * Complete Metabolic Panel 10/01/22 [facility] Evaluation + Plan note Future Appointments Appointment Date:09/24/2023 02:30:00 PM Scheduled Provider:PAULINA CALLAHAN Location:[facility] Appointment Type: OV [facility] Lyksaluation + Plan note Future Appointments Appointment Date:09/02/2024 02:30:00 PM Scheduled Provider:PAULINA CALLAHAN Location:[facility] Appointment Type:CV OV Appointment Date:10/15/2024 02:00:00 PM Scheduled Provider:ARMIDA BUENO DO Location:[facility] Appointment Type:PC Wellness Medicare [facility] Lyksaluation + Plan note Future Appointments Appointment Date:10/23/2024 11:00:00 AM Scheduled Provider:ARMIDA BUENO DO Location:[facility] Appointment Type:PC Wellness Medicare Appointment Date:03/11/2025 02:00:00 PM Scheduled Provider:PAULINA CALLAHAN Location:[facility] Appointment Type:CV OV [facility] Evaluation + Plan note Future Appointments Appointment Date:10/09/2024 01:00:00 PM Scheduled Provider:ARMIDA BUENO DO Location:[facility] Appointment Type:PC OV ED Follow Up Appointment Date:10/23/2024 11:00:00 AM Scheduled Provider:ARMIDA BUENO DO Location:[facility] Appointment Type:PC Wellness Medicare Appointment Date:03/11/2025 02:00:00 PM Scheduled Provider:PAULINA CALLAHAN Location:[facility] Appointment Type:CV OV [facility] Evaluation noteNo assessment information available [place] Work Phone: Evaluation note* Diagnosis Coronary artery disease involving nenana coronary artery without angina pectoris, unspecified whether nenana or transplanted heart- Primary documented in this encounter [facility] note* Diagnosis Encounter for medical examination to establish care- Primary Coronary artery disease involving nenana coronary artery of nenana heart without angina pectoris SOB (shortness of breath) Shortness of breath Personal history of fall Hypertensive kidney disease, benign Benign hypertensive kidney disease with chronic kidney disease stage I through stage IV, or unspecified Pure hypercholesterolemia Adjustment disorder with depressed mood Benign prostatic hyperplasia without lower urinary tract symptoms documented in this encounter [facility] course Narrative No data available for this section [facility] Hospital Discharge instructions No data available for this section [facility] Progress note No data available for this section [facility] Reason for referral (narrative)* Outpatient Procedure (Routine) - Authorized Specialty Diagnoses / Procedures Referred By Gallo newton Referred To Contact [facility] Diagnoses Coronary artery disease involving nenana coronary artery without angina pectoris, unspecified whether nenana or transplanted heart Procedures ECG COMPLETE ECG ROUTINE ECG W/LEAST 12 LDS W/I&R Juan Manuel MD [address] [place] [address] [place] [id number] [place] [id number] Referral ID Status Reason Start Date Expiration Date Visits Requested Visits Authorized [id number] Authorized Auto-Generat ed Referral 09/18/2023 09/17/2024 1 1 [facility] for referral (narrative)* Outpatient Procedure (Routine) - New Request Specialty Diagnoses / Procedures Referred By Contjaelyn newton Referred To Contact [facility] Diagnoses SOB (shortness of breath) Procedures ECG COMPLETE ECG ROUTINE ECG W/LEAST 12 LDS W/I&R Brittni Luu MD [address] [place] [address] [facility] [place] [address] [place] [address] Referral ID Status Reason Start Date Expiration Date Visits Requested Visits Authorized [id number] New Request Auto-Generat ed Referral 09/30/2023 09/29/2024 1 1 * Consult, Test, Treat (Routine) - Authorized Specialty Diagnoses / Procedures Referred By Contac t Referred To Contact Cardiology Diagnoses Coronary artery disease involving nenana coronary artery of nenana heart without angina pectoris Procedures CONSULT TO CARDIOLOGY OFFICE/OUTPATIENT [facility] 60 MINUTES Brittni Luu MD [address] [place] [address] Referral ID Status Reason Start Date Expiration Date Visits Requested Visits Authorized [id number] Authorized PCP Requested Referral 09/30/2023 09/29/2024 1 1 [facility]No reason for referral information availableWAvita [facility] Work Phone: [place] note* UVALDO Moore: PERFORM Event Display: Patient Summary Documents Authored Date: [facility] Summary Purpose Family History No Family History Records Found Relationship Condition Age at Onset Recorded Date/T garrett father Malignant neoplasm Unknown brother Suicide Unknown Advance Directives No Advanced Directives Records Found Advance Directive Response Recorded Date/ Time Do you have a Healthcare Power of Qc Analyst? Yes October 21, 2024 4:42pm Chief Complaint and Reason for Visit Chief Complaint NEED LAB ORDER FOR Isabella FIGUEROA Chief Complaint NEED ORDER Chief Complaint Admit Date TURP October 26, 2024 11:57am TURP October 27, 2024 5:03pm TURP October 28, 2024 9:25am Reason for Visit Admit Date Essential hypertension October 26 11:57am Additional Source Comments Source Comments (unrecognize d section and content) In the event this informatio n is protected by the Federal Confidentiality of Alcohol and Drug Abuse Patient Records regulations: The Federal rules restrict any use of the information to criminally investigate or prosecute any alcohol or drug abuse patient.[facility] the event this information is protected by the Federal Confidentiality of Alcohol and Drug Abuse Patient Records regulations: The Federal rules restrict any use of the information to criminally investigate or prosecute any alcohol or drug abuse patient.[facility] Hospital[facility] the event this information is protected by the Federal Confidentiality of Alcohol and Drug Abuse Patient Records regulations: The Federal rules restrict any use of the information to criminally investigate or prosecute any alcohol or drug abuse patient.[facility] Hospital[facility] the event this information is protected by the Federal Confidentiality of Alcohol and Drug Abuse Patient Records regulations: The Federal rules restrict any use of the information to criminally investigate or prosecute any alcohol or drug abuse patient.[facility] Hospital[facility] the event this information is protected by the Federal Confidentiality of Alcohol and Drug Abuse Patient Records regulations: The Federal rules restrict any use of the information to criminally investigate or prosecute any alcohol or drug abuse patient.[facility] Care Teams (unrecognized sec tion and content) Alternative Medicine Practitioner Relationship Specialty Start Date End Date Lino Tanvir Eleazar PCP - General 08/31/03 Team Status: Active Member Role Status Dates Dr. Tanvir Huynh MD Family Provider Active Dr. Armida Bueno DO Primary Care Provider Active Team Status: Inactive Member Role Status Dates Dr. Armida Bueno DO Primary Care Provider Active Dr. Andrew Figueroa MD Attending Provider, Referr ing Provider Active Alternative Medicine Practitioner Relationship Specialty Start Date End Date Tanvir Huynh PCP - General 08/31/03 Alternative Medicine Practitioner Relationship Specialty Start Date End Date Tanvir Huynh Eleazar PCP - General 08/31/03 Alternative Medicine Practitioner Relationship Specialty Start Date End Date Tanvir Huynh PCP - General 08/31/03 Alternative Medicine Practitioner Relationship Specialty Start Date End Date Brittni Luu MD [address] [place] [address] PCP - General Family Medicine 09/30/23 Team Status: Inactive Member Role Status Dates Dr. Armida Bueno DO Primary Care Provider Active Start: April 20, 2024 End: April 20, 2024 Dr. Andrew Figueroa MD Attending Provider Active Start: April 20, 2024 End: April 20, 2024 Dr. Andrew Figueroa MD Referring Provider Active Start: April 20, 2024 End: April 20, 2024 Team Status: Active Member Role/Relationship Status Dates Dr. Tanvir Huynh MD Family Provider Active Dr. Armida Bueno DO Primary Care Provider Active Team Status: Inactive Member Role/Relationship Status Dates Dr. Armida Bueno DO Primary Care Provider Active Start: October 05, 2024 End: October 05, 2024 Cheri [place] Attending Provider Active Start : October 05, 2024 End: October 05, 2024 Cheri [place] Referring Provider Active Start : October 05, 2024 End: October 05, 2024 Team Status: Active Member Role/Relationship Status Dates Dr. Armida Bueno DO Primary Care Provider Active Team Status: Inactive Member Role/Relationship Status Dates Dr. Armida Bueno DO Primary Care Provider Active Start: October 26, 2024 End: October 28, 2024 Dr. Andrew Figueroa MD Admit Provider Active Start: October 26, 2024 End: October 28, 2024 Dr. Andrew Figueroa MD Attending Provider Active Start: October 26, 2024 End: October 28, 2024 Dr. Andrew Figueroa MD Referring Provider Active Start: October 26, 2024 End: October 28, 2024 Dr. Oscar Grimm MD Other Provider Active Start: October 26, 2024 End: October 28, 2024 Jp Abbott MD Other Provider Active Start: 2024 End: October 28, 2024 Dr. Rylan Loyola MD Other Provider Active Start: October 26, 2024 End: October 28, 2024 Lyndsey Mares MD Other Provider Active Start : October 26, 2024 End: October 28, 2024 Dr. Lalita Castillo DO Other Provider Active St art: October 26, 2024 End: October 28, 2024 Dr. Oriana Heredia MD Other Provider Active Start: October 26, 2024 End: October 28, 2024 Dr. Darius Jimenez MD Other Provider Active Sta rt: October 26, 2024 End: October 28, 2024 Dr. Jessy Ching MD Other Provider Active Start : October 26, 2024 End: October 28, 2024 Dr. Jake Rendon MD Other Provider Active Start: October 26, 2024 End: October 28, 2024 Dr. Tanvir Cowart MD Other Provider Active Start : October 26, 2024 End: October 28, 2024 Dr. Bao Carl MD Other Provider Active Sta rt: October 26, 2024 End: October 28, 2024 Dr. Taisha Weber DO Other Provider Active St art: October 26, 2024 End: October 28, 2024 Birgit Hernandes MD Other Provider Active Start : October 26, 2024 End: October 28, 2024 Dr. Christian German MD Other Provider Active St art: October 26, 2024 End: October 28, 2024 Dr. Brandi Montenegro MD Other Provider Active Start : October 26, 2024 End: October 28, 2024 Dr. Justyn Burdick MD Other Provider Active Sta rt: October 26, 2024 End: October 28, 2024 Dr. Rj Campos MD Other Provider Active Start: October 26, 2024 End: October 28, 2024 Dr. Raulito Tatum MD Other Provider Active St art: October 26, 2024 End: October 28, 2024 Dr. Iris Vargas MD Other Provider Active Star t: October 26, 2024 End: October 28, 2024 Dr. Oskar Hernandez MD Other Provider Active St art: October 26, 2024 End: October 28, 2024 Dr. Beth Gonzalez MD Other Provider Active Start: October 26, 2024 End: October 28, 2024 Leticia Cervantes MD Other Provider Active Start: October 26, 2024 End: October 28, 2024 Team Status: Active Member Role/Relationship Status Dates Dr. Armida Bueno DO Primary Care Provider Active Start: October 27, 2024 Dr. Andrew Figueroa MD Admit Provider Active Start: October 27, 2024 Dr. Andrew Figueroa MD Referring Provider Active Start: October 27, 2024 Dr. Andrew Figueroa MD Other Provider Active Start: October 27, 2024 Dr. Oscar Grimm MD Attending Provider Active Start: October 27, 2024 Dr. Oscar Grimm MD Other Provider Active Start: October 27, 2024 Team Status: Active Member Role/Relationship Status Dates Dr. Armida Bueno DO Primary Care Provider Active Start: October 28, 2024 Dr. Waldo Peña MD Attending Provider Active S tart: October 28, 2024 Team Status: Active Member Role/Relationship Status Dates Dr. Armida Bueno DO Primary Care Provider Active Start: October 28, 2024 Dr. Andrew Figueroa MD Admit Provider Active Start: October 28, 2024 Dr. Andrew Figueroa MD Referring Provider Active Start: October 28, 2024 Dr. Andrew Figueroa MD Other Provider Active Start: October 28, 2024 Dr. Oscar Grimm MD Attending Provider Active Start: October 28, 2024 Dr. Oscar Grimm MD Other Provider Active Start: October 28, 2024 Jp Abbott MD Other Provider Active Start: 2024 Dr. Rylan Loyola MD Other Provider Active Start: October 28, 2024 Lyndsey Mares MD Other Provider Active Start : October 28, 2024 Dr. Lalita Castillo DO Other Provider Active St art: October 28, 2024 Dr. Oriana Heredia MD Other Provider Active Start: October 28, 2024 Dr. Darius Jimenez MD Other Provider Active Sta rt: October 28, 2024 Dr. Jessy Ching MD Other Provider Active Start : October 28, 2024 Dr. Jake Rendon MD Other Provider Active Start: October 28, 2024 Dr. Tanvir Cowart MD Other Provider Active Start : October 28, 2024 Dr. Bao Carl MD Other Provider Active Sta rt: October 28, 2024 Dr. Taisha Weber DO Other Provider Active St art: October 28, 2024 Birgit Hernandes MD Other Provider Active Start : October 28, [address] Dr. Christian German MD Other Provider Active St art: October 28, 2024 Dr. Brandi Montenegro MD Other Provider Active Start : October 28, 2024 Dr. Justyn Burdick MD Other Provider Active Sta rt: October 28, 2024 Dr. Rj Campos MD Other Provider Active Start: October 28, 2024 Dr. Raulito Tatum MD Other Provider Active St art: October 28, 2024 Dr. Iris Vargas MD Other Provider Active Star t: October 28, 2024 Dr. Oskar Hernandez MD Other Provider Active St art: October 28, 2024 Dr. Beth Gonzalez MD Other Provider Active Start: October 28, 2024 Leticia Cervatnes MD Other Provider Active Start: October 28, 2024 (unrecognized sect ion and content) No Status Records FoundNo Status Records FoundNo Status Records FoundNo Status Records FoundNo Status Records Found INFORMATION SOURCE (unrecogn ized section and content) DATE CREATED AUTHOR 06/29/2021 [facility] ntradha Baezon DATE CREATED AUTHOR AUTHOR'S ORGANIZ ATION 09/11/2023 [facility] ([place]) DATE CREATED AUTHOR AUTHOR'S ORGANIZ ATION 01/05/2024 [facility] DATE CREATED AUTHOR AUTHOR'S ORGANIZ ATION 10/10/2024 [facility] DATE CREATED AUTHOR AUTHOR'S ORGANIZ ATION 10/31/2024 [facility] Care Team (unrecognized sect ion and content) Care Team Personnel Name: ARMIDA BUENO DO Position: P4 Physician - Primary Care Med Service: Active Provider Member Role: Primary Care Physician Address: Address: [address] [place] [address] Care Team Related Persons Name: LESLI BANGURA Care Team Personnel Name: ARMIDA BUENO DO Position: P4 Physician - Primary Care Member Role: Primary Care Physician Address: Address: [address] [place] [address] Care Team Related Persons Name: LESLI BANGURA Goals (unrecognized section and content) Goals may be documented in a n alternate section Reason for Visit (unrecogniz ed section and content) Reason Comments External Referrals/resources Reason Comments Appointment CALLED PT TO SCHEDUL E CARDIOLOGY APPTNO ANSWER, LEFT VM Reason Comments Establish Care FOR RECORDS PERTAINING TO PATIENTS WHO ARE OR HAVE BEEN ENROLLED IN A CHEMICAL DEPENDENCY/SUBSTANCEABUSE PROGRAM, SOME INFORMATION MAY BE OMITTED. This clinical summary was aggregated from multiple sources. Caution should be exercised in using it in the provision of clinical care. This summary normalizes information from multiple sources, and as a consequence, information in this document may materially change the coding, format and clinical context of patient data. In addition, data may be omitted in some cases. CLINICAL DECISIONS SHOULD BE BASED ON THE PRIMARY CLINICAL RECORDS. [employer] provides no warranty or guarantee of the accuracy or completeness of information in this document.
[2024-11-01 01:26] LABS: Prothrombin Time (Protime)PT. 14.4 SECONDS (11.7-14.9)
[2024-11-01 01:27] LABS: Partial Thromboplast Time 32.6 Seconds (24.1-36.2)
[2024-11-01 01:30] VITALS: BP 121/69; PULSE 84; RESP 16; O2SAT 96
[2024-11-01 02:00] VITALS: BP 131/68; PULSE 88; RESP 16; TEMP 36.7; O2SAT 96
[2024-11-01 02:00] LABS: Mucous, Urine 0 SEEN /hpf (<or=2+); Squamous Epithelial Cells - UA 0 SEEN /hpf (0-5)
[2024-11-01 02:02] LABS: Color, Urine Red (Yellow); Glucose, Dipstick Normal (Normal); Ketone-Dipstick Negative (Negative); Leukocyte Esterase-Dipstick 500 /ul (Negative); Nitrite-Dipstick Negative (Negative); Occult Blood-Urine 250 /ul (Negative); Protein-Dipstick 100 mg/dl (Negative); Specific Gravity, Urine 1.010 (1.002-1.030); Urine Bilirubin Dipstick Negative (Negative)
[2024-11-01 02:09] LABS: Red Blood Cells-Urine 25-50 SEEN /hpf (0-5)
[2024-11-01 02:42] VITALS: BP 122/96; PULSE 85; RESP 22; TEMP -8.8; TEMP 16; O2SAT 97
--- NOTE | 2024-11-01 03:17 | NURSING ---
Pablo Delaney called and notified pt is on his way back. Kevyn replaced and started on abx.
== END 2024-11-01 03:13 | disposition home or self-care (01) ==
PROVIDERS: Emergency Provider Student in an Organized Health Care Education/Training Program; PCP Hospitalist; Visit Provider Student in an Organized Health Care Education/Training Program
DX: N39.0 Urinary tract infection, site not specified (principal); G30.9 Alzheimer's disease, unspecified; F02.80 Dementia in other diseases classified elsewhere, unspecified severity, without behavioral disturbance, psychotic disturbance, mood disturbance, and anxiety; I25.10 Atherosclerotic heart disease of native coronary artery without angina pectoris; I10 Essential (primary) hypertension; R33.9 Retention of urine, unspecified; Z87.891 Personal history of nicotine dependence; E78.5 Hyperlipidemia, unspecified; S30.1XXA Contusion of abdominal wall, initial encounter; N40.1 Benign prostatic hyperplasia with lower urinary tract symptoms; R31.0 Gross hematuria; Z95.5 Presence of coronary angioplasty implant and graft
CPT/HCPCS: 70450; 71046; 72125; 74177; 80053; 81001; 85025; 85610; 85730; 86850; 86900; 86901; 99285; Q9967; A4216